=== PATIENT | female | born 1985 | race Caucasian/White ===

== ENCOUNTER → 2018-03-23 16:53 | Outpatient (CLI) | payer BC, SELFPAY ==
[2018-03-27 21:28] LABS: H. pylori Breath Test Negative (Negative)
== END ==
PROVIDERS: Visit Provider Family Medicine
DX: R10.13 Epigastric pain (principal)
CPT/HCPCS: 83013

== ENCOUNTER → 2019-01-18 11:26 | Outpatient (CLI) | payer BC, SELFPAY ==
--- NOTE | 2019-01-18 11:30 | XR_ITS ---
PROCEDURE: XR CHEST 2V CLINICAL HISTORY: PERSISTENT COUGH COMPARISON: ABDPELW/O CT ABD PELVIS W/O CONTRAST from 04/29/2016 CXR CHEST(2 VIEWS-NOT PORTABLE) from 01/15/2017 [facility] XR acute abdomen series from 03/31/2018 FINDINGS: The cardiomediastinal silhouette and pulmonary vascularity are within normal limits. Small focal area of increased density is present in the right lung base along the hemidiaphragm and may be due to an area of atelectasis or infiltrate. This may correspond to wedge-shaped area of increased density on the lateral view. No acute bony abnormalities. IMPRESSION: Focal density in the right lung base within the right lower lobe anteriorly may be due to an area of pneumonia. Suggest following till clear for confirmation. Dictated by: Juanjo Delarosa MD 01/18/2019 12:38 Electronically signed by Juanjo Delarosa MD in [place] 01/18/2019 12:38
== END ==
PROVIDERS: PCP Family Medicine; Visit Provider Family Medicine
DX: R05 Cough (principal)
CPT/HCPCS: 71046

== ENCOUNTER → 2019-06-19 18:16 | Outpatient (CLI) | payer BC, SELFPAY | PROVIDERS: Visit Provider Podiatrist | DX: B35.1 Tinea unguium (principal); L60.3 Nail dystrophy | CPT/HCPCS: 87102; 87206; 87220 ==

== ENCOUNTER 2019-11-15 18:29 | Emergency (ER) | payer BC, SELFPAY ==
[2019-11-15 18:30] VITALS: PULSE 109; RESP 19; TEMP 36.6; O2SAT 98; BMI 53.1
--- NOTE | 2019-11-15 18:46 | HMH.EDUTC ---
[facility] [place]: Strain of calf muscle Qualifiers: Encounter type: initial encounter Laterality: right Qualified Code(s): S86.811A - Strain of other muscle(s) and tendon(s) at lower leg level, right leg, initial encounter Disposition: Home, Self-Care Condition on Discharge: Good Instructions: Muscle Strain, DI for Calf Muscle Strain, How To Perform RICE (Rest, Ice, Compress, Elevate) Additional Instructions: *RICE, Rest the extremity, Ice 15-20 minutes 3-4 times daily, Compress- wear the abdifatah wrap as discussed as much as possible to help reduce swelling and pain, Elevate the extremity when at rest *Abdifatah wrap is for support and help control swelling, use it except in the shower. Be sure that is not to tight but not to loose either *Elevate when resting *Ibuprofen every 6-8 hours as needed for pain an inflammation. If your doctor has told you that you can take it If need something more can take Tylenol in between doses of Ibuprofen to help Heating pad/application of heat may help relax the muscle and help with the feeling of tightness You was given outpatient order for venous doppler to rule out DVT, they will call you with what time to be here and it was requested that the results be sent to you Family Doctor Dr Ward so make sure that you follow up Return if needed Straight to ER if any life threatening symptoms Immediately follow up with your family doctor for new or worsening of symptoms, or no noticeable improvement over the next 3-5 days Referrals: Taz Ward MD [Primary Care Provider] - As needed Time of Disposition: 19:01 Medical Decision Making - Malik Inquiry Pt receiving controlled substance: No Malik was queried for this patient: No Vital Signs: 11/15/19 18:30 Temperature 97.8 F Temperature Source Oral Pulse Rate [Right] 109 H Respiratory Rate 19 02 Sat by Pulse Oximetry 98 [facility] [place] - General Stated complaint: pain in right calf leg Time Seen by Provider: 11/15/19 18:50 Mode of Arrival: Ambulatory Limitations: No Limitations Description of Symptoms (Recalled from Triage Doc. by RN): C/O pain in her right calf since last . HEENT Symptoms (Recalled from RN notes): No Resp Symptoms (Recalled from RN notes): No Skin Symptoms (Recalled from RN notes): No MS Symptoms (Recalled from RN notes): Yes Functional Status (Recalled from RN notes): na - History of Present Illness Provider Complaint: Patient states that she was walking up stairs last and was walking like on her tip toes and she felt something pull in her right calf area and ever since it has felt tight and achy like States that she has been using ice on it and it has helped some but she was worried and wanted to have it checked for blood clot. Denies changes in color, denies warmth or redness - Related Data Home Medications Medication Instructions Recorded Confirmed cariprazine 1.5 mg capsule 1.5 mg PO cap 06/19/19 06/19/19 Previous Rx's Medication Instructions Recorded Albuterol Sulfate [Albuterol HFA 1 - 2 puffs IH Q4-6H PRN #1 inh 01/09/19 Inhaler] ciclopirox 0.77 % topical gel 1 applic TOPICAL ONCE 90 Days #30 g 06/19/19 Allergies Allergy/AdvReac Type Severity Reaction Status Date / Time No Known Allergies Allergy Verified 06/19/19 08:20 - Worker's Comp Is this a Worker's Comp case?: No [facility] History - Hepatitis A Screen Drug use history?: No High risk sexual behaviors?: No History of sexually transmitted infection?: No Currently employed?: No Childcare worker?: No Do you have indoor plumbing?: Yes Do you have electricity?: Yes Attestation statement:: This patient has been screened for Hepatitis A risk factors. I have reviewed the patient's past medical history: Yes Medical History: Reports:: Anxiety Denies:: Cancer, Diabetes Mellitus Type 1, Diabetes Mellitus Type 2, MRSA Other Medical History: Reports: Other Other Surgeries: Yes: Cholecystectomy, Dilat
[2019-11-15 19:12] VITALS: BP 148/102; PULSE 100; RESP 18; TEMP 36.8; O2SAT 99
== END 2019-11-15 19:13 | disposition home or self-care (01) ==
PROVIDERS: Emergency Provider Nurse Practitioner; PCP Family Medicine
DX: S86.811A Strain of other muscle(s) and tendon(s) at lower leg level, right leg, initial encounter (principal); X50.0XXA Overexertion from strenuous movement or load, initial encounter; Y92.019 Unspecified place in single-family (private) house as the place of occurrence of the external cause; F41.9 Anxiety disorder, unspecified; F17.210 Nicotine dependence, cigarettes, uncomplicated; R03.0 Elevated blood-pressure reading, without diagnosis of hypertension; E66.01 Morbid (severe) obesity due to excess calories; Z68.43 Body mass index [BMI] 50.0-59.9, adult
CPT/HCPCS: 99201

== ENCOUNTER → 2019-11-16 10:46 | Outpatient (CLI) | payer BC, SELFPAY ==
--- NOTE | 2019-11-16 10:49 | CA_ITS ---
APPROVED REPORT Bilateral Lower Extremity Venous Study for DVT. 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 Reported to Sylvia's office Conclusion No evidence of DVT or superficial thrombophlebitis in the veins scanned of the right lower extremity. Reported to Sylvia's office Electronically signed by : Juanjo Delarosa MD 11/16/2019 17:30:25
== END ==
PROVIDERS: PCP Family Medicine; Visit Provider Nurse Practitioner
DX: M79.661 Pain in right lower leg (principal)
CPT/HCPCS: 93971

== ENCOUNTER 2020-06-04 17:32 | Emergency (ER) | payer OTHER, SELFPAY ==
--- NOTE | 2020-06-04 17:47 | XR_ITS ---
PROCEDURE: XR KNEE RT 3V CLINICAL INDICATION: WC INJURY Pain COMPARISON: CR KNEE3L KNEE-3 VIEWS-LT from 06/27/2012 FINDINGS: No fracture or dislocation. No lytic or blastic change. There is normal mineralization. Osteoarthritic changes are present involving all 3 compartments moderate to severe. Other findings:Small suprapatellar effusion. IMPRESSION: Osteoarthritis. No acute fracture Dictated by: Juanjo Delarosa MD 06/04/2020 18:31 Juanjo Delarosa MD in [place] 06/04/2020 18:31
--- NOTE | 2020-06-04 17:47 | XR_ITS ---
PROCEDURE: XR TIBIA FIBULA RT 2V CLINICAL INDICATION: WC INJURY Pain COMPARISON: No exams were available for comparison FINDINGS: No fracture or dislocation. No lytic or blastic change. There is normal mineralization. Osteoarthritis at the knee Other findings:None. IMPRESSION: No acute findings. Dictated by: Juanjo Delarosa MD 06/04/2020 18:32 Juanjo Delarosa MD in [place] 06/04/2020 18:32
[2020-06-04 18:23] VITALS: BP 138/90; PULSE 88; RESP 21; TEMP 37; O2SAT 100; BMI 60.8
--- NOTE | 2020-06-04 18:44 | HMH.EDUTC ---
[facility] [place] Impression: Knee contusion Qualifiers: Encounter type: initial encounter Laterality: right Qualified Code(s): S80.01XA - Contusion of right knee, initial encounter Contusion, lower leg Qualifiers: Encounter type: initial encounter Laterality: right Qualified Code(s): S80.11XA - Contusion of right lower leg, initial encounter Disposition: Home, Self-Care Condition on Discharge: Good Instructions: Knee Sprain, DI for Knee Sprain, How to Use an Elastic Bandage-Knee Sprain, How To Perform RICE (Rest, Ice, Compress, Elevate) Additional Instructions: *weight bearing as tolerated *RICE, Rest the extremity, Ice 15-20 minutes 3-4 times daily, Compress- wear the abdifatah wrap as discussed as much as possible to help reduce swelling and pain, Elevate the extremity when at rest *Abdifatah wrap is for support and help control swelling, use it except in the shower. Be sure that is not to tight but not to loose either *Elevate when resting *Ibuprofen 600-800mg every 6-8 hours as needed for pain an inflammation. If need something more can take Tylenol in between doses of Ibuprofen to help Immediately follow up with your family doctor for new or worsening of symptoms, or no noticeable improvement over the next 3-5 days Follow up with Family Doctor if no improvement or any worsening of symptoms Return if needed Straight to ER if any life threatening symptoms Referrals: Taz Ward MD [Primary Care Provider] - As needed Time of Disposition: 18:54 Medical Decision Making - Malik Inquiry Pt receiving controlled substance: No Malik was queried for this patient: No Vital Signs: 06/04/20 18:23 Temperature 98.6 F Temperature Source Oral Pulse Rate [Right] 88 Respiratory Rate 21 Blood Pressure [Right Arm] 138/90 Blood Pressure Mean [Right Arm] 106 Blood Pressure Source [Right Arm] Automatic Cuff Blood Pressure Position [Right Arm] Sitting 02 Sat by Pulse Oximetry 100 - Radiology Data #1 Image(s): Knee Image Reviewed: Yes I have reviewed radiologist's interpretation IMPRESSION: Osteoarthritis. No acute fracture #2 Image(s): Tib/Fib Image Reviewed: Yes I have reviewed radiologist's interpretation IMPRESSION: No acute findings. [facility] [place] - General Stated complaint: AO 05/31/20 1144 a.m Time Seen by Provider: 06/04/20 18:44 Mode of Arrival: Ambulatory Source of Information: Patient Limitations: No Limitations Description of Symptoms (Recalled from Triage Doc. by RN): PT FELL WEDNESDAY AT WORK. SHE WAS WALKING AND ROLLED OFF OF THE SIDEWALK LANDING ON HER R KNEE AND CROUCH. HEENT Symptoms (Recalled from RN notes): No Resp Symptoms (Recalled from RN notes): No Skin Symptoms (Recalled from RN notes): No MS Symptoms (Recalled from RN notes): Yes (R KNEE AND CROUCH PAIN) Functional Status (Recalled from RN notes): NA - History of Present Illness Provider Complaint: Patient states that she was at work on Wednesday and was walking and her left ankle rolled after she stepped off the turf and she fell and landed on her right knee and schin area States that ever since she has been having swelling, bruising and pain when she walks States that she was worried that she may have broken something so she came in to get checked - Related Data Home Medications Medication Instructions Recorded Confirmed cariprazine 1.5 mg capsule 1.5 mg PO cap 06/19/19 06/19/19 Previous Rx's Medication Instructions Recorded Albuterol Sulfate [Albuterol HFA 1 - 2 puffs IH Q4-6H PRN #1 inh 01/09/19 Inhaler] ciclopirox 0.77 % topical gel 1 applic TOPICAL ONCE 90 Days #30 g 06/19/19 Allergies Allergy/AdvReac Type Severity Reaction Status Date / Time No Known Allergies Allergy Verified 06/04/20 18:33 - Worker's Comp Is this a Worker's Comp case?: Yes Is this an H Worker's Comp?: No Is this a [place] Worker's Comp?: No [facility] History - Hepatitis A Screen Drug use history?: No High risk sexual beh
[2020-06-04 18:58] VITALS: BP 132/85; PULSE 88; RESP 20; TEMP 36.6
== END 2020-06-04 19:00 | disposition home or self-care (01) ==
PROVIDERS: Emergency Provider Nurse Practitioner; PCP Family Medicine
DX: S80.01XA Contusion of right knee, initial encounter (principal); S80.11XA Contusion of right lower leg, initial encounter; W01.0XXA Fall on same level from slipping, tripping and stumbling without subsequent striking against object, initial encounter; Y92.69 Other specified industrial and construction area as the place of occurrence of the external cause; Y99.0 Civilian activity done for income or pay
CPT/HCPCS: 73562; 73590; 99202; G0463

== ENCOUNTER 2021-07-24 11:00 | Emergency (ER) | payer OTHER, SELFPAY ==
[2021-07-24 11:00] VITALS: BP 151/90; PULSE 101; RESP 18; TEMP 36.8; O2SAT 100; BMI 60.8
[2021-07-24 11:39] LABS: UTC Influenza A Antigen Negative (Negative); UTC Influenza B Antigen Negative (Negative)
[2021-07-24 11:42] LABS: Strep Scrn Group A (Rapid) Negative (Negative)
--- NOTE | 2021-07-24 11:57 | HMH.EDUTC ---
[facility] [place] Clinical Impression: Sore throat (viral) Disposition: Home, Self-Care Condition on Discharge: Good Instructions: Sore Throat, DI for Viral Syndrome, Fluticasone Nasal Cook Additional Instructions: *Monitor Temp, Over the counter Motrin or Tylenol as directed/as needed Tylenol every 4 hours and Motrin every 6 hours (as long as your family doctor has told you that you can take it) for fever or pain. and straight to ER if unable to lower temp less than 101.0 after medication given *Warm salt water gargles may help to soothe the throat *Throat Lozenges *Warm fluids like tea with honey may help to soothe the throat *Sleep elevated *Humidifier/Vaporizer *Flonase 2 sprays in each nostril daily but be aware that it may take 2-3 days before you notice improvement Your throat swab was sent for culture. Those results are typically sent to your primary care. Be sure to follow up in 2-3 days with your family doctor/primary care physician if no improvement so they can review those result and treat if necessary. If you don?t have a primary care doctor, I recommend you get one but in the mean time, you will have to return to a walk in clinic Follow up IMMEDIATELY for new or worsening symptoms or no Noticeable improvement over the next 48-72 hours. 911 for difficulty breathing or swallowing Referrals: Taz Ward MD [Primary Care Provider] - As needed Time of Disposition: 12:07 Medical Decision Making - Malik Inquiry Pt receiving controlled substance: No Malik was queried for this patient: No Vital Signs: 07/24/21 11:00 Temperature 98.2 F Temperature Source Oral Pulse Rate [Left Radial] 101 H Respiratory Rate 18 Blood Pressure [Right Arm] 151/90 H Blood Pressure Mean [Right Arm] 110 Blood Pressure Source [Right Arm] Automatic Cuff Blood Pressure Position [Right Arm] Sitting 02 Sat by Pulse Oximetry 100 Oxygen Delivery Method Room Air - Lab Data Lab results reviewed: Yes: I reviewed the patient's lab results. Lab Results 07/24/21 11:14: Group A Strep Rapid Negative 07/24/21 11:17: Influenza Type A Ag Negative, Influenza Type B Ag Negative Orders (Tests/Meds): ORDERS Category Date Time Status Strep Screen Confirmation Stat Micro 07/24/21 11:14 Received [facility] [place] HPI - General Stated complaint: sore throat, fever, body aches, congestion Time Seen by Provider: 07/24/21 11:57 Mode of Arrival: Ambulatory Source of Information: Patient Limitations: No Limitations Description of Symptoms (Recalled from Triage Doc. by RN): STREP/FLU SYMPTOMS, BODY ACHES, SORE THROAT, CHILLS HEENT Symptoms (Recalled from RN notes): Yes Resp Symptoms (Recalled from RN notes): No Skin Symptoms (Recalled from RN notes): No MS Symptoms (Recalled from RN notes): Yes Functional Status (Recalled from RN notes): N/A - History of Present Illness Provider Complaint: Patient state that she had gastric bypass about 3 weeks ago and has been doing well from that States that for the last couple of days she has been having sore scratchy throat body aches and chills and worried that she may have strep throat or flu so she came in wanting to get checked - Related Data Home Medications Medication Instructions Recorded Confirmed cariprazine 1.5 mg capsule 1.5 mg PO cap 06/19/19 06/19/19 Previous Rx's Medication Instructions Recorded Albuterol Sulfate [Albuterol HFA 1 - 2 puffs IH Q4-6H PRN #1 inh 01/09/19 Inhaler] ciclopirox 0.77 % topical gel 1 applic TOPICAL ONCE 90 Days #30 g 06/19/19 Allergies Allergy/AdvReac Type Severity Reaction Status Date / Time No Known Allergies Allergy Verified 06/04/20 18:33 - Worker's Comp Is this a Worker's Comp case?: No Is this an [facility] Worker's Comp?: No Is this a [place] Worker's Comp?: No [facility] History - Hepatitis A Screen Drug use history?: No High risk sexual behaviors?: No History of sexually transmitted infection?: No Currently employed?: No
[2021-07-24 12:12] VITALS: BP 151/90; PULSE 101; RESP 16; TEMP 36.8; O2SAT 100
== END 2021-07-24 12:12 | disposition home or self-care (01) ==
PROVIDERS: Emergency Provider Nurse Practitioner; PCP Family Medicine
DX: J02.9 Acute pharyngitis, unspecified (principal); R50.9 Fever, unspecified; M79.10 Myalgia, unspecified site; F41.9 Anxiety disorder, unspecified; F17.210 Nicotine dependence, cigarettes, uncomplicated; Z79.51 Long term (current) use of inhaled steroids; Z98.84 Bariatric surgery status
CPT/HCPCS: 87430; 87804; 99213; G0463

== ENCOUNTER 2021-11-15 01:30 | Emergency (ER) | payer OTHER, SELFPAY ==
[2021-11-15 01:31] VITALS: BP 189/94; PULSE 86; RESP 18; TEMP 36.7; O2SAT 98; BMI 59.3
--- NOTE | 2021-11-15 01:39 | ECG_ITS ---
APPROVED REPORT Exam: Resting ECG HR:79 bpm ECG Measurements Heart Rate 79 AXES MT 144 P 52 QRSd 81 QRS 56 QT 403 T 46 QTc 437 Conclusion SINUS RHYTHM LOW QRS VOLTAGE IN PRECORDIAL LEADS [QRS DEFLECTION < 1.0 mV IN CHEST LEADS] BORDERLINE ECG UNCONFIRMED REPORT Electronically signed by : Yong Thomason MD 11/15/2021 08:12:17
[2021-11-15 01:54] LABS: Influenza A, PCR Not Detected (NotDetected); Influenza B, PCR Not Detected (NotDetected)
[2021-11-15 02:09] LABS: Basophils # 0.1 K/mm3 (0-0.2); Basophils % 1.8 % (0.1-2.0); Eosinophils # 0.2 K/mm3 (0.0-0.4); Eosinophils % 3.8 % (0.1-12.0); Hematocrit 44.5 % (37.0-47.0); Hemoglobin 14.5 g/dL (12.2-16.2); Lymphocytes # 2.7 K/mm3 (0.7-4.5); Lymphocytes % 44.8 % (10-50); Mean Corpuscular HGB Conc 32.6 g/dL (31.8-35.4); Mean Corpuscular Hemoglobin 29.7 pg (27.0-31.2); Mean Corpuscular Volume 91.2 fl (81-99); Mean Platelet Volume 7.8 fl (7.4-10.4); Monocytes # 0.4 K/mm3 (0.1-1.0); Monocytes % 5.9 % (1.7-9.3); Neutrophils # 2.6 K/mm3 (1.8-7.8); Neutrophils % 43.7 % (37.0-80.0); Platelet Count 315 K/mm3 (142-424); Red Blood Count 4.87 M/mm3 (4.20-5.40); Red Cell Distribution Width 14.4 % (11.5-17.5)
--- NOTE | 2021-11-15 02:12 | HMH.EDARPALP ---
ED Disposition Clinical Impression: COVID-19 Cardiac arrhythmia Qualifiers: Arrhythmia type: unspecified cardiac arrhythmia Qualified Code(s): I49.9 - Cardiac arrhythmia, unspecified Disposition: Home, Self-Care Condition on Discharge: Good Instructions: DI for COVID-19 (Suspected or Confirmed ) Additional Instructions: see card and pcp for follow up Referrals: Taz Ward MD [Primary Care Provider] - - Critical Care Critical Care Time: No Attestation: On 11/15/21, the high probability of a clinically significant, sudden or life threatening deterioration of the following system(s) required my full and direct attention, intervention and personal management. The time I documented below is in addition to time spent performing reported procedures but includes the following listed in this critical care notation. Medical Decision Making - Medical Records Medical records reviewed: Yes: I reviewed the patient's medical records. - Malik Inquiry Pt receiving controlled substance: No Vital Signs: 11/15/21 01:31 11/15/21 02:34 Temperature 98.1 F 98.1 F Temperature Source Oral Oral Pulse Rate 81 Pulse Rate [Right] 86 Respiratory Rate 18 18 Blood Pressure 167/78 H Blood Pressure [Right Arm] 189/94 H Blood Pressure Mean [Right Arm] 125 02 Sat by Pulse Oximetry 98 - Lab Data Lab results reviewed: Yes: I reviewed the patient's lab results. Lab Results 11/15/21 01:45: SARS-CoV-2 (PCR) Detected A, Influenza A Untype (PCR) Not detected, Influenza Type B (PCR) Not detected 11/15/21 02:02: WBC 6.0, RBC 4.87, Hgb 14.5, Hct 44.5, MCV 91.2, MCH 29.7, MCHC 32.6, RDW 14.4, Plt Count 315, MPV 7.8, Neut % (Auto) 43.7, Lymph % (Auto) 44.8, [place] % (Auto) 5.9, Eos % (Auto) 3.8, Baso % (Auto) 1.8, Neut # (Auto) 2.6, Lymph # (Auto) 2.7, [place] # (Auto) 0.4, Eos # (Auto) 0.2, Baso # (Auto) 0.1 11/15/21 02:02: Sodium 139, Potassium 3.3 L, Chloride 107, Carbon Dioxide 25, Anion Gap 10.3, BUN 6 L, Creatinine 0.70, Estimated Creat Clear 110, Estimated GFR 94, Est GFR ( Amer) 113, Glucose 126 H, Calcium 9.1, Total Bilirubin < 0.1 L, AST 26, ALT 25, Alkaline Phosphatase 88, Total Protein 7.1, Albumin 3.9, Globulin 3.2, Albumin/Globulin Ratio 1.2 11/15/21 02:02: Serum HCG, Qual Negative Result diagrams: 11/15/21 02:02 11/15/21 02:02 Orders (Tests/Meds): ORDERS Category Date Time Status Chest XR 2 view (NOT portable) [XR chest 2V] Stat Exams 11/15/21 01:46 Ordered Comprehensive Metabolic Panel Stat Lab 11/15/21 02:02 Results Free T4 (Free Thyroxine) Stat Lab 11/15/21 02:02 Received Thyroid Stimulating Hormone Stat Lab 11/15/21 02:02 Results - ECG Data Tracing #1 Normal Sinus Rhythm: Yes Ischemic changes: non-specific ST-T wave changes Medical Decision Narrative: has hx od pac and slow hr and has covid-19 but stable exam and labs - will need holter and card eval Arrhythmia/Palpitations HPI - General Chief Complaint: Arrhythmia/Palpitations Stated Complaint: low heart rate,Covid + Time Seen by Provider: 11/15/21 02:12 Mode of Arrival: Ambulatory Source of Information: Patient, Medical Record Limitations: No Limitations - History of Present Illness Onset (ago): hour(s) Duration: intermittent Severity: moderate Associated symptoms: denies other symptoms - Related Data Home Medications Medication Instructions Recorded Confirmed cariprazine 1.5 mg capsule 1.5 mg PO cap 06/19/19 06/19/19 Previous Rx's Medication Instructions Recorded Albuterol Sulfate [Albuterol HFA 1 - 2 puffs IH Q4-6H PRN #1 inh 01/09/19 Inhaler] ciclopirox 0.77 % topical gel 1 applic TOPICAL ONCE 90 Days #30 g 06/19/19 Allergies Allergy/AdvReac Type Severity Reaction Status Date / Time Penicillins Allergy Verified 11/15/21 01:57 quetiapine [From Seroquel] Allergy Verified 11/15/21 01:57 [facility] History - Hepatitis A Screen Attestation statement:: This patient has been screened
[2021-11-15 02:20] LABS: HCG Qualitative, Serum Negative (Negative)
[2021-11-15 02:21] LABS: Alanine Aminotransferase 25 U/L (12-78); Albumin Level 3.9 g/dl (3.5-5.0); Albumin/Globulin Ratio 1.2 (1.1-1.8); Alkaline Phosphatase 88 U/L (38-126); Anion Gap 10.3 mEq/L (5-15); Aspartate Amino Transferase 26 U/L (14-36); Bilirubin,Total < 0.1 mg/dl (0.2-1.3); Blood Urea Nitrogen 6 mg/dl (7-17); Calcium 9.1 mg/dl (8.4-10.2); Carbon Dioxide 25 mmol/L (22.0-30.0); Chloride 107 mmol/L (98-107); Creatinine Clearance Estimated 110 mL/min (50-200); Estimated Glomerular Filt Rate 94 ml/min (>60); GFR (African American) 113 ML/MIN (>60); Globulin 3.2 g/dL (1.3-3.2); Glucose 126 mg/dl (74-100); Potassium 3.3 mmoL/L (3.5-5.1); Sodium 139 mmol/L (136-145); Total Protein,Serum 7.1 g/dl (6.3-8.2)
[2021-11-15 02:23] LABS: Coronavirus 19, PCR Detected (NotDetected)
[2021-11-15 02:34] VITALS: BP 167/78; PULSE 81; RESP 18; TEMP 36.7; O2SAT 98
[2021-11-15 02:38] LABS: Free T4 (Free Thyroxine) 1.37 ng/dl (0.78-2.19)
[2021-11-15 02:52] LABS: Thyroid Stimulating Hormone 4.36 uIU/mL (0.465-4.68)
== END 2021-11-15 02:57 | disposition home or self-care (01) ==
PROVIDERS: Emergency Provider Emergency Medicine; PCP Family Medicine
DX: U07.1 COVID-19 (principal); I49.9 Cardiac arrhythmia, unspecified
CPT/HCPCS: 80053; 84439; 84443; 84703; 85025; 93005; 99283; C9803; U0003; U0005

== ENCOUNTER → 2021-11-20 08:24 | Outpatient (CLI) | payer OTHER, SELFPAY | PROVIDERS: PCP Family Medicine; Visit Provider Internal Medicine | DX: I49.9 Cardiac arrhythmia, unspecified (principal) | CPT/HCPCS: 93225 ==

== ENCOUNTER 2021-12-15 08:05 | Emergency (ER) | payer OTHER, SELFPAY ==
[2021-12-15 08:07] VITALS: BMI 59.3
[2021-12-15 08:16] VITALS: BP 167/103; PULSE 105; RESP 20; TEMP 36.9; O2SAT 98; BMI 59.3
[2021-12-15 08:30] VITALS: BP 177/104; PULSE 83; RESP 20; O2SAT 99
[2021-12-15 08:31] LABS: Microscopic, Urine URINE MICROSCOPIC (MICROSCOPIC)
--- NOTE | 2021-12-15 08:32 | US_ITS ---
FINAL REPORT CLINICAL HISTORY: RLQ pain, nausea, acute onset. torsion v cyst; morbid obesity FINDINGS: Transvaginal sonographic images of the pelvis were obtained. The uterus measures 8.5 x 5.0 x 6.7 cm. A 3.9 cm fibroid is seen in the lower uterus. The endometrium measures 0.35, which is within normal limits. The right ovary measures 2.6 cm in length and left ovary measures 3.2 cm in length. Normal blood flow seen to the ovaries. There is a 3.2 cm left ovarian cyst. A small follicle is seen in the right ovary. There is no evidence of free fluid. IMPRESSION: 3.9 cm fibroid in the lower uterus. Reviewed, Interpreted and Dictated by Bruno Ballesteros III, MD Transcribed by Luda Zheng Authenticated and [facility]
[2021-12-15 08:33] LABS: Appearance,Urine TURBID (Clear); Bilirubin,Urine Negative (Negative); Blood, Urine 3+ (Negative); Color,Urine AMBER (Yellow); Glucose,Urine (UA) Negative (Negative); Ketones,Urine Negative (Negative); Leukocyte Esterase,Urine TRACE (Negative); Nitrate,Urine POSITIVE (Negative); PH,Urine 5.5 (5.0-8.5); Protein,Urine 2+ (Negative); Specific Gravity, Urine >= 1.030 (1.005-1.030)
[2021-12-15 08:34] LABS: Urine Pregnancy, HCG Qual. Negative (Negative)
--- NOTE | 2021-12-15 08:34 | HMH.EDGENADL ---
Discharge Plan Disposition Patient Disposition: Home, Self-Care Condition: Good Prescriptions Prescriptions: New cefadroxil 500 mg capsule 500 mg PO BID 7 Days Qty: 14 0RF ondansetron 4 mg tablet,disintegrating 4 mg PO Q6HP PRN (Reason: nausea and vomiting) 3 Days Qty: 10 0RF No Action sertraline 50 mg tablet 50 mg PO DAILY omeprazole 20 mg capsule,delayed release(DR/EC) 20 mg PO BID Label Comments: TAKE ONE CAPSULE BY MOUTH EVERY TWELVE HOURS take morning CAPSULE 30 minutes BEFORE morning meal propranolol 10 mg tablet 10 mg PO BID Qty: 60 2RF Rx Instructions: Take as directed albuterol sulfate 18 GM HFA aerosol inhaler 1 - 2 puffs inhalation Q4-6H PRN (Reason: Shortness Of Breath Or Wheezing) Qty: 1 5RF Referrals Follow up/Referrals: Taz Ward MD [Primary Care Provider] - See instructions Clinical Impressions Clinical Impression: UTI (urinary tract infection) Instructions Patient Instructions: DI for Acute Abdominal Pain Discharge ED Provider: Nick Valladares General Adult HPI General Chief complaint: Abdominal Pain Stated complaint: abdominal pain Time Seen by Provider: 12/15/21 08:20 Mode of Arrival: Ambulatory Source of Information: Patient Limitations: No Limitations Description of Symptoms (Recalled from ER Triage Doc. by RN): to ed per pvt car with c/o rlq abd pain, nausea that woke her up at 5am. pt denies any fever, chills, vomiting, diarrhea. History of Present Illness HPI narrative: This is a 36-year-old female with history of PCOS, endometriosis, cholecystectomy, gastric sleeve in June 2021 presenting with abdominal pain. Patient states that she woke up from sleep around 4 AM, approximately 4 hours prior to arrival with acute onset right lower quadrant pain. 8 out of 10, intermittently radiates to her right flank. Associated with frequency, urgency, but no dysuria and also has darkened urine. She has had associated nausea without vomiting. Denies fevers, chills, chest pain, shortness of breath, cough, trauma, overlying rash or skin changes, or any other concerning symptoms. Patient's last menstrual period was 5 days prior to arrival and ended 1 day prior to arrival. Bleeding was normal for her. Denies any other abnormal vaginal discharge or bleeding. She is also had normal bowel movements have been nonbloody, nonbilious without diarrhea or constipation. Related Data Home Medications Medication Instructions Recorded Confirmed omeprazole 20 mg capsule,delayed 20 mg PO BID 12/03/21 12/03/21 release sertraline 50 mg tablet 50 mg PO DAILY 12/03/21 12/03/21 Previous Rx's Medication Instructions Recorded albuterol sulfate 90 mcg/actuation 1 - 2 puffs inhalation Q4-6H PRN 01/09/19 aerosol inhaler Shortness Of Breath Or Wheezing #1 inh propranolol 10 mg tablet 10 mg PO BID #60 tabs 12/03/21 cefadroxil 500 mg capsule 500 mg PO BID 7 days #14 caps 12/15/21 ondansetron 4 mg disintegrating 4 mg PO Q6HP PRN nausea and 12/15/21 tablet vomiting 3 days #10 tabs Allergies Allergy/AdvReac Type Severity Reaction Status Date / Time Penicillins Allergy Verified 12/03/21 11:39 quetiapine [From Seroquel] Allergy Verified 12/03/21 11:39 PFSH PFS Medical History (Updated 12/15/21 @ 10:10 by Nick Valladares MD) Anxiety Bariatric surg stat-del HTN (hypertension) Surgical History (Updated 12/03/21 @ 11:43 by Deanna Conner) H/O bariatric surgery Family History (Updated 12/03/21 @ 11:43 by Deanna Conner) Sister Asthma Mother Heart attack Diabetes Father Diabetes Coronary artery disease Social History (Updated 12/03/21 @ 11:36 by Deanna Conner) Smoking Status: Current some day smoker tobacco type: cigarettes packs per day: 1 second hand exposure: No alcohol intake: never current occupational status: employed Travel in the last 8 weeks: Inside the [facility] housing: [facility]
[2021-12-15 08:38] LABS: Basophils # 0.1 K/mm3 (0-0.2); Eosinophils # 0.6 K/mm3 (0.0-0.4); Eosinophils % 6.5 % (0.1-12.0); Hematocrit 47.7 % (37.0-47.0); Hemoglobin 15.4 g/dL (12.2-16.2); Lymphocytes # 2.8 K/mm3 (0.7-4.5); Lymphocytes % 30.8 % (10-50); Mean Corpuscular HGB Conc 32.2 g/dL (31.8-35.4); Mean Corpuscular Hemoglobin 29.9 pg (27.0-31.2); Mean Corpuscular Volume 92.9 fl (81-99); Mean Platelet Volume 8.2 fl (7.4-10.4); Monocytes # 0.4 K/mm3 (0.1-1.0); Monocytes % 4.3 % (1.7-9.3); Neutrophils # 5.1 K/mm3 (1.8-7.8); Neutrophils % 57.3 % (37.0-80.0); Platelet Count 389 K/mm3 (142-424); Red Blood Count 5.14 M/mm3 (4.20-5.40); Red Cell Distribution Width 14.4 % (11.5-17.5); White Blood Count 8.9 K/mm3 (4.8-10.8)
--- NOTE | 2021-12-15 08:40 | ECG_ITS ---
APPROVED REPORT Exam: Resting ECG HR:84 bpm ECG Measurements Heart Rate [address] 161 P 56 QRSd 65 QRS 50 QT 352 T 32 QTc 393 Conclusion SINUS RHYTHM LOW QRS VOLTAGE IN PRECORDIAL LEADS [QRS DEFLECTION < 1.0 mV IN CHEST LEADS] SEPTAL MYOCARDIAL INFARCTION , OF INDETERMINATE AGE [40+ ms Q WAVE IN V1/V2] ABNORMAL ECG UNCONFIRMED REPORT Electronically signed by : Yong Thomason MD 12/15/2021 22:34:59
[2021-12-15 08:42] LABS: Alanine Aminotransferase 28 U/L (12-78); Albumin Level 4.2 g/dl (3.5-5.0); Albumin/Globulin Ratio 1.2 (1.1-1.8); Alkaline Phosphatase 86 U/L (38-126); Anion Gap 11.8 mEq/L (5-15); Aspartate Amino Transferase 32 U/L (14-36); Bilirubin,Total 0.3 mg/dl (0.2-1.3); Blood Urea Nitrogen 8 mg/dl (7-17); Calcium 9.2 mg/dl (8.4-10.2); Carbon Dioxide 25 mmol/L (22.0-30.0); Chloride 109 mmol/L (98-107); Creatinine Clearance Estimated 110 mL/min (50-200); Estimated Glomerular Filt Rate 94 ml/min (>60); GFR (African American) 113 ML/MIN (>60); Globulin 3.4 g/dL (1.3-3.2); Glucose 130 mg/dl (74-100); Lipase 97 U/L (23-300); Potassium 3.8 mmoL/L (3.5-5.1); Sodium 142 mmol/L (136-145); Total Protein,Serum 7.6 g/dl (6.3-8.2)
[2021-12-15 08:47] LABS: Bacteria,Urine 2+ /lpf; RBC,Urine TNTC #/hpf (0-3); Squamous Epithelial Cell,Urine Occasional #/hpf (0-5); WBC,Urine Occasional #/hpf (0-3)
--- NOTE | 2021-12-15 09:24 | PC.NURSE ---
BACK FROM US, REPORT GIVEN TO
--- NOTE | 2021-12-15 10:05 | PC.NURSE ---
MD IN WITH PT GOING OVER RESULTS
[2021-12-15 10:35] VITALS: BP 168/78; PULSE 100; RESP 16; TEMP 36.6; O2SAT 98
== END 2021-12-15 10:37 | disposition home or self-care (01) ==
PROVIDERS: Emergency Provider Emergency Medicine; PCP Family Medicine
DX: N39.0 Urinary tract infection, site not specified (principal); D25.9 Leiomyoma of uterus, unspecified
CPT/HCPCS: 76830; 80053; 81001; 81025; 83690; 85025; 87086; 93005; 96361; 96374; 96375; 99284; J2405

== ENCOUNTER 2021-12-19 17:25 | Emergency (ER) | payer OTHER, SELFPAY ==
[2021-12-19 17:27] VITALS: BP 141/79; PULSE 73; RESP 18; TEMP 36.9; O2SAT 99; BMI 59.3
[2021-12-19 18:00] VITALS: BP 137/76; PULSE 76; RESP 16; O2SAT 98
[2021-12-19 18:04] VITALS: BMI 59.3
[2021-12-19 18:30] VITALS: BP 111/78; PULSE 68; RESP 18; O2SAT 98
[2021-12-19 18:34] LABS: Basophils # 0.1 K/mm3 (0-0.2); Basophils % 1.2 % (0.1-2.0); Eosinophils # 0.6 K/mm3 (0.0-0.4); Eosinophils % 6.4 % (0.1-12.0); Hematocrit 44.5 % (37.0-47.0); Hemoglobin 14.1 g/dL (12.2-16.2); Lymphocytes # 3.2 K/mm3 (0.7-4.5); Mean Corpuscular HGB Conc 31.8 g/dL (31.8-35.4); Mean Corpuscular Hemoglobin 28.9 pg (27.0-31.2); Mean Corpuscular Volume 90.9 fl (81-99); Monocytes # 0.4 K/mm3 (0.1-1.0); Monocytes % 3.7 % (1.7-9.3); Neutrophils # 5.6 K/mm3 (1.8-7.8); Neutrophils % 56.7 % (37.0-80.0); Platelet Count 342 K/mm3 (142-424); Red Blood Count 4.89 M/mm3 (4.20-5.40); Red Cell Distribution Width 14.2 % (11.5-17.5); White Blood Count 9.9 K/mm3 (4.8-10.8)
[2021-12-19 18:36] LABS: Alanine Aminotransferase 26 U/L (12-78); Albumin Level 3.8 g/dl (3.5-5.0); Albumin/Globulin Ratio 1.2 (1.1-1.8); Alkaline Phosphatase 85 U/L (38-126); Anion Gap 14.5 mEq/L (5-15); Aspartate Amino Transferase 28 U/L (14-36); Blood Urea Nitrogen 8 mg/dl (7-17); Calcium 8.7 mg/dl (8.4-10.2); Carbon Dioxide 25 mmol/L (22.0-30.0); Chloride 103 mmol/L (98-107); Creatinine Clearance Estimated 110 mL/min (50-200); Estimated Glomerular Filt Rate 94 ml/min (>60); GFR (African American) 113 ML/MIN (>60); Globulin 3.1 g/dL (1.3-3.2); Glucose 125 mg/dl (74-100); Potassium 3.5 mmoL/L (3.5-5.1); Sodium 139 mmol/L (136-145); Total Protein,Serum 6.9 g/dl (6.3-8.2)
[2021-12-19 18:37] LABS: Bilirubin,Total 0.1 mg/dl (0.2-1.3)
--- NOTE | 2021-12-19 18:39 | CT_ITS ---
PROCEDURE INFORMATION: Exam: CT Abdomen And Pelvis Without Contrast Exam date and time: 12/19/21 07:00 PM Age: 36 years old Clinical indication: Abdominal pain; Additional info: Concern for nephrolithiasis TECHNIQUE: Imaging protocol: Computed tomography of the abdomen and pelvis without contrast. Radiation optimization: All CT scans at this facility use at least one of these dose optimization techniques: automated exposure control; mA and/or kV adjustment per patient size (includes targeted exams where dose is matched to clinical indication); or iterative reconstruction. COMPARISON: ABDPELW/O CT ABD PELVIS W/O CONTRAST 04/29/16 02:12 PM FINDINGS: Tubes, catheters and devices: None noted. Lungs: Lung bases appear clear. Heart: No significant coronary calcifications. No cardiomegaly. No significant pericardial effusion. Liver: Normal. No mass. Gallbladder and bile ducts: Cholecystectomy. No ductal dilation. Pancreas: Normal. No ductal dilation. Spleen: Normal. No splenomegaly. Adrenal glands: Normal. No mass. Kidneys and ureters: Normal. No hydronephrosis. Stomach and bowel: Gastric sleeve. No obstruction. No mucosal thickening. Appendix: No evidence of appendicitis. Intraperitoneal space: Unremarkable. No free air. No significant fluid collection. Retroperitoneal space: No significant retroperitoneal inflammatory changes are noted. Vasculature: Unremarkable. No abdominal aortic aneurysm. Lymph nodes: Unremarkable. No enlarged lymph nodes. Urinary bladder: Unremarkable as visualized. Reproductive: Unremarkable as visualized. Bones/joints: Unremarkable. No acute fracture. Soft tissues: Unremarkable. IMPRESSION: 1. No CT evidence of nephroureterolithiasis. 2. Cholecystectomy. 3. Gastric sleeve.
[2021-12-19 18:44] LABS: Lactic Acid 1.3 mmol/L (0.7-2.1)
[2021-12-19 19:00] VITALS: BP 104/74; PULSE 71; RESP 18; O2SAT 100
[2021-12-19 19:31] VITALS: BP 137/83; PULSE 68; RESP 18; O2SAT 98
--- NOTE | 2021-12-19 20:00 | PC.NURSE ---
shift change report given to kiararn
--- NOTE | 2021-12-19 20:07 | HMH.EDGENADL ---
Discharge Plan Disposition Patient Disposition: Home, Self-Care Condition: Fair Prescriptions Prescriptions: No Action sertraline 50 mg tablet 50 mg PO DAILY omeprazole 20 mg capsule,delayed release(DR/EC) 20 mg PO BID Label Comments: TAKE ONE CAPSULE BY MOUTH EVERY TWELVE HOURS take morning CAPSULE 30 minutes BEFORE morning meal propranolol 10 mg tablet 10 mg PO BID Qty: 60 2RF Rx Instructions: Take as directed albuterol sulfate 18 GM HFA aerosol inhaler 1 - 2 puffs inhalation Q4-6H PRN (Reason: Shortness Of Breath Or Wheezing) Qty: 1 5RF cefadroxil 500 mg capsule 500 mg PO BID 7 Days Qty: 14 0RF ondansetron 4 mg tablet,disintegrating 4 mg PO Q6HP PRN (Reason: nausea and vomiting) 3 Days Qty: 10 0RF Referrals Follow up/Referrals: Taz Ward MD [Primary Care Provider] - See instructions Activity Restrictions/Add. Instructions Additional Instructions/Restrictions: Please continue to take your Cipro as prescribed. Please return to the ED with any new or worsening symptoms. There is no evidence of kidney stone today on your CT. Clinical Impressions Clinical Impression: Acute cystitis Instructions Patient Instructions: DI for Acute Abdominal Pain Discharge ED Provider: Kenan Henderson General Adult HPI General Chief complaint: Abdominal Pain Stated complaint: back pain,fever,low bladder pain Time Seen by Provider: 12/19/21 18:00 Mode of Arrival: Ambulatory Source of Information: Patient Limitations: No Limitations Description of Symptoms (Recalled from ER Triage Doc. by RN): Pt reports increased lower abd pressure, fever today, feels like she has no energy. Pt reports she is only able to to dribble when urinating. Pt reports navdeep flank pain, lower back and lower abd aching. Pt was seen in ER Wednesday treated for UTI, seen by PCP on Wednesday antibiotic changed to cipro. History of Present Illness HPI narrative: Patient is a 36-year-old female with a past medical history of gastric sleeve and recent diagnosis of urinary tract infection who presents today with continued abdominal pain, malaise, right flank pain. She says that she was evaluated in the ER for pelvic pain a few days ago and was diagnosed with urinary tract infection. She continued get worse and developed flank pain so they switched her over to ciprofloxacin. She was sent back today by her PCP with concern that she may have an infected stone. She continues to complain of pain in her pelvic region in addition to right-sided flank pain. She also has subjective fevers. She says that she is not able to eat very much and feels weak as well. Denies any chest pain. She says when she goes to the bathroom she feels like she is only dribbling a little bit. Related Data Home Medications Medication Instructions Recorded Confirmed omeprazole 20 mg capsule,delayed 20 mg PO BID 12/03/21 12/03/21 release sertraline 50 mg tablet 50 mg PO DAILY 12/03/21 12/03/21 Previous Rx's Medication Instructions Recorded albuterol sulfate 90 mcg/actuation 1 - 2 puffs inhalation Q4-6H PRN 01/09/19 aerosol inhaler Shortness Of Breath Or Wheezing #1 inh propranolol 10 mg tablet 10 mg PO BID #60 tabs 12/03/21 cefadroxil 500 mg capsule 500 mg PO BID 7 days #14 caps 12/15/21 ondansetron 4 mg disintegrating 4 mg PO Q6HP PRN nausea and 12/15/21 tablet vomiting 3 days #10 tabs Allergies Allergy/AdvReac Type Severity Reaction Status Date / Time Penicillins Allergy Verified 12/03/21 11:39 quetiapine [From Seroquel] Allergy Verified 12/03/21 11:39 [facility] Medical History Anxiety Bariatric surg stat-del HTN (hypertension) Surgical History H/O bariatric surgery Family History (Updated 12/03/21 @ 11:43 by Deanna Conner) Sister Asthma Mother Heart attack Diabetes Father Adriana
[2021-12-19 20:38] VITALS: BP 137/83; PULSE 68; RESP 18; TEMP 36.9; O2SAT 98
== END 2021-12-19 20:41 | disposition home or self-care (01) ==
PROVIDERS: Emergency Provider Student in an Organized Health Care Education/Training Program; PCP Family Medicine
DX: N30.00 Acute cystitis without hematuria (principal); Z98.84 Bariatric surgery status
CPT/HCPCS: 74176; 80053; 83605; 85025; 96360; 99284

== ENCOUNTER → 2021-12-24 19:59 | Outpatient (CLI) | payer OTHER, SELFPAY | PROVIDERS: PCP Family Medicine; Visit Provider Nurse Practitioner Family | DX: R53.83 Other fatigue (principal); R40.0 Somnolence; R06.83 Snoring; G47.30 Sleep apnea, unspecified | CPT/HCPCS: G0399 ==

== ENCOUNTER 2022-01-04 13:30 | Emergency (ER) | payer OTHER, SELFPAY ==
[2022-01-04 13:55] VITALS: PULSE 85; RESP 18; TEMP 37.1; O2SAT 98; BMI 59.3
--- NOTE | 2022-01-04 14:07 | EXP.UTC ---
Discharge Plan Disposition Patient Disposition: Home, Self-Care Condition: Good Prescriptions Prescriptions: No Action sertraline 50 mg tablet 50 mg PO DAILY omeprazole 20 mg capsule,delayed release(DR/EC) 20 mg PO BID Label Comments: TAKE ONE CAPSULE BY MOUTH EVERY TWELVE HOURS take morning CAPSULE 30 minutes BEFORE morning meal propranolol 10 mg tablet 10 mg PO BID Qty: 60 2RF Rx Instructions: Take as directed albuterol sulfate 18 GM HFA aerosol inhaler 1 - 2 puffs inhalation Q4-6H PRN (Reason: Shortness Of Breath Or Wheezing) Qty: 1 5RF cefadroxil 500 mg capsule 500 mg PO BID 7 Days Qty: 14 0RF ondansetron 4 mg tablet,disintegrating 4 mg PO Q6HP PRN (Reason: nausea and vomiting) 3 Days Qty: 10 0RF Referrals Follow up/Referrals: Taz Ward MD [Primary Care Provider] - See instructions Activity Restrictions/Add. Instructions Additional Instructions/Restrictions: *Monitor Temp, Over the counter Motrin or Tylenol as directed/as needed Tylenol every 4 hours and Motrin every 6 hours (as long as your family doctor has told you that you can take it) for fever or pain. and straight to ER if unable to lower temp less than 101.0 after medication given *Warm salt water gargles may help to soothe the throat *Throat Lozenges? *Warm fluids like tea with honey may help to soothe the throat? *Sleep elevated *Humidifier/Vaporizer Follow up IMMEDIATELY for new or worsening symptoms or no Noticeable improvement over the next 48-72 hours. 911 for difficulty breathing or swallowing Clinical Impressions Clinical Impression: Bronchitis Instructions Patient Instructions: Acute Bronchitis Discharge ED Provider: Charla Richey [facility] [place] HPI General Stated complaint: cough, congestion, head congestion Time Seen by Provider: 01/04/22 14:07 History of Present Illness Provider Complaint: Patient states that she has been having sinus congestion and pressure and feels like it is trying to move into her chest and feels like it is turning into Bronchitis States that she wanted to come in and get it checked Related Data Home Medications Medication Instructions Recorded Confirmed omeprazole 20 mg capsule,delayed 20 mg PO BID 12/03/21 12/03/21 release sertraline 50 mg tablet 50 mg PO DAILY 12/03/21 12/03/21 Previous Rx's Medication Instructions Recorded albuterol sulfate 90 mcg/actuation 1 - 2 puffs inhalation Q4-6H PRN 01/09/19 aerosol inhaler Shortness Of Breath Or Wheezing #1 inh propranolol 10 mg tablet 10 mg PO BID #60 tabs 12/03/21 cefadroxil 500 mg capsule 500 mg PO BID 7 days #14 caps 12/15/21 ondansetron 4 mg disintegrating 4 mg PO Q6HP PRN nausea and 12/15/21 tablet vomiting 3 days #10 tabs Allergies Allergy/AdvReac Type Severity Reaction Status Date / Time Penicillins Allergy Verified 12/03/21 11:39 quetiapine [From Seroquel] Allergy Verified 12/03/21 11:39 PFSH PFS Medical History (Updated 01/04/22 @ 14:20 by Charla Richey APRN) Anxiety Bariatric surg stat-del History of gastroesophageal reflux (GERD) HTN (hypertension) Urinary tract infection Surgical History (Updated 01/04/22 @ 14:11 by Charleen Lockhart RN) H/O bariatric surgery History of cholecystectomy History of hernia repair Family History (Updated 12/03/21 @ 11:43 by Deanna Conner) Sister Asthma Mother Heart attack Diabetes Father Diabetes Coronary artery disease Social History (Updated 12/03/21 @ 11:36 by Deanna Conner) Smoking Status: Never smoker second hand exposure: No alcohol intake: never current occupational status: employed Travel in the last 8 weeks: Inside the [place] housing: house ROS Obtained: Yes All systems reviewed & no additional complaints except as documented and Yes Systems reviewed as appropriate & no additional complaints except as documented Constitutional Constitutional: Repo
[2022-01-04 14:17] VITALS: BP 0/0; PULSE 85; RESP 18; TEMP 37.1; O2SAT 98
== END 2022-01-04 14:25 | disposition home or self-care (01) ==
PROVIDERS: Emergency Provider Nurse Practitioner; PCP Family Medicine
DX: J40 Bronchitis, not specified as acute or chronic (principal)
CPT/HCPCS: 99212; G0463

== ENCOUNTER 2022-04-01 18:19 | Emergency (ER) | payer OTHER, SELFPAY ==
[2022-04-01 19:30] VITALS: BP 146/77; PULSE 70; RESP 20; TEMP 36.5; O2SAT 100; BMI 45.6
--- NOTE | 2022-04-01 19:45 | EXP.UTC ---
Discharge Plan Disposition Patient Disposition: Home, Self-Care Condition: Good Prescriptions Prescriptions: New mupirocin 2 % ointment 1 applic topical TID 10 Days Qty: 22 0RF Rx Instructions: apply around fingernail as directed cephalexin 500 mg capsule 500 mg PO Q8H 7 Days Qty: 21 0RF No Action omeprazole 20 mg capsule,delayed release(DR/EC) 20 mg PO BID Label Comments: TAKE ONE CAPSULE BY MOUTH EVERY TWELVE HOURS take morning CAPSULE 30 minutes BEFORE morning meal sertraline 50 mg tablet 100 mg PO DAILY propranolol 10 mg tablet 10 mg PO BID Qty: 180 3RF cyclobenzaprine 5 mg tablet 5 mg PO HS albuterol sulfate 18 GM HFA aerosol inhaler 1 - 2 puffs inhalation Q4-6H PRN (Reason: Shortness Of Breath Or Wheezing) Qty: 1 5RF ondansetron 4 mg tablet,disintegrating 4 mg PO Q6HP PRN (Reason: nausea and vomiting) 3 Days Qty: 10 0RF Referrals Follow up/Referrals: Taz Ward MD [Primary Care Provider] - See instructions Activity Restrictions/Add. Instructions Additional Instructions/Restrictions: Soak finger in warm water and epson salt and apply topical ointment as prescribed Take oral antibiotics Trim away hangnail if seen do not pull Follow up with your Family Doctor if no improvement or any worsening of symptoms Return if needed Straight to ER if any life threatening symptoms Clinical Impressions Clinical Impression: Paronychia Instructions Patient Instructions: Paronychia, DI for Paronychia Discharge ED Provider: Charla Richey [facility] [place] General Stated complaint: poss infected finger Time Seen by Provider: 04/01/22 19:45 History of Present Illness Provider Complaint: Patient states that she has been having pain and swelling around her left middle finger nail States that it was looking red and she had a little drainage around her nail earlier Related Data Home Medications Medication Instructions Recorded Confirmed omeprazole 20 mg capsule,delayed 20 mg PO BID 12/03/21 03/24/22 release sertraline 50 mg tablet 100 mg PO DAILY 03/03/22 03/24/22 cyclobenzaprine 5 mg tablet 5 mg PO HS 03/24/22 03/24/22 Previous Rx's Medication Instructions Recorded albuterol sulfate 90 mcg/actuation 1 - 2 puffs inhalation Q4-6H PRN 01/09/19 aerosol inhaler Shortness Of Breath Or Wheezing #1 inh ondansetron 4 mg disintegrating 4 mg PO Q6HP PRN nausea and 12/15/21 tablet vomiting 3 days #10 tabs propranolol 10 mg tablet 10 mg PO BID #180 tabs 03/03/22 cephalexin 500 mg capsule 500 mg PO Q8H 7 days #21 caps 04/01/22 mupirocin 2 % topical ointment 1 applic topical TID 10 days #22 04/01/22 grams Allergies Allergy/AdvReac Type Severity Reaction Status Date / Time Penicillins Allergy Verified 03/24/22 08:22 quetiapine [From Seroquel] Allergy Verified 03/24/22 08:22 PFS PFSH Disclaimer: The information contained in this section may have been updated after the patient was seen, as this information can be updated by other users. Medical History (Updated 04/01/22 @ 19:52 by Charla Richey APRN) Anxiety Bariatric surg stat-del History of endometriosis History of gastroesophageal reflux (GERD) History of PCOS HTN (hypertension) LLQ pain Morbid obesity with BMI of 50.0-59.9, adult Parasomnia Urinary tract infection Uterine fibroid Surgical History H/O bariatric surgery History of cholecystectomy History of hernia repair S/P dilation and curettage Family History Sister Asthma Mother Heart attack Diabetes Father Diabetes Coronary artery disease Social History Smoking Status: Current some day smoker tobacco type: cigarettes packs per day: 1 second hand exposure: No alcohol intake: never substance use type: denies use current occupational status: employ
[2022-04-01 19:54] VITALS: BP 146/77; PULSE 70; RESP 20; TEMP 36.5; O2SAT 100
== END 2022-04-01 20:01 | disposition home or self-care (01) ==
PROVIDERS: Emergency Provider Nurse Practitioner; PCP Family Medicine
DX: L03.012 Cellulitis of left finger (principal)
CPT/HCPCS: 99212; G0463

== ENCOUNTER → 2022-04-07 13:53 | Outpatient (CLI) | payer OTHER, SELFPAY | PROVIDERS: PCP Student in an Organized Health Care Education/Training Program; Visit Provider Student in an Organized Health Care Education/Training Program | DX: R05.9 Cough, unspecified (principal) | CPT/HCPCS: 87070; C9803; U0003; U0005 ==

== ENCOUNTER → 2022-05-05 12:00 | Outpatient (CLI) | payer OTHER, SELFPAY | PROVIDERS: PCP Student in an Organized Health Care Education/Training Program; Visit Provider Student in an Organized Health Care Education/Training Program | DX: J02.9 Acute pharyngitis, unspecified (principal) | CPT/HCPCS: 87070 ==

== ENCOUNTER 2022-06-01 17:26 | Emergency (ER) | payer OTHER, SELFPAY ==
[2022-06-01 17:40] VITALS: BP 136/83; PULSE 79; RESP 22; O2SAT 100; BMI 53.1
--- NOTE | 2022-06-01 17:45 | PC.NURSE ---
TRIAGE REPORT GIVEN TO Pavithra PHILIPPE RN
--- NOTE | 2022-06-01 18:57 | HMH.EDGENADL ---
Discharge Plan Disposition Patient Disposition: Home, Self-Care Condition: Good Prescriptions Prescriptions: New ondansetron 4 mg tablet,disintegrating 4 mg PO Q8H PRN (Reason: nausea and vomiting) 5 Days Qty: 14 0RF dicyclomine 20 mg tablet 20 mg PO TID PRN (Reason: cramps) Qty: 20 0RF No Action omeprazole 20 mg capsule,delayed release(DR/EC) 20 mg PO BID Label Comments: TAKE ONE CAPSULE BY MOUTH EVERY TWELVE HOURS take morning CAPSULE 30 minutes BEFORE morning meal sertraline 50 mg tablet 100 mg PO DAILY propranolol 10 mg tablet 10 mg PO BID Qty: 180 3RF cyclobenzaprine 5 mg tablet 5 mg PO HS sulfamethoxazole-trimethoprim 800-160 mg tablet 1 tab PO BID 7 Days Qty: 14 0RF albuterol sulfate 18 GM HFA aerosol inhaler 1 - 2 puffs inhalation Q4-6H PRN (Reason: Shortness Of Breath Or Wheezing) Qty: 1 5RF ondansetron 4 mg tablet,disintegrating 4 mg PO Q6HP PRN (Reason: nausea and vomiting) 3 Days Qty: 10 0RF mupirocin 2 % ointment 1 applic topical TID 10 Days Qty: 22 0RF Rx Instructions: apply around fingernail as directed Referrals Follow up/Referrals: Taz Ward MD [Primary Care Provider] - See instructions Activity Restrictions/Add. Instructions Additional Instructions/Restrictions: Drink plenty of fluids. Return for worsening abdominal pain or other concerns. Avoid fried greasy spicy foods, avoid dairy products, avoid caffeine Clinical Impressions Clinical Impression: Gastroenteritis Instructions Patient Instructions: DI for Acute Abdominal Pain Discharge ED Provider: Nick Ortiz General Adult HPI General Chief complaint: Abdominal Pain Stated complaint: vomiting, diarrhea, h/a Time Seen by Provider: 06/01/22 18:19 Mode of Arrival: Ambulatory Source of Information: Patient Limitations: No Limitations Description of Symptoms (Recalled from ER Triage Doc. by RN): PATIENT C/O VOMITING THAT STARTED LAST NIGHT AND DIARRHEA AND HEADACHE THAT STARTED THIS MORNING. SHE STATES SHE HAS NOT BEEN ABLE TO KEEP ANYTHING DOWN. SHE REPORTS AROUND NOON TODAY SHE HAD A FULLNESS IN HER CHEST THAT LASTED APPROX 4 HOURS AND STATES SHE FELT SEVERAL PRE-MATURE HEART BEATS DURING THAT TIME. DENIES CHEST PAIN OR SOA AT THIS TIME. History of Present Illness HPI narrative: Patient presents with vomiting that started yesterday and now has been followed with diarrhea and headache. She states he been able to tolerate liquids. She states the abdominal discomfort is in the upper abdominal area and she does have a prior history of gastric sleeve surgery last June. She denies fever. She describes symptoms as moderate and without exacerbating alleviating factors Related Data Home Medications Medication Instructions Recorded Confirmed omeprazole 20 mg capsule,delayed 20 mg PO BID 12/03/21 05/05/22 release sertraline 50 mg tablet 100 mg PO DAILY 03/03/22 05/05/22 cyclobenzaprine 5 mg tablet 5 mg PO HS 03/24/22 05/05/22 Previous Rx's Medication Instructions Recorded albuterol sulfate 90 mcg/actuation 1 - 2 puffs inhalation Q4-6H PRN 01/09/19 aerosol inhaler Shortness Of Breath Or Wheezing #1 inh ondansetron 4 mg disintegrating 4 mg PO Q6HP PRN nausea and 12/15/21 tablet vomiting 3 days #10 tabs propranolol 10 mg tablet 10 mg PO BID #180 tabs 03/03/22 mupirocin 2 % topical ointment 1 applic topical TID 10 days #22 04/01/22 grams sulfamethoxazole 800 1 tab PO BID 7 days #14 tabs 05/05/22 mg-trimethoprim 160 mg tablet dicyclomine 20 mg tablet 20 mg PO TID PRN cramps #20 tabs 06/01/22 ondansetron 4 mg disintegrating 4 mg PO Q8H PRN nausea and 06/01/22 tablet vomiting 5 days #14 tabs Allergies Allergy/AdvReac Type Severity Reaction Status Date / Time Penicillins Allergy Verified 05/05/22 10:20 quetiapine [From Seroquel] Allergy Verified 05/05/22 10:20 [facility] Disclaimer: The information contained in this section may have been u
[2022-06-01 19:00] VITALS: PULSE 79; RESP 14; O2SAT 100; BMI 51.7
[2022-06-01 19:04] LABS: Basophils # 0.1 K/mm3 (0-0.2); Basophils % 1.4 % (0.1-2.0); Eosinophils # 0.7 K/mm3 (0.0-0.4); Eosinophils % 6.9 % (0.1-12.0); Hematocrit 46.8 % (37.0-47.0); Hemoglobin 15.7 g/dL (12.2-16.2); Lymphocytes # 3.3 K/mm3 (0.7-4.5); Lymphocytes % 34.6 % (10-50); Mean Corpuscular HGB Conc 33.4 g/dL (31.8-35.4); Mean Corpuscular Hemoglobin 29.6 pg (27.0-31.2); Mean Corpuscular Volume 88.4 fl (81-99); Mean Platelet Volume 7.9 fl (7.4-10.4); Monocytes # 0.4 K/mm3 (0.1-1.0); Monocytes % 3.7 % (1.7-9.3); Neutrophils # 5.1 K/mm3 (1.8-7.8); Neutrophils % 53.4 % (37.0-80.0); Platelet Count 364 K/mm3 (142-424); White Blood Count 9.6 K/mm3 (4.8-10.8)
[2022-06-01 19:13] LABS: Alanine Aminotransferase 19 U/L (12-78); Albumin Level 4.5 g/dl (3.5-5.0); Albumin/Globulin Ratio 1.3 (1.1-1.8); Alkaline Phosphatase 89 U/L (38-126); Anion Gap 5.8 mEq/L (5-15); Aspartate Amino Transferase 23 U/L (14-36); Bilirubin,Total 0.5 mg/dl (0.2-1.3); Blood Urea Nitrogen 10 mg/dl (7-17); Calcium 9.3 mg/dl (8.4-10.2); Carbon Dioxide 27 mmol/L (22.0-30.0); Chloride 110 mmol/L (98-107); Creatinine Clearance Estimated 128 mL/min (50-200); Estimated Glomerular Filt Rate 112 ml/min (>60); GFR (African American) 135 ML/MIN (>60); Globulin 3.6 g/dL (1.3-3.2); Glucose 101 mg/dl (74-100); Lipase 85 U/L (23-300); Potassium 3.8 mmoL/L (3.5-5.1); Sodium 139 mmol/L (136-145); Total Protein,Serum 8.1 g/dl (6.3-8.2)
[2022-06-01 19:40] LABS: Microscopic, Urine URINE MICROSCOPIC (MICROSCOPIC)
[2022-06-01 19:45] LABS: Appearance,Urine CLEAR (Clear); Bilirubin,Urine Negative (Negative); Blood, Urine TRACE-I (Negative); Color,Urine YELLOW (Yellow); Glucose,Urine (UA) Negative (Negative); Ketones,Urine Negative (Negative); Leukocyte Esterase,Urine Negative (Negative); Nitrate,Urine Negative (Negative); Protein,Urine Negative (Negative); Specific Gravity, Urine >= 1.030 (1.005-1.030); Urobilinogen,Urine 0.2 EU/dl (0.2)
--- NOTE | 2022-06-01 19:58 | PC.NURSE ---
Dr. Ortiz at
--- NOTE | 2022-06-01 20:00 | PC.NURSE ---
Pt given car wilson brought back by registration
[2022-06-01 20:11] LABS: RBC,Urine Occasional #/hpf (0-3); Squamous Epithelial Cell,Urine Occasional #/hpf (0-5)
[2022-06-01 20:22] VITALS: BP 132/70; PULSE 80; RESP 16; TEMP 37; O2SAT 98
== END 2022-06-01 20:26 | disposition home or self-care (01) ==
PROVIDERS: Emergency Provider Emergency Medicine; PCP Family Medicine
DX: K52.9 Noninfective gastroenteritis and colitis, unspecified (principal); F41.9 Anxiety disorder, unspecified; K21.9 Gastro-esophageal reflux disease without esophagitis; E28.2 Polycystic ovarian syndrome; I10 Essential (primary) hypertension; Z98.84 Bariatric surgery status; Z87.440 Personal history of urinary (tract) infections; Z83.3 Family history of diabetes mellitus; Z82.49 Family history of ischemic heart disease and other diseases of the circulatory system; Z82.5 Family history of asthma and other chronic lower respiratory diseases; F17.210 Nicotine dependence, cigarettes, uncomplicated
CPT/HCPCS: 80053; 81001; 83690; 85025; 96361; 96372; 96374; 96375; 96376; 99285; J2405

== ENCOUNTER 2022-06-05 17:26 | Emergency (ER) | payer OTHER, SELFPAY ==
[2022-06-05 17:45] VITALS: BP 133/94; PULSE 80; RESP 20; TEMP 36.8; O2SAT 100; BMI 51.7
--- NOTE | 2022-06-05 18:04 | EXP.UTC ---
Discharge Plan Disposition Patient Disposition: Home, Self-Care Condition: Good Prescriptions Prescriptions: New mupirocin 2 % ointment 1 applic topical TID 7 Days Qty: 15 0RF Rx Instructions: Apply to the sore area in your left nare tid for 7 days. cefdinir 300 mg capsule 300 mg PO BID Qty: 20 0RF No Action omeprazole 20 mg capsule,delayed release(DR/EC) 20 mg PO BID Label Comments: TAKE ONE CAPSULE BY MOUTH EVERY TWELVE HOURS take morning CAPSULE 30 minutes BEFORE morning meal sertraline 50 mg tablet 100 mg PO DAILY cyclobenzaprine 5 mg tablet 5 mg PO HS albuterol sulfate 18 GM HFA aerosol inhaler 1 - 2 puffs inhalation Q4-6H PRN (Reason: Shortness Of Breath Or Wheezing) Qty: 1 5RF dicyclomine 20 mg tablet 20 mg PO TID PRN (Reason: cramps) Qty: 20 0RF propranolol 10 mg tablet 10 mg PO BID Referrals Follow up/Referrals: Taz Ward MD [Primary Care Provider] - See instructions Activity Restrictions/Add. Instructions Additional Instructions/Restrictions: Drink plenty of fluids. Take tylenol or ibuprofen for pain or fever. Take the medications as directed. Follow up with your regular doctor. GO TO THE ER FOR ANY WORSENING SYMPTOMS Apply the mupirocin (bactroban) ointment as directed to the sore area in your nose with a q-tip as directed. Clinical Impressions Clinical Impression: Otitis media, Abscess of nose Instructions Patient Instructions: Middle Ear Infection, Mupirocin Discharge ED Provider: Derek Newton [facility] General Stated complaint: nasal sores, bilateral ear pain, h/a Mode of Arrival: Ambulatory Source of Information: Patient Limitations: No Limitations Time Seen by Provider: 06/05/22 18:01 Description of Symptoms (Recalled from Triage Doc. by RN): spot in nose, ear ache, and sinus pressure HEENT Symptoms (Recalled from RN notes): Yes Resp Symptoms (Recalled from RN notes): No Skin Symptoms (Recalled from RN notes): No MS Symptoms (Recalled from RN notes): No Functional Status (Recalled from RN notes): n/a History of Present Illness Provider Complaint: she states that for the past 5 days she has had bilateral ear pain. She has had sinus congestion also. She also c/o having a sore area in her left nostril. This has been present for about 1 week and she states that it is getting worse. Related Data Home Medications Medication Instructions Recorded Confirmed omeprazole 20 mg capsule,delayed 20 mg PO BID GERD 12/03/21 06/05/22 release sertraline 50 mg tablet 100 mg PO DAILY . 03/03/22 06/05/22 cyclobenzaprine 5 mg tablet 5 mg PO HS 03/24/22 05/05/22 propranolol 10 mg tablet 10 mg PO BID . 06/05/22 06/05/22 Previous Rx's Medication Instructions Recorded albuterol sulfate 90 mcg/actuation 1 - 2 puffs inhalation Q4-6H PRN 01/09/19 aerosol inhaler Shortness Of Breath Or Wheezing #1 inh dicyclomine 20 mg tablet 20 mg PO TID PRN cramps #20 tabs 06/01/22 cefdinir 300 mg capsule 300 mg PO BID #20 caps 06/05/22 mupirocin 2 % topical ointment 1 applic topical TID 7 days #15 06/05/22 grams Allergies Allergy/AdvReac Type Severity Reaction Status Date / Time Penicillins Allergy Verified 06/05/22 17:55 quetiapine [From Seroquel] Allergy Verified 06/05/22 17:55 Worker's Comp Is this a Worker's Comp case?: No [facility] Disclaimer: The information contained in this section may have been updated after the patient was seen, as this information can be updated by other users. Medical History Anxiety Bariatric surg stat-del History of endometriosis History of gastroesophageal reflux (GERD) History of PCOS HTN (hypertension) LLQ pain Morbid obesity with BMI of 50.0-59.9, adult Parasomnia Urinary tract infection Uterine fibroid Surgical History H/O bariatric surgery History of cholecystectom
[2022-06-05 18:52] VITALS: BP 133/94; PULSE 80; RESP 20; TEMP 36.8; O2SAT 100
== END 2022-06-05 18:51 | disposition home or self-care (01) ==
PROVIDERS: Emergency Provider Nurse Practitioner Family; PCP Family Medicine
DX: H66.90 Otitis media, unspecified, unspecified ear (principal); J34.0 Abscess, furuncle and carbuncle of nose
CPT/HCPCS: 99212; 99213; G0463

== ENCOUNTER 2022-06-07 18:34 | Emergency (ER) | payer OTHER, SELFPAY ==
[2022-06-07 18:40] VITALS: BP 141/94; PULSE 81; RESP 22; TEMP 36.4; O2SAT 100; BMI 53.1
--- NOTE | 2022-06-07 18:55 | EXP.UTC ---
Discharge Plan Disposition Patient Disposition: Home, Self-Care Condition: Good Prescriptions Prescriptions: No Action omeprazole 20 mg capsule,delayed release(DR/EC) 20 mg PO BID Label Comments: TAKE ONE CAPSULE BY MOUTH EVERY TWELVE HOURS take morning CAPSULE 30 minutes BEFORE morning meal sertraline 50 mg tablet 100 mg PO DAILY cyclobenzaprine 5 mg tablet 5 mg PO HS albuterol sulfate 18 GM HFA aerosol inhaler 1 - 2 puffs inhalation Q4-6H PRN (Reason: Shortness Of Breath Or Wheezing) Qty: 1 5RF dicyclomine 20 mg tablet 20 mg PO TID PRN (Reason: cramps) Qty: 20 0RF propranolol 10 mg tablet 10 mg PO BID mupirocin 2 % ointment 1 applic topical TID 7 Days Qty: 15 0RF Rx Instructions: Apply to the sore area in your left nare tid for 7 days. cefdinir 300 mg capsule 300 mg PO BID Qty: 20 0RF Referrals Follow up/Referrals: Taz Ward MD [Primary Care Provider] - See instructions Discharge ED Provider: Marty Santiago [facility] HPI General Stated complaint: sore inside nose, facal swelling Mode of Arrival: Ambulatory Source of Information: Patient Limitations: No Limitations Time Seen by Provider: 06/07/22 18:55 Description of Symptoms (Recalled from Triage Doc. by RN): PATIENT C/O INFECTED SORE IN NOSE. SHE REPORTS SHE WAS SEEN IN [facility] WEDNESDAY EVENING AND WAS GIVEN ORAL ANTIBIOTICS FOR EAR INFECTION AND MUPIRICIN OINTMENT FOR THE SORE. SHE STATES AREA AROUND SORE HAS BECOME MORE SWOLLEN AND SHE C/O PAIN TO HEAD, GUMS, NECK AND EARS HEENT Symptoms (Recalled from RN notes): Yes Resp Symptoms (Recalled from RN notes): No Skin Symptoms (Recalled from RN notes): No MS Symptoms (Recalled from RN notes): No Functional Status (Recalled from RN notes): WNL History of Present Illness Provider Complaint: Patient states that she was seen on Wednesday in [facility] due to having pain in her ears and sore on inside of her nose that was infected States that she was started on Cefdinir and given mupirocin but the swelling in her left nostril and tip of her nose has got worse States that she feels like the infection has got worse and spread on up into her nose and into her sinuses States that it is causing pain and pressure in her head, teeth and under her eyes States that her whole face feels sore and her nose has almost doubled in size States that the tip of her nose feels tight worried she may have an abscess. States that she has hx migraines but this does not feel like the migraines she normally has and she was concerned that the infection has spread Related Data Home Medications Medication Instructions Recorded Confirmed omeprazole 20 mg capsule,delayed 20 mg PO BID GERD 12/03/21 06/05/22 release sertraline 50 mg tablet 100 mg PO DAILY . 03/03/22 06/05/22 cyclobenzaprine 5 mg tablet 5 mg PO HS 03/24/22 05/05/22 propranolol 10 mg tablet 10 mg PO BID . 06/05/22 06/05/22 Previous Rx's Medication Instructions Recorded albuterol sulfate 90 mcg/actuation 1 - 2 puffs inhalation Q4-6H PRN 01/09/19 aerosol inhaler Shortness Of Breath Or Wheezing #1 inh dicyclomine 20 mg tablet 20 mg PO TID PRN cramps #20 tabs 06/01/22 cefdinir 300 mg capsule 300 mg PO BID #20 caps 06/05/22 mupirocin 2 % topical ointment 1 applic topical TID 7 days #15 06/05/22 grams Allergies Allergy/AdvReac Type Severity Reaction Status Date / Time Penicillins Allergy Verified 06/05/22 17:55 quetiapine [From Seroquel] Allergy Verified 06/05/22 17:55 Worker's Comp Is this a Worker's Comp case?: [facility] Dis[facility]: The information contained in this section may have been updated after the patient was seen, as this information can be updated by other users. Medical History Anxiety Bariatric surg stat-del History of endometriosis History of gastroesophageal reflux (GERD) History of PCOS HTN (hypertension) LLQ pain Morbid obesity with BMI o
--- NOTE | 2022-06-07 19:00 | PC.NURSE ---
PATIENT SENT TO ER PER Dawson DIAZ APRN FOR FURTHER EVALUATION. REPORT GIVEN TO Pavithra PHILIPPE RN BY Dawson DIAZ APRN
[2022-06-07 19:08] VITALS: BP 156/81; PULSE 81; RESP 17; TEMP 36.9; O2SAT 100; BMI 53.0
--- NOTE | 2022-06-07 19:10 | PC.NURSE ---
Dr. Santiago at [facility] speaking with pt
--- NOTE | 2022-06-07 19:14 | CT_ITS ---
PROCEDURE INFORMATION: Exam: CT Maxillofacial With Contrast Exam date and time: 06/07/2022 7:38 PM Age: 36 years old Clinical indication: Nose pain; Patient HX: Pain in left side of nose patient stated. Facial abcess per er order. ; Additional info: Facial abscess TECHNIQUE: Imaging protocol: Computed tomography of the face with contrast. Radiation optimization: All CT scans at this facility use at least one of these dose optimization techniques: automated exposure control; mA and/or kV adjustment per patient size (includes targeted exams where dose is matched to clinical indication); or iterative reconstruction. Contrast material: ISOVUE; Contrast volume: 100 ml; Contrast route: IV; REPORTING DATA: Count of CT and Cardiac NM exams in prior 12 months: This patient has received [address] and 0 known cardiac nuclear medicine studies in the 12 months prior to the current study. COMPARISON: No relevant prior studies available. FINDINGS: Orbital cavities: Orbits are normal. Globes are unremarkable. Bones/joints: No acute fracture. Paranasal sinuses: Material within the right maxillary sinus. Soft tissues: Unremarkable. IMPRESSION: Paranasal sinus disease.
--- NOTE | 2022-06-07 19:26 | HMH.EDGENADL ---
Discharge Plan Disposition Patient Disposition: Home, Self-Care Condition: Good Prescriptions Prescriptions: New clindamycin HCl 300 mg capsule 300 mg PO QID Qty: 40 0RF No Action omeprazole 20 mg capsule,delayed release(DR/EC) 20 mg PO BID Label Comments: TAKE ONE CAPSULE BY MOUTH EVERY TWELVE HOURS take morning CAPSULE 30 minutes BEFORE morning meal sertraline 50 mg tablet 100 mg PO DAILY cyclobenzaprine 5 mg tablet 5 mg PO HS albuterol sulfate 18 GM HFA aerosol inhaler 1 - 2 puffs inhalation Q4-6H PRN (Reason: Shortness Of Breath Or Wheezing) Qty: 1 5RF propranolol 10 mg tablet 10 mg PO BID dicyclomine 20 mg tablet 20 mg PO TID PRN (Reason: Abdominal Cramping) mupirocin 2 % ointment 1 applic TP TID Rx Instructions: Apply to the sore area in your left nare tid for 7 days. cefdinir 300 mg capsule 300 mg PO BID Referrals Follow up/Referrals: Brian Hernandez MD [Physician] - See instructions Taz Ward MD [Primary Care Provider] - See instructions Activity Restrictions/Add. Instructions Additional Instructions/Restrictions: Discontinue cefdinir and start clindamycin. Continue using mupirocin ointment in the left nares 3 times a day. Warm compresses 20 minutes 4 times a day. Tylenol, ibuprofen, or Tylenol 3 as needed for pain. Follow-up with ENT, Dr. Hernandez, call for appointment. Return emergency department if worsening pain, swelling, or if fever develops. Additional instructions for CONTROLLED SUBSTANCES: You have been prescribed a medication that is a controlled substance. Controlled substances include pain medications known as opiates and sedative nerve medications known as benzodiazepines. Tramadol, fioricet, and gabapentin are also controlled substances. Some common opiates include: Codeine (such as Tylenol #3) Hydrocodone (Vicodin, Lortab, Lorcet, [place]) Oxycodone (Percocet, Percodan, Oxycodone, Oxy IR) Some common benzodiazepines include: Diazepam (Valium) Lorazepam (Ativan) Alprazolam (Xanax) Clonazepam (Klonopin) Oxazepam (Serax) All of these controlled substances are highly addictive and frequently abused. Misuse can and frequently does lead to addiction as well as overdose and . Medication should be stored in a locked cabinet or other secure storage unit. Do not store the medication in a motor vehicle. Short term supplies, 3 days or less, are prescribed because of the highly addictive nature of the medication. Any of the controlled substance medication NOT taken should be disposed of properly and NOT SAVED. The recommended method of disposing of unused medications is: Place the medicines in a sealable plastic bag. If the medicine is a solid, crush it or add water to dissolve it. Add something undesirable (cat litter, coffee grounds, etc.) Dispose of sealed bag in household trash Do not flush or pour unused medicines down a sink or drain. Controlled substances should not be shared, given away or sold. Because of the addictive nature and frequent abuse, these medications are sometimes stolen. These medications should be kept in a safe place where they cannot be stolen. Do not keep them in your car or purse. Lost or stolen prescriptions for controlled substances WILL NOT BE REFILLED in this emergency department, regardless of whether a police report was filed. Clinical Impressions Clinical Impression: Abscess of nasal cavity, Sinusitis Discharge ED Provider: Marty Santiago General Adult HPI General Chief complaint: Skin/Abscess/Foreign Body Stated complaint: sore inside nose, facal swelling Time Seen by Provider: 06/07/22 18:55 Mode of Arrival: Ambulatory Source of Information: Patient Limitations: No Limitations Description of Symptoms (Recalled from ER Triage Doc. by RN): 36 F presents from our [facility] for left sided facial pain/swelling. The swelling is located to her nose and left m
--- NOTE | 2022-06-07 19:32 | PC.NURSE ---
Pt gone to RAD via wheelchair
[2022-06-07 19:38] LABS: Basophils # 0.2 K/mm3 (0-0.2); Basophils % 1.9 % (0.1-2.0); Eosinophils # 0.5 K/mm3 (0.0-0.4); Hematocrit 42.2 % (37.0-47.0); Lymphocytes % 28.2 % (10-50); Mean Corpuscular HGB Conc 33.2 g/dL (31.8-35.4); Mean Corpuscular Hemoglobin 29.4 pg (27.0-31.2); Mean Corpuscular Volume 88.8 fl (81-99); Monocytes # 0.5 K/mm3 (0.1-1.0); Monocytes % 4.2 % (1.7-9.3); Neutrophils # 6.5 K/mm3 (1.8-7.8); Neutrophils % 60.7 % (37.0-80.0); Platelet Count 335 K/mm3 (142-424); Red Blood Count 4.75 M/mm3 (4.20-5.40); Red Cell Distribution Width 14.3 % (11.5-17.5); White Blood Count 10.8 K/mm3 (4.8-10.8)
[2022-06-07 19:43] LABS: Chloride 107 mmol/L (98-107); Sodium 139 mmol/L (136-145)
--- NOTE | 2022-06-07 19:43 | PC.NURSE ---
Pt back from RAD
[2022-06-07 19:44] LABS: Potassium 3.8 mmoL/L (3.5-5.1)
[2022-06-07 19:46] LABS: Blood Urea Nitrogen 8 mg/dl (7-17); Creatinine Clearance Estimated 110 mL/min (50-200); Estimated Glomerular Filt Rate 94 ml/min (>60); GFR (African American) 113 ML/MIN (>60)
[2022-06-07 19:47] LABS: Anion Gap 8.8 mEq/L (5-15); Calcium 8.5 mg/dl (8.4-10.2); Carbon Dioxide 27 mmol/L (22.0-30.0); Glucose 106 mg/dl (74-100)
--- NOTE | 2022-06-07 20:27 | PC.NURSE ---
Rounded on pt. Pt provided with ice chips. No other needs voiced at this time. Call light within reach.
[2022-06-07 20:31] VITALS: BP 117/65; PULSE 68; O2SAT 99
[2022-06-07 20:58] VITALS: BP 117/65; PULSE 72; RESP 19; TEMP 36.8; O2SAT 97
[2022-06-07 21:00] VITALS: BP 116/66; PULSE 64; O2SAT 99
--- NOTE | 2022-06-07 21:03 | PC.NURSE ---
reviewed pt's discharge information and home medications/pain management. Pt's is on his way to pick her up, should be here shortly.
== END 2022-06-07 21:08 | disposition home or self-care (01) ==
LOC: UTC 18:36 → ER 19:00
PROVIDERS: Emergency Provider Emergency Medicine; PCP Family Medicine
DX: J34.0 Abscess, furuncle and carbuncle of nose (principal); J01.90 Acute sinusitis, unspecified; F41.9 Anxiety disorder, unspecified; K21.9 Gastro-esophageal reflux disease without esophagitis; I10 Essential (primary) hypertension; E28.2 Polycystic ovarian syndrome; E66.01 Morbid (severe) obesity due to excess calories; N80.9 Endometriosis, unspecified; Z98.84 Bariatric surgery status; Z90.49 Acquired absence of other specified parts of digestive tract; F17.210 Nicotine dependence, cigarettes, uncomplicated; Z83.3 Family history of diabetes mellitus; Z82.49 Family history of ischemic heart disease and other diseases of the circulatory system; Z82.5 Family history of asthma and other chronic lower respiratory diseases
CPT/HCPCS: 70487; 80048; 85025; 96374; 96375; 99285; J2405; Q9967

== ENCOUNTER → 2022-07-10 10:51 | Outpatient (CLI) | payer OTHER, SELFPAY | LOC: LAB.DROPOF 07-13 10:52 | PROVIDERS: PCP Student in an Organized Health Care Education/Training Program; Visit Provider Student in an Organized Health Care Education/Training Program | DX: J32.9 Chronic sinusitis, unspecified (principal) | CPT/HCPCS: 87070 ==

== ENCOUNTER 2022-07-10 18:40 | Emergency (ER) | payer OTHER, SELFPAY ==
[2022-07-10] VITALS (7 sets, daily range): BP systolic 110–140; BP diastolic 51–85; PULSE 61–85; RESP 16–17; TEMP 36.8; O2SAT 98–100; BMI 51.7
--- NOTE | 2022-07-10 18:58 | HMH.EDGENADL ---
Discharge Plan Disposition Patient Disposition: Home, Self-Care Condition: Good Prescriptions Prescriptions: No Action omeprazole 20 mg capsule,delayed release(DR/EC) 20 mg PO BID Label Comments: TAKE ONE CAPSULE BY MOUTH EVERY TWELVE HOURS take morning CAPSULE 30 minutes BEFORE morning meal sertraline 50 mg tablet 100 mg PO DAILY levocetirizine 5 mg tablet 5 mg PO DAILY Qty: 30 2RF cyclobenzaprine 5 mg tablet 5 mg PO HS albuterol sulfate 18 GM HFA aerosol inhaler 1 - 2 puffs inhalation Q4-6H PRN (Reason: Shortness Of Breath Or Wheezing) Qty: 1 5RF propranolol 10 mg tablet 10 mg PO BID dicyclomine 20 mg tablet 20 mg PO TID PRN (Reason: Abdominal Cramping) mupirocin 2 % ointment 1 applic topical TID Rx Instructions: Apply to the sore area in your left nare tid for 7 days. Referrals Follow up/Referrals: Taz Ward MD [Primary Care Provider] - See instructions Clinical Impressions Clinical Impression: Acute abdominal pain in left flank Instructions Patient Instructions: DI for Low Back Pain Discharge ED Provider: Jonh (ED)Kike General Adult HPI <Maki Gannon DO - Last Filed: 07/10/22 20:20> General Chief complaint: Back Pain/Injury Stated complaint: LOWER BACK AND LEFT SIDE PAIN Time Seen by Provider: 07/10/22 18:58 Mode of Arrival: Ambulatory Source of Information: Patient Limitations: No Limitations Description of Symptoms (Recalled from ER Triage Doc. by RN): Presents via POV d/t left thoracic back pain radiating around that started around 3p today. Pt states the pain has progressed. Denies trauma. Denies urinary sx. History of Present Illness HPI narrative: This patient is a 37-year-old female with a history of morbid obesity status post gastric bypass 1 year ago, PCOS, hypertension, uterine fibroid, endometriosis, and cardiac arrhythmia presenting to the emergency department for evaluation with concern for left flank pain radiating around her left upper abdomen. She states that this started earlier today. She states that she had been fatigued and felt the congestion of an upper respiratory illness for the last several days. Her nieces who stayed with her tested positive for strep, so she went to her primary care provider today who tested her for strep, which was negative. While there, she noted that she was starting develop some left upper back pain. She thought that this could be from the chair that she was sitting in, however since going home it has progressively worsened. She has a moderate, constant ache in her left upper back that radiates around her left upper abdomen. It is constantly 6 out of 10 but escalates to as high as 8 out of 10. When it is at its highest, she experiences nausea and also feels like it takes her breath away. She denies any history of blood clots, clotting disorders, recent immobilization, swelling, hormonal medication use, or other concerns. She denies any chest pain, shortness of breath, significant cough, vomiting, changes in bowel movements, or other issues. She states that she has had issues with her appetite and maintaining adequate hydration since her surgery, but she feels like she has been eating and drinking okay. She is still having normal bowel movements. She states she has been urinating more frequently than usual, but she denies any dysuria, hematuria, or other issues. Related Data Home Medications Medication Instructions Recorded Confirmed omeprazole 20 mg capsule,delayed 20 mg PO BID GERD 12/03/21 07/10/22 release sertraline 50 mg tablet 100 mg PO DAILY Mood 03/03/22 07/10/22 cyclobenzaprine 5 mg tablet 5 mg PO HS Muscle Spasms 03/24/22 07/10/22 propranolol 10 mg tablet 10 mg PO BID Blood Pressure 06/05/22 07/10/22 dicyclomine 20 mg tablet 20 mg PO TID PRN Abdominal Cramping 06/07/22 07/10/22 mupirocin 2 % topical ointment 1 applic topical TID Infection 06/07/22 07/10/22 Previous Rx's
[2022-07-10 19:08] LABS: Microscopic, Urine URINE MICROSCOPIC (MICROSCOPIC)
--- NOTE | 2022-07-10 19:08 | XR_ITS ---
PROCEDURE INFORMATION: Exam: XR Chest Exam date and time: 07/10/2022 7:27 PM Age: 37 years old Clinical indication: Pain; Left-sided; Additional info: L sided pain, SOA TECHNIQUE: Imaging protocol: Radiologic exam of the chest. Views: 1 view. COMPARISON: CR XR CHEST 2V 18/01/2019 11:37 FINDINGS: Lungs: Unremarkable. No consolidation. Pleural spaces: Unremarkable. No pleural effusion. No pneumothorax. Heart/Mediastinum: Upper limits of normal heart size is likely projectional. Bones/joints: Unremarkable. IMPRESSION: No acute findings.
[2022-07-10 19:13] LABS: Basophils # 0.1 K/mm3 (0-0.2); Basophils % 0.9 % (0.1-2.0); Eosinophils # 0.6 K/mm3 (0.0-0.4); Eosinophils % 5.4 % (0.1-12.0); Hematocrit 48.7 % (37.0-47.0); Hemoglobin 15.3 g/dL (12.2-16.2); Lymphocytes # 3.9 K/mm3 (0.7-4.5); Lymphocytes % 34.5 % (10-50); Mean Corpuscular HGB Conc 31.5 g/dL (31.8-35.4); Mean Corpuscular Hemoglobin 29.1 pg (27.0-31.2); Mean Corpuscular Volume 92.6 fl (81-99); Mean Platelet Volume 7.9 fl (7.4-10.4); Monocytes # 0.4 K/mm3 (0.1-1.0); Monocytes % 3.8 % (1.7-9.3); Neutrophils # 6.3 K/mm3 (1.8-7.8); Neutrophils % 55.5 % (37.0-80.0); Platelet Count 310 K/mm3 (142-424); Red Blood Count 5.26 M/mm3 (4.20-5.40); White Blood Count 11.3 K/mm3 (4.8-10.8)
[2022-07-10 19:15] LABS: Appearance,Urine SL CLOUDY (Clear); Bilirubin,Urine Negative (Negative); Blood, Urine Negative (Negative); Color,Urine YELLOW (Yellow); Glucose,Urine (UA) Negative (Negative); Ketones,Urine Negative (Negative); Leukocyte Esterase,Urine TRACE (Negative); Nitrate,Urine Negative (Negative); Protein,Urine Negative (Negative); Urobilinogen,Urine 0.2 EU/dl (0.2)
[2022-07-10 19:18] LABS: Alanine Aminotransferase 16 U/L (12-78); Albumin Level 4.3 g/dl (3.5-5.0); Albumin/Globulin Ratio 1.3 (1.1-1.8); Alkaline Phosphatase 63 U/L (38-126); Anion Gap 8.2 mEq/L (5-15); Aspartate Amino Transferase 23 U/L (14-36); Bilirubin,Total 0.4 mg/dl (0.2-1.3); Blood Urea Nitrogen 12 mg/dl (7-17); Carbon Dioxide 25 mmol/L (22.0-30.0); Chloride 107 mmol/L (98-107); Creatinine Clearance Estimated 127 mL/min (50-200); Estimated Glomerular Filt Rate 111 ml/min (>60); GFR (African American) 135 ML/MIN (>60); Globulin 3.3 g/dL (1.3-3.2); Glucose 102 mg/dl (74-100); Lipase 136 U/L (23-300); Potassium 4.2 mmoL/L (3.5-5.1); Sodium 136 mmol/L (136-145); Total Protein,Serum 7.6 g/dl (6.3-8.2)
[2022-07-10 19:24] LABS: HCG Qualitative, Serum Negative (Negative)
[2022-07-10 19:35] LABS: Bacteria,Urine 1+ /lpf; WBC,Urine Occasional #/hpf (0-3)
--- NOTE | 2022-07-10 20:01 | ECG_ITS ---
APPROVED REPORT Exam: Resting ECG HR:62 bpm ECG Measurements Heart Rate 62 AXES NJ 148 P 62 QRSd 82 QRS 63 QT 394 T 54 QTc 399 Conclusion SINUS RHYTHM LOW QRS VOLTAGE IN PRECORDIAL LEADS [QRS DEFLECTION < 1.0 mV IN CHEST LEADS] BORDERLINE ECG UNCONFIRMED REPORT Electronically signed by : Yong Thomason MD 07/11/2022 20:16:24
--- NOTE | 2022-07-10 20:06 | CT_ITS ---
PROCEDURE INFORMATION: Exam: CT Abdomen And Pelvis With Contrast Exam date and time: 07/10/2022 10:28 PM Age: 37 years old Clinical indication: Abdominal pain; Additional info: Pain, luq/l flank TECHNIQUE: Imaging protocol: Computed tomography of the abdomen and pelvis with contrast. Radiation optimization: All CT scans at this facility use at least one of these dose optimization techniques: automated exposure control; mA and/or kV adjustment per patient size (includes targeted exams where dose is matched to clinical indication); or iterative reconstruction. Contrast material: ISOVUE; Contrast volume: 75 ml; Contrast route: IV; REPORTING DATA: Count of CT and Cardiac NM exams in prior 12 months: This patient has received 2 known CTs and 0 known cardiac nuclear medicine studies in the 12 months prior to the current study. COMPARISON: CT ABDOMEN PELVIS WO CON 19/12/2021 19:00 FINDINGS: Liver: Normal. No mass. Gallbladder and bile ducts: Gallbladder is absent. Pancreas: Normal. No ductal dilation. Spleen: Normal. No splenomegaly. Adrenal glands: Normal. No mass. Kidneys and ureters: Low attenuation renal lesions measuring up to 14 mm in diameter are incompletely characterized, but are likely cysts. No followup imaging is warranted. Stomach and bowel: Status post gastric sleeve. Mild nonspecific bowel wall thickening of segments of small bowel. Appendix: Unremarkable appendix. Intraperitoneal space: Unremarkable. No free air. No significant fluid collection. Vasculature: Unremarkable. No abdominal aortic aneurysm. Lymph nodes: Unremarkable. No enlarged lymph nodes. Urinary bladder: Unremarkable as visualized. Reproductive: Uterine fibroid. Bones/joints: Unremarkable. No acute fracture. Soft tissues: Tiny fat containing umbilical hernia. IMPRESSION: Mild nonspecific bowel wall thickening of segments of small bowel. Please exclude enteritis. COMMENTS: Consistent with the [employer]'s Incidental Findings Committee white paper (J Am Iker Radiol 2018): Any incidental renal lesion less than 1 cm or classified as too small to characterize, or any incidental cystic renal lesion characterized as simple-appearing, is likely benign. No follow-up imaging is recommended for these lesions per consensus recommendations based on imaging criteria.
--- NOTE | 2022-07-10 21:17 | PC.NURSE ---
Pt completed gastrografin @ 2054. field radio technician notified. ETA on ct scan is 7525. Pt aware.
[2022-07-10 23:13] LABS: C-Reactive Protein 6.6 mg/L (0-4)
[2022-07-10 23:27] LABS: Procalcitonin 0.041 ng/mL (0.0-2.0)
[2022-07-10 23:36] LABS: Erythrocyte Sedimentation Rate 13 mm/hr (0-20)
== END 2022-07-10 23:11 | disposition home or self-care (01) ==
PROVIDERS: Emergency Medicine; Emergency Provider Emergency Medicine; PCP Family Medicine
DX: R10.11 Right upper quadrant pain (principal); M54.6 Pain in thoracic spine
CPT/HCPCS: 71045; 74177; 80053; 81001; 83690; 84145; 84703; 85025; 85651; 86140; 87086; 93005; 96360; 96374; 96375; 96376; 99285; J2405; Q9967

== ENCOUNTER 2022-08-09 19:01 | Emergency (ER) | payer OTHER, SELFPAY ==
--- NOTE | 2022-08-09 | ECG_ITS ---
APPROVED REPORT Exam: Resting ECG HR:74 bpm ECG Measurements Heart Rate 74 AXES SD 137 P 61 QRSd 82 QRS 74 QT 372 T 67 QTc 399 Conclusion SINUS RHYTHM NORMAL ECG UNCONFIRMED REPORT Electronically signed by : Yong Thomason MD 08/11/2022 22:08:56
[2022-08-09 19:18] VITALS: BP 129/69; PULSE 84; RESP 16; TEMP 36.6; O2SAT 98; BMI 48.6
[2022-08-09 19:30] VITALS: BP 111/68; PULSE 75; O2SAT 99
--- NOTE | 2022-08-09 19:37 | HMH.EDGENADL ---
Discharge Plan Disposition Patient Disposition: Home, Self-Care Condition: Good Prescriptions Prescriptions: New meclizine 25 mg tablet 25 mg PO DAILY PRN (Reason: dizziness) Qty: 20 0RF No Action omeprazole 20 mg capsule,delayed release(DR/EC) 20 mg PO BID Label Comments: TAKE ONE CAPSULE BY MOUTH EVERY TWELVE HOURS take morning CAPSULE 30 minutes BEFORE morning meal sertraline 50 mg tablet 100 mg PO DAILY levocetirizine 5 mg tablet 5 mg PO DAILY Qty: 30 2RF cyclobenzaprine 5 mg tablet 5 mg PO HS albuterol sulfate 18 GM HFA aerosol inhaler 1 - 2 puffs inhalation Q4-6H PRN (Reason: Shortness Of Breath Or Wheezing) Qty: 1 5RF propranolol 10 mg tablet 10 mg PO BID dicyclomine 20 mg tablet 20 mg PO TID PRN (Reason: Abdominal Cramping) mupirocin 2 % ointment 1 applic topical TID Rx Instructions: Apply to the sore area in your left nare tid for 7 days. Referrals Follow up/Referrals: Taz Ward MD [Primary Care Provider] - See instructions Clinical Impressions Clinical Impression: Dizziness Instructions Patient Instructions: Dizziness, Nonvertigo Discharge ED Provider: Aman Escalona General Adult HPI <Aman Escalona DO - Last Filed: 08/09/22 19:42> General Chief complaint: Dizziness Stated complaint: Dizzness Time Seen by Provider: 08/09/22 19:22 Mode of Arrival: Ambulatory Source of Information: Patient Limitations: No Limitations Description of Symptoms (Recalled from ER Triage Doc. by RN): Pt arrives via private vehicle with c/o dizziness since Wednesday. Does state that she took herself off of her rx propanolol on Wednesday because she was afraid that that was the cause. Patient does report some sinus issues with recent ear pain. History of Present Illness HPI narrative: 37yo F presents to the ER POV secondary to intermittent dizziness since Wednesday. Patient took herself on propranolol. Denies any significant headache, chest pain, shortness of breath. Related Data Home Medications Medication Instructions Recorded Confirmed omeprazole 20 mg capsule,delayed 20 mg PO BID GERD 12/03/21 07/10/22 release sertraline 50 mg tablet 100 mg PO DAILY Mood 03/03/22 07/10/22 cyclobenzaprine 5 mg tablet 5 mg PO HS Muscle Spasms 03/24/22 07/10/22 propranolol 10 mg tablet 10 mg PO BID Blood Pressure 06/05/22 07/10/22 dicyclomine 20 mg tablet 20 mg PO TID PRN Abdominal Cramping 06/07/22 07/10/22 mupirocin 2 % topical ointment 1 applic topical TID Infection 06/07/22 07/10/22 Previous Rx's Medication Instructions Recorded albuterol sulfate 90 mcg/actuation 1 - 2 puffs inhalation Q4-6H PRN 01/09/19 aerosol inhaler Shortness Of Breath Or Wheezing #1 inh levocetirizine 5 mg tablet 5 mg PO DAILY #30 tabs 07/10/22 meclizine 25 mg tablet 25 mg PO DAILY PRN dizziness #20 08/09/22 tabs Allergies Allergy/AdvReac Type Severity Reaction Status Date / Time Penicillins Allergy Verified 07/10/22 15:00 quetiapine [From Seroquel] Allergy Verified 07/10/22 15:00 <Chris Gallagher MD - Last Filed: 08/09/22 20:57> History of Present Illness Location: lower extremity [facility] <Aman Escalona DO - Last Filed: 08/09/22 19:42> [facility] Disclaimer: The information contained in this section may have been updated after the patient was seen, as this information can be updated by other users. Medical History Anxiety Bariatric surg stat-del History of endometriosis History of gastroesophageal reflux (GERD) History of PCOS HTN (hypertension) LLQ pain Morbid obesity with BMI of 50.0-59.9, adult Parasomnia Urinary tract infection Uterine fibroid Surgical History H/O bariatric surgery History of cholecystectomy History of hernia repair S/P dilation and curettage Family History Sister Asthma Mother Hea
[2022-08-09 19:54] LABS: Basophils # 0.1 K/mm3 (0-0.2); Basophils % 0.6 % (0.1-2.0); Eosinophils # 0.5 K/mm3 (0.0-0.4); Eosinophils % 5.6 % (0.1-12.0); Hematocrit 43.6 % (37.0-47.0); Hemoglobin 14.3 g/dL (12.2-16.2); Lymphocytes # 3.2 K/mm3 (0.7-4.5); Lymphocytes % 35.3 % (10-50); Mean Corpuscular HGB Conc 32.8 g/dL (31.8-35.4); Mean Corpuscular Hemoglobin 29.1 pg (27.0-31.2); Mean Corpuscular Volume 88.5 fl (81-99); Mean Platelet Volume 7.9 fl (7.4-10.4); Monocytes # 0.3 K/mm3 (0.1-1.0); Monocytes % 3.6 % (1.7-9.3); Neutrophils # 4.9 K/mm3 (1.8-7.8); Neutrophils % 54.8 % (37.0-80.0); Platelet Count 306 K/mm3 (142-424); Red Blood Count 4.93 M/mm3 (4.20-5.40); Red Cell Distribution Width 13.6 % (11.5-17.5)
[2022-08-09 19:57] LABS: Chloride 103 mmol/L (98-107); Potassium 4.2 mmoL/L (3.5-5.1); Sodium 141 mmol/L (136-145)
[2022-08-09 20:00] LABS: Anion Gap 17.2 mEq/L (5-15); Blood Urea Nitrogen 12 mg/dl (7-17); Calcium 9.2 mg/dl (8.4-10.2); Carbon Dioxide 25 mmol/L (22.0-30.0); Creatinine Clearance Estimated 127 mL/min (50-200); Estimated Glomerular Filt Rate 111 ml/min (>60); GFR (African American) 135 ML/MIN (>60); Glucose 107 mg/dl (74-100)
[2022-08-09 20:01] VITALS: BP 119/66; PULSE 76; O2SAT 100
[2022-08-09 20:32] VITALS: BP 140/65; PULSE 72; O2SAT 99
[2022-08-09 21:21] VITALS: BP 140/65; PULSE 70; RESP 18; TEMP 36.6; O2SAT 99
== END 2022-08-09 21:24 | disposition home or self-care (01) ==
PROVIDERS: Emergency Provider Family Medicine; PCP Family Medicine
DX: R42 Dizziness and giddiness (principal)
CPT/HCPCS: 80048; 85025; 93005; 99284

== ENCOUNTER 2022-08-16 09:58 | Emergency (ER) | payer OTHER, SELFPAY ==
[2022-08-16 10:20] VITALS: BP 127/71; PULSE 77; RESP 18; TEMP 36.8; O2SAT 98; BMI 48.6
[2022-08-16 10:50] LABS: UTC Strep Screen (Rapid) Negative (Negative)
--- NOTE | 2022-08-16 10:50 | EXP.UTC ---
Discharge Plan Disposition Patient Disposition: Home, Self-Care Condition: Good Prescriptions Prescriptions: New fluticasone propionate [Flonase Allergy Relief] 50 mcg/actuation spray,suspension 1 - 2 spray intranasal DAILY Qty: 16 0RF Rx Instructions: administer into each nostril daily benzonatate 100 mg capsule 100 mg PO TID PRN (Reason: cough) Qty: 30 0RF No Action omeprazole 20 mg capsule,delayed release(DR/EC) 20 mg PO BID Label Comments: TAKE ONE CAPSULE BY MOUTH EVERY TWELVE HOURS take morning CAPSULE 30 minutes BEFORE morning meal sertraline 100 mg tablet 100 mg PO DAILY propranolol 10 mg tablet 10 mg PO BID Referrals Follow up/Referrals: Taz Ward MD [Primary Care Provider] - See instructions Activity Restrictions/Add. Instructions Additional Instructions/Restrictions: *Monitor Temp, Over the counter Motrin or Tylenol as directed/as needed Tylenol every 4 hours and Motrin every 6 hours (as long as your family doctor has told you that you can take it) for fever or pain. and straight to ER if unable to lower temp less than 101.0 after medication given *Warm salt water gargles may help to soothe the throat *Throat Lozenges? *Warm fluids like tea with honey may help to soothe the throat? *Sleep elevated *Humidifier/Vaporizer *Flonase 2 sprays in each nostril daily but be aware that it may take 2-3 days before you notice improvement Your throat swab was sent for culture. Those results are typically sent to your primary care. Be sure to follow up in 2-3 days with your family doctor/primary care physician if no improvement so they can review those result and treat if necessary. If you don?t have a primary care doctor, I recommend you get one but in the mean time, you will have to return to a walk in clinic Follow up IMMEDIATELY for new or worsening symptoms or no Noticeable improvement over the next 48-72 hours. 911 for difficulty breathing or swallowing Clinical Impressions Clinical Impression: Viral upper respiratory tract infection with cough Instructions Patient Instructions: Cough, Sore Throat, DI for Nasal Congestion Discharge ED Provider: Charla Richey [facility] [place] HPI General Stated complaint: Sore throat, congestion, drainage, headache Mode of Arrival: Ambulatory Source of Information: Patient Limitations: No Limitations Time Seen by Provider: 08/16/22 10:51 Description of Symptoms (Recalled from Triage Doc. by RN): PATIENT C/O SORE THROAT, CONGESTION AND HEADACHE SINCE YESTERDAY HEENT Symptoms (Recalled from RN notes): Yes Resp Symptoms (Recalled from RN notes): No Skin Symptoms (Recalled from RN notes): No MS Symptoms (Recalled from RN notes): No Functional Status (Recalled from RN notes): WNL History of Present Illness Provider Complaint: Patient states that she started feeling bad yesterday having sore throat, nasal congestion and cough with headache States that today she wasnt feeling any better so she came in to get checked worried she may have strep throat Related Data Home Medications Medication Instructions Recorded Confirmed omeprazole 20 mg capsule,delayed 20 mg PO BID GERD 12/03/21 08/16/22 release propranolol 10 mg tablet 10 mg PO BID Blood Pressure 06/05/22 08/16/22 sertraline 100 mg tablet 100 mg PO DAILY . 08/12/22 08/16/22 Previous Rx's Medication Instructions Recorded benzonatate 100 mg capsule 100 mg PO TID PRN cough #30 caps 08/16/22 fluticasone propionate 50 1 - 2 spray intranasal DAILY #16 08/16/22 mcg/actuation nasal grams spray,suspension (Flonase Allergy Relief) Allergies Allergy/AdvReac Type Severity Reaction Status Date / Time Penicillins Allergy Verified 08/12/22 16:02 quetiapine [From Seroquel] Allergy Verified 08/12/22 16:02 Worker's Comp Is this a Worker's Comp case?: No [facility] Disclaimer: The information contained in this section may have been updated afte
[2022-08-16 10:55] VITALS: BP 127/71; PULSE 77; RESP 18; TEMP 36.8; O2SAT 98
== END 2022-08-16 11:13 | disposition home or self-care (01) ==
PROVIDERS: Emergency Provider Nurse Practitioner; PCP Family Medicine
DX: J06.9 Acute upper respiratory infection, unspecified (principal); R05.9 Cough, unspecified; B34.9 Viral infection, unspecified; I10 Essential (primary) hypertension; K21.9 Gastro-esophageal reflux disease without esophagitis; E66.01 Morbid (severe) obesity due to excess calories; Z98.84 Bariatric surgery status
CPT/HCPCS: 87880; 99212; 99214; G0463

== ENCOUNTER 2022-09-08 17:38 | Emergency (ER) | payer OTHER, SELFPAY ==
[2022-09-08 17:39] VITALS: BP 174/94; PULSE 99; RESP 17; TEMP 36.8; O2SAT 98; BMI 48.6
[2022-09-08 18:00] VITALS: BP 136/79; PULSE 93; RESP 20; O2SAT 98
--- NOTE | 2022-09-08 18:16 | HMH.EDGENADL ---
Discharge Plan Disposition Patient Disposition: Home, Self-Care Prescriptions Prescriptions: No Action omeprazole 20 mg capsule,delayed release(DR/EC) 20 mg PO BID Label Comments: TAKE ONE CAPSULE BY MOUTH EVERY TWELVE HOURS take morning CAPSULE 30 minutes BEFORE morning meal sertraline 100 mg tablet 100 mg PO DAILY doxycycline hyclate 100 mg tablet 100 mg PO BID 10 Days Qty: 20 0RF propranolol 10 mg tablet 10 mg PO BID Referrals Follow up/Referrals: Taz Ward MD [Primary Care Provider] - See instructions Activity Restrictions/Add. Instructions Additional Instructions/Restrictions: Floss your vessel loop in your abscess as we discussed and you may cut the vessel loop out once there is no more drainage and your symptoms have improved. This should take 2 to 3 days. Please continue to take your antibiotics which are the appropriate antibiotic choice in this particular situation you should notice an overall significant improvement in 48 to 72 hours please return with any worsening of your symptoms or systemic signs and symptoms like high fever is not resolving with Tylenol or ibuprofen Clinical Impressions Clinical Impression: Abscess of axilla, right, Cellulitis of axilla, right Instructions Patient Instructions: DI for Laceration Repair Discharge ED Provider: Kamilla Jurado General Adult HPI General Chief complaint: Wound/Laceration Stated complaint: knot under right arm, hot to touch, fever Time Seen by Provider: 09/08/22 18:17 Mode of Arrival: Ambulatory Source of Information: Patient Limitations: No Limitations Description of Symptoms (Recalled from ER Triage Doc. by RN): pt to the ED with a raised bump under her right arm in the axillary region that is red and hot to the touch. pt reports she saw her PCP this morning and was given doxycycline for her abcess. pt stated she took a dose of her antibiotics at lunch but her abcess has continued to grow in size. History of Present Illness HPI narrative: Patient is a 37-year-old female with a history of abscesses who presents the right axillary abscess and cellulitis from a clinical history. She was started on doxycycline had her first dose this morning but the pain and redness have worsened little bit. No fevers or chills that been persistent. She feels otherwise okay at the moment. Pain is moderate Related Data Home Medications Medication Instructions Recorded Confirmed omeprazole 20 mg capsule,delayed 20 mg PO BID GERD 12/03/21 09/08/22 release propranolol 10 mg tablet 10 mg PO BID Blood Pressure 06/05/22 09/08/22 sertraline 100 mg tablet 100 mg PO DAILY . 08/12/22 09/08/22 Previous Rx's Medication Instructions Recorded doxycycline hyclate 100 mg tablet 100 mg PO BID 10 days #20 tabs 09/08/22 Allergies Allergy/AdvReac Type Severity Reaction Status Date / Time Penicillins Allergy Verified 09/08/22 10:34 quetiapine [From Seroquel] Allergy Verified 09/08/22 10:34 [facility] Disclaimer: The information contained in this section may have been updated after the patient was seen, as this information can be updated by other users. 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
--- NOTE | 2022-09-08 18:32 | PC.NURSE ---
at bedside for wound I&D
[2022-09-08 18:39] VITALS: BP 139/76; PULSE 94; RESP 20; O2SAT 100
[2022-09-08 18:40] VITALS: BP 139/76; PULSE 85; RESP 18; TEMP 36.8; O2SAT 99
== END 2022-09-08 18:43 | disposition home or self-care (01) ==
PROVIDERS: Emergency Provider Student in an Organized Health Care Education/Training Program; PCP Family Medicine
DX: L02.411 Cutaneous abscess of right axilla (principal); L03.111 Cellulitis of right axilla; I10 Essential (primary) hypertension; E66.01 Morbid (severe) obesity due to excess calories; F41.9 Anxiety disorder, unspecified
CPT/HCPCS: 10060; 99284

== ENCOUNTER 2022-09-10 14:05 | Emergency (ER) | payer OTHER, SELFPAY ==
[2022-09-10 14:06] VITALS: BP 155/93; PULSE 89; RESP 18; TEMP 36.8; O2SAT 98; BMI 48.6
--- NOTE | 2022-09-10 14:33 | HMH.EDSKAF ---
Discharge Plan Disposition Chief Complaint: Skin/Abscess/Foreign Body Prescriptions Prescriptions: New sulfamethoxazole-trimethoprim [Bactrim DS] 800-160 mg tablet 2 tab PO Q12H 10 Days Qty: 40 0RF No Action omeprazole 20 mg capsule,delayed release(DR/EC) 20 mg PO BID Label Comments: TAKE ONE CAPSULE BY MOUTH EVERY TWELVE HOURS take morning CAPSULE 30 minutes BEFORE morning meal sertraline 100 mg tablet 100 mg PO DAILY doxycycline hyclate 100 mg tablet 100 mg PO BID 10 Days Qty: 20 0RF propranolol 10 mg tablet 10 mg PO BID Referrals Follow up/Referrals: Taz Ward MD [Primary Care Provider] - See instructions Activity Restrictions/Add. Instructions Additional Instructions/Restrictions: Follow-up with your primary care doctor in about 3 to 4 days if you do not improve. Return to the emergency department immediately if you worsen in any way. Continue taking the antibiotic you have been prescribed 2 days ago. In addition to that to take the new prescription issued today. Clinical Impressions Clinical Impression: Cellulitis Instructions Patient Instructions: DI for Skin Abscess Discharge ED Provider: Tesha Salvador Skin/Abscess/FB HPI General Chief complaint: Skin/Abscess/Foreign Body Stated complaint: Abcess under RT arm Time Seen by Provider: 09/10/22 14:30 Mode of Arrival: Ambulatory Source of Information: Patient Limitations: No Limitations Description of Symptoms (Recalled from ER Triage Doc. by RN): Presents to ED with complaints of an abscess under right axilla that was drained Wednesday with a loop in place. Patient reports an increase in cellulitis surrounding the site. No fever ATTENDING PATHOLOGIST. Patient taking Doxycycline as prescribed by MD. History of Present Illness HPI narrative: Patient presents to the emergency department complaining of increasing redness in her right axilla. She had an incision and drainage done of an abscess in that region 2 days ago. She is currently on doxycycline. Related Data Home Medications Medication Instructions Recorded Confirmed omeprazole 20 mg capsule,delayed 20 mg PO BID GERD 12/03/21 09/08/22 release propranolol 10 mg tablet 10 mg PO BID Blood Pressure 06/05/22 09/08/22 sertraline 100 mg tablet 100 mg PO DAILY . 08/12/22 09/08/22 Previous Rx's Medication Instructions Recorded doxycycline hyclate 100 mg tablet 100 mg PO BID 10 days #20 tabs 09/08/22 sulfamethoxazole 800 2 tab PO Q12H 10 days #40 tabs 09/10/22 mg-trimethoprim 160 mg tablet (Bactrim DS) Allergies Allergy/AdvReac Type Severity Reaction Status Date / Time Penicillins Allergy Verified 09/08/22 10:34 quetiapine [From Seroquel] Allergy Verified 09/08/22 10:34 PFS PFS Disclaimer: The information contained in this section may have been updated after the patient was seen, as this information can be updated by other users. 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
[2022-09-10 15:49] VITALS: BP 113/72; PULSE 79; RESP 18; TEMP 36.8; O2SAT 96
== END 2022-09-10 15:30 | disposition home or self-care (01) ==
PROVIDERS: Emergency Provider Emergency Medicine; PCP Family Medicine
DX: L02.411 Cutaneous abscess of right axilla (principal); L03.111 Cellulitis of right axilla; F41.9 Anxiety disorder, unspecified; I10 Essential (primary) hypertension; E28.2 Polycystic ovarian syndrome; F17.210 Nicotine dependence, cigarettes, uncomplicated
CPT/HCPCS: 99283; 99284

== ENCOUNTER 2022-10-02 19:16 | Emergency (ER) | payer OTHER, SELFPAY ==
[2022-10-02 19:16] VITALS: BP 132/71; PULSE 81; RESP 16; TEMP 36.4; O2SAT 100; BMI 48.6
--- NOTE | 2022-10-02 19:24 | EXP.UTC ---
Discharge Plan Disposition Patient Disposition: Home, Self-Care Condition: Good Prescriptions Prescriptions: New celecoxib [Celebrex] 200 mg capsule 200 mg PO DAILY Qty: 30 0RF No Action omeprazole 20 mg capsule,delayed release(DR/EC) 20 mg PO BID Patient Comments: TAKE ONE CAPSULE BY MOUTH EVERY TWELVE HOURS take morning CAPSULE 30 minutes BEFORE morning meal sertraline 100 mg tablet 100 mg PO DAILY doxycycline hyclate 100 mg tablet 100 mg PO BID 10 Days Qty: 20 0RF propranolol 10 mg tablet 10 mg PO BID sulfamethoxazole-trimethoprim [Bactrim DS] 800-160 mg tablet 2 tab PO Q12H 10 Days Qty: 40 0RF Referrals Follow up/Referrals: Taz Ward MD [Primary Care Provider] - See instructions Clinical Impressions Clinical Impression: Neuropathy, ulnar nerve Instructions Patient Instructions: Peripheral Neuropathy Discharge ED Provider: Gwen Chavez [facility] [place] HPI General Stated complaint: left hand finger numbness/pain Time Seen by Provider: 10/02/22 19:55 History of Present Illness Provider Complaint: Patient woke up this am with numbness and electric shooting type pain in left 4th and 5th digits. Has seemed to get worse as the day has gone on. Onset (ago): day(s) (1) Location: left and upper extremity Quality: burning Relieving factors: none Exacerbating factors: none Treatments prior to arrival: none Related Data Home Medications Medication Instructions Recorded Confirmed omeprazole 20 mg capsule,delayed 20 mg PO BID GERD 12/03/21 09/08/22 release propranolol 10 mg tablet 10 mg PO BID Blood Pressure 06/05/22 09/08/22 sertraline 100 mg tablet 100 mg PO DAILY . 08/12/22 09/08/22 Previous Rx's Medication Instructions Recorded doxycycline hyclate 100 mg tablet 100 mg PO BID 10 days #20 tabs 09/08/22 sulfamethoxazole 800 2 tab PO Q12H 10 days #40 tabs 09/10/22 mg-trimethoprim 160 mg tablet (Bactrim DS) celecoxib 200 mg capsule (Celebrex) 200 mg PO DAILY #30 caps 10/02/22 Allergies Allergy/AdvReac Type Severity Reaction Status Date / Time Penicillins Allergy Verified 09/08/22 10:34 quetiapine [From Seroquel] Allergy Verified 09/08/22 10:34 [facility] Disclaimer: The information contained in this section may have been updated after the patient was seen, as this information can be updated by other users. 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, sleep paralysis Urinary tract infection Uterine fibroid Surgical History H/O bariatric surgery History of cholecystectomy History of hernia repair S/P dilation and curettage Family History Sister Asthma Mother Heart attack Diabetes Father Diabetes Coronary artery disease Social History Smoking Status: Current some day smoker tobacco type: cigarettes packs per day: 1 second hand exposure: No alcohol intake: never substance use type: denies use current occupational status: employed Travel in the last 8 weeks: None household members: spouse and children housing: house ROS Obtained: Yes All systems reviewed & no additional complaints except as documented Musculoskeletal Musculoskeletal: Reports as per HPI Neurologic Neurologic: Reports as per HPI Physical Exam General General appearance: alert and in no apparent distress Neck Neck exam: Present normal inspection, full ROM and trachea midline; Absent meningismus or lymphadenopathy Chest Chest inspection: Present normal inspection and symmetric chest wall rise; Absent tenderness Respiratory Respiratory exam: Present normal l
[2022-10-02 20:03] VITALS: BP 132/71; PULSE 81; RESP 16; TEMP 36.4; O2SAT 100
== END 2022-10-02 20:05 | disposition home or self-care (01) ==
PROVIDERS: Emergency Provider Physician Assistant; PCP Family Medicine
DX: G56.20 Lesion of ulnar nerve, unspecified upper limb (principal); F17.210 Nicotine dependence, cigarettes, uncomplicated; I10 Essential (primary) hypertension; K21.9 Gastro-esophageal reflux disease without esophagitis; E66.01 Morbid (severe) obesity due to excess calories; Z68.42 Body mass index [BMI] 45.0-49.9, adult
CPT/HCPCS: 99212; 99214; G0463

== ENCOUNTER 2022-10-07 01:35 | Emergency (ER) | payer OTHER, SELFPAY ==
[2022-10-07 01:50] VITALS: BP 148/75; PULSE 87; RESP 15; TEMP 37; O2SAT 99; BMI 47.9
--- NOTE | 2022-10-07 01:54 | CT_ITS ---
PROCEDURE INFORMATION: Exam: CT Abdomen And Pelvis With Contrast Exam date and time: 10/07/2022 2:15 AM Age: 37 years old Clinical indication: Abdominal pain; Localized; Right lower quadrant (rlq); Patient HX: PT is currently on her period; Additional info: Rlq abd pain TECHNIQUE: Imaging protocol: Computed tomography of the abdomen and pelvis with contrast. Radiation optimization: All CT scans at this facility use at least one of these dose optimization techniques: automated exposure control; mA and/or kV adjustment per patient size (includes targeted exams where dose is matched to clinical indication); or iterative reconstruction. Contrast material: ISOVUE; Contrast volume: 75 ml; Contrast route: IV; REPORTING DATA: Count of CT and Cardiac NM exams in prior 12 months: This patient has received 3 known CTs and 0 known cardiac nuclear medicine studies in the 12 months prior to the current study. COMPARISON: CT ABDOMEN PELVIS W CON 07/10/2022 10:28 PM FINDINGS: Liver: Unremarkable. Gallbladder and bile ducts: Status post cholecystectomy. Pancreas: Unremarkable. Spleen: Unremarkable. Adrenal glands: Unremarkable. Kidneys and ureters: Stable left renal 14 mm hypodensity compatible with renal cyst. No follow-up imaging is warranted. Stomach and bowel: Changes of partial sleeve gastrectomy. Small hiatal hernia. Appendix: No evidence of appendicitis. Intraperitoneal space: Unremarkable. Vasculature: Unremarkable. Lymph nodes: Unremarkable. Urinary bladder: Unremarkable as visualized. Reproductive: Tampon within the vaginal canal. Bones/joints: No acute osseous abnormality. Soft tissues: Unremarkable. Other findings: . IMPRESSION: No acute findings in the abdomen and pelvis. No evidence of acute appendicitis.
--- NOTE | 2022-10-07 02:00 | HMH.EDABDPAI ---
Discharge Plan Disposition Patient Disposition: Home, Self-Care Prescriptions Prescriptions: New metronidazole 500 mg Tablet 500 mg PO TID Qty: 30 0RF No Action omeprazole 20 mg capsule,delayed release(DR/EC) 20 mg PO BID Patient Comments: TAKE ONE CAPSULE BY MOUTH EVERY TWELVE HOURS take morning CAPSULE 30 minutes BEFORE morning meal sertraline 100 mg tablet 100 mg PO DAILY doxycycline hyclate 100 mg tablet 100 mg PO BID 10 Days Qty: 20 0RF celecoxib [Celebrex] 200 mg capsule 200 mg PO DAILY Qty: 30 0RF propranolol 10 mg tablet 10 mg PO BID sulfamethoxazole-trimethoprim [Bactrim DS] 800-160 mg tablet 2 tab PO Q12H 10 Days Qty: 40 0RF Referrals Follow up/Referrals: Taz Ward MD [Primary Care Provider] - See instructions Clinical Impressions Clinical Impression: C. difficile enteritis Stand Alone Forms Stand Alone Forms: Work/School Release Instructions Patient Instructions: DI for Clostridioides difficile Infection Discharge ED Provider: Jonh (ED)Kike Abdominal Pain HPI General Chief Complaint: Abdominal Pain Stated Complaint: Right lower pelvic pain, vomiting, diarrhea Time Seen by Provider: 10/07/22 02:00 Mode of Arrival: Family Vehicle Source of Information: Patient and Medical Record Limitations: No Limitations Description of Symptoms (Recalled from ER Triage Doc. by RN): 37 YO FEMALE PRESENTS WITH CC OF RLQ PAIN AND N/V/D. STATES SHE HAS A PMH OF A GASTRIC SLEEVE SURGERY AND ENDOMETRIOSIS. YESTERDAY EVENING THEY HAD FOOD FROM [facility]. PATIENT DENIES ANY RADIATION OF PAIN. DENIES DYSURIA. STATE BM IS LIKE WATER . 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 08/12/22 09/08/22 Previous Rx's Medication Instructions Recorded doxycycline hyclate 100 mg tablet 100 mg PO BID 10 days #20 tabs 09/08/22 sulfamethoxazole 800 2 tab PO Q12H 10 days #40 tabs 09/10/22 mg-trimethoprim 160 mg tablet (Bactrim DS) celecoxib 200 mg capsule (Celebrex) 200 mg PO DAILY #30 caps 10/02/22 metronidazole 500 mg tablet 500 mg PO TID #30 tabs 10/07/22 Allergies Allergy/AdvReac Type Severity Reaction Status Date / Time Penicillins Allergy Verified 09/08/22 10:34 quetiapine [From Seroquel] Allergy Verified 09/08/22 10:34 [facility] Disclaimer: The information contained in this section may have been updated after the patient was seen, as this information can be updated by other users. 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
[2022-10-07 02:05] LABS: Microscopic, Urine URINE MICROSCOPIC (MICROSCOPIC)
[2022-10-07 02:06] LABS: Basophils % 0.4 % (0.1-2.0); Eosinophils # 0.5 K/mm3 (0.0-0.4); Eosinophils % 4.6 % (0.1-12.0); Hematocrit 46.7 % (37.0-47.0); Hemoglobin 14.9 g/dL (12.2-16.2); Lymphocytes # 2.7 K/mm3 (0.7-4.5); Mean Corpuscular Hemoglobin 28.5 pg (27.0-31.2); Mean Platelet Volume 8.2 fl (7.4-10.4); Monocytes # 0.5 K/mm3 (0.1-1.0); Monocytes % 4.7 % (1.7-9.3); Neutrophils % 65.4 % (37.0-80.0); Platelet Count 324 K/mm3 (142-424); Red Blood Count 5.25 M/mm3 (4.20-5.40); Red Cell Distribution Width 13.8 % (11.5-17.5); White Blood Count 10.7 K/mm3 (4.8-10.8)
[2022-10-07 02:08] LABS: Appearance,Urine CLEAR (Clear); Bilirubin,Urine Negative (Negative); Blood, Urine 1+ (Negative); Color,Urine YELLOW (Yellow); Glucose,Urine (UA) Negative (Negative); Ketones,Urine Negative (Negative); Leukocyte Esterase,Urine Negative (Negative); Nitrate,Urine Negative (Negative); Protein,Urine Negative (Negative); Specific Gravity, Urine 1.025 (1.005-1.030)
[2022-10-07 02:09] LABS: Chloride 106 mmol/L (98-107); Potassium 3.8 mmoL/L (3.5-5.1); Sodium 139 mmol/L (136-145); Urine Pregnancy, HCG Qual. Negative (Negative)
--- NOTE | 2022-10-07 02:10 | PC.NURSE ---
Pt gone to RAD via wheelchair
[2022-10-07 02:11] LABS: Amylase 63 U/L (30-110)
[2022-10-07 02:12] LABS: Alanine Aminotransferase 17 U/L (12-78); Albumin Level 4.3 g/dl (3.5-5.0); Albumin/Globulin Ratio 1.3 (1.1-1.8); Alkaline Phosphatase 76 U/L (38-126); Anion Gap 10.8 mEq/L (5-15); Aspartate Amino Transferase 21 U/L (14-36); Bilirubin,Total 0.4 mg/dl (0.2-1.3); Blood Urea Nitrogen 10 mg/dl (7-17); Calcium 8.7 mg/dl (8.4-10.2); Carbon Dioxide 26 mmol/L (22.0-30.0); Creatinine Clearance Estimated 127 mL/min (50-200); Estimated Glomerular Filt Rate 111 ml/min (>60); GFR (African American) 135 ML/MIN (>60); Globulin 3.4 g/dL (1.3-3.2); Glucose 106 mg/dl (74-100); Lipase 117 U/L (23-300); Total Protein,Serum 7.7 g/dl (6.3-8.2)
--- NOTE | 2022-10-07 02:18 | PC.NURSE ---
Pt returned from RAD
[2022-10-07 02:22] LABS: Bacteria,Urine Trace /lpf
[2022-10-07 02:30] LABS: Procalcitonin 0.044 ng/mL (0.0-2.0)
[2022-10-07 02:35] LABS: Erythrocyte Sedimentation Rate 14 mm/hr (0-20)
[2022-10-07 03:19] LABS: Adenovirus F 40/41, stool Not Detected (NotDetected); Astrovirus Not Detected (NotDetected); Campylobacter Not Detected (NotDetected); Cryptosporidium Not Detected (NotDetected); Cyclospora Cayetanesis Not Detected (NotDetected); Entamoeba histolytica Not Detected (NotDetected); Enteroaggregative E coli Not Detected (NotDetected); Enteropathogenic E coli Not Detected (NotDetected); Enterotoxigenic E coli Not Detected (NotDetected); Giardia lamblia Not Detected (NotDetected); Norovirus Not Detected (NotDetected); Plesimonas Shigalloides, PCR Not Detected (NotDetected); Rotavirus A Not Detected (NotDetected); Salmonella, PCR Not Detected (NotDetected); Sapovirus Not Detected (NotDetected); Shiga-like toxin E coli Not Detected (NotDetected); Shigella Enterovasive E coli Not Detected (NotDetected); Vibrio Cholerae Not Detected (NotDetected); Vibrio, PCR Not Detected (NotDetected); Yersinia Entercolitica, PCR Not Detected (NotDetected)
[2022-10-07 03:51] VITALS: BP 112/72; PULSE 86; RESP 19; TEMP 36.8; O2SAT 98
[2022-10-07 05:20] LABS: Clostridium Difficile A/B, PCR Detected (NotDetected)
--- NOTE | 2022-10-07 05:30 | PC.NURSE ---
Dr. Borja notified of diarrhea panel- c.diff results.
--- NOTE | 2022-10-07 05:57 | PC.NURSE ---
Dr. Borja s/w Dr. Adam, on-call for Dr. Ward, and will send in Flagyl to cover pt with C-Diff.
--- NOTE | 2022-10-07 07:08 | PC.NURSE ---
left voicemail for patient to call ER for results
== END 2022-10-07 04:00 | disposition home or self-care (01) ==
PROVIDERS: Emergency Provider Emergency Medicine; PCP Family Medicine
DX: A04.72 Enterocolitis due to Clostridium difficile, not specified as recurrent (principal); R10.31 Right lower quadrant pain; I10 Essential (primary) hypertension; E66.01 Morbid (severe) obesity due to excess calories; F17.210 Nicotine dependence, cigarettes, uncomplicated
CPT/HCPCS: 74177; 80053; 81001; 81025; 82150; 83690; 84145; 85025; 85651; 86140; 87507; 96361; 96374; 96375; 96376; 99284; 99285; J2405; Q9967

== ENCOUNTER → 2022-11-24 09:41 | Outpatient (CLI) | payer OTHER, SELFPAY | PROVIDERS: PCP Family Medicine; Visit Provider Nurse Practitioner Family | DX: R00.2 Palpitations (principal); I10 Essential (primary) hypertension; E66.01 Morbid (severe) obesity due to excess calories; Z68.42 Body mass index [BMI] 45.0-49.9, adult | CPT/HCPCS: 93270 ==

== ENCOUNTER 2022-12-03 18:47 | Emergency (ER) | payer OTHER, SELFPAY ==
[2022-12-03 19:20] VITALS: BP 148/80; PULSE 82; RESP 20; TEMP 36.8; O2SAT 100; BMI 47.9
--- NOTE | 2022-12-03 19:21 | EXP.UTC ---
Discharge Plan Disposition Patient Disposition: Home, Self-Care Condition: Good Prescriptions Prescriptions: New prednisone [prednisone] 20 mg tablet 20 mg PO BID 3 Days Qty: 6 0RF cefdinir 300 mg capsule 300 mg PO BID Qty: 20 0RF No Action omeprazole 20 mg capsule,delayed release(DR/EC) 20 mg PO BID Patient Comments: TAKE ONE CAPSULE BY MOUTH EVERY TWELVE HOURS take morning CAPSULE 30 minutes BEFORE morning meal sertraline 100 mg tablet 100 mg PO DAILY azithromycin [Zithromax Z-Micha] 250 mg tablet See Rx Instructions PO .COMPLEX Qty: 6 0RF Rx Instructions: For 250 mg dose pack: take 500 mg today (day 1), then 250 mg for 4 days (days 2-5) PO famotidine 10 mg tablet 10 mg PO DAILY PRN propranolol 40 mg tablet 40 mg PO BID Qty: 60 2RF Referrals Follow up/Referrals: Taz Ward MD [Primary Care Provider] - See instructions Activity Restrictions/Add. Instructions Additional Instructions/Restrictions: Drink plenty of fluids. Stop the azithromycin Start the new antibiotic (cefdinir). Take the prednisone as directed. Take tylenol or ibuprofen for pain. Follow up with your regular doctor. GO TO THE ER FOR ANY WORSENING SYMPTOMS Clinical Impressions Clinical Impression: Parotitis Instructions Patient Instructions: Parotitis Discharge ED Provider: Derek Newton [facility] General Stated complaint: sore throat Time Seen by Provider: 12/03/22 19:21 History of Present Illness Provider Complaint: She c/o right sided throat pain for the past 4 days. She was started on azithromycin 3 days ago, but she states that it is not getting any better. Related Data Home Medications Medication Instructions Recorded Confirmed omeprazole 20 mg capsule,delayed 20 mg PO BID GERD 12/03/21 12/02/22 release sertraline 100 mg tablet 100 mg PO DAILY . 08/12/22 12/02/22 famotidine 10 mg tablet 10 mg PO DAILY PRN 11/24/22 12/02/22 Previous Rx's Medication Instructions Recorded propranolol 40 mg tablet 40 mg PO BID #60 tabs 11/24/22 azithromycin 250 mg tablet See Rx Instructions PO .COMPLEX #6 12/02/22 (Zithromax Z-Micha) tabs cefdinir 300 mg capsule 300 mg PO BID #20 caps 08/31/23 prednisone 20 mg tablet 20 mg PO BID 3 days #6 tabs 12/03/22 Allergies Allergy/AdvReac Type Severity Reaction Status Date / Time Penicillins Allergy Verified 12/02/22 14:47 quetiapine [From Seroquel] Allergy Verified 12/02/22 14:47 [facility] Disclaimer: The information contained in this section may have been updated after the patient was seen, as this information can be updated by other users. Medical History (Updated 12/03/22 @ 19:45 by Derek Newton APRN) Anxiety Bariatric surg stat-del History of endometriosis History of gastroesophageal reflux (GERD) History of PCOS HTN (hypertension) LLQ pain Morbid obesity with BMI of 50.0-59.9, adult Parasomnia Sore throat Urinary tract infection Uterine fibroid Surgical History H/O bariatric surgery History of cholecystectomy History of hernia repair S/P dilation and curettage Family History Sister Asthma Mother Heart attack Diabetes Father Diabetes Coronary artery disease Social History Smoking Status: Current every day smoker tobacco type: cigarettes packs per day: 1 second hand exposure: No alcohol intake: never substance use type: denies use current occupational status: employed Travel in the last 8 weeks: None household members: spouse and children housing: house ROS Obtained: Yes All systems reviewed & no additional complaints except as documented Constitutional Constitutional: Reports chills and Denies fever(s) Eyes Eyes: Denies eye discharge ENT Ears, Nose, Mouth, and Throat: Reports as per HPI Ca
[2022-12-03 19:52] VITALS: BP 148/80; PULSE 82; RESP 20; TEMP 36.8; O2SAT 100
== END 2022-12-03 19:56 | disposition home or self-care (01) ==
PROVIDERS: Emergency Provider Nurse Practitioner Family; PCP Family Medicine
DX: K11.20 Sialoadenitis, unspecified (principal); F17.210 Nicotine dependence, cigarettes, uncomplicated; K21.9 Gastro-esophageal reflux disease without esophagitis; I10 Essential (primary) hypertension; E66.01 Morbid (severe) obesity due to excess calories; G47.50 Parasomnia, unspecified; F41.9 Anxiety disorder, unspecified; Z68.43 Body mass index [BMI] 50.0-59.9, adult
CPT/HCPCS: 99212; 99214; G0463

== ENCOUNTER 2022-12-04 04:01 | Emergency (ER) | payer OTHER, SELFPAY ==
[2022-12-04 04:02] VITALS: BP 152/80; PULSE 71; RESP 20; TEMP 36.7; O2SAT 100; BMI 48.6
--- NOTE | 2022-12-04 04:25 | CT_ITS ---
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 Radiation optimization: All CT scans at this facility use at least one of these dose optimization techniques: automated exposure control; mA and/or kV adjustment per patient size (includes targeted exams where dose is matched to clinical indication); or iterative reconstruction. Contrast material: ISOVUE; Contrast volume: 75 ml; Contrast route: IV; REPORTING DATA: Count of CT and Cardiac NM exams in prior 12 months: This patient has received 4 known CTs and 0 known cardiac nuclear medicine studies in the 12 months prior to the current study. COMPARISON: CT FACIAL BONES W CON 06/07/2022 7:38 PM FINDINGS: Pharynx: There is asymmetric increased thickness of the right peritonsillar and retropharyngeal soft tissues. There is a 9 mm hypodensity with some rim enhancement present causing mass effect consistent with a small peritonsillar abscess. Larynx: Unremarkable. Epiglottis is normal. Prevertebral and retropharyngeal spaces: See Pharynx finding. Salivary glands: Normal. Glands are normal in size. Thyroid: Normal. No enlarged or calcified nodules. Lymph nodes: Prominent right cervical lymph nodes measuring up to 15 mm in short axis. Trachea: Visualized trachea is unremarkable. Lungs: Unremarkable as visualized. Bones/joints: Unremarkable. No acute fracture. Soft tissues: Unremarkable. No significant soft tissue swelling. IMPRESSION: Right-sided peritonsillar and retropharyngeal edema with a central area of low attenuation and peripheral enhancement consistent with developing abscess. Right-sided cervical lymphadenopathy.
--- NOTE | 2022-12-04 05:19 | HMH.EDGENADL ---
Discharge Plan Disposition Patient Disposition: Home, Self-Care Condition: Good Prescriptions Prescriptions: New clindamycin HCl 150 mg capsule 450 mg PO Q8H 7 Days Qty: 63 0RF lidocaine HCl 2 % solution 1 applic mucous membrane Q8H PRN (Reason: pain) Qty: 100 0RF No Action omeprazole 20 mg capsule,delayed release(DR/EC) 20 mg PO BID Patient Comments: TAKE ONE CAPSULE BY MOUTH EVERY TWELVE HOURS take morning CAPSULE 30 minutes BEFORE morning meal sertraline 100 mg tablet 100 mg PO DAILY azithromycin [Zithromax Z-Micha] 250 mg tablet See Rx Instructions PO .COMPLEX Qty: 6 0RF Rx Instructions: For 250 mg dose pack: take 500 mg today (day 1), then 250 mg for 4 days (days 2-5) PO famotidine 10 mg tablet 10 mg PO DAILY PRN propranolol 40 mg tablet 40 mg PO BID Qty: 60 2RF prednisone [prednisone] 20 mg tablet 20 mg PO BID 3 Days Qty: 6 0RF cefdinir 300 mg capsule 300 mg PO BID Qty: 20 0RF Referrals Follow up/Referrals: Taz Ward MD [Primary Care Provider] - See instructions Activity Restrictions/Add. Instructions Additional Instructions/Restrictions: Please follow-up with your primary care provider and your ENT doctor. Please return to the emergency department if you develop any new or worsening symptoms or become concerned for your health. Please take clindamycin as prescribed. Please discontinue any other antibiotics. You were prescribed prednisone by a previous provider. Recommend initiating this on 12/06 as the steroid you were given today last approximately 2 days. Please use lidocaine solution as needed for pain. Clinical Impressions Clinical Impression: Peritonsillar abscess Discharge ED Provider: Maximino Reese General Adult HPI General Chief complaint: PAIN Stated complaint: swollen tonsil, throat pain Time Seen by Provider: 12/04/22 04:05 Mode of Arrival: Ambulatory Source of Information: Patient Limitations: No Limitations Description of Symptoms (Recalled from ER Triage Doc. by RN): Pt c/o of right tonsil pain. Pt was seen in [facility] yesterday given steroid and abx. Pt of Dr Velázquez (ent) was dx with right sinus cavity blockage in June. Tonsil is visibily swollen and red History of Present Illness HPI narrative: 37-year-old female reported history of anxiety presents with worsening right-sided facial swelling and pain. She reports that this started a couple of days ago. She has been seen at urgent care, ENT clinic, urgent care again over the last 3 days. She reports that her throat was swabbed and it was all negative. She was told by someone at that she might have a parotid gland infection. She reports pain with opening her mouth, reports pain with swallowing though she is still able to swallow. Denies any shortness of breath. Nothing like this is happened before. Related Data Home Medications Medication Instructions Recorded Confirmed omeprazole 20 mg capsule,delayed 20 mg PO BID GERD 12/03/21 12/02/22 release sertraline 100 mg tablet 100 mg PO DAILY . 08/12/22 12/02/22 famotidine 10 mg tablet 10 mg PO DAILY PRN 11/24/22 12/02/22 Previous Rx's Medication Instructions Recorded propranolol 40 mg tablet 40 mg PO BID #60 tabs 11/24/22 azithromycin 250 mg tablet See Rx Instructions PO .COMPLEX #6 12/02/22 (Zithromax Z-Micha) tabs cefdinir 300 mg capsule 300 mg PO BID #20 caps 12/03/22 prednisone 20 mg tablet 20 mg PO BID 3 days #6 tabs 12/03/22 clindamycin HCl 150 mg capsule 450 mg PO Q8H 7 days #63 caps 12/04/22 lidocaine HCl 2 % mucosal solution 1 applic mucous membrane Q8H PRN 12/04/22 pain #100 mL Allergies Allergy/AdvReac Type Severity Reaction Status Date / Time Penicillins Allergy Verified 12/02/22 14:47 quetiapine [From Seroquel] Allergy Verified 12/02/22 14:47 [facility] Disclaimer: The information contained in this section may have been updated after the patient was seen, as this information can be u
[2022-12-04 05:24] VITALS: BP 138/76; PULSE 85; RESP 20; TEMP 36.9; O2SAT 97
== END 2022-12-04 05:26 | disposition home or self-care (01) ==
PROVIDERS: Emergency Provider Emergency Medicine; PCP Family Medicine
DX: J36 Peritonsillar abscess (principal); F41.9 Anxiety disorder, unspecified; I10 Essential (primary) hypertension; E66.01 Morbid (severe) obesity due to excess calories; E28.2 Polycystic ovarian syndrome; F17.210 Nicotine dependence, cigarettes, uncomplicated
CPT/HCPCS: 70491; 99284; Q9967

== ENCOUNTER 2022-12-06 11:09 | Emergency (ER) | payer OTHER, SELFPAY ==
[2022-12-06] VITALS (13 sets, daily range): BP systolic 100–132; BP diastolic 55–77; PULSE 48–64; RESP 16–55; TEMP 36.8–37.1; O2SAT 98–100; BMI 47.9
--- NOTE | 2022-12-06 11:30 | CT_ITS ---
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 Radiation optimization: All CT scans at this facility use at least one of these dose optimization techniques: automated exposure control; mA and/or kV adjustment per patient size (includes targeted exams where dose is matched to clinical indication); or iterative reconstruction. Contrast material: ISOVUE; Contrast volume: 75 ml; Contrast route: IV; REPORTING DATA: Count of CT and Cardiac NM exams in prior 12 months: This patient has received 5 known CTs and 0 known cardiac nuclear medicine studies in the 12 months prior to the current study. COMPARISON: CT SOFT TISSUE NECK W CON 12/04/2022 4:48 AM FINDINGS: Pharynx: There is redemonstration of right palatine tonsil abscess measuring 1.3 x 0.7 x 0.9 cm, not substantially changed in size and appearance from prior exam. Larynx: Unremarkable. Epiglottis is normal. Prevertebral and retropharyngeal spaces: Unremarkable. Salivary glands: Normal. Glands are normal in size. Thyroid: Normal. No enlarged or calcified nodules. Lymph nodes: Borderline prominent, multi station lymph nodes likely reactive. Trachea: Visualized trachea is unremarkable. Lungs: Unremarkable as visualized. Bones/joints: Unremarkable. No acute fracture. Soft tissues: Unremarkable. No significant soft tissue swelling. IMPRESSION: There is redemonstration of right palatine tonsil abscess measuring 1.3 x 0.7 x 0.9 cm, not substantially changed in size and appearance from prior exam.
--- NOTE | 2022-12-06 11:33 | HMH.EDGENADL ---
Discharge Plan Disposition Patient Disposition: Xfer Short-Term Hosp Condition: Fair Chief Complaint: Dental/Oral Prescriptions Prescriptions: No Action omeprazole 20 mg capsule,delayed release(DR/EC) 20 mg PO BID Patient Comments: TAKE ONE CAPSULE BY MOUTH EVERY TWELVE HOURS take morning CAPSULE 30 minutes BEFORE morning meal sertraline 100 mg tablet 100 mg PO DAILY azithromycin [Zithromax Z-Micha] 250 mg tablet See Rx Instructions PO .COMPLEX Qty: 6 0RF Rx Instructions: For 250 mg dose pack: take 500 mg today (day 1), then 250 mg for 4 days (days 2-5) PO famotidine 10 mg tablet 10 mg PO DAILY PRN propranolol 40 mg tablet 40 mg PO BID Qty: 60 2RF prednisone [prednisone] 20 mg tablet 20 mg PO BID 3 Days Qty: 6 0RF cefdinir 300 mg capsule 300 mg PO BID Qty: 20 0RF clindamycin HCl 150 mg capsule 450 mg PO Q8H 7 Days Qty: 63 0RF lidocaine HCl 2 % solution 1 applic mucous membrane Q8H PRN (Reason: pain) Qty: 100 0RF Referrals Follow up/Referrals: Taz Ward MD [Primary Care Provider] - See instructions Activity Restrictions/Add. Instructions Additional Instructions/Restrictions: You are being transferred to [facility] to be evaluated by ENT for peritonsillar abscess drainage. Do not eat or drink anything else prior to evaluation there. You decided to drive yourself despite the risks of airway compromise, worsening pain, extended wait times, and more. As such, please go directly to [facility] in [place]. Do not make stops along the way, go straight there. Clinical Impressions Clinical Impression: Abscess, peritonsillar Discharge ED Provider: Phil Denton General Adult HPI General Chief complaint: Dental/Oral Stated complaint: trouble swallowing and painful, swollen tonsils Time Seen by Provider: 12/06/22 11:23 Mode of Arrival: Ambulatory Source of Information: Patient Limitations: No Limitations Description of Symptoms (Recalled from ER Triage Doc. by RN): 37 yo F presents to ED with c/o pain in tonsils. pt does have known paratonsilar abcess. pt has been seen by ent. pt reports taking medications as prescribed. History of Present Illness HPI narrative: This 37-year-old female presents to the emergency department with throat pain. She has a known peritonsillar abscess that was diagnosed 2 days ago. Patient was seen by ENT 3 days ago and started on a Z-Micha for suspected strep, she presented to the emergency department the next day with worsening throat pain and swelling. She was diagnosed with peritonsillar abscess and started on clindamycin. Patient has been taking the clindamycin and has taken 5 doses of it so far. She also received steroids while in the emergency department and initially had improvement of symptoms, however they have significantly worsened again today. She states it is more difficult to swallow today than it was yesterday. She is not having any difficulty breathing. She is able to manage her secretions. Patient is not having pain with turning her head. She states that her voice has changed again today. The peritonsillar abscess was not drained when it was identified, she is concerned that it may need to be drained today. Related Data Home Medications Medication Instructions Recorded Confirmed omeprazole 20 mg capsule,delayed 20 mg PO BID GERD 12/03/21 12/02/22 release sertraline 100 mg tablet 100 mg PO DAILY . 08/12/22 12/02/22 famotidine 10 mg tablet 10 mg PO DAILY PRN 11/24/22 12/02/22 Previous Rx's Medication Instructions Recorded propranolol 40 mg tablet 40 mg PO BID #60 tabs 11/24/22 azithromycin 250 mg tablet See Rx Instructions PO .COMPLEX #6 12/02/22 (Zithromax Z-Micha) tabs cefdinir 300 mg capsule 300 mg PO BID #20 caps 12/03/22 prednisone 20 mg tablet 20 mg PO BID 3 days #6 tabs 12/03/22 clindamycin HCl 150 mg capsule 450 mg PO Q8H 7 days #63 caps 12/04/22 lidocaine HCl 2 % mucosal solut
--- NOTE | 2022-12-06 12:53 | PC.NURSE ---
Assumed care of patient
[2022-12-06 12:55] LABS: Basophils # 0.1 K/mm3 (0-0.2); Basophils % 0.3 % (0.1-2.0); Eosinophils # 0.2 K/mm3 (0.0-0.4); Eosinophils % 1.3 % (0.1-12.0); Hematocrit 42.7 % (37.0-47.0); Hemoglobin 13.4 g/dL (12.2-16.2); Lymphocytes # 3.6 K/mm3 (0.7-4.5); Lymphocytes % 22.7 % (10-50); Mean Corpuscular HGB Conc 31.3 g/dL (31.8-35.4); Mean Corpuscular Volume 89.6 fl (81-99); Monocytes # 0.7 K/mm3 (0.1-1.0); Monocytes % 4.7 % (1.7-9.3); Neutrophils # 11.1 K/mm3 (1.8-7.8); Platelet Count 371 K/mm3 (142-424); Red Blood Count 4.77 M/mm3 (4.20-5.40); Red Cell Distribution Width 13.8 % (11.5-17.5); White Blood Count 15.6 K/mm3 (4.8-10.8)
[2022-12-06 13:05] LABS: Alanine Aminotransferase 14 U/L (12-78); Albumin Level 3.5 g/dl (3.5-5.0); Alkaline Phosphatase 59 U/L (38-126); Anion Gap 9.7 mEq/L (5-15); Aspartate Amino Transferase 14 U/L (14-36); Blood Urea Nitrogen 13 mg/dl (7-17); Calcium 8.8 mg/dl (8.4-10.2); Carbon Dioxide 28 mmol/L (22.0-30.0); Chloride 109 mmol/L (98-107); Creatinine Clearance Estimated 109 mL/min (50-200); Estimated Glomerular Filt Rate 93 ml/min (>60); GFR (African American) 113 ML/MIN (>60); Globulin 3.4 g/dL (1.3-3.2); Glucose 94 mg/dl (74-100); Potassium 3.7 mmoL/L (3.5-5.1); Sodium 143 mmol/L (136-145); Total Protein,Serum 6.9 g/dl (6.3-8.2)
[2022-12-06 13:15] LABS: Bilirubin,Total < 0.1 mg/dl (0.2-1.3)
[2022-12-06 13:16] LABS: MANUAL DIFFERENTIAL MANUAL DIFFERENTIAL (MANUAL DIFF)
[2022-12-06 13:29] LABS: Erythrocyte Sedimentation Rate 53 mm/hr (0-20)
[2022-12-06 14:07] LABS: HCG Qualitative, Serum Negative (Negative)
--- NOTE | 2022-12-06 14:28 | PC.NURSE ---
rounded on pt was given just little ice chips,call light at bs
--- NOTE | 2022-12-06 14:30 | PC.NURSE ---
pt ambulated to restroom
--- NOTE | 2022-12-06 14:31 | PC.NURSE ---
Rounded on patient warm blanket and pillow provided. Updated on plan of care. Call zamudio within reach
[2022-12-06 14:49] LABS: Lymphocytes % 34 % (10-50); Monocytes % 7 % (2-9); Neutrophils % 59 % (42-76); Total Cells Counted 100
[2022-12-06 14:50] LABS: Platelet Estimate Normal; RBC Morphology Normal
--- NOTE | 2022-12-06 15:50 | PC.NURSE ---
rounded on pt no needs at this time,call light at bs
--- NOTE | 2022-12-06 16:02 | PC.NURSE ---
[facility] has been called
--- NOTE | 2022-12-06 16:30 | PC.NURSE ---
[facility] on divert will try [facility] transfer
--- NOTE | 2022-12-06 16:32 | PC.NURSE ---
Spoke with Yadira Ibarra APRN for transfer to [facility]. Instruction to call [facility]. Will call back
== END 2022-12-06 17:26 | disposition other institution (70) ==
PROVIDERS: Emergency Provider Emergency Medicine; PCP Family Medicine
DX: J36 Peritonsillar abscess (principal); F41.9 Anxiety disorder, unspecified; I10 Essential (primary) hypertension; E28.2 Polycystic ovarian syndrome; E66.01 Morbid (severe) obesity due to excess calories; F17.210 Nicotine dependence, cigarettes, uncomplicated
CPT/HCPCS: 70491; 80053; 84703; 85007; 85025; 85651; 86140; 96374; 99285; Q9967

== ENCOUNTER → 2022-12-16 21:04 | Outpatient (CLI) | payer OTHER, SELFPAY | PROVIDERS: PCP Family Medicine; Visit Provider Nurse Practitioner Family | DX: G47.33 Obstructive sleep apnea (adult) (pediatric) (principal); R06.83 Snoring; R00.2 Palpitations; I10 Essential (primary) hypertension; E66.01 Morbid (severe) obesity due to excess calories | CPT/HCPCS: G0399 ==

== ENCOUNTER → 2023-01-07 13:08 | Outpatient (CLI) | payer OTHER, SELFPAY ==
--- NOTE | 2023-01-07 13:10 | CA_ITS ---
APPROVED REPORT EXAM: Comprehensive 2D, Doppler, and color-flow Echocardiogram Acid Blower: Janeth Erazo RVT Ht: 5 ft 8 in Wt: 322lbs BSA: 2.50 BP: 143/85 mmHg Indications: PALPITATION, ,HTN,OBESITY,HX BARIATIC SURGERY 2D Dimensions LVOT 2.34 cm (M/F) 1.5-2.5 LA Volume 50.60 mL LA Volume Index 20.24 mL/m2 (M/F) 16-34 M-Mode Dimensions RVDd 3.42 cm (0.9-2.6) LA Diam 4.59 cm (1.9-4.0) LVDd 5.50 cm (3.5-5.7) Ao Diam 2.97 cm (2.0-3.7) LVDs 3.23 cm (3.5-5.7) IVSd 0.61 cm (0.6-1.1) PWd 0.57 cm (0.6-1.1) EF (Teich) 71.60% FS 41.30% EDV (Teich) 147.40 mL TAPSE 3.15 (<1.7) ESV (Teich) 41.90 mL LV Diastology E Decel Time 240.00 (160-240 msec) E/A Ratio 1.0 MED E' 10.70 (< 7 cm/sec) E'/MED E' Ratio 8.95 (>14) LAT E' 10.30 (<10 cm/sec) E/LAT E' Ratio 9.30 (>14) Aortic Valve AO Peak GR. 9.30 mmHg Mitral Valve MV E Max Kolby. 96.00 (40-130 cm/s) MV A Velocity 94.00 (40-130 cm/s) E/A Ratio 1.02 MV Decel. Time 240.00 (160-240 ms) MV PHT 70.00 ms Pulmonary Valve PV Peak Velocity 112.00 (50-150 cm/s) Tricuspid Valve TR P. Velocity 227.00 cm/s RAP Estimate 10.00 mmHg RVSP 30.70 mmHg Left Ventricle The left ventricle is normal size. The left ventricular systolic function is normal. The left ventricular ejection fraction is within the normal range. There is normal left ventricular wall thickness. There is normal LV segmental wall motion. The left ventricular diastolic function is normal. LVEF is 60%. Right Ventricle The right ventricle is difficult to visualize, but is grossly normal in size. The right ventricular systolic function is normal. Atria The left atrium size is normal. The right atrium size is normal. There is no Doppler evidence of interatrial shunt. Aortic Valve The aortic valve opens well. There is no aortic valvular stenosis. No aortic regurgitation is present. Mitral Valve The mitral valve is normal in structure. No evidence of mitral valve stenosis. There is no mitral valve regurgitation noted. Tricuspid Valve The tricuspid valve leaflets are thin and pliable. Trace tricuspid regurgitation. RVSP is normal. Pulmonic Valve The pulmonary valve is normal in structure. Trace pulmonic regurgitation. Great Vessels The aortic root is normal in size. The ascending aorta is not well visualized. IVC is normal in size and collapses >50% with inspiration. Pericardium There is no pericardial effusion. Other Information Study Quality: Adequate Conclusion Normal biventricular systolic function. No significant valvular stenosis or regurgitation. Electronically signed by : Lynette Castañeda MD 01/09/2023 23:17:21
== END ==
PROVIDERS: PCP Family Medicine; Visit Provider Nurse Practitioner Family
DX: R00.2 Palpitations (principal); I10 Essential (primary) hypertension; E66.01 Morbid (severe) obesity due to excess calories; Z68.42 Body mass index [BMI] 45.0-49.9, adult
CPT/HCPCS: 93306

== ENCOUNTER 2023-02-07 09:34 | Emergency (ER) | payer OTHER, SELFPAY ==
[2023-02-07 09:50] VITALS: BP 128/85; PULSE 65; RESP 18; TEMP 37.2; O2SAT 98; BMI 47.1
--- NOTE | 2023-02-07 09:57 | EXP.UTC ---
Discharge Plan Disposition Patient Disposition: Home, Self-Care Condition: Good Prescriptions Prescriptions: No Action omeprazole 20 mg capsule,delayed release(DR/EC) 20 mg PO BID Patient Comments: TAKE ONE CAPSULE BY MOUTH EVERY TWELVE HOURS take morning CAPSULE 30 minutes BEFORE morning meal sertraline 100 mg tablet 100 mg PO DAILY propranolol 80 mg tablet 80 mg PO BID Qty: 180 3RF lidocaine HCl 2 % solution 1 applic mucous membrane Q8H PRN (Reason: pain) Qty: 100 0RF Referrals Follow up/Referrals: Taz Ward MD [Primary Care Provider] - See instructions Activity Restrictions/Add. Instructions Additional Instructions/Restrictions: Drink plenty of fluids. Take tylenol or ibuprofen for pain or fever. Take the medications as directed. Follow up with your regular doctor. GO TO THE ER FOR ANY WORSENING SYMPTOMS Don't start the oral steroids until tomorrow, since you had the shot here today. Clinical Impressions Clinical Impression: Sinusitis, Headache Stand Alone Forms Stand Alone Forms: Work/School Release Instructions Patient Instructions: Sinusitis, DI for Sinusitis, Ketorolac Injection, Dexamethasone Injection Discharge ED Provider: Derek Newton [facility] General Stated complaint: headache on left side of head down neck Time Seen by Provider: 02/07/23 09:57 History of Present Illness Provider Complaint: She states that for the past 2 days she has had sinus congestion and headache. Related Data Home Medications Medication Instructions Recorded Confirmed omeprazole 20 mg capsule,delayed 20 mg PO BID GERD 12/03/21 02/07/23 release sertraline 100 mg tablet 100 mg PO DAILY . 08/12/22 02/07/23 Previous Rx's Medication Instructions Recorded lidocaine HCl 2 % mucosal solution 1 applic mucous membrane Q8H PRN 12/04/22 pain #100 mL propranolol 80 mg tablet 80 mg PO BID #180 tabs 01/18/23 Allergies Allergy/AdvReac Type Severity Reaction Status Date / Time Penicillins Allergy Verified 02/07/23 10:20 quetiapine [From Seroquel] Allergy Verified 02/07/23 10:20 [facility] Disclaimer: The information contained in this section may have been updated after the patient was seen, as this information can be updated by other users. 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, sleep paralysis Sore throat Urinary tract infection Uterine fibroid Surgical History H/O bariatric surgery History of cholecystectomy History of hernia repair S/P dilation and curettage Family History Sister Asthma Mother Heart attack Diabetes Father Diabetes Coronary artery disease Social History Smoking Status: Current every day smoker tobacco type: cigarettes packs per day: 1 second hand exposure: No alcohol intake: never substance use type: denies use current occupational status: employed Travel in the last 8 weeks: None household members: spouse and children housing: house ROS Obtained: Yes All systems reviewed & no additional complaints except as documented Constitutional Constitutional: Reports poor appetite Eyes Eyes: Reports system reviewed and no additional complaints, except as documented ENT Ears, Nose, Mouth, and Throat: Reports as per HPI Cardiovascular Cardiovascular: Reports system reviewed and no additional complaints, except as documented and Denies chest pain Respiratory Respiratory: Denies shortness of breath, Denies chest congestion, Reports cough, Denies stridor and Denies wheezing Gastrointestinal Gastrointes
[2023-02-07 10:13] LABS: UTC Strep Screen (Rapid) Negative (Negative)
[2023-02-07 10:49] VITALS: BP 128/85; PULSE 65; RESP 18; TEMP 37.2; O2SAT 98
== END 2023-02-07 10:49 | disposition home or self-care (01) ==
PROVIDERS: Emergency Provider Nurse Practitioner Family; PCP Family Medicine
DX: J01.90 Acute sinusitis, unspecified (principal); R51.9 Headache, unspecified; F17.210 Nicotine dependence, cigarettes, uncomplicated; I10 Essential (primary) hypertension
CPT/HCPCS: 87880; 99212; 99214; G0463

== ENCOUNTER 2023-03-03 18:08 | Emergency (ER) | payer OTHER, SELFPAY ==
[2023-03-03 19:25] VITALS: BP 141/88; PULSE 76; RESP 18; TEMP 37.1; O2SAT 100; BMI 45.6
[2023-03-03 19:47] VITALS: BP 141/88; PULSE 76; RESP 18; TEMP 37.1; O2SAT 100
--- NOTE | 2023-03-03 19:49 | EXP.UTC ---
Discharge Plan Disposition Patient Disposition: Home, Self-Care Condition: Good Prescriptions Prescriptions: New azithromycin [Zithromax Z-Micha] 250 mg tablet See Rx Instructions .ROUTE .COMPLEX 5 Days Qty: 6 0RF Rx Instructions: For 250 mg dose pack: take 500 mg today (day 1), then 250 mg for 4 days (days 2-5) benzonatate 100 mg capsule 100 mg PO TID PRN (Reason: cough) Qty: 30 0RF methylprednisolone [Medrol (Micha)] 4 mg tablets,dose pack See Rx Instructions .Route .COMPLEX 6 Days Qty: 21 0RF Rx Instructions: taper pack; No Action omeprazole 20 mg capsule,delayed release(DR/EC) 20 mg PO BID Patient Comments: TAKE ONE CAPSULE BY MOUTH EVERY TWELVE HOURS take morning CAPSULE 30 minutes BEFORE morning meal sertraline 100 mg tablet 100 mg PO DAILY propranolol 80 mg tablet 80 mg PO BID Qty: 180 3RF Referrals Follow up/Referrals: Taz Ward MD [Primary Care Provider] - See instructions Activity Restrictions/Add. Instructions Additional Instructions/Restrictions: *Monitor Temp, Over the counter Motrin or Tylenol as directed/as needed Tylenol every 4 hours and Motrin every 6 hours (as long as your family doctor has told you that you can take it) for fever or pain. and straight to ER if unable to lower temp less than 101.0 after medication given *Warm salt water gargles may help to soothe the throat *Throat Lozenges? *Warm fluids like tea with honey may help to soothe the throat? *Sleep elevated *Humidifier/Vaporizer Take medication as prescribed Follow up IMMEDIATELY for new or worsening symptoms or no Noticeable improvement over the next 48-72 hours. 911 for difficulty breathing or swallowing Clinical Impressions Clinical Impression: Otitis media Qualifiers: Otitis media type: unspecified Laterality: left Qualified Code(s): H66.92 - Otitis media, unspecified, left ear Instructions Patient Instructions: Middle Ear Infection Discharge ED Provider: Charla Richey [facility] [place] HPI General Stated complaint: left side ear pain, cough Mode of Arrival: Ambulatory Source of Information: Patient Limitations: No Limitations Time Seen by Provider: 03/03/23 19:49 Description of Symptoms (Recalled from Triage Doc. by RN): PATIENT C/O LEFT EAR PAIN AND COUGH SINCE YESTERDAY HEENT Symptoms (Recalled from RN notes): Yes Resp Symptoms (Recalled from RN notes): Yes Skin Symptoms (Recalled from RN notes): No MS Symptoms (Recalled from RN notes): No Functional Status (Recalled from RN notes): WNL History of Present Illness Provider Complaint: Patient states that she has been having cough for several days that will not go away and pain and pressure like feeling in her left ear States that today her ear was hurting worse so she came in to get checked Related Data Home Medications Medication Instructions Recorded Confirmed omeprazole 20 mg capsule,delayed 20 mg PO BID GERD 12/03/21 03/03/23 release sertraline 100 mg tablet 100 mg PO DAILY . 08/12/22 03/03/23 Previous Rx's Medication Instructions Recorded propranolol 80 mg tablet 80 mg PO BID #180 tabs 01/18/23 azithromycin 250 mg tablet See Rx Instructions PO .COMPLEX 5 03/03/23 (Zithromax Z-Micha) days #6 tabs benzonatate 100 mg capsule 100 mg PO TID PRN cough #30 caps 03/03/23 methylprednisolone 4 mg tablets in See Rx Instructions .Route 03/03/23 a dose pack (Medrol (Micha)) .COMPLEX 6 days #21 tabs Allergies Allergy/AdvReac Type Severity Reaction Status Date / Time Penicillins Allergy Verified 02/07/23 10:20 quetiapine [From Seroquel] Allergy Verified 02/07/23 10:20 Worker's Comp Is this a Worker's Comp case?: No [facility] Disclaimer: The information contained in this section may have been updated after the patient was seen, as this information can be updated by other users. Medical History Anxiety
== END 2023-03-03 20:04 | disposition home or self-care (01) ==
PROVIDERS: Emergency Provider Nurse Practitioner; PCP Family Medicine
DX: H66.92 Otitis media, unspecified, left ear (principal); R05.9 Cough, unspecified; F17.210 Nicotine dependence, cigarettes, uncomplicated; I10 Essential (primary) hypertension; E66.01 Morbid (severe) obesity due to excess calories; Z68.42 Body mass index [BMI] 45.0-49.9, adult
CPT/HCPCS: 99212; 99214; G0463

== ENCOUNTER 2023-03-29 16:23 | Emergency (ER) | payer OTHER, SELFPAY ==
--- NOTE | 2023-03-29 16:30 | PC.NURSE ---
pt hooked up to monitor, call light within reach.
[2023-03-29 16:40] VITALS: BP 128/70; PULSE 84; O2SAT 97
[2023-03-29 16:44] VITALS: BP 128/70; PULSE 83; RESP 18; TEMP 37.2; O2SAT 97; BMI 47.9
--- NOTE | 2023-03-29 16:47 | PC.NURSE ---
DR TODD AT BEDSIDE
--- NOTE | 2023-03-29 16:52 | HMH.EDGENADL ---
Discharge Plan Disposition Patient Disposition: Home, Self-Care Prescriptions Prescriptions: New vpouucggisdwakz-kquunvaky-FN [Bromfed DM] 2-30-10 mg/5 mL syrup 5 ml PO Q6H PRN (Reason: cold symptoms) Qty: 118 0RF albuterol sulfate 90 mcg/actuation HFA aerosol inhaler 3 inh inhalation Q4H PRN (Reason: wheezing) Qty: 6.7 0RF Rx Instructions: until breathing returns to target peak flow/parameters No Action omeprazole 20 mg capsule,delayed release(DR/EC) 20 mg PO BID Patient Comments: TAKE ONE CAPSULE BY MOUTH EVERY TWELVE HOURS take morning CAPSULE 30 minutes BEFORE morning meal sertraline 100 mg tablet 100 mg PO DAILY propranolol 80 mg tablet 80 mg PO BID Qty: 180 3RF azithromycin [Zithromax Z-Micha] 250 mg tablet See Rx Instructions .ROUTE .COMPLEX 5 Days Qty: 6 0RF Rx Instructions: For 250 mg dose pack: take 500 mg today (day 1), then 250 mg for 4 days (days 2-5) benzonatate 100 mg capsule 100 mg PO TID PRN (Reason: cough) Qty: 30 0RF methylprednisolone [Medrol (Micha)] 4 mg tablets,dose pack See Rx Instructions .Route .COMPLEX 6 Days Qty: 21 0RF Rx Instructions: taper pack; Referrals Follow up/Referrals: Taz Ward MD [Primary Care Provider] - See instructions Activity Restrictions/Add. Instructions Additional Instructions/Restrictions: At this time it was felt you are safe to be discharged home. If new or worsening symptoms please do not hesitate to return the emergency department. Please take your medication as prescribed. Clinical Impressions Clinical Impression: Acute viral syndrome Discharge ED Provider: Troy Stewart General Adult HPI General Chief complaint: Upper Respiratory Infection Stated complaint: cough,anju SOA Time Seen by Provider: 03/29/23 16:41 Mode of Arrival: Ambulatory Source of Information: Patient Limitations: No Limitations Description of Symptoms (Recalled from ER Triage Doc. by RN): PT REPORTS ONGOING COUGH, CONGESTION, SNEEZING, CHILLS, BODYACHES AND HEADACHE History of Present Illness HPI narrative: Patient is a 37-year-old female with no pertinent past medical history who presents emergency department for evaluation of cough, fever, body aches. Onset was acute, since Wednesday. Due to persistent symptoms and rhinorrhea she presents here for continued evaluation. Cough is intermittently productive with some posttussive emesis. No other acute complaints at this time. Related Data Home Medications Medication Instructions Recorded Confirmed omeprazole 20 mg capsule,delayed 20 mg PO BID GERD 12/03/21 03/03/23 release sertraline 100 mg tablet 100 mg PO DAILY . 08/12/22 03/03/23 Previous Rx's Medication Instructions Recorded propranolol 80 mg tablet 80 mg PO BID #180 tabs 01/18/23 azithromycin 250 mg tablet See Rx Instructions PO .COMPLEX 5 03/03/23 (Zithromax Z-Micha) days #6 tabs benzonatate 100 mg capsule 100 mg PO TID PRN cough #30 caps 03/03/23 methylprednisolone 4 mg tablets in See Rx Instructions .Route 03/03/23 a dose pack (Medrol (Micha)) .COMPLEX 6 days #21 tabs albuterol sulfate 90 mcg/actuation 3 inh inhalation Q4H PRN wheezing 03/29/23 aerosol inhaler #6.7 grams tfuemccbzkysfdz-oaoudfykyapbufr-BT 5 ml PO Q6H PRN cold symptoms #118 03/29/23 2 mg-30 mg-10 mg/5 mL oral syrup mL (Bromfed DM) Allergies Allergy/AdvReac Type Severity Reaction Status Date / Time Penicillins Allergy Verified 02/07/23 10:20 quetiapine [From Seroquel] Allergy Verified 02/07/23 10:20 [facility] Disclaimer: The information contained in this section may have been updated after the patient was seen, as this information can be updated by other users. Medical History Anxiety Bariatric surg stat-del History of endometriosis History of gastroesophageal reflux (GERD) History of PCOS HTN (hypertension) LLQ pain Morbid obesity with BMI of 50.0-59.9
[2023-03-29 16:58] LABS: Coronavirus 19, PCR Not Detected (NotDetected); Influenza A, PCR Not Detected (NotDetected); Influenza B, PCR Not Detected (NotDetected)
[2023-03-29 17:00] VITALS: PULSE 79; O2SAT 97
[2023-03-29 17:56] VITALS: BP 110/60; PULSE 82; RESP 18; TEMP 37.2; O2SAT 97
== END 2023-03-29 18:01 | disposition home or self-care (01) ==
PROVIDERS: Emergency Provider Emergency Medicine; PCP Family Medicine
DX: R51.9 Headache, unspecified (principal); R05.9 Cough, unspecified; R09.81 Nasal congestion; B34.9 Viral infection, unspecified; I10 Essential (primary) hypertension; F17.210 Nicotine dependence, cigarettes, uncomplicated
CPT/HCPCS: 87636; 99283

== ENCOUNTER 2023-04-21 14:37 | Outpatient (CLI) | payer OTHER, SELFPAY ==
[2023-04-21 14:56] LABS: Basophils # 0.1 K/mm3 (0-0.2); Basophils % 0.8 % (0.1-2.0); Eosinophils # 0.5 K/mm3 (0.0-0.4); Eosinophils % 6.3 % (0.1-12.0); Hematocrit 44.5 % (37.0-47.0); Lymphocytes # 3.1 K/mm3 (0.7-4.5); Mean Corpuscular HGB Conc 33.6 g/dL (31.8-35.4); Mean Corpuscular Volume 89.2 fl (81-99); Monocytes # 0.3 K/mm3 (0.1-1.0); Neutrophils # 4.5 K/mm3 (1.8-7.8); Neutrophils % 52.8 % (37.0-80.0); Platelet Count 352 K/mm3 (142-424); Red Blood Count 4.99 M/mm3 (4.20-5.40); Red Cell Distribution Width 13.9 % (11.5-17.5); White Blood Count 8.5 K/mm3 (4.8-10.8)
[2023-04-21 15:43] LABS: Chloride 108 mmol/L (98-107); Potassium 4.7 mmoL/L (3.5-5.1); Sodium 141 mmol/L (136-145)
[2023-04-21 15:45] LABS: Blood Urea Nitrogen 11 mg/dl (7-17); Estimated Glomerular Filt Rate 93 ml/min (>60); GFR (African American) 113 ML/MIN (>60)
[2023-04-21 15:46] LABS: Alanine Aminotransferase 13 U/L (12-78); Albumin Level 3.9 g/dl (3.5-5.0); Alkaline Phosphatase 56 U/L (38-126); Anion Gap 9.7 mEq/L (5-15); Aspartate Amino Transferase 18 U/L (14-36); Bilirubin,Direct 0.1 mg/dl (0.0-0.4); Bilirubin,Indirect 0.3 mg/dL (0.0-0.9); Bilirubin,Total 0.4 mg/dl (0.2-1.3); Bilirubin,Unconjugated 0.2 mg/dL (0.0-1.1); Carbon Dioxide 28 mmol/L (22.0-30.0); Chol/HDL Ratio 4.7 (1-3.5); Cholesterol 212 mg/dl (140-200); Glucose 103 mg/dl (74-100); HDL Cholesterol 45 mg/dl (40-60); Magnesium 2.1 mg/dl (1.6-2.3); Total Protein,Serum 6.6 g/dl (6.3-8.2); Triglycerides 185 mg/dl (30-150); VLDL Cholesterol 37 mg/dL (0-40)
[2023-04-21 15:59] LABS: Direct LDL Cholesterol 125.88 mg/dL (100-129)
[2023-04-21 16:05] LABS: 25-OH Vitamin D, Total 18.7 ng/mL (30-100); Free T4 (Free Thyroxine) 1.37 ng/dl (0.78-2.19)
[2023-04-21 16:17] LABS: Thyroid Stimulating Hormone 1.31 uIU/mL (0.465-4.68)
[2023-04-22 08:54] LABS: Estradiol 66.3 pg/mL (.); FSH 7.3 mIU/mL (.); LH 7.4 mIU/mL (.); Progesterone 0.2 ng/mL (.)
== END 2023-04-21 23:59 ==
LOC: LAB 14:38
PROVIDERS: PCP Family Medicine; Visit Provider Nurse Practitioner Family
DX: R00.2 Palpitations (principal); I10 Essential (primary) hypertension; E66.01 Morbid (severe) obesity due to excess calories; Z68.42 Body mass index [BMI] 45.0-49.9, adult; Z79.899 Other long term (current) drug therapy; E55.9 Vitamin D deficiency, unspecified
CPT/HCPCS: 36415; 80048; 80061; 80076; 82306; 82670; 83001; 83002; 83735; 84144; 84439; 84443; 85025

== ENCOUNTER 2023-05-11 16:49 | Emergency (ER) | payer OTHER, SELFPAY ==
[2023-05-11 18:30] VITALS: BP 124/60; PULSE 58; RESP 18; TEMP 36.7; O2SAT 97; BMI 48.6
--- NOTE | 2023-05-11 18:50 | ED_ITS ---
Discharge Plan Disposition Patient Disposition: Home, Self-Care Condition: Good Prescriptions Prescriptions: New azithromycin [Zithromax] 250 mg tablet 250 mg PO UD DOSE PK Qty: 6 0RF Rx Instructions: Take two (2) tablets today, then one (1) tablet days #2 thru #5 benzonatate [benzonatate] 100 mg capsule 100 mg PO TIDP PRN (Reason: Cough) Qty: 30 0RF methylprednisolone 4 mg Tablets,Dose Pack 4 mg PO DIRECTED 6 Days Qty: 21 0RF Rx Instructions: Take 1 pack as directed for 6 days No Action omeprazole 20 mg capsule,delayed release(DR/EC) 20 mg PO BID Patient Comments: TAKE ONE CAPSULE BY MOUTH EVERY TWELVE HOURS take morning CAPSULE 30 minutes BEFORE morning meal sertraline 100 mg tablet 100 mg PO DAILY propranolol [Inderal LA] 80 mg capsule,extended release 24 hr 80 mg PO BID Qty: 60 3RF benzonatate 100 mg capsule 100 mg PO TID PRN (Reason: cough) Qty: 30 0RF albuterol sulfate 90 mcg/actuation HFA aerosol inhaler 3 inh inhalation Q4H PRN (Reason: wheezing) Qty: 6.7 0RF Rx Instructions: until breathing returns to target peak flow/parameters Referrals Follow up/Referrals: Taz Ward MD [Primary Care Provider] - See instructions Activity Restrictions/Add. Instructions Additional Instructions/Restrictions: Drink plenty of fluids. Take tylenol or ibuprofen for pain or fever. Take the medications as directed. Follow up with your regular doctor. GO TO THE ER FOR ANY WORSENING SYMPTOMS Clinical Impressions Clinical Impression: Otitis media, Pharyngitis Stand Alone Forms Stand Alone Forms: Work/School Release Instructions Patient Instructions: Sore Throat, Middle Ear Infection Discharge ED Provider: Derek Newton [facility] [place] HPI General Stated complaint: ear ache , sore throat , body aches Time Seen by Provider: 05/11/23 18:40 History of Present Illness Provider Complaint: She states that for the past 3 days she has had worsening left ear pain, sore throat, cough and malaise. Related Data Home Medications Medication Instructions Recorded Confirmed omeprazole 20 mg capsule,delayed 20 mg PO BID GERD 12/03/21 04/21/23 release sertraline 100 mg tablet 100 mg PO DAILY . 08/12/22 04/21/23 Previous Rx's Medication Instructions Recorded benzonatate 100 mg capsule 100 mg PO TID PRN cough #30 caps 03/03/23 albuterol sulfate 90 mcg/actuation 3 inh inhalation Q4H PRN wheezing 03/29/23 aerosol inhaler #6.7 grams propranolol 80 mg capsule,24 80 mg PO BID #60 caps 04/21/23 hr,extended release (Inderal LA) azithromycin 250 mg tablet 250 mg PO UD DOSE PK #6 tabs 05/11/23 (Zithromax) benzonatate 100 mg capsule 100 mg PO TIDP PRN Cough #30 caps 05/11/23 methylprednisolone 4 mg tablets in 4 mg PO DIRECTED 6 days #21 tabs 05/11/23 a dose pack Allergies Allergy/AdvReac Type Severity Reaction Status Date / Time Penicillins Allergy Verified 04/21/23 13:45 quetiapine [From Seroquel] Allergy Verified 04/21/23 13:45 [facility] Disclaimer: The information contained in this section may have been updated after the patient was seen, as this information can be updated by other users. 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, sleep paralysis Sore throat Urinary tract infection Uterine fibroid Surgical History H/O bariatric surgery History of cholecystectomy History of hernia repair S/P dilation and curettage Family History Sister Asthma Mother Heart attack Diabetes Father Diabetes Coronary artery disease Social History Smoking Status: Current every day smoker tobacco type: cigarettes packs per day: 1 second hand exposure: No alcohol intake: never substance use type: denies use current occupational status: employed Travel in the last 8 weeks: None household members: spouse and children housing: house ROS Obtained: Yes All systems reviewed & no additional complaints except as documented Constitutional Constitutional: Reports chills and Reports fever(s) Eyes Eyes: Denies eye discharge ENT Ears, Nose, Mouth, and Throat: Reports as per HPI Cardiovascular Cardiovascular: Denies chest pain Respiratory Respiratory: Denies chest congestion and Reports cough Gastrointestinal Gastrointestingal: Reports nausea; Denies abdominal pain, constipation, cramping, diarrhea or vomiting Musculoskeletal Musculoskeletal: Denies arthralgias Integumentary/Breasts Skin/Breast: Denies rash Neurologic Neurologic: Denies paresthesias Physical Exam General General appearance: alert and in no apparent distress Eye Eye exam: Present normal appearance, PERRL and EOMI ENT ENT exam: Present mucous membranes moist and normal external ear exam Expanded ENT Exam External ear exam: Present normal external inspection TM/Canal exam: Bilateral TM: erythema and bulging Nose exam: Absent sinus tenderness Nasal speculum exam: Bilateral: normal Mouth exam: Present normal external inspection; Absent drooling Teeth exam: Present normal inspection Throat exam: Present tonsillar erythema and tonsillomegaly Neck Neck exam: Present normal inspection, full ROM and trachea midline; Absent tenderness, lymphadenopathy or thyromegaly Chest Chest inspection: Present normal inspection and symmetric chest wall rise; Absent tenderness or rash Respiratory Respiratory exam: Present normal lung sounds bilaterally; Absent respiratory distress, wheezes, stridor or accessory muscle use Cardiovascular Cardiovascular exam: Present regular rate, normal rhythm and normal heart sounds Abdominal Exam Abdominal exam: Present soft; Absent distention, tenderness, guarding, rebound or rigidity Extremities Exam Extremities exam: Present normal inspection, full ROM and normal capillary refill; Absent tenderness or calf tenderness Back Exam Back exam: Present normal inspection and full ROM; Absent tenderness Neurological Exam Neurological exam: Present alert and oriented X3 Psychiatric Psychiatric exam: Present normal affect and normal mood Skin Skin exam: Present warm, dry, intact and normal color Lymphatic Lymphatic Findings: no adenopathy Medical Decision Making Medical Records Medical records reviewed: No I reviewed the patient's medical records. Malik Inquiry Pt receiving controlled substance: No
[2023-05-11 19:39] LABS: UTC Strep Screen (Rapid) Negative (Negative)
[2023-05-11 19:45] VITALS: BP 124/60; PULSE 58; RESP 18; TEMP 36.7; O2SAT 97
[2023-05-11 22:39] LABS: Adenovirus,PCR Not Detected (NotDetected); Coronavirus 19, PCR Not Detected (NotDetected); Coronavirus 229E Not Detected (NotDetected); Coronavirus NL63 Not Detected (NotDetected); Coronavirus OC43 Not Detected (NotDetected); Coronovirus HKU1,PCR Not Detected (NotDetected); Human Metapneumovirus Not Detected (NotDetected); Influenza A, PCR Not Detected (NotDetected); Influenza AH1, 2009 Not Detected (NotDetected); Influenza AH1, PCR Not Detected (NotDetected); Influenza AH3,PCR Not Detected (NotDetected); Influenza B, PCR Not Detected (NotDetected); Parainfluenza 1, PCR Not Detected (NotDetected); Parainfluenza 2, PCR Not Detected (NotDetected); Parainfluenza 3, PCR Not Detected (NotDetected); Parainfluenza 4, PCR Not Detected (NotDetected); Respiratory Syncytial Virus Not Detected (NotDetected); Rhinovirus/Enterovirus Not Detected (NotDetected)
== END 2023-05-11 19:40 | disposition home or self-care (01) ==
PROVIDERS: Emergency Provider Nurse Practitioner Family; PCP Family Medicine
DX: H66.93 Otitis media, unspecified, bilateral (principal); J02.9 Acute pharyngitis, unspecified; R05.9 Cough, unspecified; R53.81 Other malaise; F17.210 Nicotine dependence, cigarettes, uncomplicated; I10 Essential (primary) hypertension; K21.9 Gastro-esophageal reflux disease without esophagitis; E66.01 Morbid (severe) obesity due to excess calories; Z68.42 Body mass index [BMI] 45.0-49.9, adult
CPT/HCPCS: 87632; 87635; 87880; 99212; 99214; G0463

== ENCOUNTER 2023-06-02 19:12 | Emergency (ER) | payer OTHER, SELFPAY ==
[2023-06-02 19:18] VITALS: BP 133/71
[2023-06-02 19:20] VITALS: BP 133/71; PULSE 76; RESP 17; TEMP 37; O2SAT 98; BMI 47.9
--- NOTE | 2023-06-02 19:33 | ECG_ITS ---
APPROVED REPORT Exam: Resting ECG HR:62 bpm ECG Measurements Heart Rate 62 AXES GA 145 P 62 QRSd 78 QRS 72 QT 391 T 67 QTc 397 Conclusion SINUS RHYTHM LOW QRS VOLTAGE IN PRECORDIAL LEADS [QRS DEFLECTION < 1.0 mV IN CHEST LEADS] BORDERLINE ECG UNCONFIRMED REPORT Electronically signed by : Yong Thomason MD 06/03/2023 20:02:16
--- NOTE | 2023-06-02 19:35 | CT_ITS ---
PROCEDURE INFORMATION: Exam: CT Abdomen And Pelvis With Contrast Exam date and time: 06/02/2023 8:44 PM Age: 37 years old Clinical indication: Abdominal pain; Additional info: L flank pain, h/o gastric sleeve surgery TECHNIQUE: Imaging protocol: Computed tomography of the abdomen and pelvis with contrast. Radiation optimization: All CT scans at this facility use at least one of these dose optimization techniques: automated exposure control; mA and/or kV adjustment per patient size (includes targeted exams where dose is matched to clinical indication); or iterative reconstruction. Contrast material: ISOVUE; Contrast volume: 75 ml; Contrast route: IV; COMPARISON: CT ABDOMEN PELVIS W CON 10/07/2022 2:15 AM FINDINGS: Liver: Normal. No mass. Gallbladder and bile ducts: Cholecystectomy Pancreas: Normal. No ductal dilation. Spleen: Normal. No splenomegaly. Adrenal glands: Normal. No mass. Kidneys and ureters: Normal. No hydronephrosis. Stomach and bowel: The postsurgical changes in the stomach. No colitis or bowel obstruction. Appendix: No evidence of appendicitis. Intraperitoneal space: Unremarkable. No free air. No significant fluid collection. Vasculature: Unremarkable. No abdominal aortic aneurysm. Lymph nodes: Unremarkable. No enlarged lymph nodes. Urinary bladder: Unremarkable as visualized. Reproductive: Uterine fibroid. Bones/joints: Unremarkable. No acute fracture. Soft tissues: Unremarkable. IMPRESSION: No acute findings.
--- NOTE | 2023-06-02 19:35 | CT_ITS ---
PROCEDURE INFORMATION: Exam: CTA Chest With Contrast Exam date and time: 06/02/2023 8:44 PM Age: 37 years old Clinical indication: Pain; Chest pressure; Additional info: L posterior rib pain, presyncope TECHNIQUE: Imaging protocol: Computed tomographic angiography of the chest with contrast. Exam focused on the arteries. 3D rendering (Not supervised by radiologist): MIP and/or 3D reconstructed images were created by the technologist. Radiation optimization: All CT scans at this facility use at least one of these dose optimization techniques: automated exposure control; mA and/or kV adjustment per patient size (includes targeted exams where dose is matched to clinical indication); or iterative reconstruction. Contrast material: ISOVUE; Contrast volume: 75 ml; Contrast route: INTRAVENOUS (IV); COMPARISON: CR XR CHEST PORTABLE 07/10/2022 7:27 PM FINDINGS: Pulmonary arteries: Normal. No pulmonary emboli. Aorta: Unremarkable. No aortic aneurysm. No aortic dissection. Lungs: Unremarkable. No consolidation. No masses. Pleural spaces: Unremarkable. No pneumothorax. No pleural effusion. Heart: Unremarkable. No cardiomegaly. No pericardial effusion. Lymph nodes: Unremarkable. No enlarged lymph nodes. Bones/joints: Unremarkable. No acute fracture. Soft tissues: Unremarkable. IMPRESSION: No acute findings.
[2023-06-02 19:38] VITALS: BP 129/61
[2023-06-02 19:47] LABS: Basophils # 0.1 K/mm3 (0-0.2); Basophils % 0.8 % (0.1-2.0); Eosinophils # 0.6 K/mm3 (0.0-0.4); Eosinophils % 6.2 % (0.1-12.0); Hematocrit 43.2 % (37.0-47.0); Hemoglobin 14.6 g/dL (12.2-16.2); Lymphocytes # 3.7 K/mm3 (0.7-4.5); Lymphocytes % 42.4 % (10-50); Mean Corpuscular HGB Conc 33.9 g/dL (31.8-35.4); Mean Corpuscular Hemoglobin 31.1 pg (27.0-31.2); Mean Corpuscular Volume 91.6 fl (81-99); Monocytes # 0.4 K/mm3 (0.1-1.0); Monocytes % 4.6 % (1.7-9.3); Neutrophils # 4.1 K/mm3 (1.8-7.8); Platelet Count 298 K/mm3 (142-424); Red Blood Count 4.71 M/mm3 (4.20-5.40); Red Cell Distribution Width 13.8 % (11.5-17.5); White Blood Count 8.8 K/mm3 (4.8-10.8)
--- NOTE | 2023-06-02 19:50 | PC.NURSE ---
urine collected and sent to lab
[2023-06-02] MEDS: LACTATED RINGERS 1000ML 1,000 ML 999 ML IV (19:52)
[2023-06-02] MEDS: ONDANSETRON 4MG/2ML VIAL 4 MG IV (19:52)
[2023-06-02 19:58] LABS: Alanine Aminotransferase 15 U/L (12-78); Albumin Level 4.2 g/dl (3.5-5.0); Albumin/Globulin Ratio 1.4 (1.1-1.8); Alkaline Phosphatase 65 U/L (38-126); Anion Gap 10.1 mEq/L (5-15); Aspartate Amino Transferase 22 U/L (14-36); Bilirubin,Total 0.4 mg/dl (0.2-1.3); Blood Urea Nitrogen 11 mg/dl (7-17); Calcium 9.4 mg/dl (8.4-10.2); Carbon Dioxide 25 mmol/L (22.0-30.0); Chloride 109 mmol/L (98-107); Creatinine Clearance Estimated 95 mL/min (50-200); Estimated Glomerular Filt Rate 80 ml/min (>60); GFR (African American) 97 ML/MIN (>60); Globulin 3.1 g/dL (1.3-3.2); Glucose 100 mg/dl (74-100); Magnesium 2.2 mg/dl (1.6-2.3); Phosphorous 4.4 mg/dl (2.5-4.5); Potassium 4.1 mmoL/L (3.5-5.1); Sodium 140 mmol/L (136-145); Total Protein,Serum 7.3 g/dl (6.3-8.2)
--- NOTE | 2023-06-02 20:04 | ED_ITS ---
Discharge Plan Disposition Patient Disposition: Home, Self-Care Condition: Good Prescriptions Prescriptions: No Action omeprazole 20 mg capsule,delayed release(DR/EC) 20 mg PO BID Patient Comments: TAKE ONE CAPSULE BY MOUTH EVERY TWELVE HOURS take morning CAPSULE 30 minutes BEFORE morning meal sertraline 100 mg tablet 100 mg PO DAILY propranolol [Inderal LA] 80 mg capsule,extended release 24 hr 80 mg PO BID Qty: 60 3RF clindamycin HCl 150 mg capsule 450 mg PO Q8H 7 Days Qty: 63 0RF albuterol sulfate 90 mcg/actuation HFA aerosol inhaler 3 inh inhalation Q4H PRN (Reason: wheezing) Qty: 6.7 0RF Rx Instructions: until breathing returns to target peak flow/parameters Referrals Follow up/Referrals: Taz Ward MD [Primary Care Provider] - See instructions Activity Restrictions/Add. Instructions Additional Instructions/Restrictions: You were evaluated in the emergency department today. At this time, there is trace blood in your urine, but there is no evidence of urinary tract infection. For this, I recommend follow-up with your primary care provider to ensure resolution of hematuria. There is no indication for antibiotics at this time. Your CT scans are reassuring. Return to the emergency department for any new or worsening symptoms. Clinical Impressions Clinical Impression: Acute left flank pain Instructions Patient Instructions: DI for Low Back Pain, DI for Flank Pain Discharge ED Provider: Maki Gannon General Adult HPI General Chief complaint: Back Pain/Injury Stated complaint: dizzy, back pain Time Seen by Provider: 06/02/23 19:17 Mode of Arrival: Family Vehicle Source of Information: Patient Limitations: No Limitations Description of Symptoms (Recalled from ER Triage Doc. by RN): dizziness and increased uop; back pain bilaterally x 2 days. afebrile History of Present Illness HPI narrative: This patient is a 37-year-old female with a history of PCOS, morbid obesity, hypertension, GERD, and prior gastric sleeve surgery presenting to the emergency department for evaluation with concern for left flank pain, urinary frequency, lightheadedness, and multiple episodes of presyncope. Patient reports that she has had the left flank pain for approximately 2 days and has been peeing more frequently than usual. She denies any significant lower pelvic pain or dysuria, which she states is typical of her prior urinary tract infections. Today, she felt she was going to pass out multiple times, which prompted her to finally come to the ED. She also complains of nausea without vomiting. No melena or hematochezia. She denies any chest pain, shortness of breath, fevers, cough, congestion, rashes, swelling, or other concerns, however she does note that the left flank pain has been persistent. No true vertigo or other neurologic symptoms. Related Data Home Medications Medication Instructions Recorded Confirmed omeprazole 20 mg capsule,delayed 20 mg PO BID GERD 12/03/21 05/19/23 release sertraline 100 mg tablet 100 mg PO DAILY . 08/12/22 05/19/23 Previous Rx's Medication Instructions Recorded albuterol sulfate 90 mcg/actuation 3 inh inhalation Q4H PRN wheezing 03/29/23 aerosol inhaler #6.7 grams propranolol 80 mg capsule,24 80 mg PO BID #60 caps 04/21/23 hr,extended release (Inderal LA) clindamycin HCl 150 mg capsule 450 mg PO Q8H 7 days #63 caps 05/19/23 Allergies Allergy/AdvReac Type Severity Reaction Status Date / Time Penicillins Allergy Verified 05/19/23 09:51 quetiapine [From Seroquel] Allergy Verified 05/19/23 09:51 [facility] Disclaimer: The information contained in this section may have been updated after the sallie arellano was seen, as this information can be updated by other users. Medical History Abdominal pain Abscess of axilla, right Abscess of nasal cavity Abscess of nose Abscess, peritonsillar Acute abdominal pain in left flank Acute viral syndrome Anxiety Bariatric surg stat-del C. difficile enteritis Cellulitis Cellulitis of axilla, right Dizziness Gastroenteritis Headache History of endometriosis History of gastroesophageal reflux (GERD) History of PCOS HTN (hypertension) LLQ pain Morbid obesity with BMI of 50.0-59.9, adult Neuropathic pain of finger Neuropathy, ulnar nerve Onychomycosis Otitis media Otitis media Palpitations Parasomnia Paronychia Parotitis Peritonsillar abscess Pharyngitis Sinusitis Sinusitis Sore throat Urinary tract infection Uterine fibroid Viral upper respiratory tract infection with cough Surgical History H/O bariatric surgery History of cholecystectomy History of hernia repair S/P dilation and curettage Family History Sister Asthma Mother Heart attack Diabetes Father Diabetes Coronary artery disease Social History Smoking Status: Unknown if ever smoked second hand exposure: No alcohol intake: never substance use type: denies use current occupational status: employed Travel in the last 8 weeks: None household members: spouse and children housing: house ROS Obtained: Yes All systems reviewed & no additional complaints except as documented Physical Exam General General appearance: alert, in no apparent distress and obese Head Head exam: atraumatic and normocephalic Eye Eye exam: Present normal appearance, PERRL and EOMI ENT ENT exam: Present normal exam, normal oropharynx, mucous membranes moist and normal external ear exam Neck Neck exam: Present normal inspection, full ROM and trachea midline; Absent tenderness Chest Chest inspection: Present normal inspection and symmetric chest wall rise; Absent tenderness Respiratory Respiratory exam: Present normal lung sounds bilaterally; Absent respiratory distress, wheezes, stridor or accessory muscle use Cardiovascular Cardiovascular exam: Present regular rate and normal rhythm Abdominal Exam Abdominal exam: Present soft; Absent distention, tenderness or guarding Extremities Exam Extremities exam: Present normal inspection, full ROM and normal capillary refill; Absent tenderness or edema Back Exam Back exam: Present full ROM and CVA tenderness (L) Neurological Exam Neurological exam: Present alert, oriented X3, CN II-XII intact and normal gait; Absent motor sensory deficit Psychiatric Psychiatric exam: Present normal affect and normal mood Skin Skin exam: Present warm and dry Medical Decision Making Medical Records Medical records reviewed: Yes I reviewed the patient's medical records. Malik Inquiry Pt receiving controlled substance: No Vital Signs: 06/02/23 19:20 06/02/23 19:18 06/02/23 19:38 Temperature 98.6 F Temperature Source Oral Pulse Rate Pulse Rate [Right Brachial] 76 Respiratory Rate 17 Blood Pressure 133/71 129/61 Blood Pressure [Right Arm] 133/71 Blood Pressure Mean 100 83 Blood Pressure Mean [Right Arm] 91 Blood Pressure Source [Right Arm] Automatic Cuff Blood Pressure Position [Right Arm] Sitting 02 Sat by Pulse Oximetry 98 Oxygen Delivery Method Room Air 06/02/23 21:57 06/02/23 21:33 Temperature 98.1 F Temperature Source Oral Pulse Rate 80 54 L Pulse Rate [Right Brachial] Respiratory Rate 18 16 Blood Pressure 136/74 136/74 Blood Pressure [Right Arm] Blood Pressure Mean Blood Pressure Mean [Right Arm] Blood Pressure Source [Right Arm] Blood Pressure Position [Right Arm] 02 Sat by Pulse Oximetry 100 Oxygen Delivery Method Lab Data Lab results reviewed: Yes I reviewed the patient's lab results. Lab Results 06/02/23 19:34: Urine Color Yellow, Urine Appearance Clear, Urine pH 6.0, Ur Specific [place] 1.025, Urine Protein Negative, Urine Glucose (UA) Negative, Urine Ketones Negative, Urine Blood Trace-i, Urine Nitrate Negative, Urine Bilirubin Negative, Urine Urobilinogen 0.2, Ur Leukocyte Esterase Negative, Urine RBC 3-5, Urine WBC None, Ur Squamous Epith Cells 3-5, Urine Bacteria Trace, Urine HCG, Qual Negative 06/02/23 19:35: WBC 8.8, RBC 4.71, Hgb 14.6, Hct 43.2, MCV 91.6, MCH 31.1, MCHC 33.9, RDW 13.8, Plt Count 298, MPV 8.0, Neut % (Auto) 46.0, Lymph % (Auto) 42.4, [place] % (Auto) 4.6, Eos % (Auto) 6.2, Baso % (Auto) 0.8, Neut # (Auto) 4.1, Lymph # (Auto) 3.7, [place] # (Auto) 0.4, Eos # (Auto) 0.6 H, Baso # (Auto) 0.1, Sodium 140, Potassium 4.1, Chloride 109 H, Carbon Dioxide 25, Anion Gap 10.1, BUN 11, Creatinine 0.80, Estimated Creat Clear 95, Estimated GFR 80, Est GFR ( Amer) 97, Glucose 100, Calcium 9.4, Phosphorus 4.4, Magnesium 2.2, Total Bilirubin 0.4, AST 22, ALT 15, Alkaline Phosphatase 65, Troponin I < 0.01, Total Protein 7.3, Albumin 4.2, Globulin 3.1, Albumin/Globulin Ratio 1.4 06/02/23 19:35 06/02/23 19:35 Orders (Tests/Meds): ED MEDICATIONS Discontinued Medications Generic Name Dose Route Start Last Admin Trade Name Freq PRN Reason Stop Dose Admin Lactated Ringer's 1,000 mls @ 999 mls/hr 06/02/23 19:34 06/02/23 19:52 Lactated Ringer's 1000 Ml Bag IV 06/02/23 20:34 999 mls/hr .Q1H1M ONE Administration Iopamidol 75 ml 06/02/23 20:48 06/02/23 20:49 Iopamidol-370 (76%);100ml Bottle IV 06/02/23 20:49 75 ml ONCE ONE Administration Ondansetron HCl 4 mg 06/02/23 19:34 06/02/23 19:52 Ondansetron 4mg/2ml Vial IV 06/02/23 19:35 4 mg ONCE ONE Administration Sodium Chloride 10 ml 06/02/23 20:48 06/02/23 20:49 Sodium Chloride 0.9% 10ml Syr (Rad Only) IV 07/02/23 20:47 10 ml NEEDED PRN Administration Maintain IV Site ORDERS Category Date Time Status CT abdomen pelvis w con Stat Cat Scan 06/02/23 19:[address] angio chest PE protocol Stat Cat Scan 06/02/23 19:35 Completed Complete Blood Count Auto Diff Stat Lab 06/02/23 19:35 Completed Comprehensive Metabolic Panel Stat Lab 06/02/23 19:35 Completed Magnesium Stat Lab 06/02/23 19:35 Completed PHOS [Phosphorous] Stat Lab 06/02/23 19:35 Completed Troponin I Stat Lab 06/02/23 19:35 Completed Urinalysis and Microscopic Stat Lab 06/02/23 19:34 Completed Urine , HCG Qual. Stat Lab 06/02/23 19:34 Completed ECG Data Tracing #1: I reviewed this ECG and interpreted as documented below: Normal sinus rhythm with a ventricular rate of [address] ribeiro ges concerning for ischemia. Normal axis and intervals. ECG initial impression date: 06/02/23 ECG initial impression time: 19:38 Medical Decision Narrative: In summary, this patient is a 37-year-old female presenting to the Emergency Department for evaluation of left flank pain, lightheadedness, and presyncope. Differential diagnoses considered include but are not limited to pyelonephritis, ureterolithiasis, cystitis, colitis, gastritis, PE. Ruling out the most morbid conditions drove assessment. On exam, the patient is nontoxic-appearing. Vitals are reassuring on cardiac telemetry. EKG is reassuring. Workup included CBC, CMP, lipase, urinalysis, troponin, CT PE protocol, and CT abdomen pelvis with IV contrast. She was given a bolus of IV fluids as well as IV Zofran for symptomatic improvement. I independently interpreted CT scans prior to the radiologist read and noted no obvious acute renal stones, bowel obstruction, colitis, PE, pneumonia, or other concerns. Please see their read for final interpretation. Labs were obtained that demonstrated no acutely concerning abnormalities with no significant leukocytosis. Patient does have very mild hematuria with trace blood in the urine, which I advised her of. She does not have concerns for infection based on urinalysis, so I do not feel that antibiotics are indicated at this time. For this, feel she should follow-up outpatient for continued monitoring of her urinalysis, as she may need further workup if she has persistent hematuria. On reassessment, patient is in no acute distress with reassuring exam. Vitals are reassuring cardiac telemetry. At this time, I am unsure what is causing her left flank pain. It could be musculoskeletal, pleuritis, or some other concern. He does seem to be worse with movement, which would support musculoskeletal. I feel that we have ruled out any acute pathology which would be helpful to the patient, as I do feel that she is appropriate for discharge with instructions for supportive management and close follow-up. She was given very strict return precautions and she was discharged after all questions were answered. Critical Care Critical Care Time Critical Care Time: No
[2023-06-02 20:11] LABS: Troponin I < 0.01 ng/ml (0.00-0.034)
[2023-06-02 20:25] LABS: Microscopic, Urine URINE MICROSCOPIC (MICROSCOPIC)
[2023-06-02 20:29] LABS: Appearance,Urine CLEAR (Clear); Bilirubin,Urine Negative (Negative); Blood, Urine TRACE-I (Negative); Color,Urine YELLOW (Yellow); Glucose,Urine (UA) Negative (Negative); Ketones,Urine Negative (Negative); Leukocyte Esterase,Urine Negative (Negative); Nitrate,Urine Negative (Negative); Protein,Urine Negative (Negative); Specific Gravity, Urine 1.025 (1.005-1.030); Urobilinogen,Urine 0.2 EU/dl (0.2)
[2023-06-02 20:34] LABS: Urine Pregnancy, HCG Qual. Negative (Negative)
--- NOTE | 2023-06-02 20:39 | PC.NURSE ---
pt to radiology
[2023-06-02 20:40] LABS: Bacteria,Urine Trace /lpf
[2023-06-02] MEDS: IOPAMIDOL-370 (76%);100ML BOTTLE 75 ML IV (20:49)
[2023-06-02] MEDS: SODIUM CHLORIDE 0.9% 10ML SYR (RAD ONLY) 10 ML IV (20:49)
--- NOTE | 2023-06-02 20:49 | PC.NURSE ---
PATIENT BACK FROM RADIOLOGY
[2023-06-02 21:33] VITALS: BP 136/74; PULSE 54; RESP 16; O2SAT 100
[2023-06-02 21:57] VITALS: BP 136/74; PULSE 80; RESP 18; TEMP 36.7
== END 2023-06-02 21:59 | disposition home or self-care (01) ==
PROVIDERS: Emergency Provider Emergency Medicine; PCP Family Medicine
DX: R10.9 Unspecified abdominal pain (principal); R42 Dizziness and giddiness; M54.9 Dorsalgia, unspecified; R35.0 Frequency of micturition; R55 Syncope and collapse; I10 Essential (primary) hypertension; E28.2 Polycystic ovarian syndrome
CPT/HCPCS: 71275; 74177; 80053; 81001; 81025; 83735; 84100; 84484; 85025; 93005; 96361; 96374; 99285; J2405; Q9967

== ENCOUNTER 2023-09-10 16:01 | Emergency (ER) | payer OTHER, SELFPAY ==
[2023-09-10 16:04] VITALS: BP 145/72; PULSE 83; RESP 18; TEMP 36.6; O2SAT 99; BMI 47.9
[2023-09-10 16:19] VITALS: BP 126/73
--- NOTE | 2023-09-10 16:52 | HMH.EDGENADL ---
Discharge Plan Disposition Patient Disposition: Home, Self-Care Condition: Good Prescriptions Prescriptions: New naproxen 500 mg tablet 500 mg PO BID Qty: 14 0RF methocarbamol 500 mg tablet 500 mg PO Q8H Qty: 20 0RF lidocaine [Lidoderm] 5 % adhesive patch,medicated 1 patch topical DAILY Qty: 15 0RF Rx Instructions: leave on most painful area for up to 12 hrs No Action omeprazole 20 mg capsule,delayed release(DR/EC) 20 mg PO BID Patient Comments: TAKE ONE CAPSULE BY MOUTH EVERY TWELVE HOURS take morning CAPSULE 30 minutes BEFORE morning meal sertraline 100 mg tablet 100 mg PO DAILY propranolol [Inderal LA] 80 mg capsule,extended release 24 hr 80 mg PO BID Qty: 60 3RF meclizine 12.5 mg tablet 12.5 mg PO TID PRN (Reason: dizziness) Qty: 14 0RF albuterol sulfate 90 mcg/actuation HFA aerosol inhaler 3 inh inhalation Q4H PRN (Reason: wheezing) Qty: 6.7 0RF Rx Instructions: until breathing returns to target peak flow/parameters Referrals Follow up/Referrals: Taz Ward MD [Primary Care Provider] - See instructions Activity Restrictions/Add. Instructions Additional Instructions/Restrictions: You were evaluated in the emergency department today. At this time, we feel that you likely musculoskeletal pain. Please package pick up your prescriptions at the pharmacy and take them as needed for pain. You may also take Tylenol every 4-6 hours as needed for pain. Follow-up closely with your primary care provider. Return to the emergency department for new or worsening symptoms, such as significant swelling of your leg, redness, skin discoloration, numbness, tingling, or other concerns. Clinical Impressions Clinical Impression: Pain of left lateral upper thigh, Iliotibial band tendonitis Instructions Patient Instructions: DI for Iliotibial Band Syndrome, DI for Hip Pain Discharge ED Provider: Maki Gannon General Adult HPI General Chief complaint: Extremity Injury, Lower Stated complaint: Left thigh Pain Time Seen by Provider: 09/10/23 16:06 Mode of Arrival: Ambulatory Source of Information: Patient Limitations: No Limitations Description of Symptoms (Recalled from ER Triage Doc. by RN): pt woke up with left thigh pain since this am, no known injury or trauma, no swelling or discoloration to the area. pt states the pain changes with sitting and standing History of Present Illness HPI narrative: This patient is a 38-year-old female with a history of obesity status post weight loss surgery, hypertension, PCOS, and restless legs presenting to the emergency department for evaluation with concern for lateral left thigh pain. She states that she noticed it when she woke up this morning. It seems to get better when she gets up and moving around, but it is very positional. She thought maybe it was sciatica, but it does not feel the same as her usual sciatica. No skin color changes, numbness, tingling, swelling, falls or traumatic injuries noted. Related Data Home Medications Medication Instructions Recorded Confirmed omeprazole 20 mg capsule,delayed 20 mg PO BID GERD 12/03/21 06/29/23 release sertraline 100 mg tablet 100 mg PO DAILY . 08/12/22 06/29/23 Previous Rx's Medication Instructions Recorded albuterol sulfate 90 mcg/actuation 3 inh inhalation Q4H PRN wheezing 03/29/23 aerosol inhaler #6.7 grams propranolol 80 mg capsule,24 80 mg PO BID #60 caps 04/21/23 hr,extended release (Inderal LA) meclizine 12.5 mg tablet 12.5 mg PO TID PRN dizziness #14 06/29/23 tabs lidocaine 5 % topical patch 1 patch topical DAILY #15 ea 09/10/23 (Lidoderm) methocarbamol 500 mg tablet 500 mg PO Q8H pain #20 tabs 09/10/23 naproxen 500 mg tablet 500 mg PO BID #14 tabs 09/10/23 Allergies Allergy/AdvReac Type Severity Reaction Status Date / Time Penicillins Allergy Verified 06/29/23 11:27 quetiapine [From Seroquel] Allergy Verified 06/29/23 11:27 [facility] Disclaimer: The information contained in this section may have been updated after the patient was seen, as this information can be updated by other users. Medical History Pharyngitis Otitis media Acute viral syndrome Headache Sinusitis Abscess, peritonsillar Peritonsillar abscess Parotitis Sore throat C. difficile enteritis Neuropathic pain of finger Neuropathy, ulnar nerve Cellulitis Cellulitis of axilla, right Abscess of axilla, right Viral upper respiratory tract infection with cough Dizziness Acute abdominal pain in left flank Sinusitis Abscess of nasal cavity Abscess of nose Otitis media Gastroenteritis Paronychia Morbid obesity with BMI of 50.0-59.9, adult Uterine fibroid History of PCOS History of endometriosis LLQ pain Parasomnia Urinary tract infection History of gastroesophageal reflux (GERD) HTN (hypertension) Palpitations Anxiety Bariatric surg stat-del Onychomycosis Abdominal pain Surgical History S/P dilation and curettage History of hernia repair History of cholecystectomy H/O bariatric surgery Family History Sister Asthma Mother Heart attack Diabetes Father Diabetes Coronary artery disease Social History Smoking Status: Current every day smoker tobacco type: cigarettes packs per day: 1 second hand exposure: No alcohol intake: never substance use type: denies use current occupational status: employed Travel in the last 8 weeks: None household members: spouse and children housing: house ROS Obtained: Yes All systems reviewed & no additional complaints except as documented Physical Exam General General appearance: alert, in no apparent distress and obese Head Head exam: atraumatic and normocephalic Eye Eye exam: Present normal appearance, PERRL and EOMI ENT ENT exam: Present normal exam, normal oropharynx, mucous membranes moist and normal external ear exam Neck Neck exam: Present normal inspection, full ROM and trachea midline; Absent tenderness Chest Chest inspection: Present normal inspection and symmetric chest wall rise; Absent tenderness Respiratory Respiratory exam: Present normal lung sounds bilaterally; Absent respiratory distress, wheezes, stridor or accessory muscle use Cardiovascular Cardiovascular exam: Present regular rate and normal rhythm Abdominal Exam Abdominal exam: Present soft; Absent distention, tenderness or guarding Extremities Exam Extremities exam: Present full ROM, tenderness (Tenderness to palpation over the left IT band. All compartments soft. Neurovascularly intact distally. No skin color changes or swelling.) and normal capillary refill; Absent edema Back Exam Back exam: Present normal inspection and full ROM; Absent tenderness Neurological Exam Neurological exam: Present alert, oriented X3, CN II-XII intact and normal gait; Absent motor sensory deficit Psychiatric Psychiatric exam: Present normal affect and normal mood Skin Skin exam: Present warm and dry Medical Decision Making Medical Records Medical records reviewed: Yes I reviewed the patient's medical records. Malik Inquiry Pt receiving controlled substance: No Vital Signs: 09/10/23 16:04 Temperature 97.9 F Temperature Source Oral Pulse Rate [Right Radial] 83 Respiratory Rate 18 Blood Pressure [Right Arm] 145/72 H Blood Pressure Mean [Right Arm] 96 02 Sat by Pulse Oximetry 99 Oxygen Delivery Method Room Air Lab Data Lab results reviewed: Yes I reviewed the patient's lab results. Orders (Tests/Meds): ED MEDICATIONS Discontinued Medications Generic Name Dose Route Start Last Admin Trade Name Allie PRN Reason Stop Dose Admin Ketorolac Tromethamine 30 mg 09/10/23 16:45 Ketorolac 30mg/Ml Vial IM 09/10/23 16:46 ONCE ONE Lidocaine 1 each 09/10/23 16:45 Lidocaine 5% Transdermal Patch TP 09/10/23 16:46 ONCE ONE Methocarbamol 500 mg 09/10/23 16:45 Methocarbamol 500mg Tablet PO 09/10/23 16:46 ONCE ONE Medical Decision Narrative: In summary, this patient is a 38-year-old female presenting to the Emergency Department for evaluation of left lateral thigh pain. Differential diagnoses considered include but are not limited to IT band syndrome, musculoskeletal strain/sprain, cellulitis, hematoma, contusion. Ruling out the most morbid conditions drove assessment. On exam, the patient is well-appearing. She has tenderness to palpation over her left IT band with some hypertonicity, but otherwise no abnormal findings on exam. No skin color changes, swelling, or discoloration concerning for DVT or other concerns. Based on reassuring exam and the lack of traumatic injury, I do not feel the labs or imaging are indicated. Patient is agreeable to symptomatic management with IM Toradol, oral Robaxin, and topical Lidoderm patch. She was given instructions for supportive management, instructions for close immediate follow-up, strict return precautions, and she was discharged after all questions were answered. Critical Care Critical Care Time Critical Care Time: No
[2023-09-10] MEDS: LIDOCAINE 5% TRANSDERMAL PATCH 1 EACH TP (16:56)
[2023-09-10] MEDS: METHOCARBAMOL 500MG TABLET 500 MG PO (16:57)
[2023-09-10] MEDS: KETOROLAC 30MG/ML VIAL 30 MG IM (16:58)
[2023-09-10 17:22] VITALS: BP 130/80; PULSE 82; RESP 16; TEMP 36.6; O2SAT 99
== END 2023-09-10 17:23 | disposition home or self-care (01) ==
PROVIDERS: Emergency Provider Emergency Medicine; PCP Family Medicine
DX: M76.32 Iliotibial band syndrome, left leg (principal); M79.652 Pain in left thigh; F17.210 Nicotine dependence, cigarettes, uncomplicated
CPT/HCPCS: 96372; 99283

== ENCOUNTER 2023-10-12 10:17 | Emergency (ER) | payer OTHER, SELFPAY ==
[2023-10-12 10:25] VITALS: BP 169/89; PULSE 65; RESP 18; O2SAT 99; BMI 47.9
--- NOTE | 2023-10-12 10:29 | ED_ITS ---
Discharge Plan Disposition Patient Disposition: Home, Self-Care Chief Complaint: Upper Respiratory Infection Prescriptions Prescriptions: No Action omeprazole 20 mg capsule,delayed release(DR/EC) 20 mg PO BID Patient Comments: TAKE ONE CAPSULE BY MOUTH EVERY TWELVE HOURS take morning CAPSULE 30 minutes BEFORE morning meal sertraline 100 mg tablet 100 mg PO DAILY ergocalciferol (vitamin D2) 1,250 mcg (50,000 unit) capsule PO WEEKLY Patient Comments: TAKE ONE CAPSULE BY MOUTH ONCE A WEEK clindamycin HCl 300 mg capsule 300 mg PO TID 10 Days Qty: 30 0RF methylprednisolone [Medrol (Micha)] 4 mg tablets,dose pack See Rx Instructions PO PER PKG DIR Qty: 21 0RF Rx Instructions: PO PER PKG DIR for 6 days propranolol [Inderal LA] 80 mg capsule,extended release 24 hr 80 mg PO BID Qty: 60 3RF naproxen 500 mg tablet 500 mg PO BID Qty: 14 0RF methocarbamol 500 mg tablet 500 mg PO Q8H Qty: 20 0RF Referrals Follow up/Referrals: Taz Ward MD [Primary Care Provider] - See instructions Activity Restrictions/Add. Instructions Additional Instructions/Restrictions: Call your family doctor to establish care for this visit to the emergency department and schedule follow-up within 48 hours to ensure improvement. If you have any worsening of your condition or any other concerning signs or symptoms, return to the emergency department or your primary care doctor for further evaluation. Nightly Zyrtec or Claritin as well as Sudafed can help with congestion symptoms. Do not take Sudafed for more than 5 days in a row as to not develop tolerance of rebound congestion. Follow-up with ENT for further definitive management. Clinical Impressions Clinical Impression: Acute rhinosinusitis Discharge ED Provider: Nick Valladares General Adult HPI General Chief complaint: Upper Respiratory Infection Stated complaint: Sinus pressure (sent by ENT) Time Seen by Provider: 10/12/23 10:27 History of Present Illness HPI narrative: Please note that above description of symptoms, in this electronic medical record under categorization of recalled from ER triage doctor by RN are reflective of an initial nursing assessment, however, is not reflective of my full history and physical exam that was personally taken and clarified. Consequentially, this preceding description of symptoms, which may include the patient's categorized chief complaint in the EMR, do not reflect my personal clinical impression, and the ultimate description of history of present illness and patient stated complaints should be deferred to this section of the note. Unless stated otherwise or congruent with this section of the note, additional signs, symptoms, or incongruence should be interpreted as inaccurate with my clinical impression. Related Data Home Medications Medication Instructions Recorded Confirmed omeprazole 20 mg capsule,delayed 20 mg PO BID GERD 12/03/21 10/12/23 release sertraline 100 mg tablet 100 mg PO DAILY . 08/12/22 10/12/23 ergocalciferol (vitamin D2) 1,250 PO WEEKLY 10/12/23 10/12/23 mcg (50,000 unit) capsule Previous Rx's Medication Instructions Recorded methocarbamol 500 mg tablet 500 mg PO Q8H pain #20 tabs 09/10/23 naproxen 500 mg tablet 500 mg PO BID #14 tabs 09/10/23 propranolol 80 mg capsule,24 80 mg PO BID #60 caps 09/27/23 hr,extended release (Inderal LA) clindamycin HCl 300 mg capsule 300 mg PO TID 10 days #30 caps 10/12/23 methylprednisolone 4 mg tablets in See Rx Instructions PO PER PKG DIR 10/12/23 a dose pack (Medrol (Micha)) #21 tabs Allergies Allergy/AdvReac Type Severity Reaction Status Date / Time Penicillins Allergy Verified 10/12/23 10:52 quetiapine [From Seroquel] Allergy Verified 10/12/23 10:52 [facility] Disclaimer: The information contained in this section may have been updated after the patient was seen, as this information can be updated by other users. Medical History (Updated 10/12/23 @ 11:29 by Nick Valladares MD) Chronic maxillary sinusitis Sinusitis Pharyngitis Otitis media Acute viral syndrome Headache Abscess, peritonsillar Peritonsillar abscess Parotitis Sore throat C. difficile enteritis Neuropathic pain of finger Neuropathy, ulnar nerve Cellulitis Cellulitis of axilla, right Abscess of axilla, right Viral upper respiratory tract infection with cough Dizziness Acute abdominal pain in left flank Sinusitis Abscess of nasal cavity Abscess of nose Otitis media Gastroenteritis Paronychia Morbid obesity with BMI of 50.0-59.9, adult Uterine fibroid History of PCOS History of endometriosis LLQ pain Parasomnia Urinary tract infection History of gastroesophageal reflux (GERD) HTN (hypertension) Palpitations Anxiety Bariatric surg stat-del Onychomycosis Abdominal pain Surgical History S/P dilation and curettage History of hernia repair History of cholecystectomy H/O bariatric surgery Family History Sister Asthma Mother Heart attack Diabetes Father Diabetes Coronary artery disease Social History Smoking Status: Current every day smoker tobacco type: cigarettes packs per day: 1 second hand exposure: No alcohol intake: never substance use type: denies use current occupational status: employed Travel in the last 8 weeks: None household members: spouse and children housing: house ROS Obtained: Yes All systems reviewed & no additional complaints except as documented Physical Exam General General appearance: alert Head Head exam: atraumatic and normocephalic Eye Eye exam: Present normal appearance, PERRL and EOMI Neck Neck exam: Present normal inspection, full ROM and trachea midline Respiratory Respiratory exam: Absent respiratory distress, wheezes, stridor, accessory muscle use or prolonged expiratory phase Cardiovascular Cardiovascular exam: Present other (Pulses equal symmetric in upper and lower extremities) Abdominal Exam Abdominal exam: Present soft; Absent distention, tenderness or pulsatile mass Extremities Exam Extremities exam: Absent edema Neurological Exam Neurological exam: Present alert, oriented X3 and CN II-XII intact; Absent motor sensory deficit Skin Skin exam: Present warm and dry; Absent diaphoresis or erythema Medical Decision Making Medical Records Medical records reviewed: Yes I reviewed the patient's medical records. Malik Inquiry Pt receiving controlled substance: No Malik was queried for this patient: No Vital Signs: 10/12/23 10:25 Pulse Rate [Right Brachial] 65 Respiratory Rate 18 Blood Pressure [Right Arm] 169/89 H Blood Pressure Mean [Right Arm] 115 Blood Pressure Source [Right Arm] Automatic Cuff Blood Pressure Position [Right Arm] Sitting 02 Sat by Pulse Oximetry 99 Oxygen Delivery Method Room Air Lab Data Lab Results 10/12/23 10:25: Urine HCG, Qual Negative 10/12/23 10:55: WBC 7.9, RBC 4.84, Hgb 14.1, Hct 42.5, MCV 87.9, MCH 29.1, MCHC 33.1, RDW 14.1, Plt Count 289, MPV 7.6, Neut % (Auto) 54.8, Lymph % (Auto) 33.1, [place] % (Auto) 4.3, Eos % (Auto) 7.0, Baso % (Auto) 0.9, Neut # (Auto) 4.3, Lymph # (Auto) 2.6, [place] # (Auto) 0.3, Eos # (Auto) 0.6 H, Baso # (Auto) 0.1, Sodium 141, Potassium 3.8, Chloride 112 H, Carbon Dioxide 25, Anion Gap 7.8, BUN 10, Creatinine 0.80, Estimated Creat Clear 94, Estimated GFR 79, Est GFR ( Amer) 96, Glucose 98, Calcium 9.1, Total Bilirubin 0.2, AST 19, ALT 14, Alkaline Phosphatase 55, Total Protein 7.1, Albumin 3.8, Globulin 3.3 H, Albumin/Globulin Ratio 1.2 10/12/23 10:55 10/12/23 10:55 Orders (Tests/Meds): ORDERS Category Date Time Status CT sinus wo con Stat Cat Scan 10/12/23 11:07 Taken CBC w/Auto Diff [Complete Blood Count Auto Diff] Stat Lab 10/12/23 10:55 Completed CMP [Comprehensive Metabolic Panel] Stat Lab 10/12/23 10:55 Completed Urine , HCG Qual. Stat Lab 10/12/23 10:25 Completed Medical Decision Narrative: 38-year-old female history of chronic rhinosinusitis not currently on maintenance therapy presenting with concern for sinus pain. Patient states that this been getting worse for the past couple of months. States that she has been following with ENT, was supposed to have surgery done last year, did not follow- up or get the appropriate imaging to have the surgery done. States that she is not currently taking antihistamine anymore, not taking nasal decongestant, but she is using saline nasal rinses daily. Saw ENT this morning, 10/11, they recommended coming to the emergency department to have preop imaging done for operative planning. Patient states that the pain is mild in intensity when she is sitting up, worse when she is lying down at night and associated with postnasal drip and cough. States her nose always feels like it running and is uncomfortable. Sinus rinses do not seem to help. She takes Excedrin Migraine which seems to help a little bit and ease the pain, but not significantly so. History was obtained via conversation with patient. On arrival, patient hemodynamically stable, alert, oriented x4, appropriate, GCS 15, moving all extremities spontaneously, pupils equal and reactive to light. Full physical exam performed and significant for well-appearing woman who is in no acute distress. Mildly hypertensive, but saturating appropriately on room air. EOMs intact and full, not currently having any complaints other than pressure in her right maxillary sinus. No evidence of facial swelling, redness, neurologic deficits, nasal drainage, or any other abnormal findings. Differential includes chronic rhinosinusitis, turbinate abnormality, deviated septum, nasal polyposis, malignancy, allergic rhinosinusitis, among others. Independent interpretation of workup demonstrates nonactionable CBC or chemistry. Negative . CT head independently interpreted and with right maxillary sinusitis as compared to the left, but no other acute abnormality. Because patient at baseline without signs or symptoms of clinical decompensation, deemed appropriate for discharge. Results were relayed to patient who voiced understanding and were agreeable to outpatient management and follow up. I discussed my clinical impression with patient and answered all questions. At this time, the evidence for any other entities in the differential is insufficient to warrant any further testing or ED observation. This was explained as well. Advisory was given that persistent or worsening symptoms require further evaluation. I confirmed the understanding of this discussion. Care Team Assistant disclaimer Much of this encounter note is an electronic manufacturing development engineer spoken language to printed text. Electronic manufacturing development engineer of the spoken language may permit errors. Although I have reviewed the note, some errors may still exist. Critical Care Critical Care Time Critical Care Time: No
--- NOTE | 2023-10-12 10:42 | PC.NURSE ---
Dr. Valladares at bedside
[2023-10-12 10:55] LABS: Urine Pregnancy, HCG Qual. Negative (Negative)
--- NOTE | 2023-10-12 11:07 | CT_ITS ---
FINAL REPORT TECHNIQUE: Thin section axial CT images of the facial bones and sinuses were obtained without contrast. Coronal reformatted images were also obtained.This study was performed with techniques to keep radiation doses as low as reasonably achievable, (ALARA). Individualized dose reduction techniques using automated exposure control or adjustment of mA and/or kV according to the patient''''s size were employed. CLINICAL HISTORY: R maxillary sinus pain FINDINGS: There is mild mucosal thickening in the maxillary sinuses, right greater than left. No fluid levels are identified. The ostiomeatal units have an unremarkable appearance. The nasal septum is in the midline. No fracture or acute bony abnormality is identified. IMPRESSION: Maxillary sinusitis, right greater than left. Reviewed, Interpreted and Dictated by Bruno Ballesteros III, MD Transcribed by Elicia Sinha Authenticated and [facility]
[2023-10-12 11:10] LABS: Chloride 112 mmol/L (98-107); Potassium 3.8 mmoL/L (3.5-5.1); Sodium 141 mmol/L (136-145)
[2023-10-12 11:13] LABS: Alanine Aminotransferase 14 U/L (12-78); Albumin Level 3.8 g/dl (3.5-5.0); Albumin/Globulin Ratio 1.2 (1.1-1.8); Alkaline Phosphatase 55 U/L (38-126); Anion Gap 7.8 mEq/L (5-15); Aspartate Amino Transferase 19 U/L (14-36); Bilirubin,Total 0.2 mg/dl (0.2-1.3); Blood Urea Nitrogen 10 mg/dl (7-17); Calcium 9.1 mg/dl (8.4-10.2); Carbon Dioxide 25 mmol/L (22.0-30.0); Creatinine Clearance Estimated 94 mL/min (50-200); Estimated Glomerular Filt Rate 79 ml/min (>60); GFR (African American) 96 ML/MIN (>60); Globulin 3.3 g/dL (1.3-3.2); Glucose 98 mg/dl (74-100); Total Protein,Serum 7.1 g/dl (6.3-8.2)
[2023-10-12 11:21] LABS: Basophils # 0.1 K/mm3 (0-0.2); Basophils % 0.9 % (0.1-2.0); Eosinophils # 0.6 K/mm3 (0.0-0.4); Hematocrit 42.5 % (37.0-47.0); Hemoglobin 14.1 g/dL (12.2-16.2); Lymphocytes # 2.6 K/mm3 (0.7-4.5); Lymphocytes % 33.1 % (10-50); Mean Corpuscular HGB Conc 33.1 g/dL (31.8-35.4); Mean Corpuscular Hemoglobin 29.1 pg (27.0-31.2); Mean Corpuscular Volume 87.9 fl (81-99); Mean Platelet Volume 7.6 fl (7.4-10.4); Monocytes # 0.3 K/mm3 (0.1-1.0); Monocytes % 4.3 % (1.7-9.3); Neutrophils # 4.3 K/mm3 (1.8-7.8); Neutrophils % 54.8 % (37.0-80.0); Platelet Count 289 K/mm3 (142-424); Red Blood Count 4.84 M/mm3 (4.20-5.40); Red Cell Distribution Width 14.1 % (11.5-17.5); White Blood Count 7.9 K/mm3 (4.8-10.8)
[2023-10-12 11:36] VITALS: BP 182/97; PULSE 66; RESP 15; TEMP 36.7; O2SAT 100
== END 2023-10-12 11:36 | disposition home or self-care (01) ==
PROVIDERS: Emergency Provider Emergency Medicine; PCP Family Medicine
DX: J01.00 Acute maxillary sinusitis, unspecified (principal); R09.81 Nasal congestion; F17.210 Nicotine dependence, cigarettes, uncomplicated; I10 Essential (primary) hypertension; K21.9 Gastro-esophageal reflux disease without esophagitis
CPT/HCPCS: 70486; 80053; 81025; 85025; 99284

== ENCOUNTER 2023-11-22 20:02 | Emergency (ER) | payer BC, SELFPAY ==
[2023-11-22 20:03] VITALS: BP 121/65; PULSE 74; RESP 16; TEMP 36.8; O2SAT 97; BMI 44.1
--- NOTE | 2023-11-22 20:04 | ED_ITS ---
<Statement entered by Maki Gannon DO - 11/22/23 23:02> I was consulted by the BRISSA, and we discussed the complexity of the problems being addressed. I approved the treatment and management plan for this patient's care in the emergency department, thus performing a substantive portion of the medical decision making. Maki Gannon DO Discharge Plan Disposition Patient Disposition: Home, Self-Care Condition: Good Chief Complaint: Vaginal Bleeding Prescriptions Prescriptions: No Action omeprazole 20 mg capsule,delayed release(DR/EC) 20 mg PO BID Patient Comments: TAKE ONE CAPSULE BY MOUTH EVERY TWELVE HOURS take morning CAPSULE 30 minutes BEFORE morning meal sertraline 100 mg tablet 100 mg PO DAILY ergocalciferol (vitamin D2) 1,250 mcg (50,000 unit) capsule PO WEEKLY Patient Comments: TAKE ONE CAPSULE BY MOUTH ONCE A WEEK propranolol [Inderal LA] 80 mg capsule,extended release 24 hr 80 mg PO BID Qty: 60 3RF naproxen 500 mg tablet 500 mg PO BID Qty: 14 0RF methocarbamol 500 mg tablet 500 mg PO Q8H Qty: 20 0RF Referrals Follow up/Referrals: Taz Ward MD [Primary Care Provider] - See instructions Activity Restrictions/Add. Instructions Additional Instructions/Restrictions: Please call and schedule follow-up with Dr. Lora of [employer] [facility] for discussions about neck steps about your uterine fibroids. You have a incidental lung nodule found on your CAT scan that may need further workup. Please follow-up with your PCP for further evaluation. Return to ER for any worsening signs or symptoms as needed. Clinical Impressions Clinical Impression: Incidental lung nodule, Abdominal pain, right lower quadrant Fibroid, uterine Qualifiers: Uterine leiomyoma location: unspecified location Qualified Code(s): D25.9 - Leiomyoma of uterus, unspecified Instructions Patient Instructions: DI for Uterine Fibroids Print Language Print Language: Tamazight Discharge ED Provider: Maki Gannon General Adult HPI General Chief complaint: Vaginal Bleeding Stated complaint: abd pain, heavy menses poss ovarian cyst Time Seen by Provider: 11/22/23 20:04 History of Present Illness HPI narrative: Patient presents for evaluation of right lower quadrant abdominal pain. Patient has had 3 days of right lower quadrant abdominal pain. It has been pretty consistent and with no radiation. Patient also reports that she had a pretty uncomfortable onset of her period although the timing is correct she has had very heavy flow for the 3 days as well. Patient has a past medical history of previous ovarian cysts but never have her discomfort lasted this long. She denies any fever chills hemoptysis hematochezia melena hematemesis she reports some nausea but no vomiting or diarrhea. Related Data Home Medications ?Medication ?Instructions ?Recorded ?Confirmed omeprazole 20 mg capsule,delayed 20 mg PO BID GERD 12/03/21 11/02/23 release sertraline 100 mg tablet 100 mg PO DAILY . 08/12/22 11/02/23 ergocalciferol (vitamin D2) 1,250 PO WEEKLY 10/12/23 11/02/23 mcg (50,000 unit) capsule Previous Rx's ?Medication ?Instructions ?Recorded methocarbamol 500 mg tablet 500 mg PO Q8H pain #20 tabs 09/10/23 naproxen 500 mg tablet 500 mg PO BID #14 tabs 09/10/23 propranolol 80 mg capsule,24 80 mg PO BID #60 caps 09/27/23 hr,extended release (Inderal LA) Allergies Allergy/AdvReac Type Severity Reaction Status Date / Time Penicillins Allergy Verified 11/02/23 09:04 quetiapine [From Seroquel] Allergy Verified 11/02/23 09:04 [facility] Disclaimer: The information contained in this section may have been updated after the patient was seen, as this information can be updated by other users. Medical History Chronic maxillary sinusitis Sinusitis Pharyngitis Otitis media Acute viral syndrome Headache Abscess, peritonsillar Peritonsillar abscess Parotitis Sore throat C. 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 dreams, sleep paralysis Urinary tract infection History of gastroesophageal reflux (GERD) HTN (hypertension) Palpitations Anxiety Bariatric surg stat-del Onychomycosis Abdominal pain Surgical History S/P dilation and curettage History of hernia repair History of cholecystectomy H/O bariatric surgery Family History Sister Asthma Mother Heart attack Diabetes Father Diabetes Coronary artery disease Social History Smoking Status: Current every day smoker tobacco type: cigarettes packs per day: 1 second hand exposure: No alcohol intake: never substance use type: denies use current occupational status: employed Travel in the last 8 weeks: None household members: spouse and children housing: house ROS Obtained: Yes Systems reviewed as appropriate & no additional complaints except as documented Physical Exam General General appearance: alert and in no apparent distress Respiratory Respiratory exam: Present normal lung sounds bilaterally Cardiovascular Cardiovascular exam: Present regular rate and normal rhythm Abdominal Exam Abdominal exam: Present soft, tenderness (Patient has mild tenderness to palpation in the right lower quadrant without rebound or guarding or rigidity. She does have slightly more tenderness towards the midline in the suprapubic area on palpation but again no rebound or guarding or rigidity.) and normal bowel sounds; Absent guarding, rebound or rigidity Neurological Exam Neurological exam: Present alert and oriented X3 Medical Decision Making Medical Records Medical records reviewed: Yes I reviewed the patient's medical records. Malik Inquiry Pt receiving controlled substance: No Vital Signs: 11/22/23 20:03 Temperature 98.3 F Temperature Source Oral Pulse Rate [Left] 74 Respiratory Rate 16 Blood Pressure [Right Arm] 121/65 Blood Pressure Mean [Right Arm] 83 Blood Pressure Source [Right Arm] Automatic Cuff Blood Pressure Position [Right Arm] Sitting 02 Sat by Pulse Oximetry 97 Oxygen Delivery Method Room Air Lab Data Lab results reviewed: Yes I reviewed the patient's lab results. Lab Results 11/22/23 20:22: WBC 7.0, RBC 4.89, Hgb 13.9, Hct 44.6, MCV 91.1, MCH 28.5, MCHC 31.2 L, RDW 14.2, Plt Count 330, MPV 8.1, Neut % (Auto) 51.3, Lymph % (Auto) 36.5, [place] % (Auto) 4.8, Eos % (Auto) 6.5, Baso % (Auto) 0.9, Neut # (Auto) 3.6, Lymph # (Auto) 2.6, [place] # (Auto) 0.3, Eos # (Auto) 0.5 H, Baso # (Auto) 0.1, Sodium 139, Potassium 3.9, Chloride 111 H, Carbon Dioxide 25, Anion Gap 6.9, BUN 10, Creatinine 0.70, Estimated Creat Clear 108, Estimated GFR 93, Est GFR ( Amer) 112, Glucose 111 H, Calcium 8.6, Total Bilirubin 0.4, AST 21, ALT 16, Alkaline Phosphatase 58, Total Protein 7.0, Albumin 3.9, Globulin 3.1, Albumin/Globulin Ratio 1.3, Serum HCG, Qual Negative 11/22/23 20:22 11/22/23 20:22 Orders (Tests/Meds): ED MEDICATIONS Discontinued Medications Generic Name Dose Route Start Last Admin Trade Name Freq PRN Reason Stop Dose Admin Acetaminophen 1,000 mg 11/22/23 20:28 11/22/23 20:42 Acetaminophen 1,000mg/100ml Vial IV 11/22/23 20:29 1,000 mg ONCE ONE Administration Sodium Chloride 1,000 mls @ 999 mls/hr 11/22/23 20:28 11/22/23 20:43 Sod Chlor 0.9% 1000ml Bag IV 11/22/23 21:28 999 mls/hr .Q1H1M ONE Administration Iopamidol 75 ml 11/22/23 21:22 11/22/23 21:23 Iopamidol-370 (76%);100ml Bottle IV 11/22/23 21:23 75 ml ONCE ONE Administration Ketorolac Tromethamine 15 mg 11/22/23 20:28 11/22/23 20:42 Ketorolac 30mg/Ml Vial IV 11/22/23 20:29 15 mg ONCE ONE Administration Ondansetron HCl 4 mg 11/22/23 20:28 11/22/23 20:43 Ondansetron 4mg/2ml Vial IV 11/22/23 20:29 4 mg ONCE ONE Administration Sodium Chloride 10 ml 11/22/23 21:22 11/22/23 21:23 Sodium Chloride 0.9% 10ml Syr (Rad Only) IV 11/22/23 21:23 10 ml ONCE ONE Administration ORDERS Category Date Time Status CT abdomen pelvis w con Stat Cat Scan 11/22/23 20:28 Completed US transvaginal Stat Exams 11/22/23 20:28 Completed CBC w/Auto Diff [Complete Blood Count Auto Diff] Stat Lab 11/22/23 20:22 Completed CMP [Comprehensive Metabolic Panel] Stat Lab 11/22/23 20:22 Completed HCG Qualitative, Serum Stat Lab 11/22/23 20:22 Completed UA [Urinalysis and Microscopic] Stat Lab 11/22/23 20:29 Ordered Medical Decision Narrative: In summary patient is a 38-year-old female who presents to the emergency department for evaluation of right lower quadrant abdominal pain. Patient is hemodynamically stable upon arrival, afebrile. Physical exam he is a reassuring abdominal exam with no exquisite tenderness on palpation no rebound no guarding no rigidity with normal bowel sounds. She is tender primarily in the right lower quadrant. Differential diagnosis includes ovarian cyst versus uterine fibroid versus appendicitis versus kidney stone versus UTI etc. Initial workup will be conducted with hematologic labs CT scan abdomen pelvis urinalysis transvaginal ultrasound. Initial interventions include crystalloid bolus Toradol Tylenol. Initial workup reviewed by me shows that her hematologic labs are nonactionable and my informal interpretation of her CT scan abdomen pelvis shows fibroid uterus but no other acute intra-abdominal processes prior to radiology read. Transvaginal ultrasound did not show any cystic structures but again redemonstrated the uterine fibroids. She did not have ovarian torsion. Upon repeat evaluation patient reported significant improvement after initial intervention. Given this patient is appropriate for discharge with referral back to Dr. Lora of [employer] [facility] for discussions about next steps. Critical Care Critical Care Time Critical Care Time: No
--- NOTE | 2023-11-22 20:28 | US_ITS ---
PROCEDURE INFORMATION: Exam: US Pelvis, Transvaginal, Non-Obstetric Exam date and time: 11/22/2023 9:14 PM Age: 38 years old Clinical indication: Pelvic pain; Additional info: Rlq abd pain, rule out torsion, HX of ovarian cyst TECHNIQUE: Imaging protocol: Real-time transvaginal pelvic (non-obstetric) ultrasound with image documentation. Transvaginal imaging was used for better evaluation of the endometrium, adnexa, and/or cervix. COMPARISON: US TRANSVAGINAL 12/15/2021 9:02 AM FINDINGS: Uterus: The uterus measures 5.6 x 6.5 x 10.4 cm. There is a subserosal left uterine body fibroid measuring 4.5 x 4.4 x 4.3 cm and an anterior subserosal upper uterine body fibroid measuring 2.6 x 2.1 x 1.9 cm. Endometrial stripe is normal measuring 7 mm. Right ovary/adnexa: Normal measuring 4.1 x 1.7 x 2.9 cm. No mass. Normal ovarian blood flow on color Doppler. Left ovary/adnexa: Normal measuring 2.1 x 1.5 x 1.2 cm. No mass. Normal ovarian blood flow on color Doppler. Urinary bladder: Not imaged. Intraperitoneal space: No free fluid. IMPRESSION: 1. No acute findings. 2. Two subserosal uterine fibroids as detailed.
--- NOTE | 2023-11-22 20:28 | CT_ITS ---
PROCEDURE INFORMATION: Exam: CT Abdomen And Pelvis With Contrast Exam date and time: 11/22/2023 9:13 PM Age: 38 years old Clinical indication: Pain; Other: Rlq; Additional info: Right lower quadrant abdominal pain TECHNIQUE: Imaging protocol: Computed tomography of the abdomen and pelvis with contrast. Radiation optimization: All CT scans at this facility use at least one of these dose optimization techniques: automated exposure control; mA and/or kV adjustment per patient size (includes targeted exams where dose is matched to clinical indication); or iterative reconstruction. Contrast material: ISOVUE; Contrast volume: 75 ml; Contrast route: IV; COMPARISON: CT ABDOMEN PELVIS W CON 06/02/2023 8:44 PM FINDINGS: Lungs: 3 mm pleural-based right middle lobe nodule axial image 2. Small focus of subsegmental atelectasis versus scarring. Lingula. Diaphragm: A small hiatal hernia is present. Liver: Normal. No mass. Gallbladder and biliary ducts: The gallbladder is absent. There is no biliary ductal dilation. Pancreas: Normal. No ductal dilation. Spleen: Normal. No splenomegaly. Adrenal glands: Normal. No mass. Kidneys and ureters: Normal. No hydronephrosis. Stomach and bowel: There is evidence for gastric sleeve procedure. No bowel obstruction. No mucosal thickening. Appendix: No evidence of appendicitis. Intraperitoneal space: Unremarkable. No free air. No significant fluid collection. Vasculature: Unremarkable. No abdominal aortic aneurysm. Lymph nodes: Unremarkable. No enlarged lymph nodes. Urinary bladder: Unremarkable as visualized. Reproductive: Multilobulated appearance of the uterus consistent with fibroid disease. Bones/joints: Unremarkable. No acute fracture. Soft tissues: Unremarkable. IMPRESSION: 1. No acute findings. Normal appendix. 2. 3 mm right middle lobe nodule. For patients at low risk (minimal or absent history of smoking and of other known risk factors), no routine follow-up is indicated. For patients at high risk (history of smoking or of other known risk factors), consider optional CT Chest at 12 months. (Reference: Brian) 3. Fibroid uterus. REFERENCES: Brian Morales et al. Guidelines for Management of Incidental Pulmonary Nodules Detected on CT Images: From the Fleischner Society 2017. Radiology. 2017;284(1):228-243.
[2023-11-22 20:31] VITALS: BP 103/55; PULSE 66; O2SAT 97
[2023-11-22 20:37] LABS: Basophils # 0.1 K/mm3 (0-0.2); Basophils % 0.9 % (0.1-2.0); Eosinophils # 0.5 K/mm3 (0.0-0.4); Eosinophils % 6.5 % (0.1-12.0); Hematocrit 44.6 % (37.0-47.0); Hemoglobin 13.9 g/dL (12.2-16.2); Lymphocytes # 2.6 K/mm3 (0.7-4.5); Lymphocytes % 36.5 % (10-50); Mean Corpuscular HGB Conc 31.2 g/dL (31.8-35.4); Mean Corpuscular Hemoglobin 28.5 pg (27.0-31.2); Mean Corpuscular Volume 91.1 fl (81-99); Mean Platelet Volume 8.1 fl (7.4-10.4); Monocytes # 0.3 K/mm3 (0.1-1.0); Monocytes % 4.8 % (1.7-9.3); Neutrophils # 3.6 K/mm3 (1.8-7.8); Neutrophils % 51.3 % (37.0-80.0); Platelet Count 330 K/mm3 (142-424); Red Blood Count 4.89 M/mm3 (4.20-5.40); Red Cell Distribution Width 14.2 % (11.5-17.5)
[2023-11-22] MEDS: ACETAMINOPHEN 1,000MG/100ML VIAL 1000 MG IV (20:42)
[2023-11-22] MEDS: KETOROLAC 30MG/ML VIAL 15 MG IV (20:42)
[2023-11-22 20:43] LABS: HCG Qualitative, Serum Negative (Negative)
[2023-11-22] MEDS: 0.9 % SODIUM CHLORIDE 1000ML 1,000 ML 999 ML IV (20:43)
[2023-11-22] MEDS: ONDANSETRON 4MG/2ML VIAL 4 MG IV (20:43)
[2023-11-22 21:01] LABS: Chloride 111 mmol/L (98-107)
[2023-11-22 21:02] LABS: Albumin Level 3.9 g/dl (3.5-5.0); Potassium 3.9 mmoL/L (3.5-5.1); Sodium 139 mmol/L (136-145)
[2023-11-22 21:04] LABS: Blood Urea Nitrogen 10 mg/dl (7-17); Creatinine Clearance Estimated 108 mL/min (50-200); Estimated Glomerular Filt Rate 93 ml/min (>60); GFR (African American) 112 ML/MIN (>60)
[2023-11-22 21:05] LABS: Alanine Aminotransferase 16 U/L (12-78); Albumin/Globulin Ratio 1.3 (1.1-1.8); Alkaline Phosphatase 58 U/L (38-126); Anion Gap 6.9 mEq/L (5-15); Aspartate Amino Transferase 21 U/L (14-36); Bilirubin,Total 0.4 mg/dl (0.2-1.3); Calcium 8.6 mg/dl (8.4-10.2); Carbon Dioxide 25 mmol/L (22.0-30.0); Globulin 3.1 g/dL (1.3-3.2); Glucose 111 mg/dl (74-100)
[2023-11-22 21:09] VITALS: BP 106/60; PULSE 57; O2SAT 99
--- NOTE | 2023-11-22 21:10 | PC.NURSE ---
pt to US
--- NOTE | 2023-11-22 21:17 | PC.NURSE ---
pt to US at this time
[2023-11-22] MEDS: SODIUM CHLORIDE 0.9% 10ML SYR (RAD ONLY) 10 ML IV (21:23)
[2023-11-22] MEDS: IOPAMIDOL-370 (76%);100ML BOTTLE 75 ML IV (21:23)
--- NOTE | 2023-11-22 21:48 | PC.NURSE ---
patient back from
[2023-11-22 22:01] VITALS: BP 111/59; PULSE 50; O2SAT 97
[2023-11-22 22:21] VITALS: BP 111/59; PULSE 50; RESP 16; TEMP 36.5; O2SAT 99
== END 2023-11-22 22:22 | disposition home or self-care (01) ==
PROVIDERS: Physician Assistant; Emergency Provider Emergency Medicine; PCP Family Medicine
DX: R10.31 Right lower quadrant pain (principal); D25.9 Leiomyoma of uterus, unspecified; R91.1 Solitary pulmonary nodule
CPT/HCPCS: 74177; 76830; 80053; 84703; 85025; 96361; 96374; 96375; 99284; J0131; J1885; J2405; J7030; Q9967

== ENCOUNTER 2023-11-30 08:31 | Emergency (ER) | payer BC, SELFPAY ==
[2023-11-30] VITALS (9 sets, daily range): BP systolic 92–146; BP diastolic 48–84; PULSE 46–58; RESP 18–20; TEMP 36.9–37.2; O2SAT 97–100; BMI 47.5; BMI 47.1
--- NOTE | 2023-11-30 09:13 | EXP.UTC ---
Discharge Plan Disposition Patient Disposition: Still a Patient Prescriptions Prescriptions: No Action omeprazole 20 mg capsule,delayed release(DR/EC) 20 mg PO BID Patient Comments: TAKE ONE CAPSULE BY MOUTH EVERY TWELVE HOURS take morning CAPSULE 30 minutes BEFORE morning meal sertraline 100 mg tablet 100 mg PO DAILY ergocalciferol (vitamin D2) 1,250 mcg (50,000 unit) capsule PO WEEKLY Patient Comments: TAKE ONE CAPSULE BY MOUTH ONCE A WEEK propranolol [Inderal LA] 80 mg capsule,extended release 24 hr 80 mg PO BID Qty: 60 3RF naproxen 500 mg tablet 500 mg PO BID Qty: 14 0RF methocarbamol 500 mg tablet 500 mg PO Q8H Qty: 20 0RF Referrals Follow up/Referrals: Taz Ward MD [Primary Care Provider] - See instructions Print Language Print Language: Malay Discharge ED Provider: Charla Richey [facility] [place] HPI General Stated complaint: severe stomach pain Mode of Arrival: Ambulatory Source of Information: Patient Limitations: No Limitations Time Seen by Provider: 11/30/23 09:14 Description of Symptoms (Recalled from Triage Doc. by RN): PATIENT C/O ABDOMINAL PAIN ABOVE NAVAL AREA AND RIGHT SIDE UNDER RIBS THAT STARTED 2 DAYS AGO. PATIENT ALSO C/O NAUSEA AND NO APPETITE HEENT Symptoms (Recalled from RN notes): No Resp Symptoms (Recalled from RN notes): No Skin Symptoms (Recalled from RN notes): No MS Symptoms (Recalled from RN notes): No Functional Status (Recalled from RN notes): WNL History of Present Illness Provider Complaint: Patient states that she started on Wednesday with pain in the right side of her abdomen, states now she is having pain around her naval area that has progressively got worse States it makes her feel nauseous at times States she did have gastric sleeve about [address] Perea in [facility] States last BM was yesterday and it was normal Related Data Home Medications ?Medication ?Instructions ?Recorded ?Confirmed omeprazole 20 mg capsule,delayed 20 mg PO BID GERD 12/03/21 11/02/23 release sertraline 100 mg tablet 100 mg PO DAILY . 08/12/22 11/02/23 ergocalciferol (vitamin D2) 1,250 PO WEEKLY 10/12/23 11/02/23 mcg (50,000 unit) capsule Previous Rx's ?Medication ?Instructions ?Recorded methocarbamol 500 mg tablet 500 mg PO Q8H pain #20 tabs 09/10/23 naproxen 500 mg tablet 500 mg PO BID #14 tabs 09/10/23 propranolol 80 mg capsule,24 80 mg PO BID #60 caps 09/27/23 hr,extended release (Inderal LA) Allergies Allergy/AdvReac Type Severity Reaction Status Date / Time Penicillins Allergy Verified 11/02/23 09:04 quetiapine [From Seroquel] Allergy Verified 11/02/23 09:04 Worker's Comp Is this a Worker's Comp case?: No [facility] Disclaimer: The information contained in this section may have been updated after the patient was seen, as this information can be updated by other users. Medical History Chronic maxillary sinusitis Sinusitis Pharyngitis Otitis media Acute viral syndrome Headache Abscess, peritonsillar Peritonsillar abscess Parotitis Sore throat C. 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 dreams, sleep paralysis Urinary tract infection History of gastroesophageal reflux (GERD) HTN (hypertension) Palpitations Anxiety Bariatric surg stat-del Onychomycosis Abdominal pain Surgical History S/P dilation and curettage History of hernia repair History of cholecystectomy H/O bariatric surger
--- NOTE | 2023-11-30 09:23 | PC.NURSE ---
PATIENT SENT TO ER PER Dawson DIAZ APRN FOR FURTHER EVALUATION. REPORT GIVEN TO Reza FARLEY RN BY Dawson DIAZ APRN. PATIENT AMBULATED TO ER WITH [facility] STAFF ASSIST
--- NOTE | 2023-11-30 09:23 | PC.NURSE ---
DR JHA AT BEDSIDE
--- NOTE | 2023-11-30 09:42 | US_ITS ---
PROCEDURE: US TRANSVAGINAL CLINICAL INDICATION: LLQ pain, known fibroids COMPARISON: US US TRANSVAGINAL from 11/22/2023 FINDINGS: Transvaginal sonographic images of the pelvis were obtained. UTERUS: 11.3cm x 7.6 cmx 5.7 cm anteverted with a combined endometrial thickness of 14.5mm and appears trilaminar. There is a small nabothian cyst in the cervix. Fibroid 1. Anterior measuring 2.4 cm x 2.3 cm x 2.5 cm. Fibroid 2. Left side measuring 4.7 cm x 4.9 cm x 4.8 cm. LEFT OVARY: 2.2cmx3.5cmx3.6cm with a volume of 14ml. There is a follicle measuring 2.1 cm x 1.7 cm x 2.2 cm. RIGHT OVARY: 3.0cmx 2.2cmx1.9 cm with a volume of 6.5ml. There is a small follicle measuring 0.9 cm. Both ovaries are seen and appear normal. Doppler flow to both ovaries are seen. There is no fluid in the cul-de-sac. IMPRESSION: 1. Anteverted uterus enlarged by 2 fibroids. The endometrium is thickened and trilaminar, likely premenstrual. 2. There is an anterior fibroid measuring 2.5 cm. There is a 2nd left-sided fibroid measuring 4.9 cm. 3. Both ovaries are seen and appear normal. They both have small follicles. The left ovary is more difficult to see and is behind the left-sided uterine fibroid. 4. There is good blood flow to both ovaries. 5. No fluid in the cul-de-sac. 6. Discussed findings with Dr. Vasques. Dictated by: Isai Mercado MD 11/30/2023 11:00 Isai Mercado MD in OV 11/30/2023 11:00
[2023-11-30 09:59] LABS: Albumin Level 3.9 g/dl (3.5-5.0); Chloride 111 mmol/L (98-107)
[2023-11-30 10:00] LABS: Basophils # 0.1 K/mm3 (0-0.2); Basophils % 1.5 % (0.1-2.0); Eosinophils # 0.5 K/mm3 (0.0-0.4); Eosinophils % 7.4 % (0.1-12.0); Hemoglobin 13.8 g/dL (12.2-16.2); Lymphocytes # 2.9 K/mm3 (0.7-4.5); Lymphocytes % 40.7 % (10-50); Mean Corpuscular HGB Conc 32.2 g/dL (31.8-35.4); Mean Corpuscular Hemoglobin 28.8 pg (27.0-31.2); Mean Corpuscular Volume 89.5 fl (81-99); Mean Platelet Volume 7.9 fl (7.4-10.4); Monocytes # 0.3 K/mm3 (0.1-1.0); Monocytes % 4.8 % (1.7-9.3); Neutrophils # 3.3 K/mm3 (1.8-7.8); Neutrophils % 45.5 % (37.0-80.0); Platelet Count 330 K/mm3 (142-424); Potassium 4.2 mmoL/L (3.5-5.1); Red Blood Count 4.81 M/mm3 (4.20-5.40); Red Cell Distribution Width 14.1 % (11.5-17.5); Sodium 138 mmol/L (136-145); White Blood Count 7.2 K/mm3 (4.8-10.8)
[2023-11-30 10:02] LABS: Alanine Aminotransferase 15 U/L (12-78); Anion Gap 4.2 mEq/L (5-15); Aspartate Amino Transferase 23 U/L (14-36); Blood Urea Nitrogen 10 mg/dl (7-17); Carbon Dioxide 27 mmol/L (22.0-30.0); Creatinine Clearance Estimated 94 mL/min (50-200); Estimated Glomerular Filt Rate 79 ml/min (>60); GFR (African American) 96 ML/MIN (>60); HCG Qualitative, Serum Negative (Negative)
[2023-11-30 10:03] LABS: Albumin/Globulin Ratio 1.3 (1.1-1.8); Alkaline Phosphatase 53 U/L (38-126); Bilirubin,Total 0.5 mg/dl (0.2-1.3); Calcium 8.5 mg/dl (8.4-10.2); Globulin 2.9 g/dL (1.3-3.2); Glucose 81 mg/dl (74-100); Lipase 74 U/L (23-300); Magnesium 2.1 mg/dl (1.6-2.3); Total Protein,Serum 6.8 g/dl (6.3-8.2)
--- NOTE | 2023-11-30 10:06 | PC.NURSE ---
PT TO US
--- NOTE | 2023-11-30 10:12 | HMH.EDGENADL ---
Discharge Plan Disposition Patient Disposition: Home, Self-Care Condition: Good Prescriptions Prescriptions: No Action omeprazole 20 mg capsule,delayed release(DR/EC) 20 mg PO BID Patient Comments: TAKE ONE CAPSULE BY MOUTH EVERY TWELVE HOURS take morning CAPSULE 30 minutes BEFORE morning meal sertraline 100 mg tablet 100 mg PO DAILY ergocalciferol (vitamin D2) 1,250 mcg (50,000 unit) capsule PO WEEKLY Patient Comments: TAKE ONE CAPSULE BY MOUTH ONCE A WEEK propranolol [Inderal LA] 80 mg capsule,extended release 24 hr 80 mg PO BID Qty: 60 3RF naproxen 500 mg tablet 500 mg PO BID Qty: 14 0RF methocarbamol 500 mg tablet 500 mg PO Q8H Qty: 20 0RF Referrals Follow up/Referrals: Taz Ward MD [Primary Care Provider] - See instructions Activity Restrictions/Add. Instructions Additional Instructions/Restrictions: Follow-up with your installer helper as previously scheduled. You may take 1000 mg of Tylenol, alternating with 600 mg of ibuprofen, every 3 hours as needed for pain. Return to the emergency department should you develop worsening pain despite medications, vaginal bleeding, fevers, difficulties having bowel movement, blood in the stool. Please follow up with your primary care provider in 2-3 days. Please return to ED if your symptoms worsen, change in location, change in severity, new symptoms develop or if you become concerned for your health. Clinical Impressions Clinical Impression: Abdominal pain, Fibroid, uterine Instructions Patient Instructions: DI for Acute Abdominal Pain Print Language Print Language: Indonesian Discharge ED Provider: Gary Vasques Adult [facility] General Chief complaint: Abdominal Pain Stated complaint: severe stomach pain Time Seen by Provider: 11/30/23 09:14 Mode of Arrival: Ambulatory Source of Information: Patient Limitations: No Limitations Description of Symptoms (Recalled from ER Triage Doc. by RN): pt c/o R flank, RLQ and umbilical pain. pt states the pain is squeezing/sharp in nature, 7/10, and intermittant qfew minutes. However, when palpating pt is tender in her suprapubic region and LLQ. pt was seen here on 11/21 and dx with fibroids. pt reports this is different pain. pt has a hx of gasteric sleeve, heron, endometriosis, and PCOS. last normal BM was 11/28 AM and LMP 11/17 History of Present Illness HPI narrative: Patient is a 38-year-old female with history of PCOS, endometriosis, obesity s/p gastric sleeve in 2021, hypertension, GERD, anxiety PVCs. Patient presents today for abdominal pain. It is primarily suprapubic in nature radiating to the left lower quadrant. This pain feels like a squeezing sensation and is intermittent in nature. She also has some burning sensations in the right lower quadrant again intermittent. At its worst is 6 out of 10, but on my evaluation of patient she is not having any pain. She has denied any pain medicines at home for the relief. She denies any fevers, vomiting, diarrhea, dysuria, hematuria, blood in stool. Her last bowel movement was yesterday. She does have bowel movements about once every 48 hours. She is still passing gas. She denies any trauma to the area. Endorses some nausea with decreased oral intake, but still tolerating good fluids. Related Data Home Medications ?Medication ?Instructions ?Recorded ?Confirmed omeprazole 20 mg capsule,delayed 20 mg PO BID GERD 12/03/21 11/02/23 release sertraline 100 mg tablet 100 mg PO DAILY . 08/12/22 11/02/23 ergocalciferol (vitamin D2) 1,250 PO WEEKLY 10/12/23 11/02/23 mcg (50,000 unit) capsule Previous Rx's ?Medication ?Instructions ?Recorded methocarbamol 500 mg tablet 500 mg PO Q8H pain #20 tabs 09/10/23 naproxen 500 mg tablet 500 mg PO BID #14 tabs 09/10/23 propranolol 80 mg capsule,24 80 mg PO BID #60 caps 09/27/23 hr,extended release (Inderal LA) Allergies Allergy/AdvReac Type Severity Reaction Status D
[2023-11-30 10:14] LABS: Microscopic, Urine URINE MICROSCOPIC (MICROSCOPIC)
[2023-11-30 10:21] LABS: Appearance,Urine CLEAR (Clear); Bilirubin,Urine Negative (Negative); Blood, Urine Negative (Negative); Color,Urine YELLOW (Yellow); Glucose,Urine (UA) Negative (Negative); Ketones,Urine Negative (Negative); Leukocyte Esterase,Urine Negative (Negative); Nitrate,Urine Negative (Negative); Protein,Urine Negative (Negative); Urobilinogen,Urine 0.2 EU/dl (0.2)
--- NOTE | 2023-11-30 10:24 | CT_ITS ---
FINAL REPORT TECHNIQUE: After the administration of intravenous contrast, axial images were obtained through the abdomen and pelvis by computed tomography. The study was performed with techniques to keep radiation dose as low as reasonably achievable, (ALARA). Individual dose reduction techniques using automated exposure control or adjustment of mA and/or kV according to the patient's size were employed. CLINICAL HISTORY: hx gastric sleeve, llq abd ttp radiating to luq COMPARISON: 11/22/2023 FINDINGS: Abdomen: There is scarring in the lingula. The liver parenchyma is homogeneous. The gallbladder is absent. There are postoperative changes from gastric sleeve.. The spleen, pancreas, adrenals and kidneys appear unremarkable. The aorta is normal in caliber. There is no free fluid or adenopathy. Pelvis: The appendix is not identified. The urinary bladder is incompletely distended. There is a 4.5 cm fibroid arising from the left lower uterine segment.. There is no free fluid or adenopathy. IMPRESSION: 4.5 cm uterine fibroid. Postoperative changes from gastric sleeve. Reviewed, Interpreted and Dictated by Amilcar De La Rosa MD Transcribed by Terrie Rao Authenticated and [facility][1]
[2023-11-30 10:41] LABS: Bacteria,Urine Trace /lpf; RBC,Urine Occasional #/hpf (0-3)
--- NOTE | 2023-11-30 10:48 | PC.NURSE ---
speaking with er about ultrasound report
--- NOTE | 2023-11-30 10:49 | PC.NURSE ---
nathan brown rounding on pt
== END 2023-11-30 12:32 | disposition home or self-care (01) ==
LOC: UTC 08:37 → ER 09:22
PROVIDERS: Emergency Provider Emergency Medicine; PCP Family Medicine
DX: R10.30 Lower abdominal pain, unspecified (principal); D25.9 Leiomyoma of uterus, unspecified; F17.210 Nicotine dependence, cigarettes, uncomplicated; I10 Essential (primary) hypertension; K21.9 Gastro-esophageal reflux disease without esophagitis; Z98.84 Bariatric surgery status; N80.9 Endometriosis, unspecified
CPT/HCPCS: 74177; 76830; 80053; 81001; 83605; 83690; 83735; 84703; 85025; 96361; 96374; 96375; 99285; J1885; J2405; J7120; Q9967

== ENCOUNTER 2023-12-25 09:49 | Emergency (ER) | payer BC, SELFPAY ==
--- NOTE | 2023-12-25 10:15 | ED_ITS ---
Discharge Plan Disposition Patient Disposition: Home, Self-Care Condition: Good Prescriptions Prescriptions: New azithromycin [Zithromax] 250 mg tablet 250 mg PO UD DOSE PK Qty: 6 0RF Rx Instructions: Take two (2) tablets today, then one (1) tablet days #2 thru #5 benzonatate 100 mg capsule 100 mg PO TIDP PRN (Reason: Cough) Qty: 30 0RF methylprednisolone 4 mg Tablets,Dose Pack 4 mg PO DIRECTED 6 Days Qty: 21 0RF Rx Instructions: Take 1 pack as directed for 6 days guaifenesin [Mucinex] 600 mg tablet extended release 12hr 600 - 1,200 mg PO BIDP PRN (Reason: Congestion) Qty: 30 0RF No Action omeprazole 20 mg capsule,delayed release(DR/EC) 20 mg PO BID Patient Comments: TAKE ONE CAPSULE BY MOUTH EVERY TWELVE HOURS take morning CAPSULE 30 minutes BEFORE morning meal sertraline 100 mg tablet 100 mg PO DAILY propranolol [Inderal LA] 80 mg capsule,extended release 24 hr 80 mg PO BID Qty: 60 3RF naproxen 500 mg tablet 500 mg PO BID Qty: 14 0RF Referrals Follow up/Referrals: Taz Ward MD [Primary Care Provider] - See instructions Activity Restrictions/Add. Instructions Additional Instructions/Restrictions: Drink plenty of fluids. Take tylenol or ibuprofen for pain or fever. Take the medications as directed. Follow up with your regular doctor. GO TO THE ER FOR ANY WORSENING SYMPTOMS Don't start the oral steroids (medrol dose pack) until tomorrow since you had the shot here Clinical Impressions Clinical Impression: Bronchitis Sinusitis Qualifiers: Sinusitis location: pansinusitis Chronicity: acute Recurrence: recurrent Qualified Code(s): J01.41 - Acute recurrent pansinusitis Instructions Patient Instructions: Sinusitis, DI for Sinusitis, Dexamethasone Injection Print Language Print Language: Setswana Discharge ED Provider: Derek Newton [facility] [place] General Stated complaint: chest and head congestion, body aches, headache Time Seen by Provider: 12/25/23 10:15 Related Data Home Medications ?Medication ?Instructions ?Recorded ?Confirmed omeprazole 20 mg capsule,delayed 20 mg PO BID GERD 12/03/21 12/03/23 release sertraline 100 mg tablet 100 mg PO DAILY . 08/12/22 12/03/23 Previous Rx's ?Medication ?Instructions ?Recorded naproxen 500 mg tablet 500 mg PO BID #14 tabs 09/10/23 propranolol 80 mg capsule,24 80 mg PO BID #60 caps 09/27/23 hr,extended release (Inderal LA) azithromycin 250 mg tablet 250 mg PO UD DOSE PK #6 tabs 12/25/23 (Zithromax) benzonatate 100 mg capsule 100 mg PO TIDP PRN Cough #30 caps 12/25/23 guaifenesin 600 mg tablet, 600 - 1,200 mg (1 - 2 x 600 mg) PO 12/25/23 extended release 12 hr (Mucinex) BIDP PRN Congestion #30 tabs methylprednisolone 4 mg tablets in 4 mg PO DIRECTED 6 days #21 tabs 12/25/23 a dose pack Allergies Allergy/AdvReac Type Severity Reaction Status Date / Time Penicillins Allergy Unknown Verified 12/03/23 14:06 allergy reaction quetiapine [From Seroquel] Allergy Hives Verified 12/03/23 14:06 [facility] Disclaimer: The information contained in this section may have been updated after the patient was seen, as this information can be updated by other users. Medical History (Updated 12/25/23 @ 11:00 by Derek Newton APRN) Dysmenorrhea Menorrhagia Chronic maxillary sinusitis Sinusitis Pharyngitis Otitis media Acute viral syndrome Headache Abscess, peritonsillar Peritonsillar abscess Parotitis Sore throat C. difficile enteritis Neuropathic pain of finger Neuropathy, ulnar nerve Cellulitis Cellulitis of axilla, right Abscess of axilla, right Viral upper respiratory tract infection with cough Dizziness Acute abdominal pain in left flank Sinusitis Abscess of nasal cavity Abscess of nose Otitis media Gastroenteritis Paronychia Morbid obesity with BMI of 50.0-59.9, adult Uterine fibroid History of PCOS History of endometriosis LLQ pain Parasomnia Urinary tract infection History of gastroesophageal reflux (GERD) HTN (hypertension) Palpitations Anxiety Bariatric surg stat-del Onychomycosis Abdominal pain Surgical History S/P dilation and curettage History of hernia repair History of cholecystectomy H/O bariatric surgery Family History Sister Asthma Mother Heart attack Diabetes Father Diabetes Coronary artery disease Social History Smoking Status: Current every day smoker tobacco type: cigarettes packs per day: 1 second hand exposure: No alcohol intake: never substance use type: denies use current occupational status: employed Travel in the last 8 weeks: None household members: spouse and children housing: house ROS Obtained: Yes All systems reviewed & no additional complaints except as docu mented Constitutional Constitutional: Reports poor appetite Eyes Eyes: Reports system reviewed and no additional complaints, except as documented ENT Ears, Nose, Mouth, and Throat: Reports as per HPI Cardiovascular Cardiovascular: Reports system reviewed and no additional complaints, except as documented and Denies chest pain Respiratory Respiratory: Denies shortness of breath, Denies chest congestion, Reports cough, Denies stridor and Denies wheezing Gastrointestinal Gastrointestingal: Reports system reviewed and no additional complaints, except as documented; Denies abdominal pain, diarrhea or vomiting Musculoskeletal Musculoskeletal: Reports system reviewed and no additional complaints, except as documented and Denies arthralgias Integumentary/Breasts Skin/Breast: Reports system reviewed and no additional complaints, except as documented and Denies rash Neurologic Neurologic: Denies paresthesias Allergic/Immunologic Allergic/Immunologic: Denies wheezing Physical Exam General General appearance: alert and in no apparent distress Head Head exam: atraumatic, normocephalic and normal inspection Eye Eye exam: Present normal appearance; Absent PERRL or EOMI ENT ENT exam: Present mucous membranes moist and normal external ear exam Expanded ENT Exam TM/Canal exam: Bilateral TM: erythema, bulging and effusion Nose exam: Absent sinus tenderness Nasal speculum exam: Bilateral: normal Mouth exam: Present normal external inspection and other; Absent drooling Teeth exam: Present normal inspection Throat exam: Present tonsillar erythema and tonsillomegaly Neck Neck exam: Present normal inspection, full ROM and trachea midline; Absent tenderness, meningismus or lymphadenopathy Chest Chest inspection: Present normal inspection and symmetric chest wall rise; Absent tenderness Respiratory Respiratory exam: Present normal lung sounds bilaterally; Absent respiratory distress, wheezes or stridor Cardiovascular Cardiovascular exam: Present regular rate, normal rhythm and normal heart sounds; Absent tachycardia or irregular rhythm Abdominal Exam Abdominal exam: Present soft and normal bowel sounds; Absent distention, tenderness, guarding, rebound or rigidity Extremities Exam Extremities exam: Present normal inspection and normal capillary refill; Absent tenderness, joint swelling or calf tenderness Back Exam Back exam: Present normal inspection and full ROM; Absent tenderness, CVA tenderness (R) or CVA tenderness (L) Neurological Exam Neurological exam: Present alert, oriented X3, CN II-XII intact, normal gait and reflexes normal; Absent motor sensory deficit Psychiatric Psychiatric exam: Present normal affect and normal mood Skin Skin exam: Present warm, dry, intact and normal color Lymphatic Lymphatic Findings: no adenopathy Medical Decision Making Medical Records Medical records reviewed: No I reviewed the patient's medical records. Screening: Per USPSTF and CDC recommendations, given the prevalence of disease in our region, it is our hospital?s policy to screen for HIV and viral Hepatitis for all patients aged 18 and over and those with ongoing risk factors. Malik Inquiry Pt receiving controlled substance: No
[2023-12-25 10:17] VITALS: BP 133/78; PULSE 84; RESP 16; TEMP 36.7; O2SAT 100; BMI 47.4
[2023-12-25] MEDS: DEXAMETHASONE 4MG/ML 1ML VIAL 8 MG IM (10:47)
[2023-12-25 11:08] VITALS: BP 133/78; PULSE 84; RESP 16; TEMP 36.7; O2SAT 100
== END 2023-12-25 11:09 | disposition home or self-care (01) ==
PROVIDERS: Emergency Provider Nurse Practitioner Family; PCP Family Medicine
DX: J40 Bronchitis, not specified as acute or chronic (principal); J01.41 Acute recurrent pansinusitis; R51.9 Headache, unspecified; I10 Essential (primary) hypertension; G62.9 Polyneuropathy, unspecified; E28.2 Polycystic ovarian syndrome; E66.01 Morbid (severe) obesity due to excess calories; F17.210 Nicotine dependence, cigarettes, uncomplicated
CPT/HCPCS: 87635; 96372; 99212; 99214; G0463; J1100

== ENCOUNTER 2024-01-24 10:19 | Outpatient (CLI) | payer BC, SELFPAY ==
[2024-01-24 10:41] LABS: Basophils # 0.1 K/mm3 (0-0.2); Basophils % 1.6 % (0.1-2.0); Eosinophils # 0.4 K/mm3 (0.0-0.4); Eosinophils % 6.2 % (0.1-12.0); Hematocrit 41.3 % (37.0-47.0); Hemoglobin 13.7 g/dL (12.2-16.2); Lymphocytes % 41.8 % (10-50); Mean Corpuscular Volume 84.8 fl (81-99); Mean Platelet Volume 7.6 fl (7.4-10.4); Monocytes # 0.4 K/mm3 (0.1-1.0); Neutrophils # 3.2 K/mm3 (1.8-7.8); Neutrophils % 45.3 % (37.0-80.0); Platelet Count 309 K/mm3 (142-424); Red Blood Count 4.88 M/mm3 (4.20-5.40); Red Cell Distribution Width 13.9 % (11.5-17.5); White Blood Count 7.1 K/mm3 (4.8-10.8)
[2024-01-24 11:06] LABS: Alanine Aminotransferase 13 U/L (12-78); Albumin Level 3.8 g/dl (3.5-5.0); Albumin/Globulin Ratio 1.4 (1.1-1.8); Alkaline Phosphatase 54 U/L (38-126); Anion Gap 7.5 mEq/L (5-15); Aspartate Amino Transferase 21 U/L (14-36); Bilirubin,Total 0.5 mg/dl (0.2-1.3); Blood Urea Nitrogen 10 mg/dl (7-17); Calcium 9.2 mg/dl (8.4-10.2); Carbon Dioxide 28 mmol/L (22.0-30.0); Chloride 109 mmol/L (98-107); Estimated Glomerular Filt Rate 93 ml/min (>60); GFR (African American) 112 ML/MIN (>60); Globulin 2.8 g/dL (1.3-3.2); Glucose 96 mg/dl (74-100); Potassium 4.5 mmoL/L (3.5-5.1); Sodium 140 mmol/L (136-145); Total Protein,Serum 6.6 g/dl (6.3-8.2)
[2024-01-24 11:39] LABS: HCG,Quantitative < 2 mIU/ml (0-5.42)
== END 2024-01-24 23:59 | disposition home or self-care (01) ==
LOC: LAB 10:20
PROVIDERS: PCP Family Medicine; Visit Provider Obstetrics & Gynecology
DX: N92.0 Excessive and frequent menstruation with regular cycle (principal)
CPT/HCPCS: 36415; 80053; 84702; 85025; 86850

== ENCOUNTER 2024-01-26 06:33 | Inpatient (IN) | payer BC, SELFPAY ==
[2024-01-25 12:14] VITALS: BMI 48.6
[2024-01-26] VITALS (22 sets, daily range): BP systolic 96–144; BP diastolic 48–87; PULSE 59–75; RESP 15–20; TEMP 36.1–37.1; O2SAT 93–98
[2024-01-26] MEDS: LACTATED RINGERS 1000ML 1,000 ML 25 ML IV (06:46)
[2024-01-26] MEDS: GABAPENTIN 300MG CAPSULE 600 MG (06:46)
[2024-01-26] MEDS: ACETAMINOPHEN 500MG TAB 1000 MG PO ×3 (06:47→21:21)
[2024-01-26] MEDS: CELECOXIB 100MG CAPSULE 400 MG PO (06:53)
--- NOTE | 2024-01-26 07:11 | P.PNANES_ITS ---
[facility] Disclaimer: The information contained in this section may have been updated after the patient was seen, as this information can be updated by other users. Medical History Pre-operative cardiovascular examination Dysmenorrhea Menorrhagia Chronic maxillary sinusitis Sinusitis Pharyngitis Otitis media Acute viral syndrome Headache Abscess, peritonsillar Peritonsillar abscess Parotitis Sore throat C. 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 dreams, sleep paralysis Urinary tract infection History of gastroesophageal reflux (GERD) HTN (hypertension) Palpitations Anxiety Bariatric surg stat-del Onychomycosis Abdominal pain Surgical History S/P dilation and curettage History of hernia repair History of cholecystectomy H/O bariatric surgery Family History Sister Asthma Mother Heart attack Diabetes Father Diabetes Coronary artery disease Social History (Updated 01/26/24 @ 06:40 by Ninoska Monterroso RN) Smoking Status: Current every day smoker tobacco type: cigarettes packs per day: 1 second hand exposure: No alcohol intake: never substance use type: denies use current occupational status: employed Travel in the last 8 weeks: None household members: spouse and children housing: house [facility] Anesthesia Checklist Patient Identification Patient Identification: Arm Band, Family and Verbal (Name & ) Structural Data Admitted From: Home Planned Operative Procedure/s: Lap. Total Hyst w/BSO Consent for Planned Operative Procedure(s) Verified: Yes Verified Documents: Surgical Consent and History and Physical NPO Status Verified Time NPO: 23:15 Chart Verification Results Verified: CBC, BMP, ECG and HCG Additional verifications Patient : No Anesthesia Reactions: No Hx Blood Transfusions: No Blood Transfusion Reaction: No Cardiovascular Assessment Heart Sounds: S1 & S2 Pulse Rhythm: Irregular Peripheral Edema: No Airway Assessment Mallampati Score:: Class II C-Spine Mobility Assessed: Yes (FROM demonstrated) TMJ Mobility Assessed: Yes Dentition: Good Dentition (Nothing loose per pt.) Neurological Assessment Level of Consciousness: Awake, Alert, Appropriate and Follows Commands Hx Seizures: No Numbness or tingling in extremities: No Anesthesia Plan Anesthesia Risk discussed: Yes Anesthesia Plan: Verified ASA Class: III Anesthesia Type: General
--- NOTE | 2024-01-26 07:19 | EXP.HP ---
History of Present Illness *Admission Date: 01/26/24 *Reason for visit:: scheduled surgery *History of present illness: Mrs Pedro Marie is a 38 yo P000 who presents to [facility] for scheduled surgery. She complains of heavy, painful periods. Periods are regular, monthly, every 25-26 days. Flow lasts a total of 5-6 days and is heavy and painful for about 4 days. She reports she soaks through an ultra tampon every hour the first few days of her period. This is not new. She admits periods have always been this way but this last period was worse. On 11/29 she went to the ED for severe abdominal pain. Pelvic ultrasound demonstrated UTERUS: 11.3cm x 7.6 cmx 5.7 cm anteverted with a combined endometrial thickness of 14.5mm and appears trilaminar. There is a small nabothian cyst in the cervix. Fibroid 1. Anterior measuring 2.4 cm x 2.3 cm x 2.5 cm. Fibroid 2. Left side measuring 4.7 cm x 4.9 cm x 4.8 cm. She is requesting definitive surgical intervention with hysterectomy. She has history of endometriosis, PCOS and obesity s/p gastric sleeve in 2021. She admits to hot flashes and night sweats. [facility] Disclaimer: The information contained in this section may have been updated after the patient was seen, as this information can be updated by other users. Medical History Pre-operative cardiovascular examination Dysmenorrhea Menorrhagia Chronic maxillary sinusitis Sinusitis Pharyngitis Otitis media Acute viral syndrome Headache Abscess, peritonsillar Peritonsillar abscess Parotitis Sore throat C. 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 dreams, sleep paralysis Urinary tract infection History of gastroesophageal reflux (GERD) HTN (hypertension) Palpitations Anxiety Bariatric surg stat-del Onychomycosis Abdominal pain Surgical History S/P dilation and curettage History of hernia repair History of cholecystectomy H/O bariatric surgery Family History Sister Asthma Mother Heart attack Diabetes Father Diabetes Coronary artery disease Social History (Updated 01/26/24 @ 06:40 by Ninoska Monterroso RN) Smoking Status: Current every day smoker tobacco type: cigarettes packs per day: 1 second hand exposure: No alcohol intake: never substance use type: denies use current occupational status: employed Travel in the last 8 weeks: None household members: spouse and children housing: house Other Medical History Have you received the Flu Vaccine for this season: Yes Have you received the Pneumonia Vaccine: Yes Review of Systems Review of Systems Review of systems:: pertinent systems reviewed and negative unless documented below *Genitourinary Genitourinary: Reports abnormal menses, Reports dysmenorrhea and Reports menorrhagia Meds Home Medications and Allergies Home Medications ?Medication ?Instructions ?Recorded ?Confirmed ?Type omeprazole 20 mg capsule,delayed 20 mg PO BID GERD 12/03/21 01/26/24 History release sertraline 100 mg tablet 100 mg PO DAILY . 08/12/22 01/26/24 History clobetasol 0.05 % topical ointment 1 applic topical DAILYP PRN 01/04/24 01/26/24 History IRRIATION propranolol 80 mg capsule,24 80 mg PO DAILY 01/26/24 01/26/24 History hr,extended release (Inderal [place]) New Prescriptions to Start Prescriptions: Allergies Allergy/AdvReac Type Severity Reaction Status Date / Time Penicillins Allergy Unknown Verified 01/26/24 06:29 allergy reaction quetiapine [From Seroquel] Allergy Hives Verified 01/26/24 06:29 Exam Data for Last 24 hours Vital signs and Labs for Last 24 Hours: Temp Pulse Resp BP Pulse Ox O2 Del Method 97.5 F L 71 18 122/71 98 Room Air 01/26/24 06:31 01/26/24 06:31 01/26/24 06:31 01/26/24 06:31 01/26/24 06:31 01/26/24 06:31 I & O for Last 24 hours: Intake & Output 01/23/24 01/24/24 01/25/2423/24 23:59 23:59 23:59 23:59 Weight 320 lb Constitutional Constitutional: no acute distress and cooperative *Routine HEENT Exam Head: Present normocephalic and atraumatic Eye: Absent conjunctivae pink ENT: Present mucous membranes moist *Routine Neck Exam Neck: Present full ROM *Routine Respiratory Exam Respiratory: Present CTA bilaterally and normal respiratory effort *Routine Cardiovascular Exam Cardiovascular: Present RRR *Routine Abdominal Exam Abdominal: Present soft and obese; Absent tenderness or distended *Routine Rectal Exam Rectal:: deferred *Routine Genitalia Exam Genitalia:: normal female *Routine Extremities Exam Extremities: Present full ROM; Absent edema or calf tenderness *Routine Neurological Exam Neurological: Present alert, moving all extremities and normal speech Routine Psychiatric Exam Psychiatric: Present normal affect and cooperative Assessment and Plan *Assessment and plan (1) Dysmenorrhea: Status: Acute Category: Medical Code(s): N94.6 - Dysmenorrhea, unspecified (2) Menorrhagia: Status: Acute Qualifiers: Menorrhagia type: with regular cycle Qualified Code(s): N92.0 - Excessive and frequent menstruation with regular cycle Category: Medical Code(s): N92.0 - Excessive and frequent menstruation with regular cycle (3) Fibroid, uterine: Status: Acute Qualifiers: Uterine leiomyoma location: unspecified location Qualified Code(s): D25.9 - Leiomyoma of uterus, unspecified Category: Medical Code(s): D25.9 - Leiomyoma of uterus, unspecified (4) Abdominal pain: Status: Acute Qualifiers: Abdominal location: lower abdomen, unspecified Qualified Code(s): R10.30 - Lower abdominal pain, unspecified Category: Medical Code(s): R10.9 - Unspecified abdominal pain (5) Morbid obesity with BMI of 50.0-59.9, adult: Status: Chronic Category: Medical Code(s): E66.01 - Morbid (severe) obesity due to excess calories; Z68.43 - Body mass index [BMI] 50.0-59.9, adult (6) History of PCOS: Status: Acute Category: Medical Code(s): Z87.42 - Personal history of other diseases of the female genital tract (7) History of endometriosis: Status: Acute Category: Medical Code(s): Z87.42 - Personal history of other diseases of the female genital tract Plan Admit to [facility] for scheduled surgery Reviewed risks, benefits, alternatives, expectations and possible complications of surgery. All questions addressed and answered. She voiced understanding of risks and possible complications Consent form signed Proceed with TLH, BSO, possible ISA, BSO, possible cystoscopy Plan for estradiol transdermal patch for HRT postoperatively
[2024-01-26] MEDS: METRONIDAZ/SOD CHL 500 MG/100 ML PIGGYBACK 100 MG IV (07:30)
[2024-01-26] MEDS: CLINDAMYCIN PHOSPHATE/D5W 900 MG/50 ML PIGGYBACK 100 MG IV ×3 (07:50→23:15)
[2024-01-26] MEDS: GENTAMICIN SULFATE 320 MG in 0.9 % SODIUM CHLORIDE 100 ML 108 MG IV (08:00)
[2024-01-26] MEDS: BUPIVACAINE 0.5% W/EPI 1:200,000 30ML VIAL 30 ML IJ (08:20)
--- NOTE | 2024-01-26 08:21 | HMH.PHAINT1 ---
Pharmacy Intervention Comments: Home medications verified using list from pharmacy.
--- NOTE | 2024-01-26 08:56 | SUR.OPER ---
Dr Ernandez decided to go open instead of lap at 0831. Blades, rays and hypo was counted and correct and taken out of the room. The open instruments hyst set and main set were then counted and on the new table of drapes and instruments. Pt is doing well with no issues. The family was then updated at 0945. This RN talked to her and he was good with the plan and what Dr Ernandez thought was best.
--- NOTE | 2024-01-26 10:54 | SUR.OPER ---
Updated family at 1045. Also did count of instruments. hyst set -23 plus 4 with ila burgess. main set- 99 with 3 suction. lap and suture count also correct. notified
--- NOTE | 2024-01-26 11:58 | P.PNANES_ITS ---
[facility] Anesthesia Record Part I Anesthesia Record I Intake, IV Amount: 1,700 Hydration: Adequate Estimated blood loss (mL): 150 Urine output (mL): 0 Blood Pressure: 123/70 SaO2: 93 Pulse Rate: 69 Airway Patency: Patent Respiratory Rate: 18 Temperature: 98.8 F Patient is:: Awake Stable to PACU at:: 11:35
--- NOTE | 2024-01-26 12:10 | P.OP_ITS ---
Date of procedure: 01/26/24 Pre-op Diagnosis:: 1. Menorrhagia 2. Dysmenorrhea 3. Uterine fibroids 4. Morbid obesity, BMI 50 5. Hx of endometriosis 6. Hx of PCOS Post-op Diagnosis:: 1. Menorrhagia 2. Dysmenorrhea 3. Uterine fibroids 4. Morbid obesity, BMI 50 5. Hx of endometriosis 6. Hx of PCOS Procedure performed:: 1. Laparoscopy converted to total abdominal hysterectomy, bilateral salpingo- oophorectomy, intraoperative myomectomy Surgeon:: Makayla Ernandez DO Keno Manager(s):: Katiana Davis DO IT APPLICATION DEVELOPMENT MANAGER:: Angela Adams Anesthesia: GETA Estimated blood loss (mL): 150 Clinical Note:: Mrs Pedro Marie is a 38 yo P000 who presents to [facility] for scheduled surgery. She complains of heavy, painful periods. Periods are regular, monthly, every 25-26 days. Flow lasts a total of 5-6 days and is heavy and painful for about 4 days. She reports she soaks through an ultra tampon every hour the first few days of her period. This is not new. She admits periods have always been this way but this last period was worse. On 11/29 she went to the ED for severe abdominal pain. Pelvic ultrasound demonstrated UTERUS: 11.3cm x 7.6 cmx 5.7 cm anteverted with a combined endometrial thickness of 14.5mm and appears trilaminar. There is a small nabothian cyst in the cervix. Fibroid 1. Anterior measuring 2.4 cm x 2.3 cm x 2.5 cm. Fibroid 2. Left side measuring 4.7 cm x 4.9 cm x 4.8 cm. She is requesting definitive surgical intervention with hysterectomy. She has history of endometriosis, PCOS and obesity s/p gastric sleeve in 2021. She admits to hot flashes and night sweats. Operative findings:: 1. On bimanual exam, cervix appeared grossly normal. Difficult to fully exam uterus and adenxa secondary to patient's body habitus 2. On laparoscopic exam, enlarged fibroid uterus, grossly normal appearing bilateral fallopian tubes and ovaries. Normal appearing liver, bowel and bladder 3. On laparotomy, appendix was visualized and appeared grossly normal Operative note:: Discussed risks, benefits, alternatives, expectations and possible complications of surgery. All questions addressed and answered. Patient wished to proceed with surgery. Patient was wheeled back to the operating room and placed under general anesthesia without difficulty. She was receiving Clindamycin, Gentamicin and Metronidazole IV for antibiotic prophylaxis. She was placed in the dorsal lithotomy position. She was prepped and draped in normal sterile fashion. Beginning at the vagina, a lemon catheter was inserted into the bladder and draining clear urine prior to the start of the procedure. Weighted Auvuard was placed in the vaginal vault. Anterior lip of the cervix was grasped with single tooth tenaculum. Uterus sounded to 8. Arnie dilators were used to dilate the cervix. Advincula uterine manipulator was inserted into the cervix with the colpotomy cup covering the cervix. Single tooth tenaculum was removed prior to complete placement of colpotomy cup over cervix. Uterine balloon was filled with 10cc of air. Vaginal balloon was filled with 60 cc of air. Weighted Auvard was removed. Attention was then turned to the abdomen. Skin just below the umbilicus was injected with 0.5% marcaine. A 1.5 cm infraumbilical incision was made. Veress needle was tested and inserted intrabdominally. Opening pressure was > 15 mm Hg. Veress was removed and second insertion was attempted with same opening pressure. Decision was made to insert laparoscope within 11 mm blunt trocar was intrabdominally under direct visualization. Standard trocar was not long enough to enter into peritoneal cavity. Skin at Stone's point was injected with 0.5% marcaine. A 5 mm incision as made. Direct laparoscopic trocar insertion was attempted with 5 mm scope. Again, standard trocar was not long enough to enter into peritoneal cavity. Long trocar was obtained for infraumbilical incision. Laparoscopic direct trocar insertion was successful with long trocar. Opening pressure was 5 mm Hg. Obturator and scope were removed. Laparoscope was inserted into the trocar sleeve. The peritoneal cavity was insulflated to 15 mm Hg. Abdomen and pelvis was viewed in its entirety. She was placed in Trendelenburg position. Examination of the peritoneal cavity revealed no signs of injury from entry and attempt at entry at Stone's point and normal anatomic structures. See findings above. Pictures were taken. Bowel was swept cephalad with blunt probe. LLQ port site was transilluminated and injected with 0.5% marcaine. A 1.5 cm incision was made and 11 mm trocar was inserted intraabdominally under direct laparoscopic visualization. Obturator was removed and sleeve was left in place. Same procedure was performed in RLQ. Left round ligament was clamped, cauterized and transected with Ligasure Hook device. Transection was carried through the fallopian tube, mesosalpinx and ovarian ligament. The anterior leaf of the broad ligament was opened down to the vesicouterine fold. At this time it was observed that the patient had slid down the bed and her legs were straight. Her head was at the end of the bed with anesthesia. Decision was made to convert to total abdominal hysterectomy. Patient was taken out of Trendelenburg position. Laparoscopic trocars were removed. Uterine manipulator was removed from the uterus and vagina. She was placed in the supine position. She was prepped and draped in normal sterile fashion. Attention was then turned to the abdomen. A Pfannenstiel skin incision was made 2 cm above pubic symphysis. This was carried through to underlying layer of fascia. Fascia was incised in midline, extended laterally with Johnston scissors. Superior aspect of fascial incision was grasped with two Abril clamps, elevated up, and rectus muscle dissected off bluntly and sharply with Johnston scissors. The rectus muscle was then in the midline and the peritoneum was entered bluntly with a digit. Peritoneal incision was then extended superiorly and inferiorly with good visualization of the bladder. O'Jose Martin O'burgess retractor was placed in the abdominal incision. Bowel was packed cephalad with warm moist laparotomy sponges. Bilateral uterine cornua grasped with Reina clamps. Uterus was deviated to the right, right round ligament was placed on stretch and incised between two clamps. The distal stump of the round ligament was suture ligated with 0 Vicryl suture. The proximal stump was held with a Abril clamp. The leaves of the broad ligament were opened both anteriorly and posteriorly. The uterus was retracted cephalad. The anterior leaf of the broad ligament was opened down to the vesicouterine fold. The left side had already been performed laparoscopically. The vesicouterine peritoneal fold was elevated, and the bladder was dissected off of the lower uterine segment with sharp and blunt dissection. The uterus was retracted toward the pubic symphysis and deviated to right side. Ligasure was used to clamp, cauterize and transect left fallopian tube at cornua, left mesosalpinx and left uterine ovarian ligament. The uterus was retracted cephalad and deviated to the right side. Myomectomy of left lower mid-posterior fibroid was performed to achieve visualization of uterine arteries and uterosacral ligament. Uterine arteries were skeletonized. Two curved Abril clamps were placed at the junction of the lower uterine segment on the uterine vessels. An incision was made between the upper clamp and lower clamps. The stump was doubly suture ligated with 0 Vicryl. The same procedure was carried out on the contralateral side. The uterus was held in traction in the cephalad position and pubovescial cervical fascia was dissected inferiorly. Two straight Abril clamps were applied to the cardinal ligament. Cardinal ligament was incised between the two clamps and the distal stump was ligated with 0 Vicryl suture. The same procedure was carried out on the contralateral side. Bilateral uterosacral ligaments were clamped between straight Abril clamps, incised, and suture ligated with 0 Vicryl suture. The lower uterine segment and upper vagina were palpated between the thumb and first finger of the surgeon's hand to ensure that the ligaments have been completely incised. The vagina was entered by a stab wound with a scalpel and cut circumferentially with scalpel and Joregenson scissors. The uterus and cervix was removed. The edges of the vagina were grasped with straight Abril clamps. Vaginal cuff was cleansed with Betadine. Vaginal cuff was closed in a running locking manner with 1 Vicryl suture. Pelvis was irrigated. Small amount of oozing along vaginal cuff noted. Single interrupted stitch of 0-Vicryl was used to ligate oozing. Hemostasis was noted. Pelvic was irrigated with clear return of fluids. At this time, right fallopian tube and ovary were grasped with a Berino clamp. Ligasure was used to clamp, cauterize and transect right IP ligament removing right fallopian tube and ovary from the body. Same procedure was carried out on the contralateral side. Specimens will be sent to pathology for review with uterus and cervix. Small amount of oozing noted at vaginal cuff. Surgicel powder applied over vaginal cuff and bilateral pedicles. Hemostasis noted. A piece of gel foam was also placed over vaginal cuff. At this point all instruments and sponges were removed from the pelvis.? The peritoneum was grasped with Reina clamps x 3. The peritoneum was reapproximated with 0 Vicryl suture in a running stitch. The corners of the fascia were grasped with Abril clamps, and the fascia was reapproximated with two # 1 Vicryl suture overlapped to the right of midline. The subcutaneous tissue was reapproximated in two layer closure with 2-0 Vicryl and then 3-0 Vicryl. The skin was reapproximated with metal hugo. Telfa was placed over closed Pfannenstiel skin incision. 3-0 Vicryl was used to reapproximate laparoscopic incision. Dermabond was applied over close laparoscopic skin incisions. Patient awoke from anesthesia without difficulty and was transferred to the recovery room in stable condition. Condition: stable Disposition: floor Specimens:: 1. Uterus, cervix, bilateral fallopian tubes and ovaries Complications:: None
[2024-01-26] MEDS: LACTATED RINGERS 1000ML 1,000 ML 125 ML IV ×2 (12:32→21:21)
[2024-01-26] MEDS: KETOROLAC 30MG/ML VIAL 30 MG IV ×2 (12:32→20:05)
[2024-01-26] MEDS: ONDANSETRON 4MG/2ML VIAL 4 MG IV (13:20)
[2024-01-26] MEDS: HYDROMORPHONE 2MG/ML SYRINGE 1 MG IV ×2 (13:20→17:21)
[2024-01-26] MEDS: POLYETHYLENE GLYCOL 3350 17 GM PACKET PO (21:21)
[2024-01-26] MEDS: OXYCODONE 5MG IMMEDIATE RELEASE TABLET 5 MG PO (21:21)
--- NOTE | 2024-01-26 21:28 | PC.NURSE ---
Spoke with Dr. Mercado via telephone to reorder pt home meds and for these to start at 2300. New orders received, read back and verified. Propanolol 80 mg PO BID Omeprazole 20 mg delayed release PO BID Sertraline 100 mg tab po once daily
[2024-01-26] MEDS: ENOXAPARIN 40MG/0.4ML SYRINGE 40 MG SUBCUT (23:14)
[2024-01-26] MEDS: PANTOPRAZOLE 40MG TABLET 40 MG PO (23:14)
[2024-01-26] MEDS: SERTRALINE 100MG TABLET 100 MG PO (23:15)
[2024-01-27] VITALS (9 sets, daily range): BP systolic 97–142; BP diastolic 44–80; PULSE 63–75; RESP 15–18; TEMP 36.4–37.3; O2SAT 94–98
[2024-01-27] MEDS: KETOROLAC 30MG/ML VIAL 30 MG IV ×2 (02:12→08:26)
[2024-01-27] MEDS: ACETAMINOPHEN 500MG TAB 1000 MG PO ×3 (03:22→19:50)
[2024-01-27] MEDS: OXYCODONE 5MG IMMEDIATE RELEASE TABLET 5 MG PO ×4 (03:22→21:21)
[2024-01-27] MEDS: LACTATED RINGERS 1000ML 1,000 ML 125 ML IV (06:04)
[2024-01-27 07:07] LABS: Albumin Level 3.2 g/dl (3.5-5.0); Chloride 106 mmol/L (98-107)
[2024-01-27 07:08] LABS: Basophils % 0.4 % (0.1-2.0); Eosinophils # 0.1 K/mm3 (0.0-0.4); Eosinophils % 0.9 % (0.1-12.0); Hemoglobin 11.7 g/dL (12.2-16.2); Lymphocytes # 2.3 K/mm3 (0.7-4.5); Lymphocytes % 29.6 % (10-50); Mean Corpuscular HGB Conc 32.6 g/dL (31.8-35.4); Mean Corpuscular Hemoglobin 27.8 pg (27.0-31.2); Mean Corpuscular Volume 85.1 fl (81-99); Mean Platelet Volume 7.7 fl (7.4-10.4); Monocytes # 0.6 K/mm3 (0.1-1.0); Monocytes % 7.3 % (1.7-9.3); Neutrophils # 4.9 K/mm3 (1.8-7.8); Neutrophils % 61.7 % (37.0-80.0); Platelet Count 259 K/mm3 (142-424); Potassium 3.6 mmoL/L (3.5-5.1); Red Blood Count 4.23 M/mm3 (4.20-5.40); Red Cell Distribution Width 13.8 % (11.5-17.5); Sodium 132 mmol/L (136-145); White Blood Count 7.9 K/mm3 (4.8-10.8)
[2024-01-27 07:10] LABS: Alanine Aminotransferase 15 U/L (12-78); Anion Gap 6.6 mEq/L (5-15); Aspartate Amino Transferase 21 U/L (14-36); Blood Urea Nitrogen 11 mg/dl (7-17); Carbon Dioxide 23 mmol/L (22.0-30.0); Creatinine Clearance Estimated 94 mL/min (50-200); Estimated Glomerular Filt Rate 79 ml/min (>60); GFR (African American) 96 ML/MIN (>60)
[2024-01-27 07:11] LABS: Albumin/Globulin Ratio 1.2 (1.1-1.8); Alkaline Phosphatase 51 U/L (38-126); Bilirubin,Total 0.6 mg/dl (0.2-1.3); Calcium 7.7 mg/dl (8.4-10.2); Globulin 2.7 g/dL (1.3-3.2); Glucose 119 mg/dl (74-100); Total Protein,Serum 5.9 g/dl (6.3-8.2)
--- NOTE | 2024-01-27 07:27 | EXP.ANES.II ---
[facility] Anesthesia Record Part II Anesthesia Record Part II Discharge Time: 12:15 Destination: Obstetric PACU nurse assessment reviewed?: Yes Patient Condition:: Good Anesthesia Complications:: None Swallowing reflex intact?: Yes Airway Patency: Patent Cyanosis?: No Blood Pressure: 142/80 SaO2: 95 Respiratory Rate: 18 Pulse Rate: 70 Temperature: 98.8 F Mental Status: Alert & Oriented Pain level:: 0 Nausea and/or vomitting:: None Intake, IV Amount: 0 Hydration: Adequate
--- OUTSIDE RECORDS SUMMARY | 2024-01-27 07:39 | XMS_ITS | Patient Health Record ---
Author Organization [facility]Charles Wheat MD Address [address] [facility] [address] [facility] [address] [place] [address] Care Team Providers Care Wood Patternmaker Name Role Phone Charles Wheat Unavailable [phone] REASON FOR REFERRAL No Information PLAN OF TREATMENT No Information Insurance Providers Payer Name Payer Address Payer Phone Subscriber Number Group Number Insured Name Patient Relationship to Insured Coverage Start Date Coverage End Date [facility] [address] [place] [address] [id number] Pedro Marie Self - patient is the insured
--- OUTSIDE RECORDS SUMMARY | 2024-01-27 07:39 | XMS_ITS ---
Author Organization [facility]Charles Wheat MD Address [address] [facility] [address] [facility] [address] [place] [address] Care Team Providers Care Cryptographic Technician Name Role Phone Charles Wheat Unavailable [phone] Encounters Encounter Location Date Provider Diagnosis [address] [place] [address] 12/06/2022 Charles Wheat PLAN OF TREATMENT No Information Progress Notes * Pedro MARIEDOB:1985 (38 yo F)Acc No.[id number]:12/06/2022 Progress Notes Patient:??Pedro MARIE Provider:??Charles Wheat MD :1985?Age:37 Y?Sex:Fe male Date:12/06/2022 Address:[address] [id number] Subjective: * Chief Complaints: * ? * Active Problem List ?Problem List has not been verified* Medical History:?? Objective: Assessment: Plan: * Treatment: * * Sign off status: Pending * Provider:??Charles Wheat MD Date:? ?12/06/2022
[2024-01-27] MEDS: POLYETHYLENE GLYCOL 3350 17 GM PACKET PO ×2 (09:42→21:21)
[2024-01-27] MEDS: PANTOPRAZOLE 40MG TABLET 40 MG PO ×2 (09:43→23:24)
--- NOTE | 2024-01-27 09:55 | PC.NURSE ---
Pt has rested well throughout the night. A.M dose of Propranolol held d/t low bp's. Original incision to LTV incision intact with small amt of shadowing on center of it. Hypo / sluggish bs in both upper quads, absent bs in both lower quads of abdomen. Afebrile. VS stable / wnl. LR 125/hr continues infusing in RT/AC. FC in place and patent to bsd, yellow urine noted in drainage bag. Has not ambulated since surgery. Plans are to start ambulating today. Lungs clear bilat and throughout. Scant amt of old blood (vaginal). Pt given chewing gum to help with bs.
--- NOTE | 2024-01-27 11:22 | P.PN_ITS ---
Subjective *Date: 01/27/24 *Time: 11:22 Interval history: She is 1 day postoperative from a total abdominal hysterectomy through a Pfannenstiel incision. She is doing very well. She is eating and drinking and ambulating. She will start a full diet this morning. Her pain is well-control led. Medical Exam Vital signs and Labs for Last 24 Hours: Vital Signs Temp Pulse Pulse Resp BP BP Pulse Ox 01/27/24 11:12 98.5 F 75 18 103/58 L 01/27/24 11:10 98.5 F 75 17 103/58 L 98 01/27/24 10:06 01/27/24 08:35 01/27/24 08:16 97.6 F 63 17 98/56 L 96 01/27/24 07:27 18 01/27/24 06:10 01/27/24 05:29 98.6 F 70 15 101/56 L 97 01/27/24 05:29 97 01/27/24 05:29 01/27/24 03:15 01/27/24 02:10 01/27/24 01:15 01/27/24 00:10 01/26/24 23:20 01/26/24 22:19 01/26/24 20:45 95 01/26/24 20:45 01/26/24 19:50 01/26/24 19:30 98.2 F 59 L 16 108/55 L 94 L 01/26/24 18:52 01/26/24 18:30 67 16 103/56 L 95 01/26/24 18:00 01/26/24 17:30 70 16 107/58 L 95 01/26/24 17:00 01/26/24 16:30 98.5 F 65 16 114/62 94 L 01/26/24 16:00 01/26/24 15:30 72 17 113/67 97 01/26/24 15:00 98.4 F 63 16 104/65 L 97 01/26/24 15:00 01/26/24 14:30 97.1 F L 60 16 108/61 L 95 01/26/24 14:28 01/26/24 14:00 72 15 100/56 L 94 L 01/26/24 13:37 97 01/26/24 13:34 01/26/24 13:30 97.0 F L 65 15 96/48 L 94 L 01/26/24 13:15 73 16 121/82 98 01/26/24 13:00 75 17 130/87 97 01/26/24 12:45 96.9 F L 61 16 128/80 97 01/26/24 12:40 01/26/24 12:25 98.4 F 65 16 130/72 93 L 01/26/24 12:15 98.8 F 70 18 142/80 H 95 01/26/24 12:05 98.8 F 73 18 144/82 H 95 01/26/24 11:59 98.8 F 69 18 123/70 01/26/24 11:55 98.8 F 68 18 140/79 94 L 01/26/24 11:45 98.8 F 69 18 123/70 93 L 01/26/24 11:35 98.8 F 73 20 126/75 95 O2 Del Method 01/27/24 11:12 01/27/24 11:10 Room Air 01/27/24 10:06 Room Air 01/27/24 08:35 Room Air 01/27/24 08:16 Room Air 01/27/24 07:27 01/27/24 06:10 Room Air 01/27/24 05:29 Room Air 01/27/24 05:29 Room Air 01/27/24 05:29 Room Air 01/27/24 03:15 Room Air 01/27/24 02:10 Room Air 01/27/24 01:15 Room Air 01/27/24 00:10 Room Air 01/26/24 23:20 Room Air 01/26/24 22:19 Room Air 01/26/24 20:45 Room Air 01/26/24 20:45 Room Air 01/26/24 19:50 Room Air 01/26/24 19:30 Room Air 01/26/24 18:52 Room Air 01/26/24 18:30 Room Air 01/26/24 18:00 Room Air 01/26/24 17:30 Room Air 01/26/24 17:00 Room Air 01/26/24 16:30 Room Air 01/26/24 16:00 Room Air 01/26/24 15:30 Room Air 01/26/24 15:00 Room Air 01/26/24 15:00 Room Air 01/26/24 14:30 Room Air 01/26/24 14:28 Room Air 01/26/24 14:00 Room Air 01/26/24 13:37 Room Air 01/26/24 13:34 Room Air 01/26/24 13:30 Room Air 01/26/24 13:15 Room Air 01/26/24 13:00 Room Air 01/26/24 12:45 Room Air 01/26/24 12:40 Room Air 01/26/24 12:25 Room Air 01/26/24 12:15 Room Air 01/26/24 12:05 Room Air 01/26/24 11:59 01/26/24 11:55 Room Air 01/26/24 11:45 Room Air 01/26/24 11:35 Room Air Intake and Output 01/26/24 01/27/24 01/27/24 19:59 03:59 11:59 Intake Total 0 / 0 Output Total 200 / 1550 250 / 1550 1100 / 1550 Balance -200 / -1550 -250 / -1550 -1100 / -1550 Intake: Intake, Total IV Amount 0 / 0 Output: Output, Urine Amount 1100 / 1100 Output, Urine Amount (Catheter) 200 / 450 250 / 450 Bose 200 / 450 250 / 450 Other: Number of Unmeasured Voids 0 Laboratory Results - last 24 hr 01/27/24 06:30: WBC 7.9, RBC 4.23, Hgb 11.7 L, Hct 36.0 L, MCV 85.1, MCH 27.8, MCHC 32.6, RDW 13.8, Plt Count 259, MPV 7.7, Neut % (Auto) 61.7, Lymph % (Auto) 29.6, [place] % (Auto) 7.3, Eos % (Auto) 0.9, Baso % (Auto) 0.4, Neut # (Auto) 4.9, Lymph # (Auto) 2.3, [place] # (Auto) 0.6, Eos # (Auto) 0.1, Baso # (Auto) 0.0, Sodium 132 L, Potassium 3.6, Chloride 106, Carbon Dioxide 23, Anion Gap 6.6, BUN 11, Creatinine 0.80, Estimated Creat Clear 94, Estimated GFR 79, Est GFR ( Amer) 96, Glucose 119 H, Calcium 7.7 L, Total Bilirubin 0.6, AST 21, ALT 15, Alkaline Phosphatase 51, Total Protein 5.9 L, Albumin 3.2 L, Globulin 2.7, Albumin/Globulin Ratio 1.2 I & O for Labs for Last 24 Hours: Intake & Output 01/24/24 01/25/24 01/26/24 01/27/24 11:59 11:59 11:59 11:59 Intake Total 1700 / 1700 0 / 0 Output Total 1550 / 1550 Balance 1700 / 1700 -1550 / -1550 Weight 320 lb Head: Present atraumatic ENT: Present normal exam Neck: Present full ROM Respiratory: Present normal respiratory effort; Absent accessory muscle use Cardiac: Present Reg Rate and Rhythm and Regular Rhythm GI: Present soft, normal bowel sounds and incision; Absent distention, guarding, rebound or rigidity Comments:: Her incision is clean and dry. Her laparoscopic incisions are doing well. Rectal (female): Present deferred (female): Present deferred Extremities: Present normal inspection and full ROM Assessment and Plan *Assessment and plan (1) Dysmenorrhea: Status: Acute Category: Medical Code(s): N94.6 - Dysmenorrhea, unspecified (2) Menorrhagia: Status: Acute Qualifiers: Menorrhagia type: with regular cycle Qualified Code(s): N92.0 - Excessive and frequent menstruation with regular cycle Category: Medical Code(s): N92.0 - Excessive and frequent menstruation with regular cycle (3) Fibroid, uterine: Status: Acute Qualifiers: Uterine leiomyoma location: unspecified location Qualified Code(s): D25.9 - Leiomyoma of uterus, unspecified Category: Medical Code(s): D25.9 - Leiomyoma of uterus, unspecified (4) Morbid obesity: Status: Acute Category: Medical Code(s): E66.01 - Morbid (severe) obesity due to excess calories Plan She she underwent a total abdominal hysterectomy yesterday through a Pfannenstiel incision. Initially a laparoscopic approach was attempted but they were unable to proceed by this route. She is doing well postoperatively and is remaining afebrile. Her blood counts are normal. Her pain is reasonably well- controlled. We will start her on a full diet today. She is hungry she says. If she does well today she can probably go home tomorrow.
--- NOTE | 2024-01-27 11:42 | PC.NURSE ---
11:07- her to see pt. Pt up ambulating in room. F/C has been discontinued. Urine specimen hat placed in toilet to measure first few voids. Ambulated without difficulty. IV saline locked at this time. After his assessment of pt, V/O received from to advance diet to regular diet. SCDS off while pt ambulating. 11:18 Pt up sitting in chair. Bedside table and call zamudio within reach. Pt medicated with Oxycodone 5mg PO per request for pain 7/10 on pain scale after ambulating in room.
--- NOTE | 2024-01-27 12:30 | PC.NURSE ---
Pt is asleep at this time.
--- NOTE | 2024-01-27 13:00 | PC.NURSE ---
Pt sleeping soundly. No distress noted.
--- NOTE | 2024-01-27 13:35 | PC.NURSE ---
Pt is asleep at this time. Resp even and unlabored.
[2024-01-27] MEDS: IBUPROFEN 400 MG TABLET 800 MG PO ×2 (15:16→23:24)
--- NOTE | 2024-01-27 15:20 | PC.NURSE ---
Pt now awake and up to bathroom to void. Ambulated alone to bathroom with difficulty. Pt medicated with Oxycodone 5mg PO and Ibuprofen 800mg PO for pain of 7-8/10.
--- NOTE | 2024-01-27 15:25 | PC.NURSE ---
Surgical dressing removed. 70% of dressing covered with light amount of old sero-sang dressing. Incision is well approximated, no bruising, no bleeding or active drainage noted. Incision cleansed with 1/2 strength peroxide. All hugo straight and intact. Incision care after discharge discussed. Pt verbalized understanding. Tolerated procedure well. Incision left COOKING CHEF at this time.
--- NOTE | 2024-01-27 15:38 | PC.NURSE ---
Family x4 at bs visiting.
[2024-01-27] MEDS: SERTRALINE 100MG TABLET 100 MG PO (23:24)
[2024-01-27] MEDS: SIMETHICONE 80MG CHEWABLE TABLET 160 MG PO (23:40)
[2024-01-28] VITALS: TEMP 37
--- NOTE | 2024-01-28 01:09 | PC.NURSE ---
Extra pillows provided per pt request for comfort measures.
[2024-01-28 04:00] VITALS: BP 92/43; PULSE 75; RESP 17; TEMP 36.8; O2SAT 97
[2024-01-28] MEDS: ACETAMINOPHEN 500MG TAB 1000 MG PO ×2 (04:41→08:49)
[2024-01-28 04:45] VITALS: O2SAT 97
[2024-01-28 05:30] VITALS: BP 106/52
[2024-01-28 08:28] VITALS: O2SAT 97
[2024-01-28 08:33] VITALS: BP 91/35; PULSE 75; RESP 17; TEMP 36.9; O2SAT 97
[2024-01-28] MEDS: POLYETHYLENE GLYCOL 3350 17 GM PACKET PO (08:49)
--- NOTE | 2024-01-28 09:39 | P.DS_ITS ---
General Admission date:: 01/26/24 Discharge date: 01/28/24 HPI HPI HPI: POD # 2 s/p laparoscopy converted to total abdominal hysterectomy, BSO Feeling well postoperatively. Pain controlled. Tolerating regular diet. No nausea or vomiting. Voiding without difficulty and passing flatus. Denies fever/chills, chest pain and shortness of breath. No lightheadedness or dizziness. Ambulating well ad martha. Hospital Course Hospital Course Hospital Course: Mrs Pedro Marie is a 38 yo P000 who presents to [facility] for scheduled surgery. She complains of heavy, painful periods. Periods are regular, monthly, every 25-26 days. Flow lasts a total of 5-6 days and is heavy and painful for about 4 days. She reports she soaks through an ultra tampon every hour the first few days of her period. This is not new. She admits periods have always been this way but this last period was worse. On 11/29 she went to the ED for severe abdominal pain. Pelvic ultrasound demonstrated UTERUS: 11.3cm x 7.6 cmx 5.7 cm anteverted with a combined endometrial thickness of 14.5mm and appears trilaminar. There is a small nabothian cyst in the cervix. Fibroid 1. Anterior measuring 2.4 cm x 2.3 cm x 2.5 cm. Fibroid 2. Left side measuring 4.7 cm x 4.9 cm x 4.8 cm. She is requesting definitive surgical intervention with hysterectomy. She has history of endometriosis, PCOS and obesity s/p gastric sleeve in 2021. She admits to hot flashes and night sweats. She underwent laparoscopy converted to total abdominal hysterectomy with bila teral salpingo oophorectomy. She did well postoperatively. Pain controlled. Tolerating regular diet. Voiding without difficulty and passing flatus. Vital signs stable, afebrile. Heart regular rate and rhythm. Lungs clear to auscultation. Abdomen soft and appropriate mild tenderness to palpation postoperatively. Good bowel sounds. She was ambulating well ad martha. No lower extremity edema or calf tenderness. She was doing well with estradiol transdermal patch for HRT. She was discharged home on POD # 2 with instructions to follow-up in the office in 7 days for staple removal and incision check. Exam Data for Last 24 hours Vital signs and Labs for Last 24 Hours: Temp Pulse Resp BP Pulse Ox O2 Del Method 98.5 F 75 17 91/35 L 97 Room Air 01/28/24 08:33 01/28/24 08:33 01/28/24 08:33 01/28/24 08:33 01/28/24 08:33 01/28/24 08:33 I & O for Last 24 hours: Intake & Output 01/25/24 01/26/24 01/27/24 01/28/24 23:59 23:59 23:59 23:59 Intake Total 1700 / 1700 0 / 0 Output Total 200 / 200 2250 / 2250 0 / 0 Balance 1500 / 1500 -2250 / -2250 0 / 0 Weight 320 lb Constitutional Constitutional: no acute distress, morbidly obese and cooperative *Routine HEENT Exam Head: Present normocephalic and atraumatic Eye: Absent conjunctivae pink ENT: Present mucous membranes moist *Routine Neck Exam Neck: Present full ROM *Routine Respiratory Exam Respiratory: Present CTA bilaterally and normal respiratory effort *Routine Cardiovascular Exam Cardiovascular: Present RRR *Routine Abdominal Exam Abdominal: Present soft and normoactive bowel sounds; Absent tenderness or distended Comments: Laparoscopic incisions and pfannenstiel incision clean/dry/intact, metal hugo in place along pfannenstiel incision *Routine Rectal Exam Patient deferred: visual exam *Routine Exam Patient deferred: external exam *Routine Extremities Exam Extremities: Present full ROM; Absent edema or calf tenderness *Routine Neurological Exam Neurological: Present alert, moving all extremities and normal speech Routine Psychiatric Exam Psychiatric: Present normal affect and cooperative DS: Diagnosis Discharge Diagnosis (1) Dysmenorrhea: Status: Acute Code(s): N94.6 - Dysmenorrhea, unspecified (2) Menorrhagia: Status: Acute Code(s): N92.0 - Excessive and frequent menstruation with regular cycle Qualifiers: Menorrhagia type: with regular cycle Qualified Code(s): N92.0 - Excessive and frequent menstruation with regular cycle (3) Fibroid, uterine: Status: Acute Code(s): D25.9 - Leiomyoma of uterus, unspecified Qualifiers: Uterine leiomyoma location: unspecified location Qualified Code(s): D25.9 - Leiomyoma of uterus, unspecified (4) Morbid obesity: Status: Acute Code(s): E66.01 - Morbid (severe) obesity due to excess calories Meds Home Medications and Allergies Home Medications ?Medication ?Instructions ?Recorded ?Confirmed ?Type omeprazole 20 mg capsule,delayed 20 mg PO BID GERD 12/03/21 01/26/24 History release sertraline 100 mg tablet 100 mg PO DAILY 08/12/22 01/26/24 History clobetasol 0.05 % topical ointment 1 applic topical DAILYP PRN 01/04/24 01/26/24 History IRRIATION estradiol 0.1 mg/24 hr weekly 1 patch transdermal WEEKLY #4 ea 01/26/24 Rx transdermal patch propranolol 80 mg capsule,24 80 mg PO BID 01/26/24 01/26/24 History hr,extended release (Inderal LA) ibuprofen 800 mg tablet 800 mg PO Q8H PRN pain #20 tabs 01/28/24 Rx oxycodone 5 mg tablet 5 mg PO Q6H PRN pain #20 tabs 01/28/24 Rx oxycodone 5 mg tablet 5 mg PO Q6H PRN pain #20 tabs 01/28/24 Rx New Prescriptions to Start Prescriptions: Makayla Heard oxycodone Makayla Ernandez oxycodone Makayla Ernandez Allergies Allergy/AdvReac Type Severity Reaction Status Date / Time Penicillins Allergy Unknown Verified 01/26/24 06:29 allergy reaction quetiapine [From Seroquel] Allergy Hives Verified 01/26/24 06:29 Discharge Plan Disposition Patient Disposition: Home, Self-Care Condition: Good Discharge Order Discharge Orders: Discharge Order (Routine); Ordered 01/28/24 Ordered By: Makayla Ernandez Follow up Plan Follow up with: Makayla Ernandez DO [Staff Physician] - 02/04/24 1:15 pm Prescriptions/Medication Reconciliation: New ibuprofen 800 mg tablet 800 mg PO Q8H PRN (Reason: pain) Qty: 20 0RF oxycodone 5 mg tablet 5 mg PO Q6H PRN (Reason: pain) Qty: 20 0RF oxycodone 5 mg tablet 5 mg PO Q6H PRN (Reason: pain) Qty: 20 0RF Continued omeprazole 20 mg capsule,delayed release(DR/EC) 20 mg PO BID Patient Comments: TAKE ONE CAPSULE BY MOUTH EVERY TWELVE HOURS take morning CAPSULE 30 minutes BEFORE morning meal sertraline 100 mg tablet 100 mg PO DAILY clobetasol 0.05 % ointment 1 applic topical DAILYP PRN (Reason: IRRIATION) Patient Comments: apply TO LESIONS ON HANDS TWICE DAILY UP TO 2 WEEKS AT a time DIRECTED. DO not USE ON face, groin, OR axilla estradiol 0.1 mg/24 hr patch weekly 1 patch transdermal WEEKLY Qty: 4 11RF propranolol [Inderal LA] 80 mg capsule,extended release 24 hr 80 mg PO BID Problem Reconciliation Problems Reviewed?: Yes Patient Discharge Instructions ACTIVITY: Limited activity DIET: continue same diet and regular diet Additional Instructions: Additional Instructions: You had a total abdominal hysterectomy and bilateral saplingo oophorectomy. This means that your uterus, cervix and fallopian tubes and ovaries were removed. The top of your vagina is closed with dissolvable sutures. You will follow-up in office for a postop visit at 10 days and at 6 weeks. At your 6- week postop appointment you will have a pelvic exam to ensure your cuff is healing well. Discharge: 1. Take 800 mg Ibuprofen every 8 hours as needed for pain. You can also take 1000 mg of Tylenol in between doses, every 6-8 hours and Oxycodone 5 mg, 1 tablet every 4-6 hours or more as needed. 2. Take Miralax twice daily as needed Activity: - No lifting more than 10 lbs for 6 weeks. - No driving for 7 days and/or while you are taking narcotic pain medication. - You have three incisions on your abdomen that are closed with stitches and surgical glue. Wound care - You have surgical glue covering your incision. This can come off in 7-10 days. Vaseline will break down the compound and remove the glue - You have stitches under your skin which will dissolve over the next 6 weeks as your body heals - Keep your wound clean and dry, ok to wash with soap and water but pat thoroughly dry Please call the office or return to the ER if you have any of the followin. heavy vaginal bleeding 2. pain that does not respond to your narcotic pain medication 3. dizziness or lightheadedness such that you lose consciousness 4. abnormal discharge from your incisions Questions or concerns: It is my privilege to be your doctor. Please let me know if you have other questions or concerns. Makayla Ernandez DO [facility] [place], [place] [address] Patient Instructions: DI for Hysterectomy, Surgical Site Infection, DI for Postoperative Pain Print Language: Macanese Providers Primary Care Provider: Taz Ward Admdonavan Provider: Makayla Ernandez Attending Provider: Makayla Ernandez
--- NOTE | 2024-01-28 09:39 | PC.NURSE ---
Waiting for [facility] to received oxycodone medication prescription.
== END 2024-01-28 10:27 | disposition home or self-care (01) | DRG 742 ==
LOC: OB 12:58
PROVIDERS: Admitting Provider Obstetrics & Gynecology; PCP Family Medicine; Visit Provider Obstetrics & Gynecology
PROC: 0UT90ZZ Resection of Uterus, Open Approach (ICD-10-PCS; principal; 2024-01-26 07:30)
DX: N94.6 Dysmenorrhea, unspecified (principal); Z68.42 Body mass index [BMI] 45.0-49.9, adult; E66.01 Morbid (severe) obesity due to excess calories; N92.0 Excessive and frequent menstruation with regular cycle; Z53.31 Laparoscopic surgical procedure converted to open procedure; D25.9 Leiomyoma of uterus, unspecified; E28.2 Polycystic ovarian syndrome; N80.9 Endometriosis, unspecified
CPT/HCPCS: 36415; 59025; 80053; 85025; 96374; J3490; C9290; J0131; J1100; J1171; J1580; J1650; J1885; J2250; J2405; J3010; J7120

== ENCOUNTER 2024-02-02 20:54 | Emergency (ER) | payer BC, SELFPAY ==
[2024-02-02 20:56] VITALS: BP 125/76; PULSE 79; RESP 14; TEMP 36.8; O2SAT 99; BMI 48.6
--- NOTE | 2024-02-02 21:24 | HMH.EDGENADL ---
Discharge Plan Disposition Patient Disposition: Home, Self-Care Condition: Good Prescriptions Prescriptions: No Action omeprazole 20 mg capsule,delayed release(DR/EC) 20 mg PO BID Patient Comments: TAKE ONE CAPSULE BY MOUTH EVERY TWELVE HOURS take morning CAPSULE 30 minutes BEFORE morning meal sertraline 100 mg tablet 100 mg PO DAILY clobetasol 0.05 % ointment 1 applic topical DAILYP PRN (Reason: IRRIATION) Patient Comments: apply TO LESIONS ON HANDS TWICE DAILY UP TO 2 WEEKS AT a time DIRECTED. DO not USE ON face, groin, OR axilla estradiol 0.1 mg/24 hr patch weekly 1 patch transdermal WEEKLY Qty: 4 11RF propranolol [Inderal LA] 80 mg capsule,extended release 24 hr 80 mg PO BID ibuprofen 800 mg tablet 800 mg PO Q8H PRN (Reason: pain) Qty: 20 0RF oxycodone 5 mg tablet 5 mg PO Q6H PRN (Reason: pain) Qty: 20 0RF oxycodone 5 mg tablet 5 mg PO Q6H PRN (Reason: pain) Qty: 20 0RF Referrals Follow up/Referrals: Taz Ward MD [Primary Care Provider] - See instructions Activity Restrictions/Add. Instructions Additional Instructions/Restrictions: You were evaluated in the emergency department today. Please keep close gynecology follow-up. Also follow-up with your primary care provider. Return to the emergency department for new or worsening symptoms. Clinical Impressions Clinical Impression: Encounter for postoperative wound check, Urinary frequency Stand Alone Forms Stand Alone Forms: Work/School Release Print Language Print Language: Northern Irish Discharge ED Provider: Maki Gannon General Adult HPI General Chief complaint: Recheck/Abnormal Lab/Rx Stated complaint: post op ,wound area pain Time Seen by Provider: 02/02/24 21:24 History of Present Illness HPI narrative: This patient is a 38-year-old female status post hysterectomy 01/26/2024 for abdominal pain with Dr. Ernandez presenting to the emergency department for evaluation with concern for itching at her incision site. She states that the hugo are very irritating to her. No fevers, chills, significant abdominal pain, abnormal vaginal discharge, nausea, vomiting, or other concerns. She actually states that her postoperative course has been great and uncomplicated. She notes she has had some occasional frequent PVCs, but this is not outside the norm for her. Is just a little bit more frequent than usual. She also notes urinary frequency on review of systems, but she stated she thought maybe that was just from pelvic irritation. No significant dysuria. She denies other significant concern Patient has that she was told by Dr. Ernandez's office that she could come to the ED for staple removal if the incision looks good. Related Data Home Medications ?Medication ?Instructions ?Recorded ?Confirmed omeprazole 20 mg capsule,delayed 20 mg PO BID GERD 12/03/21 01/26/24 release sertraline 100 mg tablet 100 mg PO DAILY 08/12/22 01/26/24 clobetasol 0.05 % topical ointment 1 applic topical DAILYP PRN 01/04/24 01/26/24 IRRIATION propranolol 80 mg capsule,24 80 mg PO BID 01/26/24 01/26/24 hr,extended release (Inderal LA) Previous Rx's ?Medication ?Instructions ?Recorded estradiol 0.1 mg/24 hr weekly 1 patch transdermal WEEKLY #4 ea 01/26/24 transdermal patch ibuprofen 800 mg tablet 800 mg PO Q8H PRN pain #20 tabs 01/28/24 oxycodone 5 mg tablet 5 mg PO Q6H PRN pain #20 tabs 01/28/24 oxycodone 5 mg tablet 5 mg PO Q6H PRN pain #20 tabs 01/28/24 Allergies Allergy/AdvReac Type Severity Reaction Status Date / Time Penicillins Allergy Unknown Verified 01/26/24 06:29 allergy reaction quetiapine [From Seroquel] Allergy Hives Verified 01/26/24 06:29 [facility] Disclaimer: The information contained in this section may have been updated after the patient was seen, as this information can be updated by other users. Medical History Incidental lung nodule Polycystic ovary Pre-operative cardiovascular examination Dysmenorrhea Menorrhagia Chronic maxillary sinusitis Sinusitis Pharyngitis Otitis media Acute viral syndrome Headache Abscess, peritonsillar Peritonsillar abscess Parotitis Sore throat C. difficile enteritis Neuropathic pain of finger Neuropathy, ulnar nerve Cellulitis Cellulitis of axilla, right Abscess of axilla, right Viral upper respiratory tract infection with cough Dizziness Acute abdominal pain in left flank Sinusitis Abscess of nasal cavity Abscess of nose Otitis media Gastroenteritis Paronychia Morbid obesity with BMI of 50.0-59.9, adult Uterine fibroid History of PCOS History of endometriosis LLQ pain Parasomnia Urinary tract infection History of gastroesophageal reflux (GERD) HTN (hypertension) Palpitations Anxiety Bariatric surg stat-del Onychomycosis Abdominal pain Surgical History S/P dilation and curettage History of hernia repair History of cholecystectomy H/O bariatric surgery Family History Sister Asthma Mother Heart attack Diabetes Father Diabetes Coronary artery disease Social History Smoking Status: Current every day smoker tobacco type: cigarettes packs per day: 1 second hand exposure: No alcohol intake: never substance use type: denies use current occupational status: employed Travel in the last 8 weeks: None household members: spouse and children housing: house Other Medical History Have you received the Flu Vaccine for this season: No Have you received the Pneumonia Vaccine: No ROS Obtained: Yes All systems reviewed & no additional complaints except as documented Physical Exam General General appearance: alert, in no apparent distress and obese Head Head exam: atraumatic and normocephalic Eye Eye exam: Present normal appearance, PERRL and EOMI ENT ENT exam: Present normal exam, normal oropharynx, mucous membranes moist and normal external ear exam Neck Neck exam: Present normal inspection, full ROM and trachea midline; Absent tenderness Chest Chest inspection: Present normal inspection and symmetric chest wall rise; Absent tenderness Respiratory Respiratory exam: Present normal lung sounds bilaterally; Absent respiratory distress, wheezes, stridor or accessory muscle use Cardiovascular Cardiovascular exam: Present regular rate and normal rhythm Abdominal Exam Abdominal exam: Present soft; Absent distention, tenderness or guarding Comment: Incision C/D/I with hugo in place, no significant induration, erythema, purulence. Appropriately tender. Extremities Exam Extremities exam: Present normal inspection, full ROM and normal capillary refill; Absent tenderness or edema Back Exam Back exam: Present normal inspection and full ROM; Absent tenderness Neurological Exam Neurological exam: Present alert, oriented X3, CN II-XII intact and normal gait; Absent motor sensory deficit Psychiatric Psychiatric exam: Present normal affect and normal mood Skin Skin exam: Present warm and dry Medical Decision Making Medical Records Medical records reviewed: Yes I reviewed the patient's medical records. Screening: Per USPSTF and CDC recommendations, given the prevalence of disease in our region, it is our hospital?s policy to screen for HIV and viral Hepatitis for all patients aged 18 and over and those with ongoing risk factors. Malik Inquiry Pt receiving controlled substance: No Vital Signs: 02/02/24 20:56 02/02/24 23:08 Temperature 98.2 F 98.2 F Temperature Source Oral Pulse Rate 80 Pulse Rate [Right Radial] 79 Respiratory Rate 14 18 Blood Pressure 122/78 Blood Pressure [Right Arm] 125/76 Blood Pressure Mean [Right Arm] 92 02 Sat by Pulse Oximetry 99 Oxygen Delivery Method Room Air Room Air Lab Data Lab results reviewed: Yes I reviewed the patient's lab results. Lab Results 02/02/24 22:03: Urine Color Yellow, Urine Appearance Clear, Urine pH 6.5, Ur Specific [place] 1.020, Urine Protein Negative, Urine Glucose (UA) Negative, Urine Ketones Negative, Urine Blood 1+ A, Urine Nitrate Negative, Urine Bilirubin Negative, Urine Urobilinogen 0.2, Ur Leukocyte Esterase Negative, Urine WBC 3-5, Ur Squamous Epith Cells 3-5, Urine Bacteria 1+ 02/02/24 22:22: WBC 8.7, RBC 4.16 L, Hgb 11.6 L, Hct 35.4 L, MCV 85.0, MCH 28.0, MCHC 32.9, RDW 13.6, Plt Count 356, MPV 7.0 L, Neut % (Auto) 52.8, Lymph % (Auto) 36.2, [place] % (Auto) 4.8, Eos % (Auto) 5.3, Baso % (Auto) 1.0, Neut # (Auto) 4.6, Lymph # (Auto) 3.2, [place] # (Auto) 0.4, Eos # (Auto) 0.5 H, Baso # (Auto) 0.1, Sodium 139, Potassium 4.1, Chloride 108 H, Carbon Dioxide 28, Anion Gap 7.1, BUN 10, Creatinine 0.70, Estimated Creat Clear 108, Estimated GFR 93, Est GFR ( Amer) 112, Glucose 113 H, Calcium 8.8, Magnesium 2.1, Total Bilirubin 0.4, AST 17, ALT 14, Alkaline Phosphatase 50, Total Protein 6.8, Albumin 3.7, Globulin 3.1, Albumin/Globulin Ratio 1.2, TSH 3.11 02/02/24 22:22 02/02/24 22:22 Orders (Tests/Meds): ORDERS Category Date Time Status Complete Blood Count Auto Diff Stat Lab 02/02/24 22:22 Completed Comprehensive Metabolic Panel Stat Lab 02/02/24 22:22 Completed MAG [Magnesium] Stat Lab 02/02/24 22:22 Completed TSH [Thyroid Stimulating Hormone] Stat Lab 02/02/24 22:22 Completed UA [Urinalysis and Microscopic] Stat Lab 02/02/24 22:03 Completed Medical Decision Narrative: In summary, this patient is a 38-year-old female presenting to the Emergency Department for evaluation of itching and irritation at her prior surgical incision requesting staple removal, frequent PVCs, urinary frequency. Differential diagnoses considered include but are not limited to UTI, dehydration, electrolyte derangements, KAE, postop wound infection, normal postoperative healing. Ruling out the most morbid conditions drove assessment. It should be noted patient's history includes obesity which is not at goal therapy. This complicates all aspects of care by increasing patient's risk for morbidity. I reviewed patient's past medical records and noted previous uncomplicated hysterectomy. On exam, the patient is lying in bed in no acute distress. Incision is clean, dry, intact with no purulence, tenderness, drainage. I had an interactive discussion with Dr. Ernandez who advised it was okay to remove the hugo, so these were removed and dressing was applied. Workup included CBC, CMP, magnesium, urinalysis, TSH. Labs obtained are reassuring without significantly concerning abnormalities. She does have some mild hematuria, which I do not expect is outside the norm for recent hysterectomy. No obvious concerns for infection. Ultimately, given reassuring workup and exam, I feel the patient is appropriate for discharge home with continued plan for follow-up outpatient. Strict return precautions were given as well as instructions for wound care. She was discharged after all questions were answered Critical Care Critical Care Time Critical Care Time: No
[2024-02-02 22:16] LABS: Microscopic, Urine URINE MICROSCOPIC (MICROSCOPIC)
[2024-02-02 22:31] LABS: Basophils # 0.1 K/mm3 (0-0.2); Eosinophils # 0.5 K/mm3 (0.0-0.4); Eosinophils % 5.3 % (0.1-12.0); Hematocrit 35.4 % (37.0-47.0); Hemoglobin 11.6 g/dL (12.2-16.2); Lymphocytes # 3.2 K/mm3 (0.7-4.5); Lymphocytes % 36.2 % (10-50); Mean Corpuscular HGB Conc 32.9 g/dL (31.8-35.4); Monocytes # 0.4 K/mm3 (0.1-1.0); Monocytes % 4.8 % (1.7-9.3); Neutrophils # 4.6 K/mm3 (1.8-7.8); Neutrophils % 52.8 % (37.0-80.0); Platelet Count 356 K/mm3 (142-424); Red Blood Count 4.16 M/mm3 (4.20-5.40); Red Cell Distribution Width 13.6 % (11.5-17.5); White Blood Count 8.7 K/mm3 (4.8-10.8)
[2024-02-02 22:32] LABS: Albumin Level 3.7 g/dl (3.5-5.0); Chloride 108 mmol/L (98-107); Potassium 4.1 mmoL/L (3.5-5.1); Sodium 139 mmol/L (136-145)
[2024-02-02 22:34] LABS: Anion Gap 7.1 mEq/L (5-15); Blood Urea Nitrogen 10 mg/dl (7-17); Carbon Dioxide 28 mmol/L (22.0-30.0); Creatinine Clearance Estimated 108 mL/min (50-200); Estimated Glomerular Filt Rate 93 ml/min (>60); GFR (African American) 112 ML/MIN (>60)
[2024-02-02 22:35] LABS: Alanine Aminotransferase 14 U/L (12-78); Albumin/Globulin Ratio 1.2 (1.1-1.8); Alkaline Phosphatase 50 U/L (38-126); Aspartate Amino Transferase 17 U/L (14-36); Bilirubin,Total 0.4 mg/dl (0.2-1.3); Calcium 8.8 mg/dl (8.4-10.2); Globulin 3.1 g/dL (1.3-3.2); Glucose 113 mg/dl (74-100); Magnesium 2.1 mg/dl (1.6-2.3); Total Protein,Serum 6.8 g/dl (6.3-8.2)
[2024-02-02 22:44] LABS: Appearance,Urine CLEAR (Clear); Bilirubin,Urine Negative (Negative); Blood, Urine 1+ (Negative); Color,Urine YELLOW (Yellow); Glucose,Urine (UA) Negative (Negative); Ketones,Urine Negative (Negative); Leukocyte Esterase,Urine Negative (Negative); Nitrate,Urine Negative (Negative); PH,Urine 6.5 (5.0-8.5); Protein,Urine Negative (Negative); Urobilinogen,Urine 0.2 EU/dl (0.2)
[2024-02-02 22:48] LABS: Bacteria,Urine 1+ /lpf
--- NOTE | 2024-02-02 23:04 | ECG_ITS ---
APPROVED REPORT Exam: Resting ECG HR:60 bpm ECG Measurements Heart Rate 60 AXES ID 142 P 61 QRSd 80 QRS 81 QT 383 T 57 QTc 383 Conclusion SINUS RHYTHM LOW QRS VOLTAGE IN PRECORDIAL LEADS [QRS DEFLECTION < 1.0 mV IN CHEST LEADS] BORDERLINE ECG UNCONFIRMED REPORT Electronically signed by : AMY HANSEN, 02/03/2024 06:52:15
[2024-02-02 23:06] LABS: Thyroid Stimulating Hormone 3.11 uIU/mL (0.465-4.68)
[2024-02-02 23:08] VITALS: BP 122/78; PULSE 80; RESP 18; TEMP 36.8; O2SAT 98
== END 2024-02-02 23:09 | disposition home or self-care (01) ==
PROVIDERS: Emergency Provider Emergency Medicine; PCP Family Medicine
DX: Z48.89 Encounter for other specified surgical aftercare (principal); R35.0 Frequency of micturition
CPT/HCPCS: 80050; 80053; 81001; 83735; 84443; 85025; 93005; 99283

== ENCOUNTER 2024-02-09 14:23 | Observation (INO) | payer BC, SELFPAY ==
--- NOTE | 2024-02-09 14:29 | ED_ITS ---
<Statement entered by Gary Vasques MD - 02/09/24 23:52> Patient afebrile hemodynamically stable here. Labs are overall reassuring with normal lactate and no leukocytosis. However, given call on CT of abscess, blood cultures obtained and empiric antibiotics begun in short order including Vanco cefepime and Flagyl. Patient is remained hemodynamically stable in the emergency department. COMPUTING CONSULTANT consulted. Interactive discussion with provider on-call agrees to admit the patient to service for further workup and further management. I was consulted by the BRISSA, and we discussed the complexity of problems being addressed. I approved the treatment and management plan for this patient's care in the emergency department, thus performing a substantial portion of the medical decision making. Gary Vasques MD Discharge Plan Disposition Patient Disposition: Admitted Condition: Good Chief Complaint: PAIN Clinical Impressions Clinical Impression: Abscess, intra-abdominal, postoperative, Urinary tract infectious disease Discharge ED Provider: Gary Vasques General Adult HPI General Chief complaint: PAIN Stated complaint: weakness due to surgery 2 weeks ago UTI Time Seen by Provider: 02/09/24 14:28 History of Present Illness HPI narrative: Patient presents for evaluation of ongoing urinary tract infection. Patient had a total abdominal hysterectomy approximately 2 weeks ago. She has done well from a surgical standpoint however she developed a postoperative urinary tract infection that was initially managed with Cipro. They got the by Bk back on Wednesday and she was switched to Macrobid on Wednesday. Patient still however has shown no improvement with lower abdominal discomfort nausea feeling weak but has no chest pain shortness of breath fevers chills hemoptysis hematochezia melena vomiting or diarrhea. Her COMPUTING CONSULTANT sent her to the ER for evaluation. Related Data Home Medications ?Medication ?Instructions ?Recorded ?Confirmed omeprazole 20 mg capsule,delayed 20 mg PO BID GERD 12/03/21 02/09/24 release sertraline 100 mg tablet 100 mg PO DAILY 08/12/22 02/09/24 clobetasol 0.05 % topical ointment 1 applic topical DAILYP PRN 01/04/24 02/09/24 IRRIATION propranolol 80 mg capsule,24 80 mg PO BID 01/26/24 02/09/24 hr,extended release (Inderal LA) Previous Rx's ?Medication ?Instructions ?Recorded estradiol 0.1 mg/24 hr weekly 1 patch transdermal WEEKLY #4 ea 01/26/24 transdermal patch ibuprofen 800 mg tablet 800 mg PO Q8H PRN pain #20 tabs 01/28/24 oxycodone 5 mg tablet 5 mg PO Q6H PRN pain #20 tabs 01/28/24 nitrofurantoin 100 mg PO BID 7 days #14 caps 02/07/24 monohydrate/macrocrystals 100 mg capsule (Macrobid) lactobacillus combination no.4 3 3,000 mmu cells PO DAILY #30 caps 02/08/24 billion cell capsule (Probiotic) metronidazole 500 mg tablet 500 mg PO BID 7 days #14 tabs 02/08/24 phenazopyridine 200 mg tablet 200 mg PO TID PRN pain 6 doses #6 02/08/24 (Pyridium) tabs Allergies Allergy/AdvReac Type Severity Reaction Status Date / Time Penicillins Allergy Unknown Verified 02/08/24 14:49 allergy reaction quetiapine [From Seroquel] Allergy Hives Verified 02/08/24 14:49 [facility] Disclaimer: The information contained in this section may have been updated after the patient was seen, as this information can be updated by other users. Medical History Incidental lung nodule Polycystic ovary Pre-operative cardiovascular examination Dysmenorrhea Menorrhagia Chronic maxillary sinusitis Sinusitis Pharyngitis Otitis media Acute viral syndrome Headache Abscess, peritonsillar Peritonsillar abscess Parotitis Sore throat C. 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 dreams, sleep paralysis Urinary tract infection History of gastroesophageal reflux (GERD) HTN (hypertension) Palpitations Anxiety Bariatric surg stat-del Onychomycosis Abdominal pain Surgical History History of total abdominal hysterectomy and bilateral salpingo-oophorectomy S/P dilation and curettage History of hernia repair History of cholecystectomy H/O bariatric surgery Family History Sister Asthma Mother Heart attack Diabetes Father Diabetes Coronary artery disease Social History Smoking Status: Current every day smoker tobacco type: cigarettes packs per day: 1 second hand exposure: No alcohol intake: never substance use type: denies use current occupational status: employed Travel in the last 8 weeks: None household members: spouse and children housing: house Other Medical History Have you received the Flu Vaccine for this season: No Have you received the Pneumonia Vaccine: No ROS Obtained: Yes Systems reviewed as appropriate & no additional complaints except as documented Physical Exam General General appearance: alert and in no apparent distress Respiratory Respiratory exam: Present normal lung sounds bilaterally Cardiovascular Cardiovascular exam: Present regular rate Neurological Exam Neurological exam: Present alert and oriented X3 Medical Decision Making Medical Records Medical records reviewed: Yes I reviewed the patient's medical records. Screening: Per USPSTF and CDC recommendations, given the prevalence of disease in our region, it is our hospital?s policy to screen for HIV and viral Hepatitis for all patients aged 18 and over and those with ongoing risk factors. Malik Inquiry Pt receiving controlled substance: No Vital Signs: 02/09/24 14:32 02/09/24 15:01 Temperature 98.7 F Temperature Source Oral Pulse Rate 70 Pulse Rate [Left Radial] 76 Respiratory Rate 16 Blood Pressure 107/66 L Blood Pressure [Right Arm] 145/84 H Blood Pressure Mean 79 Blood Pressure Mean [Right Arm] 104 02 Sat by Pulse Oximetry 97 96 Oxygen Delivery Method Room Air Room Air Lab Data Lab results reviewed: Yes I reviewed the patient's lab results. Lab Results 02/09/24 14:35: WBC 9.0, RBC 4.72, Hgb 13.3, Hct 39.2, MCV 83.1, MCH 28.2, MCHC 34.0, RDW 13.5, Plt Count 443 H, MPV 7.3 L, Neut % (Auto) 60.1, Lymph % (Auto) 29.3, [place] % (Auto) 4.5, Eos % (Auto) 4.8, Baso % (Auto) 1.3, Neut # (Auto) 5.4, Lymph # (Auto) 2.6, [place] # (Auto) 0.4, Eos # (Auto) 0.4, Baso # (Auto) 0.1, Sodium 140, Potassium 4.2, Chloride 108 H, Carbon Dioxide 25, Anion Gap 11.2, BUN 12, Creatinine 0.80, Estimated Creat Clear 94, Estimated GFR 79, Est GFR ( Amer) 96, Glucose 97, Calcium 9.1, Total Bilirubin 0.5, AST 23, ALT 15, Alkaline Phosphatase 56, Total Protein 7.2, Albumin 4.1, Globulin 3.1, Albumin/Globulin Ratio 1.3, Procalcitonin 0.036 02/09/24 15:20: Lactate 0.6 L 02/09/24 14:35 02/09/24 14:35 Orders (Tests/Meds): ED MEDICATIONS Generic Name Dose Route Start Last Admin Trade Name Freq PRN Reason Stop Dose Admin Cefepime HCl 2 gm/ Sodium 100 mls @ 200 mls/hr 02/09/24 16:30 02/09/24 16:34 Chloride IV 02/19/24 16:29 200 mls/hr Q8H FANTASMA Administration Metronidazole 500 mg in 100 mls @ 100 mls/hr 02/09/24 16:30 Flagyl 500mg/100ml Ivpb IV 02/19/24 16:29 Q8H FANTASMA Vancomycin HCl 2,500 mg/ 250 mls @ 125 mls/hr 02/09/24 16:30 Sodium Chloride IV 02/09/24 18:29 ONCE ONE Lactated Ringer's 1,000 mls @ 50 mls/hr 02/09/24 17:00 Lactated Ringer's 1000 Ml Bag IV 03/10/24 16:59 .Q20H FANTASMA Miscellaneous 1 each 02/09/24 16:30 02/09/24 16:30 Vancomycin Consult Request NOTAPPLIC 03/10/24 16:29 1 each CONSULT PHARMACY FANTASMA Administration Discontinued Medications Generic Name Dose Route Start Last Admin Trade Name Freq PRN Reason Stop Dose Admin Acetaminophen 1,000 mg 02/09/24 14:39 02/09/24 14:57 Acetaminophen 1,000mg/100ml Vial IV 02/09/24 14:40 1,000 mg ONCE ONE Administration Iopamidol 75 ml 02/09/24 15:33 02/09/24 15:36 Iopamidol-370 (76%);100ml Bottle IV 02/09/24 15:34 75 ml ONCE ONE Administration Ketorolac Tromethamine 15 mg 02/09/24 14:39 02/09/24 14:57 Ketorolac 30mg/Ml Vial IV 02/09/24 14:40 15 mg ONCE ONE Administration Ondansetron HCl 4 mg 02/09/24 14:39 02/09/24 14:57 Ondansetron 4mg/2ml Vial IV 02/09/24 14:40 4 mg ONCE ONE Administration Sodium Chloride 10 ml 02/09/24 15:33 02/09/24 15:36 Sodium Chloride 0.9% 10ml Syr (Rad Only) IV 02/09/24 15:34 10 ml ONCE ONE Administration ORDERS Category Date Time Status CT abdomen pelvis w con Stat Cat Scan 02/09/24 15:15 Completed CBC w/Auto Diff [Complete Blood Count Auto Diff] Stat Lab 02/09/24 14:35 Completed CMP [Comprehensive Metabolic Panel] Stat Lab 02/09/24 14:35 Completed Lactic Acid Stat Lab 02/09/24 15:20 Completed Procalcitonin Stat Lab 02/09/24 14:35 Completed Blood Culture Stat Micro 02/09/24 16:37 Received Medical Decision Narrative: In summary patient is a 38-year-old female who presents to the emergency department for evaluation of urinary tract infection. Patient is hemodynamically stable with a blood pressure of 145/84 heart rate 76 respiratory rate 16 satting at 97% on room air upon arrival, with a temperature 98.7. Physical exam is remarkable for central suprapubic mild tenderness to palpation without rebound or guarding or rigidity. Surgical site is healing well with no evidence of infection drainage induration cellulitis.. Differential diagnosis includes simple urinary tract infection versus cystitis versus pyelonephritis etc. Initial workup will be conducted with hematologic labs CT scan abdomen pelvis. Initial interventions include Tylenol Toradol Zofran. Initial workup reviewed by me shows her hematologic labs are nonactionable. Review of her bio gram from the urine collected Wednesday shows pansensitive dysuria coli, Klebsiella pneumonia, and Enterococcus faecalis with no resistance genes identified. Patient was initially started on Cipro and switched to Macrobid due to the recommendation on the path report. Upon repeat evaluation patient remains hemodynamically stable however my informal interpretation of her CT read shows some haziness in the pelvis but the radiologist personally notified me that there is a apparent abscess in the pelvis that has gas and debris. Given this I had interactive discussion with Dr. Rogers of COMPUTING [employer]SULT[employer] and about patient management and she will be admitted to the OB floor for further evaluation and care. Critical Care Critical Care Time Critical Care Time: No
[2024-02-09 14:32] VITALS: BP 145/84; PULSE 76; RESP 16; TEMP 37.1; O2SAT 97; BMI 48.6
[2024-02-09 14:53] LABS: Basophils # 0.1 K/mm3 (0-0.2); Basophils % 1.3 % (0.1-2.0); Eosinophils # 0.4 K/mm3 (0.0-0.4); Eosinophils % 4.8 % (0.1-12.0); Hematocrit 39.2 % (37.0-47.0); Hemoglobin 13.3 g/dL (12.2-16.2); Lymphocytes # 2.6 K/mm3 (0.7-4.5); Lymphocytes % 29.3 % (10-50); Mean Corpuscular Hemoglobin 28.2 pg (27.0-31.2); Mean Corpuscular Volume 83.1 fl (81-99); Mean Platelet Volume 7.3 fl (7.4-10.4); Monocytes # 0.4 K/mm3 (0.1-1.0); Monocytes % 4.5 % (1.7-9.3); Neutrophils # 5.4 K/mm3 (1.8-7.8); Neutrophils % 60.1 % (37.0-80.0); Platelet Count 443 K/mm3 (142-424); Red Blood Count 4.72 M/mm3 (4.20-5.40); Red Cell Distribution Width 13.5 % (11.5-17.5)
[2024-02-09] MEDS: ACETAMINOPHEN 1,000MG/100ML VIAL 1000 MG IV (14:57)
[2024-02-09] MEDS: ONDANSETRON 4MG/2ML VIAL 4 MG IV ×2 (14:57→21:04)
[2024-02-09] MEDS: KETOROLAC 30MG/ML VIAL 15 MG IV (14:57)
[2024-02-09 14:59] LABS: Alanine Aminotransferase 15 U/L (12-78); Albumin Level 4.1 g/dl (3.5-5.0); Albumin/Globulin Ratio 1.3 (1.1-1.8); Alkaline Phosphatase 56 U/L (38-126); Anion Gap 11.2 mEq/L (5-15); Aspartate Amino Transferase 23 U/L (14-36); Bilirubin,Total 0.5 mg/dl (0.2-1.3); Blood Urea Nitrogen 12 mg/dl (7-17); Calcium 9.1 mg/dl (8.4-10.2); Carbon Dioxide 25 mmol/L (22.0-30.0); Chloride 108 mmol/L (98-107); Creatinine Clearance Estimated 94 mL/min (50-200); Estimated Glomerular Filt Rate 79 ml/min (>60); GFR (African American) 96 ML/MIN (>60); Globulin 3.1 g/dL (1.3-3.2); Glucose 97 mg/dl (74-100); Potassium 4.2 mmoL/L (3.5-5.1); Sodium 140 mmol/L (136-145); Total Protein,Serum 7.2 g/dl (6.3-8.2)
[2024-02-09 15:01] VITALS: BP 107/66; PULSE 70; O2SAT 96
--- NOTE | 2024-02-09 15:15 | CT_ITS ---
PROCEDURE INFORMATION: Exam: CT Abdomen And Pelvis With Contrast Exam date and time: 02/09/2024 3:31 PM Age: 38 years old Clinical indication: Abdominal pain; Other: Lower abdominal; Prior surgery; Surgery date: <1 month; Surgery type: Total hysterectomy 2 weeks ago; Additional info: Lower abdominal pain, S/P priti TECHNIQUE: Imaging protocol: Computed tomography of the abdomen and pelvis with contrast. Radiation optimization: All CT scans at this facility use at least one of these dose optimization techniques: automated exposure control; mA and/or kV adjustment per patient size (includes targeted exams where dose is matched to clinical indication); or iterative reconstruction. Contrast material: ISOVUE; Contrast volume: 75 ml; Contrast route: IV; COMPARISON: CT ABDOMEN PELVIS W CON 11/30/2023 10:37 AM FINDINGS: Liver: Normal. No mass. Gallbladder and biliary ducts: Cholecystectomy. Pancreas: Normal. No ductal dilation. Spleen: Normal. No splenomegaly. Adrenal glands: Normal. No mass. Kidneys and ureters: Normal. No hydronephrosis. Stomach and bowel: Gastric reduction surgery. Appendix: Normal appendix. Intraperitoneal space: Unremarkable. No free air. No significant fluid collection. Vasculature: Unremarkable. No abdominal aortic aneurysm. Lymph nodes: Unremarkable. No enlarged lymph nodes. Urinary bladder: Unremarkable as visualized. Reproductive: Recent hysterectomy. Bones/joints: Unremarkable. No acute fracture. Soft tissues: Unremarkable. Other findings: 6.5 x 5 x 5.2 cm mass centrally in the pelvis with mottled appearing gas and debris centrally and eccentric thick-walled rind or wall , probably an unusual appearance for an abscess rather than a necrotic solid mass. IMPRESSION: 6.5 x 5 x 5.2 cm mass centrally in the pelvis with mottled appearing gas and debris centrally and eccentric thick-walled rind or wall , probably an unusual appearance for an abscess rather than a necrotic solid mass.
[2024-02-09 15:16] LABS: Procalcitonin 0.036 ng/mL (0.0-2.0)
[2024-02-09] MEDS: IOPAMIDOL-370 (76%);100ML BOTTLE 75 ML IV (15:36)
[2024-02-09] MEDS: SODIUM CHLORIDE 0.9% 10ML SYR (RAD ONLY) 10 ML IV (15:36)
[2024-02-09 16:06] LABS: Lactic Acid 0.6 mmol/L (0.7-2.1)
--- NOTE | 2024-02-09 16:23 | PC.NURSE ---
placed order for bed request and spoke with house wirer helper regarding and admission
[2024-02-09] MEDS: VANCOMYCIN CONSULT REQUEST 1 EACH NOTAPPLIC ×2 (16:30→18:12)
[2024-02-09] MEDS: CEFEPIME HCL 2 GM in 0.9 % SODIUM CHLORIDE 100 ML IV (16:34)
--- NOTE | 2024-02-09 16:41 | PC.NURSE ---
report called to shirley velasquez on ob floor
--- NOTE | 2024-02-09 16:45 | PC.NURSE ---
Report received from Donald Penaloza RN.
[2024-02-09 17:07] VITALS: BP 107/66; PULSE 70; RESP 14; TEMP 36.7
[2024-02-09 17:10] VITALS: BP 103/52; PULSE 66; RESP 18; TEMP 36.5
--- NOTE | 2024-02-09 17:12 | P.HP_ITS ---
History of Present Illness *Admission Date: 02/09/24 *Reason for visit:: Urinary tract infection, pelvic pain, possible pelvic absces *History of present illness: She is [id number] lady who underwent a total abdominal hysterectomy, bilateral salpingo-oophorectomy on January 26, 2024. She has had a chronic urinary tract infection over the last few days and has been treated with a couple of different antibiotics. She was not get any better and as a result of that she came into the ER. Blood work was normal electrolytes were normal. She does not look septic. She had a CT scan that showed a possible pelvic abscess. On discussion with Dr. Ernandez the patient did have powdered Surgicel as well as a piece of Gelfoam placed in the pelvis after surgery. [facility] Disclaimer: The information contained in this section may have been updated after the patient was seen, as this information can be updated by other users. Medical History Incidental lung nodule Polycystic ovary Pre-operative cardiovascular examination Dysmenorrhea Menorrhagia Chronic maxillary sinusitis Sinusitis Pharyngitis Otitis media Acute viral syndrome Headache Abscess, peritonsillar Peritonsillar abscess Parotitis Sore throat C. difficile enteritis Neuropathic pain of finger Neuropathy, ulnar nerve Cellulitis Cellulitis of axilla, right Abscess of axilla, right Viral upper respiratory tract infection with cough Dizziness Acute abdominal pain in left flank Sinusitis Abscess of nasal cavity Abscess of nose Otitis media Gastroenteritis Paronychia Morbid obesity with BMI of 50.0-59.9, adult Uterine fibroid History of PCOS History of endometriosis LLQ pain Parasomnia Urinary tract infection History of gastroesophageal reflux (GERD) HTN (hypertension) Palpitations Anxiety Bariatric surg stat-del Onychomycosis Abdominal pain Surgical History History of total abdominal hysterectomy and bilateral salpingo-oophorectomy S/P dilation and curettage History of hernia repair History of cholecystectomy H/O bariatric surgery Family History Diabetes Mother Father Coronary artery disease Father Heart attack Mother Asthma Sister Social History Smoking Status: Current every day smoker tobacco type: cigarettes packs per day: 1 second hand exposure: No alcohol intake: never substance use type: denies use current occupational status: employed Travel in the last 8 weeks: None household members: spouse and children housing: house Other Medical History Have you received the Flu Vaccine for this season: No Have you received the Pneumonia Vaccine: No Review of Systems Review of Systems Review of systems:: pertinent systems reviewed and negative unless documented below Meds Home Medications and Allergies Home Medications ?Medication ?Instructions ?Recorded ?Confirmed ?Type omeprazole 20 mg capsule,delayed 20 mg PO BID GERD 12/03/21 02/09/24 History release sertraline 100 mg tablet 100 mg PO DAILY 08/12/22 02/09/24 History clobetasol 0.05 % topical ointment 1 applic topical DAILYP PRN 01/04/24 02/09/24 History IRRIATION estradiol 0.1 mg/24 hr weekly 1 patch transdermal WEEKLY #4 ea 01/26/24 02/09/24 Rx transdermal patch propranolol 80 mg capsule,24 80 mg PO BID 01/26/24 02/09/24 History hr,extended release (Inderal LA) ibuprofen 800 mg tablet 800 mg PO Q8H PRN pain #20 tabs 01/28/24 02/09/24 Rx oxycodone 5 mg tablet 5 mg PO Q6H PRN pain #20 tabs 01/28/24 02/09/24 Rx nitrofurantoin 100 mg PO BID 7 days #14 caps 02/07/24 02/09/24 Rx monohydrate/macrocrystals 100 mg capsule (Macrobid) lactobacillus combination no.4 3 3,000 mmu cells PO DAILY #30 caps 02/08/24 02/09/24 Rx billion cell capsule (Probiotic) metronidazole 500 mg tablet 500 mg PO BID 7 days #14 tabs 02/08/24 02/09/24 Rx phenazopyridine 200 mg tablet 200 mg PO TID PRN pain 6 doses #6 02/08/2409/26 Rx (Pyridium) tabs New Prescriptions to Start Prescriptions: Allergies Allergy/AdvReac Type Severity Reaction Status Date / Time Penicillins Allergy Unknown Verified 02/08/24 14:49 allergy reaction quetiapine [From Seroquel] Allergy Hives Verified 02/08/24 14:49 Exam Data for Last 24 hours Vital signs and Labs for Last 24 Hours: Temp Pulse Resp BP Pulse Ox O2 Del Method 98.0 F 70 14 107/66 L 96 Room Air 02/09/24 17:07 02/09/24 17:07 02/09/24 17:07 02/09/24 17:07 02/09/24 15:01 02/09/24 15:01 Laboratory Results - last 24 hr 02/09/24 14:35: WBC 9.0, RBC 4.72, Hgb 13.3, Hct 39.2, MCV 83.1, MCH 28.2, MCHC 34.0, RDW 13.5, Plt Count 443 H, MPV 7.3 L, Neut % (Auto) 60.1, Lymph % (Auto) 29.3, [place] % (Auto) 4.5, Eos % (Auto) 4.8, Baso % (Auto) 1.3, Neut # (Auto) 5.4, Lymph # (Auto) 2.6, [place] # (Auto) 0.4, Eos # (Auto) 0.4, Baso # (Auto) 0.1, Sodium 140, Potassium 4.2, Chloride 108 H, Carbon Dioxide 25, Anion Gap 11.2, BUN 12, Creatinine 0.80, Estimated Creat Clear 94, Estimated GFR 79, Est GFR ( Amer) 96, Glucose 97, Calcium 9.1, Total Bilirubin 0.5, AST 23, ALT 15, Alkaline Phosphatase 56, Total Protein 7.2, Albumin 4.1, Globulin 3.1, Albumin/Globulin Ratio 1.3, Procalcitonin 0.036 02/09/24 15:20: Lactate 0.6 L I & O for Last 24 hours: Intake & Output 02/07/24 02/08/24 02/09/24 02/10/24 11:59 11:59 11:59 11:59 Weight 320 lb Constitutional Constitutional: no acute distress *Routine HEENT Exam Head: Present normocephalic Eye: Present EOMI and PERRL ENT: Present mucous membranes moist *Routine Neck Exam Neck: Present supple; Absent lymphadenopathy *Routine Respiratory Exam Respiratory: Present CTA bilaterally *Routine Cardiovascular Exam Cardiovascular: Present RRR *Routine Abdominal Exam Abdominal: Present soft and normoactive bowel sounds; Absent tenderness *Routine Rectal Exam Rectal:: deferred *Routine Genitalia Exam Genitalia:: deferred *Routine Extremities Exam Extremities: Absent cyanosis, clubbing or edema *Routine Skin Exam Skin: Present warm; Absent rash *Routine Neurological Exam Neurological: Present alert and oriented X3 Assessment and Plan *Assessment and plan (1) Abscess, intra-abdominal, postoperative: Status: Acute Category: Medical Code(s): T81.43XA - Infection following a procedure, organ and space surgical site, initial encounter; K65.1 - Peritoneal abscess (2) History of total abdominal hysterectomy and bilateral salpingo-oophorectomy: Status: Acute Category: Surgical Code(s): Z90.710 - Acquired absence of both cervix and uterus; Z90.722 - Acquired absence of ovaries, bilateral; Z90.79 - Acquired absence of other genital organ(s) (3) Urinary tract infection: Status: Acute Qualifiers: Urinary tract infection type: acute cystitis Hematuria presence: with hematuria Qualified Code(s): N30.01 - Acute cystitis with hematuria Category: Medical Code(s): N39.0 - Urinary tract infection, site not specified (4) Morbid obesity with BMI of 50.0-59.9, adult: Status: Chronic Category: Medical Code(s): E66.01 - Morbid (severe) obesity due to excess calories; Z68.43 - Body mass index [BMI] 50.0-59.9, adult Plan She is admitted for IV antibiotics. Her white count is normal. Her electrolytes are normal. She does not appear to be septic. She is afebrile. It is not clear whether she has an abscess or she just has this Gelfoam in her pelvis. We will consider a general surgery consult in the morning.
--- NOTE | 2024-02-09 17:57 | PC.NURSE ---
[facility] contacted and notified of Vanc consult. Verbalized understanding.
[2024-02-09] MEDS: VANCOMYCIN HCL 2,500 MG in 0.9 % SODIUM CHLORIDE 250 ML 125 MG IV (18:03)
--- NOTE | 2024-02-09 19:01 | PC.NURSE ---
Report given to MUNIR Dale.
--- NOTE | 2024-02-09 20:05 | PC.NURSE ---
Phoned Dr. Mercado to update on patient reports of bladder spasm pain beginning to return and pain meds from the ED are beginning to wear off. New orders received for 10 mg PO Toradol Q 6 hours as needed for pain and 1000 mg PO Tylenol Q 6 hours as needed for pain. Orders readback and verified
[2024-02-09 21:02] VITALS: BP 112/45; PULSE 66; RESP 18; TEMP 36.7; O2SAT 97
[2024-02-09] MEDS: LACTATED RINGERS 1000ML 1,000 ML 50 ML IV (21:03)
[2024-02-09] MEDS: KETOROLAC 10MG TABLET 10 MG PO (21:04)
[2024-02-09] MEDS: ACETAMINOPHEN 500MG TAB 1000 MG PO (22:32)
[2024-02-09] MEDS: PANTOPRAZOLE 40MG TABLET 40 MG PO (22:54)
[2024-02-10] MEDS: CEFEPIME HCL 2 GM in 0.9 % SODIUM CHLORIDE 100 ML IV ×2 (00:17→08:10)
[2024-02-10 00:20] VITALS: BP 104/49; PULSE 58; RESP 16; TEMP 36.7; O2SAT 96
[2024-02-10] MEDS: METRONIDAZ/SOD CHL 500 MG/100 ML PIGGYBACK 100 MG IV ×2 (01:00→08:10)
[2024-02-10] MEDS: VANCOMYCIN/WATER FOR INJ (PEG) 1.25 GM/250 ML PIGGYBACK IV (02:26)
[2024-02-10 04:45] VITALS: BP 97/45; PULSE 57; RESP 19; TEMP 36.5; O2SAT 98
--- NOTE | 2024-02-10 04:45 | PC.NURSE ---
Reassessment completed at this time. Patient asleep upon entry into room, but awoke to verbal stimuli. Patient is alert and oriented x4. Heart sounds auscultated in the 50s and at a regular rhythm. Lung sounds are clear bilaterally and throughout. Skin remains warm, pink, dry, and intact. Patient has not voided since going to bed but plans to after assessment. Patient reports last BM on 02/08 but is passing gas normal for her. Bowel sounds normoactive in all quadrants. Patient denies pain at this time and declines scheduled pain meds. Patient states she will call RN if she needs something for pain.
--- NOTE | 2024-02-10 08:15 | PC.NURSE ---
Pt resting, watching tv, sig other at bs. A.M. assessment complete. Pt rating current pain at 5-6 on pain scale. She refused previous scheduled Toradol and Tylenol bc of them being po and her not having anything on her stomach . Informed pt that I would inquire with MD about changing Toradol to IV.
[2024-02-10 08:16] VITALS: BP 115/53; PULSE 57; RESP 17; TEMP 36.6; O2SAT 100
--- NOTE | 2024-02-10 08:37 | PC.NURSE ---
Spoke with via phone about pain medication route. V/U. States to let pt eat for now, that she will not be taking her to the O.R. R/V. Regular diet tray ordered. Pt informed of what said. Pt was pleased. Will wait until pt has eaten to give her medication.
--- NOTE | 2024-02-10 08:37 | HMH.PHAINT1 ---
Pharmacy Intervention Comments: MEDICATION RECONCILIATION COMPLETED ON PATIENT USING EXTERNAL FILL HISTORY FROM PHARMACY. -JOCE CROOK, PREMD
[2024-02-10] MEDS: KETOROLAC 10MG TABLET 10 MG PO (10:01)
[2024-02-10] MEDS: ACETAMINOPHEN 500MG TAB 1000 MG PO (10:01)
--- NOTE | 2024-02-10 10:12 | P.DS_ITS ---
General Admission date:: 02/09/24 Discharge date: 02/10/24 HPI HPI HPI: She is feeling well this morning. She admits she is hungry this morning. Pain is controlled with medication. No fever/chills, chest pain or shortness of breath. She admits she got minimal rest last night because it was hard to get comfortable in the bed. Voiding without difficulty and passing flatus. Hospital Course Hospital Course Hospital Course: Pedro is a 38 yo P0000 who underwent a total abdominal hysterectomy, bilateral salpingo-oophorectomy on January 26, 2024. She has had a urinary tract infection over the past week. Last week she was started on Cipro and urine was sent out for PCR testing. Urine ID demonstrated E Coli. Klebsiella and enterococcus. Her antibiotics were switched to Macrobid for better coverage. She picked up the antibiotics on Wednesday, 02/06. Yesterday, 02/08, she stated she did not feel any better. She reports fatigue, weakness, lower abdominal discomfort and nausea. She presented to the ED 02/09/24. Bloodwork all within normal limits. WBC 9.0. She clinically looked well. Vital signs stable and appropriate postop mild tenderness to palpation. She had a CT scan that showed a possible pelvic abscess. On discussion with Dr. Ernandez the patient did have Surgicel powder as well as a piece of Gelfoam placed in the pelvis during surgery. She was admitted for IV fluids and antibiotics. Vitals remained stable, afebrile. Appropriate postop pain controlled with oral medication. She was tolerating regular. Voiding without difficulty and passing flatus. She admits she feels better. After discussion, it seems she has been doing too much/too active, following ISA. Her agreed that she hasn't been resting. She feels well to go home and rest. Continue PO antibiotics for UTI. She was given instructions to follow-up in the office in 1 week or sooner if needed. Exam Data for Last 24 hours Vital signs and Labs for Last 24 Hours: Temp Pulse Resp BP Pulse Ox O2 Del Method 97.9 F 57 L 17 115/53 L 100 Room Air 02/10/24 08:16 02/10/24 08:16 02/10/24 08:16 02/10/24 08:16 02/10/24 08:16 02/10/24 09:00 Laboratory Results - last 24 hr 02/09/24 14:35: WBC 9.0, RBC 4.72, Hgb 13.3, Hct 39.2, MCV 83.1, MCH 28.2, MCHC 34.0, RDW 13.5, Plt Count 443 H, MPV 7.3 L, Neut % (Auto) 60.1, Lymph % (Auto) 29.3, [place] % (Auto) 4.5, Eos % (Auto) 4.8, Baso % (Auto) 1.3, Neut # (Auto) 5.4, Lymph # (Auto) 2.6, [place] # (Auto) 0.4, Eos # (Auto) 0.4, Baso # (Auto) 0.1, Sodium 140, Potassium 4.2, Chloride 108 H, Carbon Dioxide 25, Anion Gap 11.2, BUN 12, Creatinine 0.80, Estimated Creat Clear 94, Estimated GFR 79, Est GFR ( Amer) 96, Glucose 97, Calcium 9.1, Total Bilirubin 0.5, AST 23, ALT 15, Alkaline Phosphatase 56, Total Protein 7.2, Albumin 4.1, Globulin 3.1, Albumin/Globulin Ratio 1.3, Procalcitonin 0.036 02/09/24 15:20: Lactate 0.6 L I & O for Last 24 hours: Intake & Output 02/07/24 02/08/24 02/09/24 02/10/24 23:59 23:59 23:59 23:59 Intake Total 752 / 752 Output Total 0 / 0 Balance 0 / 0 752 / 752 Weight 320 lb Constitutional Constitutional: no acute distress and morbidly obese *Routine HEENT Exam Head: Present normocephalic and atraumatic Eye: Absent conjunctivae pink ENT: Present mucous membranes moist *Routine Neck Exam Neck: Present full ROM *Routine Respiratory Exam Respiratory: Present CTA bilaterally and normal respiratory effort *Routine Cardiovascular Exam Cardiovascular: Present RRR *Routine Abdominal Exam Abdominal: Present soft, normoactive bowel sounds and obese; Absent tenderness or distended Comments: Pfannenstiel incision healing well; no drainage, dehiscence or erythema *Routine Rectal Exam Patient deferred: visual exam *Routine Exam Patient deferred: external exam *Routine Extremities Exam Extremities: Present full ROM; Absent edema or calf tenderness *Routine Neurological Exam Neurological: Present alert, moving all extremities and normal speech Routine Psychiatric Exam Psychiatric: Present normal affect and cooperative Results Data Completed and Pending Labs on day of discharge: Labs from last 24 hours 02/09/24 02/09/24 15:20 14:35 WBC 9.0 RBC 4.72 Hgb 13.3 Hct 39.2 MCV 83.1 MCH 28.2 MCHC 34.0 RDW 13.5 Plt Count 443 H MPV 7.3 L Neut % (Auto) 60.1 Lymph % (Auto) 29.3 [place] % (Auto) 4.5 Eos % (Auto) 4.8 Baso % (Auto) 1.3 Neut # (Auto) 5.4 Lymph # (Auto) 2.6 [place] # (Auto) 0.4 Eos # (Auto) 0.4 Baso # (Auto) 0.1 Sodium 140 Potassium 4.2 Chloride 108 H Carbon Dioxide 25 Anion Gap 11.2 BUN 12 Creatinine 0.80 Estimated Creat Clear 94 Estimated GFR 79 Est GFR ( Amer) 96 Glucose 97 Lactate 0.6 L Calcium 9.1 Total Bilirubin 0.5 AST 23 ALT 15 Alkaline Phosphatase 56 Total Protein 7.2 Albumin 4.1 Globulin 3.1 Albumin/Globulin Ratio 1.3 Procalcitonin 0.036 DS: Diagnosis Discharge Diagnosis (1) History of total abdominal hysterectomy and bilateral salpingo-oophorectomy: Status: Acute Code(s): Z90.710 - Acquired absence of both cervix and uterus; Z90.722 - Acquired absence of ovaries, bilateral; Z90.79 - Acquired absence of other genital organ(s) (2) Urinary tract infection: Status: Acute Code(s): N39.0 - Urinary tract infection, site not specified Qualifiers: Hematuria presence: with hematuria Urinary tract infection type: acute cystitis Qualified Code(s): N30.01 - Acute cystitis with hematuria (3) Morbid obesity with BMI of 50.0-59.9, adult: Status: Chronic Code(s): E66.01 - Morbid (severe) obesity due to excess calories; Z68.43 - Body mass index [BMI] 50.0-59.9, adult Meds Home Medications and Allergies Home Medications ?Medication ?Instructions ?Recorded ?Confirmed ?Type omeprazole 20 mg capsule,delayed 20 mg PO BID 12/03/21 02/09/24 History release sertraline 100 mg tablet 100 mg PO DAILY 08/12/22 02/09/24 History clobetasol 0.05 % topical ointment 1 applic topical DAILYP PRN Skin 01/04/24 02/09/24 History Irritation estradiol 0.1 mg/24 hr weekly 1 patch transdermal WEEKLY #4 ea 01/26/24 02/09/24 Rx transdermal patch propranolol 80 mg capsule,24 80 mg PO BID 01/26/24 02/09/24 History hr,extended release (Inderal LA) nitrofurantoin 100 mg PO BID 7 days #14 caps 02/07/24 02/09/24 Rx monohydrate/macrocrystals 100 mg capsule (Macrobid) lactobacillus combination no.4 3 3,000 mmu cells PO DAILY #30 caps 02/08/24 02/09/24 Rx billion cell capsule (Probiotic) metronidazole 500 mg tablet 500 mg PO BID 7 days #14 tabs 02/08/24 02/09/24 Rx phenazopyridine 200 mg tablet 200 mg PO TID PRN pain 6 doses #6 02/08/24 02/09/24 Rx (Pyridium) tabs New Prescriptions to Start Prescriptions: Allergies Allergy/AdvReac Type Severity Reaction Status Date / Time Penicillins Allergy Unknown Verified 02/08/24 14:49 allergy reaction quetiapine [From Seroquel] Allergy Hives Verified 02/08/24 14:49 Discharge Plan Disposition Patient Disposition: Home, Self-Care Condition: Good Follow up Plan Follow up with: Makayla Ernandez DO [Staff Physician] - 02/18/24 11:00 am Prescriptions/Medication Reconciliation: Continued omeprazole 20 mg capsule,delayed release(DR/EC) 20 mg PO BID Patient Comments: TAKE ONE CAPSULE BY MOUTH EVERY TWELVE HOURS take morning CAPSULE 30 minutes BEFORE morning meal sertraline 100 mg tablet 100 mg PO DAILY clobetasol 0.05 % ointment 1 applic topical DAILYP PRN (Reason: Skin Irritation) Patient Comments: apply TO LESIONS ON HANDS TWICE DAILY UP TO 2 WEEKS AT a time DIRECTED. DO not USE ON face, groin, OR axilla metronidazole 500 mg tablet 500 mg PO BID 7 Days Qty: 14 0RF phenazopyridine [Pyridium] 200 mg tablet 200 mg PO TID PRN (Reason: pain) Qty: 6 0RF Probiotic 3 billion cell capsule 3,000 mmu cells PO DAILY Qty: 30 0RF Rx Instructions: administer with a meal estradiol 0.1 mg/24 hr patch weekly 1 patch transdermal WEEKLY Qty: 4 11RF nitrofurantoin monohyd/m-cryst [Macrobid] 100 mg capsule 100 mg PO BID 7 Days Qty: 14 0RF Rx Instructions: must administer with a meal/food propranolol [Inderal LA] 80 mg capsule,extended release 24 hr 80 mg PO BID Problem Reconciliation Problems Reviewed?: Yes Patient Discharge Instructions ACTIVITY: Limited activity DIET: continue same diet Patient Instructions: Urinary Tract Infection, DI for Urinary Tract Infection (UTI), UTI and Pelvic Pain (Female) Print Language: Irish Providers Primary Care Provider: Taz Ward Admit Provider: Isai Mercado Attending Provider: Isai Mercado
== END 2024-02-10 10:45 | disposition home or self-care (01) ==
LOC: ER 15:39 → OB 17:03
PROVIDERS: Physician Assistant; Admitting Provider Nurse Practitioner Obstetrics & Gynecology; Emergency Provider Emergency Medicine; PCP Family Medicine; Visit Provider Nurse Practitioner Obstetrics & Gynecology
DX: Z90.710 Acquired absence of both cervix and uterus; Z90.722 Acquired absence of ovaries, bilateral; N30.01 Acute cystitis with hematuria; E66.01 Morbid (severe) obesity due to excess calories; Z68.43 Body mass index [BMI] 50.0-59.9, adult; F17.210 Nicotine dependence, cigarettes, uncomplicated
CPT/HCPCS: 74177; 80053; 83605; 84145; 85025; 87040; 99285; G0378; J0131; J1885; J2405; J3370; J7120; Q9967

== ENCOUNTER 2024-02-22 12:56 | Emergency (ER) | payer BC, SELFPAY ==
[2024-02-22 13:40] VITALS: BP 151/90; PULSE 83; RESP 19; TEMP 36.9; O2SAT 98; BMI 50.1
--- NOTE | 2024-02-22 13:52 | EXP.UTC ---
Discharge Plan Disposition Patient Disposition: Home, Self-Care Condition: Good Prescriptions Prescriptions: No Action omeprazole 20 mg capsule,delayed release(DR/EC) 20 mg PO BID Patient Comments: TAKE ONE CAPSULE BY MOUTH EVERY TWELVE HOURS take morning CAPSULE 30 minutes BEFORE morning meal sertraline 100 mg tablet 100 mg PO DAILY estradiol 0.1 mg/24 hr patch weekly 1 patch transdermal WEEKLY Qty: 4 11RF propranolol [Inderal LA] 80 mg capsule,extended release 24 hr 80 mg PO BID Referrals Follow up/Referrals: Taz Ward MD [Primary Care Provider] - See instructions Activity Restrictions/Add. Instructions Additional Instructions/Restrictions: *Monitor Temp, Over the counter Motrin or Tylenol as directed/as needed Tylenol every 4 hours and Motrin every 6 hours (as long as your family doctor has told you that you can take it) for fever or pain. and straight to ER if unable to lower temp less than 101.0 after medication given *Warm salt water gargles may help to soothe the throat *Throat Lozenges? *Warm fluids like tea with honey may help to soothe the throat? *Sleep elevated *Humidifier/Vaporizer *Be SURE to follow up anytime for new or worsening symptoms with your family doctor. AND in 48 hours for urine culture results with your family doctor or OBGYN, if you do not have a doctor then you may call back to the [facility] for urine culture results and further treatment. We do recommend that you choose and establish care with a Primary Care Physician. ?AND follow up with them ?in 10-14 days to repeat UA to ensure infection is resolved and blood no longer present *Be sure to let your PCP know that we sent urine cultures from the [facility] so they can follow up to ensure that you area the on the correct antibiotic * Your throat swab was sent for culture. Those results are typically sent to your primary care. Be sure to follow up in 2-3 days with your family doctor/primary care physician if no improvement so they can review those result and treat if necessary. If you don?t have a primary care doctor, I recommend you get one but in the mean time, you will have to return to a walk in clinic Follow up IMMEDIATELY for new or worsening symptoms or no Noticeable improvement over the next 48-72 hours. 911 for difficulty breathing or swallowing Clinical Impressions Clinical Impression: Sore throat (viral) Instructions Patient Instructions: Sore Throat Print Language Print Language: Maori Discharge ED Provider: Charla Richey [facility] [place] General Stated complaint: cough congestion possible UTI Mode of Arrival: Ambulatory Source of Information: Patient Limitations: No Limitations Time Seen by Provider: 02/22/24 13:53 Description of Symptoms (Recalled from Triage Doc. by RN): PATIENT C/O SORE THROAT AND HEADACHE SINCE WEDNESDAY. PATIENT ALSO THINKS SHE MAY HAVE A UTI HEENT Symptoms (Recalled from RN notes): Yes Resp Symptoms (Recalled from RN notes): No Skin Symptoms (Recalled from RN notes): No MS Symptoms (Recalled from RN notes): No Functional Status (Recalled from RN notes): WNL History of Present Illness Provider Complaint: Patient states that she has been having sore throat and headache since yesterday States that she also wants to get her urine checked States that she had a UTI a couple weeks ago and finished all her antibiotics but had small specks of blood on the tissue and wanted to get it checked again to see if she may have a UTI again Denies any UTI symptoms at this time Related Data Home Medications ?Medication ?Instructions ?Recorded ?Confirmed omeprazole 20 mg capsule,delayed 20 mg PO BID 12/03/21 02/22/24 release sertraline 100 mg tablet 100 mg PO DAILY 08/12/22 02/22/24 propranolol 80 mg capsule,24 80 mg PO BID 01/26/24 02/22/24 hr,extended release (Inderal LA) Previous Rx's ?Medication ?Instructions ?Recorded estradiol 0.1 mg/24 hr weekly 1 patch transdermal WEEKLY #4 ea 01/26/24 transdermal patch Allergies Allergy/AdvReac Type Severity Reaction Status Date / Time Penicillins Allergy Unknown Verified 02/08/24 14:49 allergy reaction quetiapine (From Seroquel) Allergy Hives Verified 02/08/24 14:49 Worker's Comp Is this a Worker's Comp case?: No [facility] Disclaimer: The information contained in this section may have been updated after the patient was seen, as this information can be updated by other users. Medical History Incidental lung nodule Polycystic ovary Pre-operative cardiovascular examination Dysmenorrhea Menorrhagia Chronic maxillary sinusitis Sinusitis Pharyngitis Otitis media Acute viral syndrome Headache Abscess, peritonsillar Peritonsillar abscess Parotitis Sore throat C. difficile enteritis Neuropathic pain of finger Neuropathy, ulnar nerve Cellulitis Cellulitis of axilla, right Abscess of axilla, right Viral upper respiratory tract infection with cough Dizziness Acute abdominal pain in left flank Sinusitis Abscess of nasal cavity Abscess of nose Otitis media Gastroenteritis Paronychia Morbid obesity with BMI of 50.0-59.9, adult Uterine fibroid History of PCOS History of endometriosis LLQ pain Parasomnia Urinary tract infection History of gastroesophageal reflux (GERD) HTN (hypertension) Palpitations Anxiety Bariatric surg stat-del Onychomycosis Abdominal pain Surgical History History of total abdominal hysterectomy and bilateral salpingo-oophorectomy S/P dilation and curettage History of hernia repair History of cholecystectomy H/O bariatric surgery Family History Diabetes Mother Father Coronary artery disease Father Heart attack Mother Asthma Sister Social History (Updated 02/09/24 @ 17:32 by Karol Ortiz RN) Smoking Status: Current every day smoker tobacco type: cigarettes packs per day: 1 second hand exposure: No alcohol intake: never substance use type: denies use current occupational status: employed Travel in the last 8 weeks: None household members: spouse and children housing: house ROS Obtained: Yes All systems reviewed & no additional complaints except as documented and Yes Systems reviewed as appropriate & no additional complaints except as documented Constitutional Constitutional: Reports system reviewed and no additional complaints, except as documented, Reports as per HPI, Denies body ache, Denies chills and Denies fever(s) ENT Ears, Nose, Mouth, and Throat: Reports system reviewed and no additional complaints, except as documented, Reports as per HPI and Reports sore throat Cardiovascular Cardiovascular: Reports system reviewed and no additional complaints, except as documented and Reports as per HPI Respiratory Respiratory: Reports system reviewed and no additional complaints, except as documented and Reports as per HPI Gastrointestinal Gastrointestingal: Reports system reviewed and no additional complaints, except as documented and as per HPI; Denies abdominal pain, cramping, diarrhea, nausea or vomiting Genitourinary Female Genitourinary: Reports system reviewed and no additional complaints, except as documented, Reports as per HPI, Denies dysuria, Denies urinary frequency, Denies urinary urgency and Reports other (small specs of blood on tissue x 1 none now) Physical Exam General General appearance: alert and in no apparent distress ENT ENT exam: Present mucous membranes moist and TM's normal bilaterally Expanded ENT Exam Nose exam: Absent sinus tenderness Throat exam: Present tonsillar erythema; Absent tonsillomegaly or tonsillar exudate Respiratory Respiratory exam: Present normal lung sounds bilaterally; Absent respiratory distress or wheezes Cardiovascular Cardiovascular exam: Present regular rate, normal rhythm and normal heart sounds Neurological Exam Neurological exam: Present alert, oriented X3 and normal gait Medical Decision Making Medical Records Screening: Per USPSTF and CDC recommendations, given the prevalence of disease in our region, it is our hospital?s policy to screen for HIV and viral Hepatitis for all patients aged 18 and over and those with ongoing risk factors. Malik Inquiry Pt receiving controlled substance: No Malik was queried for this patient: No Vital Signs: 02/22/24 13:40 Temperature 98.4 F Temperature Source Oral Pulse Rate [Left Brachial] 83 Respiratory Rate 19 Blood Pressure [Left Arm] 151/90 H Blood Pressure Mean [Left Arm] 110 Blood Pressure Source [Left Arm] Automatic Cuff Blood Pressure Position [Left Arm] Sitting 02 Sat by Pulse Oximetry 98 Oxygen Delivery Method Room Air Lab Data Lab results reviewed: Yes I reviewed the patient's lab results. Orders (Tests/Meds): ORDERS Category Date Time Status Urine Culture Stat Micro 02/22/24 13:51 Ordered Medical Decision Narrative: Urine was sent for Culture Patient states that she had hysterectomy 4 weeks ago and has appointment this week with OBGYN will send urine for culture and patient advised to inform OBGYN so they can look at the Culture and see if she may need more antibiotics if the culture is positive
[2024-02-22 14:03] LABS: Apearance,Urine Cloudy (Clear); Bilirubin,Urine Negative (Negative); Blood, Urine Negative (Negative); Color,Urine Dark Yellow (Yellow); Glucose,Urine (UA) Negative (Negative); Ketones,Urine Negative (Negative); PH,Urine 6.5 (5.0-8.5); Protein,Urine Negative (Negative); Specific Gravity, Urine 1.015 (1.005-1.030); Urobilinogen,Urine 0.2 EU/dl (0.2)
[2024-02-22 14:04] LABS: UTC Leukocyte Esterase,Urine Trace (Negative); UTC Nitrate,Urine Negative (Negative)
[2024-02-22 14:05] LABS: UTC Strep Screen (Rapid) Negative (Negative)
[2024-02-22 14:09] VITALS: BP 151/90; PULSE 83; RESP 19; TEMP 36.9; O2SAT 98
== END 2024-02-22 14:17 | disposition home or self-care (01) ==
PROVIDERS: Emergency Provider Nurse Practitioner; PCP Family Medicine
DX: J02.9 Acute pharyngitis, unspecified (principal); R05.9 Cough, unspecified; R09.81 Nasal congestion; R51.9 Headache, unspecified
CPT/HCPCS: 81003; 87086; 87880; 99212; G0381

== ENCOUNTER 2024-03-20 11:29 | Emergency (ER) | payer BC, SELFPAY ==
[2024-03-20] VITALS (9 sets, daily range): BP systolic 93–135; BP diastolic 54–72; PULSE 46–64; RESP 16–20; TEMP 36.6; O2SAT 92–100; BMI 48.6
--- NOTE | 2024-03-20 11:47 | XR_ITS ---
FINAL REPORT CLINICAL HISTORY: Twisted right knee. Acute pain and pop medially. FINDINGS: RIGHT KNEE 3 views of the right knee were obtained. There is no acute fracture or dislocation. There are moderate to severe changes of osteoarthritis. A small joint effusion is present. Soft tissues are unremarkable. IMPRESSION: Moderate to severe changes of osteoarthritis with small joint effusion. No acute bony abnormality. Reviewed, Interpreted and Dictated by Reza Garza MD Transcribed by Luda Zheng Authenticated and [facility]
--- NOTE | 2024-03-20 12:05 | ED_ITS ---
Discharge Plan Disposition Patient Disposition: Home, Self-Care Chief Complaint: PAIN Prescriptions Prescriptions: No Action omeprazole 20 mg capsule,delayed release(DR/EC) 20 mg PO BID Patient Comments: TAKE ONE CAPSULE BY MOUTH EVERY TWELVE HOURS take morning CAPSULE 30 minutes BEFORE morning meal sertraline 100 mg tablet 100 mg PO DAILY clindamycin phosphate 1 % lotion topical Patient Comments: apply a thin layer topically TO THE affected area(s) EVERY DAY estradiol 0.1 mg/24 hr patch weekly 1 patch transdermal WEEKLY Qty: 4 11RF propranolol [Inderal LA] 80 mg capsule,extended release 24 hr 80 mg PO BID Referrals Follow up/Referrals: Taz Ward MD [Primary Care Provider] - See instructions Jeffrey Watkins DO [Staff Physician] - See instructions Activity Restrictions/Add. Instructions Additional Instructions/Restrictions: Call your family doctor to establish care for this visit to the emergency department and schedule follow-up within 48 hours to ensure improvement. If you have any worsening of your condition or any other concerning signs or symptoms, return to the emergency department or your primary care doctor for further evaluation. Follow-up with Dr. Watkins for further evaluation. Full dose aspirin (324 mg) while wearing the immobilizer. Clinical Impressions Clinical Impression: Acute pain of right knee Print Language Print Language: French Discharge ED Provider: Nick Valladares General Adult HPI General Chief complaint: PAIN Stated complaint: R knee pain Time Seen by Provider: 03/20/24 11:33 Mode of Arrival: Wheelchair Source of Information: Patient Limitations: No Limitations Description of Symptoms (Recalled from ER Triage Doc. by RN): pt presents to ED with c/o right knee pain. pt reports that yesterday she was attempting to put panty hose on. and felt a pop on that right knee History of Present Illness HPI narrative: Please note that above description of symptoms, in this electronic medical record under categorization of recalled from ER triage doctor by RN are reflective of an initial nursing assessment, however, is not reflective of my full history and physical exam that was personally taken and clarified. Consequentially, this preceding description of symptoms, which may include the patient's categorized chief complaint in the EMR, do not reflect my personal clinical impression, and the ultimate description of history of present illness and patient stated complaints should be deferred to this section of the note. Unless stated otherwise or congruent with this section of the note, additional signs, symptoms, or incongruence should be interpreted as inaccurate with my clinical impression. Related Data Home Medications ?Medication ?Instructions ?Recorded ?Confirmed omeprazole 20 mg capsule,delayed 20 mg PO BID 12/03/21 03/15/24 release sertraline 100 mg tablet 100 mg PO DAILY 08/12/22 03/15/24 propranolol 80 mg capsule,24 80 mg PO BID 01/26/24 03/15/24 hr,extended release (Inderal LA) clindamycin phosphate 1 % lotion topical 03/15/24 03/15/24 Previous Rx's ?Medication ?Instructions ?Recorded estradiol 0.1 mg/24 hr weekly 1 patch transdermal WEEKLY #4 ea 01/26/24 transdermal patch Allergies Allergy/AdvReac Type Severity Reaction Status Date / Time Penicillins Allergy Unknown Verified 03/15/24 08:42 allergy reaction quetiapine (From Seroquel) Allergy Hives Verified 03/15/24 08:42 [facility] Disclaimer: The information contained in this section may have been updated after the patient was seen, as this information can be updated by other users. Medical History Incidental lung nodule Polycystic ovary Pre-operative cardiovascular examination Dysmenorrhea Menorrhagia Chronic maxillary sinusitis Sinusitis Pharyngitis Otitis media Acute viral syndrome Headache Abscess, peritonsillar Peritonsillar abscess Parotitis Sore throat C. 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 dreams, sleep paralysis Urinary tract infection History of gastroesophageal reflux (GERD) HTN (hypertension) Palpitations Anxiety Bariatric surg stat-del Onychomycosis Abdominal pain Surgical History History of total abdominal hysterectomy and bilateral salpingo-oophorectomy S/P dilation and curettage History of hernia repair History of cholecystectomy H/O bariatric surgery Family History Sister Asthma Mother Heart attack Diabetes Father Diabetes Coronary artery disease Social History Smoking Status: Current every day smoker tobacco type: cigarettes packs per day: 1 second hand exposure: No alcohol intake: never substance use type: denies use current occupational status: employed Travel in the last 8 weeks: None household members: spouse and children housing: house Have you lived/traveled outside [place] in past 30 days?: No Contact w/someone who lives/traveled outside [place] past 30 days?: No Exposure to someone with infectious disease in past 14 days?: No Do you have a fever (greater than 100.4 F or 38 C)?: No Have you tested positive for COVID-19: No Exposed to someone with COVID-19 in past 14 days?: No Do you have a sore throat?: No Do you have a cough?: No Do you have any weakness?: No Do you have any diarrhea?: No Are you experiencing any unusual bleeding?: No Do you have any muscle aches/pain?: No Do you have any abdominal pain?: No Are you experiencing loss of taste or smell?: No Other Medical History Have you received the Flu Vaccine for this season: No Have you received the Pneumonia Vaccine: No ROS Obtained: Yes All systems reviewed & no additional complaints except as documented Physical Exam General General appearance: alert and obese Head Head exam: atraumatic and normocephalic Eye Eye exam: Present normal appearance, PERRL and EOMI Neck Neck exam: Present normal inspection, full ROM and trachea midline Respiratory Respiratory exam: Absent respiratory distress, wheezes, stridor, accessory muscle use or prolonged expiratory phase Cardiovascular Cardiovascular exam: Present other (Pulses equal symmetric in upper and lower extremities) Abdominal Exam Abdominal exam: Present soft; Absent distention, tenderness or pulsatile mass Extremities Exam Extremities exam: Present other (Tenderness about right knee range intact, but painful. No obvious effusion. Structurally intact, neurovascularly intact. Meniscus provocative testing positive.); Absent edema Neurological Exam Neurological exam: Present alert, oriented X3 and CN II-XII intact; Absent motor sensory deficit Skin Skin exam: Present warm and dry; Absent diaphoresis or erythema Medical Decision Making Medical Records Medical records reviewed: Yes I reviewed the patient's medical records. Screening: Per USPSTF and CDC recommendations, given the prevalence of disease in our region, it is our hospital?s policy to screen for HIV and viral Hepatitis for all patients aged 18 and over and those with ongoing risk factors. Malik Inquiry Pt receiving controlled substance: No Malik was queried for this patient: No Vital Signs: 03/20/24 11:30 03/20/24 12:01 03/20/24 12:31 Temperature 97.8 F Temperature Source Oral Pulse Rate 57 L 48 L Pulse Rate [Left Radial] 64 Respiratory Rate 16 Blood Pressure 135/63 103/61 L Blood Pressure [Right Arm] 133/72 Blood Pressure Mean Blood Pressure Mean [Right Arm] 92 02 Sat by Pulse Oximetry 98 99 100 Oxygen Delivery Method Room Air Room Air Room Air 03/20/24 12:45 03/20/24 13:01 03/20/24 13:31 Temperature Temperature Source Pulse Rate 50 L 46 L 55 L Pulse Rate [Left Radial] Respiratory Rate Blood Pressure 103/56 L 112/58 L 108/54 L Blood Pressure [Right Arm] Blood Pressure Mean 77 77 Blood Pressure Mean [Right Arm] 02 Sat by Pulse Oximetry 97 92 L 99 Oxygen Delivery Method 03/20/24 14:01 03/20/24 14:31 Temperature Temperature Source Pulse Rate 55 L 55 L Pulse Rate [Left Radial] Respiratory Rate Blood Pressure 93/72 L 108/60 L Blood Pressure [Right Arm] Blood Pressure Mean 76 75 Blood Pressure Mean [Right Arm] 02 Sat by Pulse Oximetry 100 100 Oxygen Delivery Method Room Air Orders (Tests/Meds): ED MEDICATIONS Discontinued Medications Generic Name Dose Route Start Last Admin Trade Name Freq PRN Reason Stop Dose Admin Ketorolac Tromethamine 15 mg 03/20/24 12:06 03/20/24 12:08 Ketorolac 30mg/Ml Vial IM 03/20/24 12:07 15 mg ONCE ONE Administration ORDERS Category Date Time Status CT knee RT wo con Stat Cat Scan 03/20/24 13:00 Completed Knee XR right 3 views [XR knee RT 3V] Stat Exams 03/20/24 11:47 Completed POCUS Point of Care (ER Only) Stat Exams 03/20/24 11:47 Taken HIV (1&2) Antibody Rapid Stat Lab 03/20/24 11:41 Ordered Hep C Ab with Reflex to RNA Stat Lab 03/20/24 11:41 Ordered Medical Decision Narrative: 38-year-old female with chronic right knee pain presenting with acute on chronic right knee pain. Patient states that she has osteoarthritis in her right knee. States that she was putting on her pantyhose when she twisted her leg, extended, felt a pop in her right knee that was bad enough that caused her become clammy and feeling nauseated. Has not taken anything for the pain since that time. Came in for further evaluation. Patient states that she is unable to straighten her leg fully without significant pain. Primarily anterior/medial aspect of her knee. No trauma sustained. History obtained with patient. On arrival, range of motion is intact, but painful, especially in extreme of extension. No obvious joint effusion, limited secondary to habitus. Patient states that she has always had looser skin on this knee secondary to massive weight loss, losing over 200 pounds. Neurovascular intact lower extremity. Differential includes sprain, strain, neurovascular injury, fracture, meniscus injury, among others. Patient was given 15 IM Toradol. Independent interpretation of x-rays with concern for potential tibial plateau fracture. CT of the knee was ordered. On independent rotation, no acute fracture, but she does have severe osteoarthritis. No obvious large joint effusion. Conversation with patient regarding need for outpatient follow-up, she voiced her understanding for need for MRI and orthopedic follow-up. Patient requires orthopedic bracing due to weakness or deformity requiring stabilization. The use of this brace will benefit the patient's functionality and prevent further injury. Patient starting to have back pain and neighboring joint pain secondary to knee pain, so knee immobilizer placed. Recommended she take full dose aspirin until following up. Because patient at baseline without signs or symptoms of clinical decompensation, deemed appropriate for discharge. Results were relayed to patient who voiced understanding and were agreeable to outpatient management and follow up. I discussed my clinical impression with patient and answered all questions. At this time, the evidence for any other entities in the differential is insufficient to warrant any further testing or ED observation. This was explained as well. Advisory was given that persistent or worsening symptoms require further evaluation. I confirmed the understanding of this discussion. Client Services Specialist disclaimer Much of this encounter note is an electronic legal billing specialist spoken language to printed text. Electronic legal billing specialist of the spoken language may permit errors. Although I have reviewed the note, some errors may still exist. Critical Care Critical Care Time Critical Care Time: No
[2024-03-20] MEDS: KETOROLAC 30MG/ML VIAL 15 MG IM (12:08)
--- NOTE | 2024-03-20 13:00 | CT_ITS ---
FINAL REPORT TECHNIQUE: Thin section axial CT images of the right knee with coronal and sagittal reformats were performed. This study was performed with techniques to keep radiation doses as low as reasonably achievable (ALARA). Individualized dose reduction techniques using automated exposure control or adjustment of mA and/or kV according to the patient''s size were employed. CLINICAL HISTORY: concern for tib plat fracture FINDINGS: There are no fractures. There are moderate to severe tricompartmental degenerative changes. Small calcified joint body is seen along the anterior tibial spine. There is also a small joint body in the lateral suprapatellar bursa. A moderate-sized joint effusion is present. There are no masses or fluid collections. There are no soft tissue abnormalities. IMPRESSION: No acute bony abnormality. Small calcified joint body along the anterior tibial spine and at the lateral suprapatellar bursa. Moderate to severe tricompartmental degenerative changes. Reviewed, Interpreted and Dictated by Reza Garza MD Transcribed by Luda Zheng Authenticated and [facility]
== END 2024-03-20 15:58 | disposition home or self-care (01) ==
PROVIDERS: Emergency Provider Emergency Medicine; PCP Family Medicine
DX: M25.561 Pain in right knee (principal)
CPT/HCPCS: 73562; 73700; 96372; 99284; J1885

== ENCOUNTER 2024-05-19 16:58 | Emergency (ER) | payer BC, SELFPAY ==
[2024-05-19 17:06] VITALS: BP 162/77; PULSE 70; RESP 18; TEMP 36; O2SAT 100; BMI 49.4
[2024-05-19 18:14] VITALS: BP 132/79; PULSE 89; RESP 18; O2SAT 99
--- NOTE | 2024-05-19 18:28 | ED_ITS ---
Discharge Plan Disposition Patient Disposition: Home, Self-Care Condition: Good Prescriptions Prescriptions: New cephalexin 500 mg capsule 500 mg PO BID 7 Days Qty: 14 0RF No Action omeprazole 20 mg capsule,delayed release(DR/EC) 20 mg PO BID Patient Comments: TAKE ONE CAPSULE BY MOUTH EVERY TWELVE HOURS take morning CAPSULE 30 minutes BEFORE morning meal sertraline 100 mg tablet 100 mg PO DAILY estradiol 0.1 mg/24 hr patch weekly 1 patch transdermal WEEKLY Qty: 4 11RF propranolol [Inderal LA] 80 mg capsule,extended release 24 hr 80 mg PO BID Referrals Follow up/Referrals: Taz Ward MD [Primary Care Provider] - See instructions Activity Restrictions/Add. Instructions Additional Instructions/Restrictions: Please keep area clean and dry. Try to let the area be exposed to air is much as possible. Take the oral antibiotic as directed. Follow-up with dermatology. Clinical Impressions Clinical Impression: Open wound Stand Alone Forms Stand Alone Forms: Work/School Release Instructions Patient Instructions: DI for Wound Infection Print Language Print Language: Turkish Discharge ED Provider: Sunshine Lamb General Adult HPI <Afshan Marsh APRN - Last Filed: 05/19/24 18:33> General Chief complaint: Wound/Laceration Stated complaint: ? infected area on left side of face Time Seen by Provider: 05/19/24 18:15 Mode of Arrival: Ambulatory Source of Information: Patient Limitations: No Limitations Description of Symptoms (Recalled from ER Triage Doc. by RN): Patient presents with a wound to the left side of her face. States it has been present since January. States she was seen at [facility] and was given a steroid injection for it in January. Denies seeking treatment since. States, I came in today because I'm just over it. States it is no longer draining purulent drainage. Patient also endorses picking at it. History of Present Illness HPI narrative: Patient is a 38-year-old female who presents to the ED with complaints of a pimple on her left cheek has been present since January. Related Data Home Medications ?Medication ?Instructions ?Recorded ?Confirmed omeprazole 20 mg capsule,delayed 20 mg PO BID 12/03/21 05/19/24 release sertraline 100 mg tablet 100 mg PO DAILY 08/12/22 05/19/24 propranolol 80 mg capsule,24 80 mg PO BID 01/26/24 05/19/24 hr,extended release (Inderal LA) Previous Rx's ?Medication ?Instructions ?Recorded estradiol 0.1 mg/24 hr weekly 1 patch transdermal WEEKLY #4 ea 01/26/24 transdermal patch cephalexin 500 mg capsule 500 mg PO BID 7 days #14 caps 05/19/24 Allergies Allergy/AdvReac Type Severity Reaction Status Date / Time Penicillins Allergy Unknown Verified 05/19/24 18:20 allergy reaction quetiapine (From Seroquel) Allergy Hives Verified 05/19/24 18:20 PFS <Afshan Marsh, PHYTOCHEMISTRY PROFESSOR - Last Filed: 05/19/24 18:33> PFS Disclaimer: The information contained in this section may have been updated after the jostin ent was seen, as this information can be updated by other users. Medical History Incidental lung nodule Polycystic ovary Pre-operative cardiovascular examination Dysmenorrhea Menorrhagia Chronic maxillary sinusitis Sinusitis Pharyngitis Otitis media Acute viral syndrome Headache Abscess, peritonsillar Peritonsillar abscess Parotitis Sore throat C. 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 dreams, sleep paralysis Urinary tract infection History of gastroesophageal reflux (GERD) HTN (hypertension) Palpitations Anxiety Bariatric surg stat-del Onychomycosis Abdominal pain Surgical History History of total abdominal hysterectomy and bilateral salpingo-oophorectomy S/P dilation and curettage History of hernia repair History of cholecystectomy H/O bariatric surgery Family History Sister Asthma Mother Heart attack Diabetes Father Diabetes Coronary artery disease Social History Smoking Status: Current every day smoker tobacco type: cigarettes packs per day: 1 second hand exposure: No alcohol intake: never substance use type: denies use current occupational status: employed Travel in the last 8 weeks: None household members: spouse and children housing: house Have you lived/traveled outside [place] in past 30 days?: No Contact w/someone who lives/traveled outside US past 30 days?: No Exposure to someone with infectious disease in past 14 days?: No Do you have a fever (greater than 100.4 F or 38 C)?: No Have you tested positive for COVID-19: No Exposed to someone with COVID-19 in past 14 days?: No Do you have a sore throat?: No Do you have a cough?: No Do you have any weakness?: No Do you have any diarrhea?: No Are you experiencing any unusual bleeding?: No Do you have any muscle aches/pain?: No Do you have any abdominal pain?: No Are you experiencing loss of taste or smell?: No Other Medical History Have you received the Flu Vaccine for this season: No Have you received the Pneumonia Vaccine: No <Afshan Marsh APRN - Last Filed: 05/19/24 18:33> ROS Obtained: Yes Systems reviewed as appropriate & no additional complaints except as documented Physical Exam <Afshan Marsh APRN - Last Filed: 05/19/24 18:33> General General appearance: alert and in no apparent distress Head Head exam: atraumatic, normocephalic and other (Small, pea-sized circular open wound on the left cheek, minimal amount of purulent drainage noted, no fluctuance, no surrounding erythema) Eye Eye exam: Present normal appearance and PERRL ENT ENT exam: Present normal exam Neck Neck exam: Present normal inspection Chest Chest inspection: Present normal inspection and symmetric chest wall rise; Absent tenderness Respiratory Respiratory exam: Present normal lung sounds bilaterally Cardiovascular Cardiovascular exam: Present regular rate Abdominal Exam Abdominal exam: Present soft and normal bowel sounds; Absent tenderness Extremities Exam Extremities exam: Present normal inspection and full ROM Back Exam Back exam: Present normal inspection and full ROM Neurological Exam Neurological exam: Present alert and oriented X3 Psychiatric Psychiatric exam: Present normal affect and normal mood Skin Skin exam: Present warm and dry Medical Decision Making <Afshan Marsh APRN - Last Filed: 05/19/24 18:33> Medical Records Screening: Per USPSTF and CDC recommendations, given the prevalence of disease in our region, it is our hospital?s policy to screen for HIV and viral Hepatitis for all patients aged 18 and over and those with ongoing risk factors. Malik Inquiry Pt receiving controlled substance: No Malik was queried for this patient: No Vital Signs: 05/19/24 17:06 05/19/24 18:14 05/19/24 18:37 Temperature 96.8 F L 98.0 F Temperature Source Temporal Artery Scan Temporal Artery Scan Pulse Rate 89 80 Pulse Rate [Radial] 70 Respiratory Rate 18 18 18 Blood Pressure 132/79 132/79 Blood Pressure [R Arm] 162/77 H Blood Pressure Mean [R Arm] 105 Blood Pressure Source Automatic Cuff Blood Pressure Source [R Arm] Automatic Cuff Blood Pressure Position [R Arm] Supine 02 Sat by Pulse Oximetry 100 99 Oxygen Delivery Method Room Air Room Air Room Air Medical Decision Narrative: In summary, patient is a 38-year-old female PMHx sinusitis, headache, obesity, hypertension, history of palpitations who presents to the ED for open area on left cheek since January 2024. Upon initial exam, patient is alert, oriented and cooperative. Patient is hemodynamically stable. Physical exam remarkable for pea-sized open circular wound on left cheek, area has very minimal amount of purulent fluid in it. Area is not fluctuant. No abscess noted. No surrounding erythema. Patient states she has been diagnosed with acne, states she followed with dermatology for this pimple in January and was told it was fungal related. Patient has been putting clindamycin lotion over the pimple without any relief. Patient has been keeping the area covered with a Band-Aid. Patient has not followed back up with dermatology. Differential diagnosis includes pimple, acne, open wound, abscess I considered additional testing but deferred due to patient can be easily treated with oral antibiotic without need of further testing. I had an interactive discussion with the patient, she is agreeable to take a course of oral Keflex. I advised her she will need to follow back up with dermatology for further evaluation. We discussed return precautions to the ED. Patient states she has taken Keflex in the past without any adverse reactions. She remained hemodynamically stable and ambulatory from the ED. <Sunshine Lamb MD - Last Filed: 05/19/24 20:05> Vital Signs: 05/19/24 17:06 05/19/24 18:14 05/19/24 18:37 Temperature 96.8 F L 98.0 F Temperature Source Temporal Artery Scan Temporal Artery Scan Pulse Rate 89 80 Pulse Rate [Radial] 70 Respiratory Rate 18 18 18 Blood Pressure 132/79 132/79 Blood Pressure [R Arm] 162/77 H Blood Pressure Mean [R Arm] 105 Blood Pressure Source Automatic Cuff Blood Pressure Source [R Arm] Automatic Cuff Blood Pressure Position [R Arm] Supine 02 Sat by Pulse Oximetry 100 99 Oxygen Delivery Method Room Air Room Air Room Air Medical Decision Narrative: In summary, patient is a 38-year-old female PMHx sinusitis, headache, obesity, hypertension, history of palpitations who presents to the ED for open area on left cheek since January 2024. Upon initial exam, patient is alert, oriented and cooperative. Patient is hemodynamically stable. Physical exam remarkable for pea-sized open circular wound on left cheek, area has very minimal amount of purulent fluid in it. Area is not fluctuant. No abscess noted. No surrounding erythema. Patient states she has been diagnosed with acne, states she followed with dermatology for this pimple in January and was told it was fungal related. Patient has been putting clindamycin lotion over the pimple without any relief. Patient has been keeping the area covered with a Band-Aid. Patient has not followed back up with dermatology. Differential diagnosis includes pimple, acne, open wound, abscess I considered additional testing but deferred due to patient can be easily treated with oral antibiotic without need of further testing. I had an interactive discussion with the patient, she is agreeable to take a course of oral Keflex. I advised her she will need to follow back up with dermatology for further evaluation. We discussed return precautions to the ED. Patient states she has taken Keflex in the past without any adverse reactions. She remained hemodynamically stable and ambulatory from the ED. I was consulted by the BRISSA, and we discussed the complexity of problems being addressed. I approved the treatment and management plan for this patient's care in the emergency department, thus performing a substantial portion of the medical decision making. Sunshine Lamb MD Critical Care <Afshan Marsh, PHYTOCHEMISTRY PROFESSOR - Last Filed: 05/19/24 18:33> Critical Care Time Critical Care Time: No
[2024-05-19 18:37] VITALS: BP 132/79; PULSE 80; RESP 18; TEMP 36.7; O2SAT 97
== END 2024-05-19 18:38 | disposition home or self-care (01) ==
PROVIDERS: Emergency Provider Student in an Organized Health Care Education/Training Program; PCP Family Medicine
DX: T14.8XXA Other injury of unspecified body region, initial encounter (principal); F17.210 Nicotine dependence, cigarettes, uncomplicated
CPT/HCPCS: 99283

== ENCOUNTER 2024-07-11 22:53 | Emergency (ER) | payer BC, SELFPAY ==
[2024-07-11 23:01] VITALS: BP 150/83; PULSE 63; RESP 15; TEMP 36.6; O2SAT 100; BMI 49.4
[2024-07-11 23:21] VITALS: BP 129/73; PULSE 59; O2SAT 100
[2024-07-11 23:31] LABS: Basophils % 0.5 % (0.1-2.0); Eosinophils # 0.3 K/mm3 (0.0-0.4); Hematocrit 40.4 % (37.0-47.0); Hemoglobin 12.6 g/dL (12.2-16.2); Lymphocytes # 2.8 K/mm3 (0.7-4.5); Lymphocytes % 32.4 % (10-50); Mean Corpuscular HGB Conc 31.2 g/dL (31.8-35.4); Mean Corpuscular Hemoglobin 25.8 pg (27.0-31.2); Mean Corpuscular Volume 82.8 fl (81-99); Mean Platelet Volume 9.8 fl (7.4-10.4); Monocytes # 0.5 K/mm3 (0.1-1.0); Monocytes % 6.2 % (1.7-9.3); Neutrophils % 57.8 % (37.0-80.0); Platelet Count 357 K/mm3 (142-424); Red Blood Count 4.88 M/mm3 (4.20-5.40); Red Cell Distribution Width 15.2 % (11.5-17.5); White Blood Count 8.7 K/mm3 (4.8-10.8)
[2024-07-11 23:37] LABS: Alanine Aminotransferase 13 U/L (12-78); Albumin Level 3.8 g/dl (3.5-5.0); Albumin/Globulin Ratio 1.2 (1.1-1.8); Alkaline Phosphatase 68 U/L (38-126); Anion Gap 13.1 mEq/L (5-15); Aspartate Amino Transferase 18 U/L (14-36); Bilirubin,Total 0.4 mg/dl (0.2-1.3); Blood Urea Nitrogen 11 mg/dl (7-17); Calcium 8.6 mg/dl (8.4-10.2); Carbon Dioxide 25 mmol/L (22.0-30.0); Chloride 108 mmol/L (98-107); Creatinine Clearance Estimated 107 mL/min (50-200); Estimated Glomerular Filt Rate 92 ml/min (>60); GFR (African American) 112 ML/MIN (>60); Globulin 3.2 g/dL (1.3-3.2); Glucose 118 mg/dl (74-100); Potassium 4.1 mmoL/L (3.5-5.1); Sodium 142 mmol/L (136-145)
[2024-07-11] MEDS: ACETAMINOPHEN 500MG TAB 1000 MG PO (23:37)
[2024-07-11] MEDS: LACTATED RINGERS 1000ML 1,000 ML 999 ML IV (23:37)
[2024-07-11] MEDS: METOCLOPRAMIDE 10MG TABLET 5 MG PO (23:37)
[2024-07-11] MEDS: KETOROLAC 30MG/ML VIAL 30 MG IV (23:39)
[2024-07-11] MEDS: DEXAMETHASONE 4MG/ML 1ML VIAL 6 MG IV (23:39)
[2024-07-11 23:41] LABS: HCG Qualitative, Serum Negative (Negative)
[2024-07-11] MEDS: diphenhydrAMINE 50MG/ML VIAL 50 MG IV (23:41)
--- NOTE | 2024-07-11 23:50 | HMH.EDGENADL ---
Discharge Plan Disposition Patient Disposition: Home, Self-Care Condition: Good Prescriptions Prescriptions: New lidocaine 5 % adhesive patch,medicated See Rx Instructions .ROUTE .COMPLEX Qty: 15 0RF Rx Instructions: Apply to most painful area and leave on for 12 hours. Remove and leave off for 12 hours before using a new patch. No Action omeprazole 20 mg capsule,delayed release(DR/EC) 20 mg PO BID Patient Comments: TAKE ONE CAPSULE BY MOUTH EVERY TWELVE HOURS take morning CAPSULE 30 minutes BEFORE morning meal sertraline 100 mg tablet 100 mg PO DAILY estradiol 0.1 mg/24 hr patch weekly 1 patch transdermal WEEKLY Qty: 4 11RF propranolol [Inderal LA] 80 mg capsule,extended release 24 hr 80 mg PO BID Referrals Follow up/Referrals: Taz Ward MD [Primary Care Provider] - See instructions Activity Restrictions/Add. Instructions Additional Instructions/Restrictions: You were evaluated in the ER and are believed to be appropriate for discharge at this time. Continue home medications as previously prescribed. Use the prescribed lidocaine patches on the sore area of your shoulders if needed. Please call your primary care doctor and make an appointment for close follow-up and reevaluation in the next few days. Return to the ER with any new, worsening, or otherwise concerning symptoms. Clinical Impressions Clinical Impression: Headache, Muscle ache Print Language Print Language: Uzbek Discharge ED Provider: Phil Denton Adult HPI General Chief complaint: Headache Stated complaint: Migraine,neck and shoulder pain Time Seen by Provider: 07/11/24 23:12 Mode of Arrival: Ambulatory Source of Information: Patient Description of Symptoms (Recalled from ER Triage Doc. by RN): Patient states that she started to have a migraine x4days ago without relief and now she started having neck and shoulder pain this evening. pain 7/10, denies blurry vision/double vision/N/V/D. Complains of intermittent dizziness. History of Present Illness HPI narrative: 39-year-old female with a history of anxiety, PVCs on propranolol and sertraline as well as a history of gastric sleeve on omeprazole presents to the ER with 4 days of headache. She reports the pain is all over in the head and she also has sinus pressure. She states her shoulders feel tight as well. She states she has tried Tylenol, Advil, Excedrin. Today she took Excedrin approximately 5 hours prior to arrival. She has not had significant relief of symptoms with any of these interventions. She reports no fevers, chills, dizziness, numbness, tingling, weakness, vision changes, nausea, vomiting, or diarrhea. She states she is somewhat sensitive to light. She had reported to nursing staff during triage that she was dizzy but she states she does not have actual dizziness but that it is a sensation of floating when she feels pressure in her sinuses. She denies any chest pain, cough, congestion, or sore throat. She has no other complaints or concerns at this time. Related Data Home Medications ?Medication ?Instructions ?Recorded ?Confirmed omeprazole 20 mg capsule,delayed 20 mg PO BID 12/03/21 06/11/24 release sertraline 100 mg tablet 100 mg PO DAILY 08/12/22 06/11/24 propranolol 80 mg capsule,24 80 mg PO BID 01/26/24 06/11/24 hr,extended release (Inderal LA) Previous Rx's ?Medication ?Instructions ?Recorded estradiol 0.1 mg/24 hr weekly 1 patch transdermal WEEKLY #4 ea 01/26/24 transdermal patch lidocaine 5 % topical patch See Rx Instructions topical 07/12/24 .COMPLEX #15 ea Allergies Allergy/AdvReac Type Severity Reaction Status Date / Time Penicillins Allergy Unknown Verified 06/11/24 17:38 allergy reaction quetiapine (From Seroquel) Allergy Hives Verified 06/11/24 17:38 [facility] Disclaimer: The information contained in this section may have been updated after the patient was seen, as this information can be updated by other users. Medical History Incidental lung nodule Polycystic ovary Pre-operative cardiovascular examination Dysmenorrhea Menorrhagia Chronic maxillary sinusitis Sinusitis Pharyngitis Otitis media Acute viral syndrome Headache Abscess, peritonsillar Peritonsillar abscess Parotitis Sore throat C. 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 dreams, sleep paralysis Urinary tract infection History of gastroesophageal reflux (GERD) HTN (hypertension) Palpitations Anxiety Bariatric surg stat-del Onychomycosis Abdominal pain Surgical History History of total abdominal hysterectomy and bilateral salpingo-oophorectomy S/P dilation and curettage History of hernia repair History of cholecystectomy H/O bariatric surgery Family History Sister Asthma Mother Heart attack Diabetes Father Diabetes Coronary artery disease Social History Smoking Status: Never smoker second hand exposure: No alcohol intake: never substance use type: denies use current occupational status: employed Travel in the last 8 weeks: None household members: spouse and children housing: house Other Medical History Have you received the Flu Vaccine for this season: No Have you received the Pneumonia Vaccine: No ROS Obtained: Yes Systems reviewed as appropriate & no additional complaints except as documented Per HPI Physical Exam General General appearance: alert and in no apparent distress Head Head exam: atraumatic and normocephalic Eye Eye exam: Present PERRL and EOMI ENT ENT exam: Present mucous membranes moist Neck Neck exam: Present normal inspection and full ROM Chest Chest inspection: Present symmetric chest wall rise Respiratory Respiratory exam: Present normal lung sounds bilaterally; Absent respiratory distress, wheezes or stridor Cardiovascular Cardiovascular exam: Present regular rate and normal rhythm Abdominal Exam Abdominal exam: Present soft; Absent distention or tenderness Extremities Exam Extremities exam: Present full ROM; Absent edema Neurological Exam Neurological exam: Present alert, oriented X3, CN II-XII intact and normal gait; Absent motor sensory deficit Psychiatric Psychiatric exam: Present normal affect and normal mood Skin Skin exam: Present warm and dry Medical Decision Making Medical Records Screening: Per USPSTF and CDC recommendations, given the prevalence of disease in our region, it is our hospital?s policy to screen for HIV and viral Hepatitis for all patients aged 18 and over and those with ongoing risk factors. Malik Inquiry Pt receiving controlled substance: No Vital Signs: 07/11/24 23:01 07/11/24 23:21 07/12/24 00:00 Temperature 97.9 F Temperature Source Oral Pulse Rate 59 L 61 Pulse Rate [Right] 63 Respiratory Rate 15 Blood Pressure 129/73 Blood Pressure [Right Arm] 150/83 H Blood Pressure Mean Blood Pressure Mean [Right Arm] 105 Blood Pressure Source [Right Arm] Automatic Cuff Blood Pressure Position [Right Arm] Sitting 02 Sat by Pulse Oximetry 100 100 98 Oxygen Delivery Method Room Air Room Air 07/12/24 00:00 Temperature Temperature Source Pulse Rate Pulse Rate [Right] Respiratory Rate Blood Pressure 122/70 Blood Pressure [Right Arm] Blood Pressure Mean 78 Blood Pressure Mean [Right Arm] Blood Pressure Source [Right Arm] Blood Pressure Position [Right Arm] 02 Sat by Pulse Oximetry Oxygen Delivery Method Lab Data Lab Results 07/11/24 23:20: WBC 8.7, RBC 4.88, Hgb 12.6, Hct 40.4, MCV 82.8, MCH 25.8 L, MCHC 31.2 L, RDW 15.2, Plt Count 357, MPV 9.8, Neut % (Auto) 57.8, Lymph % (Auto) 32.4, [place] % (Auto) 6.2, Eos % (Auto) 3.0, Baso % (Auto) 0.5, Neut # (Auto) 5.0, Lymph # (Auto) 2.8, [place] # (Auto) 0.5, Eos # (Auto) 0.3, Baso # (Auto) 0.0, Sodium 142, Potassium 4.1, Chloride 108 H, Carbon Dioxide 25, Anion Gap 13.1, BUN 11, Creatinine 0.70, Estimated Creat Clear 107, Estimated GFR 92, Est GFR ( Amer) 112, Glucose 118 H, Calcium 8.6, Magnesium 2.2, Total Bilirubin 0.4, AST 18, ALT 13, Alkaline Phosphatase 68, Total Protein 7.0, Albumin 3.8, Globulin 3.2, Albumin/Globulin Ratio 1.2, Serum HCG, Qual Negative 07/11/24 23:20 07/11/24 23:20 Orders (Tests/Meds): ED MEDICATIONS Generic Name Dose Route Start Last Admin Trade Name Freq PRN Reason Stop Dose Admin Magnesium Sulfate 2 gm in 50 mls @ 50 mls/hr 07/12/24 00:35 07/12/24 00:41 Magnesium Sulfate 2gm/50ml Premix IV 07/12/24 01:34 50 mls/hr ONCE ONE Administration Discontinued Medications Generic Name Dose Route Start Last Admin Trade Name Freq PRN Reason Stop Dose Admin Acetaminophen 1,000 mg 07/11/24 23:24 07/11/24 23:37 Acetaminophen 500mg Tab PO 07/11/24 23:25 1,000 mg ONCE ONE Administration Dexamethasone Sodium Phosphate 6 mg 07/11/24 23:25 07/11/24 23:39 Dexamethasone 4mg/Ml 1ml Vial IV 07/11/24 23:26 6 mg ONCE ONE Administration Diphenhydramine HCl 50 mg 07/11/24 23:19 07/11/24 23:41 Diphenhydramine 50mg/Ml Vial IV 07/11/24 23:20 50 mg ONCE ONE Administration Lactated Ringer's 1,000 mls @ 999 mls/hr 07/11/24 23:24 07/11/24 23:37 Lactated Ringer's 1000 Ml Bag IV 07/12/24 00:24 999 mls/hr .Q1H1M ONE Administration Ketorolac Tromethamine 30 mg 07/11/24 23:19 07/11/24 23:39 Ketorolac 30mg/Ml Vial IV 07/11/24 23:20 30 mg ONCE ONE Administration Lidocaine 1 each 07/12/24 00:22 07/12/24 00:27 Lidocaine 5% Transdermal Patch TD 07/12/24 00:23 1 each ONCE ONE Administration Methocarbamol 500 mg 07/12/24 00:22 07/12/24 00:28 Methocarbamol 500mg Tablet PO 07/12/24 00:23 500 mg ONCE ONE Administration Metoclopramide HCl 5 mg 07/11/24 23:19 07/11/24 23:37 Metoclopramide 10mg Tablet PO 07/11/24 23:20 5 mg ONCE ONE Administration ORDERS Category Date Time Status CBC w/Auto Diff [Complete Blood Count Auto Diff] Stat Lab 07/11/24 23:20 Completed CMP [Comprehensive Metabolic Panel] Stat Lab 07/11/24 23:20 Completed HCG Qualitative, Serum Stat Lab 07/11/24 23:20 Completed Magnesium Stat Lab 07/12/24 00:00 Completed Medical Decision Narrative: In summary, this 39-year-old female with comorbidities described in the HPI which may not be at goal therapy presents to the emergency department today with headache, tension and discomfort through the shoulders. On initial evaluation patient is hemodynamically stable, afebrile, GCS 15, no neurologic deficits, overall well-appearing, she does have tenderness of the bilateral trapezius muscles but no other focal abnormalities on exam. Differential diagnosis includes but is not limited to migraine, tension headache, electrolyte abnormality, muscle spasm. No red flag symptoms of headache, no thunderclap onset or associated neurodeficits. I do not believe imaging is indicated at this time. Basic labs were ordered. Patient initially received Toradol, Tylenol, Benadryl, Reglan, dexamethasone, IV fluids. Labs reviewed by me demonstrate no actionable abnormalities. No leukocytosis or anemia, normal platelets, no evidence of kidney dysfunction or actionable electrolyte abnormality. On reassessment patient has had improvement of her headache but still reports tension and discomfort through the posterior shoulders. Lidocaine patch was applied, methocarbamol administered, IV magnesium administered. On further reassessment, patient's symptoms have dramatically improved. She states she feels significantly better. The IV magnesium has not yet finished but she would like to be discharged which I believe is reasonable. I am reassured by her significant improvement of symptoms. She is appropriate for discharge. Lidocaine patches prescribed. Patient was given instructions on symptomatic management, follow up instructions, and return precautions for the emergency department. Patient indicated understanding and was discharged in stable condition. Critical Care Critical Care Time Critical Care Time: No
[2024-07-12] VITALS: BP 122/70; PULSE 61; O2SAT 98
[2024-07-12] MEDS: LIDOCAINE 5% TRANSDERMAL PATCH 1 EACH TD (00:27)
[2024-07-12] MEDS: METHOCARBAMOL 500MG TABLET 500 MG PO (00:28)
[2024-07-12 00:33] LABS: Magnesium 2.2 mg/dl (1.6-2.3)
[2024-07-12] MEDS: MAGNESIUM SULFATE IN WATER 2 GM/50 ML PIGGYBACK IV (00:41)
[2024-07-12 01:28] VITALS: BP 109/67; PULSE 54; RESP 15; TEMP 36.8; O2SAT 97
--- OUTSIDE RECORDS SUMMARY | 2024-07-13 21:40 | XMS_ITS | Continuity of Care Document ---
Author Organization [facility] Address [address] [place] [address] Assessment No assessment recorded. Plan of Treatment Reminders Order Date Submit Date Provider Last Modified By Organization Details Last Modified Time Details Appointments EMG 2024 09:15A M Neuro_Tec h_2 Not available Not available Not available RECHECK 2024 01:00P M ALAN BRITO MD Not available Not available Not available Lab None recorded . Referral None recorded . Procedures None recorded . Surgeries None recorded . Imaging None recorded . Medication Orders None recorded . Patient TargetsNo targets recorded. Patient Instructions Encounter Date Encounter Id Patient Instructions Last Modified By Organization Details Last Modified Time 06/29/2024 [id number] The right knee was injected without difficulty and patient tolerated the procedure well. [email or web address] Not available 06/29/2024 15:03:21 Reason for Referral None Reported. Results Created Date Observation Date Name Description Value Unit Range Abnormal Flag Note LastModifiedBy Organization Detail LastModifiedTime 06/30/1906/29/2024 XR, hand, 3 or more view [place] [facility] [address] [place] [address] Patikevin t Name: PEDRO arellano : 984 Faby arellano 78 Orderi ng Provid er: TATE ARGUELLES EXAM DATE: 2024 EXAM: XR MELISSA HANDS 3VWS HISTOR Y: Chroni c bilate ral hand pain COMPAR ARASH: None. FINDIN GS: The bones of the left and right hand are normal in alignm ent. There is no eviden ce of fractu re. There are minima l to mild degene rative change s. There is minima l to mild margin al spurri ng. IMPRES RIGO: 1. There are minima l to mild degene rative change s in the left and right hand. Interp reted By: Kori moore MD Electr onical ly Signed By: Kori moore MD on 025 3:36 PM [email or web address] [facility] [place] [address], [place], [address], 06/30/2024 08:25:50 Result Notes None recorded. Problems Name Problem SNOMED Code Status Onset Date Resolution Date Notes Provider Name and Address Organization Details Recorded Time Intertrigo 88376304 Active 2023 Erica Meza [facility] 4 15:45:07 Acne vulgaris 93779887 Active 2023 Erica Meza [facility] 4 15:46:51 Hidradenitis suppurativa 48175449 Active 2023 Erica Meza [facility] 4 15:47:50 Granuloma annulare 31657120 Active 2023 Erica Meza [facility] 4 16:01:47 Multiple benign melanocytic nevi 366088468 Active 2023 Erica Meza [facility] 4 16:24:10 Seborrheic keratosis 961517516 Active 2023 [facility] 4 16:24:10 Solar lentigo 64327137 Active 2023 Erica Meza [facility] 4 16:24:10 Senile angioma 7418500 Active 2023 Erica Meza [facility] 4 16:24:10 Problem Notes None recorded. Procedures Surgical History Date Name Laterality Status Provider Name and Address Organization Details Recorded Time 06/30/19 25 Injection Joint/Bursa, Major completed MARIYA MCKEON [address] [place], [address], [facility] 06/29/2024 15:02:44 06/09/19 25 Biopsy Skin Lesion; Punch completed Theodore Johnson [facility] 06/08/2024 13:07:34 06/09/19 25 DAK - Intralesional Injection completed Theodore Johnson [facility] 06/08/2024 13:10:03 03/24/20 24 Injection Joint/Bursa, Major completed MARIYA MCKEON [address] [place], [address], [facility] 03/24/2024 15:45:45 12/28/19 24 DAK - Intralesional Injection completed Erica Meza [facility] 12/28/2023 11:49:44 Imaging Results None recorded. Procedure Notes None recorded. Medical Equipment None Reported. Allergies Allergen ID Allergen Name Allergen Category Reaction Reaction Severity Criticality Documentation Date Start Date Code Code System Note Provider Name and Address Organization Details Recorded Time 782568 Product containin g penicilli n (product) medicatio n Not available Not available Not available 11/01/2023 14189 8001 SNOMED [facility] 15:14:00 739279 Seroquel medicatio n Not available Not available Not available 11/01/2023 01352 RxNorm [facility] 15:14:12 Medications Name Sig Start Date Stop Date Status Note LastModified by Organization Details LastModified Time clobetasol 0.05 % topical ointment apply to lesions on hands BID up to two weeks at a time. Do not use on face, groin, axilla. 2023 active Not Available Not Available Not Avai lable ketoconazol e 2 % topical cream apply thin layer to folds of skin BID 06/29 completed Not Available Not Available Not Available estradiol 0.025 mg/24 hr semiweekly transdermal patch Apply 1 patch twice a week by transderm al route. active Not Available Not Available No t Available clindamycin 1 % lotion apply thin layer to AA QD 2023 active Not Available Not Available Not Avai lable sertraline active Not Available Not Av ailable Not Available omeprazole active Not Available Not Av ailable Not Available propranolol active Not Available Not A vailable Not Available cannabidiol (CBD) oral edible Take by oral route. active Not Available Not Available No t Available Vitals Date Recorded Body height Provider Name an d Address Organization Details Last Updated DateTime 06/29/2024 172.72 cm Al Childress [facility] 06/29/2024 13:58:58 Date Recorded Body height Pain severity - 0-10 verbal numeric rating [Score] - Reported Body mass index (BMI) Body weight Provider Name and Address Organization Details Last Updated DateTime 06/29/2024 172.72 cm 4 49.4 kg/m2 279177.52 g Asif Tito [facility] 06/29/2024 14:51:53 Social History Question Answer Notes LastModified by Organizat ion Details LastModified Time Tobacco Smoking Status Current [facility] 11/01/2023 15:15:37 What Is Your Level Of Alcohol Consumption? Occasional [email or web address] Information not available 11/01/2023 Sunscreen Use? Yes [email or web address] Informatio n not available 11/01/2023 Tanning Bed Use No Information not available 11/01/2023 Are You Or Trying To Become ? No [email or web address] Information not available 11/01/2023 Are You On Control? No [email or web address] Information not available 11/01/2023 Are You ? No [email or web address] Information not available 11/01/2023 What Was The Date Of Your Most Recent Tobacco Screening? 06/08/2024 [email or web address] Information not available 06/08/2024 How Much Tobacco Do You Smoke? 0.25 PPD Information not available 11/01/2023 Sex: Unknown Functional Status None recorded. Mental Status None recorded. Family History Relationship Description Onset Age of this Age Resolved Age Notes LastModified by Organization Details LastModified Time Father No current problems or disability [email or web address] Not available 06/08 12:42:00 Mother No current problems or disability [email or web address] Not available 06/08 12:42:00 Medical History No medical history recorded. Gynecological HistoryNo gynecological history recorded. Obstetrics History GPAL:G 0 P 0 0 0 0 Immunizations Vaccine Type Date Status Note Provider Nam e and Address Organization Details Recorded Time Influenza, MDCK, quadrivalent, PF 01/21/2023 completed Asif Francis [facility] 06/29/2024 14:46:32 COVID-19 vaccine, vector-nr, rS-Ad26, PF, 0.5 mL 06/12/2020 completed Asif Francis [facility] 06/29/2024 14:46:32 COVID-19 vaccine, vector-nr, rS-Ad26, PF, 0.5 mL 02/08/2021 completed Asif Francis [facility] 06/29/2024 14:46:32 Tdap 01/21/2023 [facility] Asif Francis [facility] 06/29/2024 14:46:32 Hep B, adolescent/hig h risk infant 09/30/1998 completed Asif Francis [facility] 06/29/2024 14:46:32 Hep B, adolescent/hig h risk infant 02/19/1998 completed Asif Francis [facility] 06/29/2024 14:46:32 Hep B, adolescent/hig h risk 03/26/1998 completed Asif Francis [facility] 06/29/2024 14:46:32 Past Encounters Encounter ID Performer Location Encounter Start Date Encounter Closed Date Diagnosis/Indication Diagnosis SNOMED-CT Code Diagnosis ICD10 Code Diagnosis Note [id number] ADI RIOS PA-C [address] [address] 06/08/2024 12:22:22 06/08/2024 13:09:10 Neoplasm of uncertain behavior of skin 50247488 D48.5 Will bx today Hidradenit is suppurativa 36611135 L73.2 This a chronic condition that can wax and wane. Smoking and being over your ideal body weight may worsen the condition. Pt is using hibiclens and rx clindamyci n- rec continue Granuloma annulare 73250 009 L92.0 Discussed nature of diagnoses. Will inject lesion with ILK [id number] MARIYA MCKEON [facility] [address] [place] [address] 06/29/2024 13:49:07 07/03/2024 10:40:34 Osteoarthritis of right knee joint 5220755667 97852 M17.11 [id number] MARIYA STEARNS-Ghazal [facility] [address] [place] [address] 06/29/2024 13:50:37 06/29/2024 16:20:22 Pain of bilateral hands 8012854577 7276538 M79.641 M79.642 Health Concerns Section Related Observation LastModified by Organization Detai ls LastModified Time None Recorded Concern Status LastModified by Organization Details LastModified Time None Recorded Payers Encounter Date Sequence Insurance Name Policy Number Policy Mohan Covered Member ID Mohan Member ID Guarantor Name 06/29/2024 1 [place] VAUGHN [place]UNOZ OF [place] [employer] ([place]O) [id number] Derek Marie [id number] Pedro Marie Notes Date Note Type Note Provider Name and Address Organization Details Recorded Time 06/29/2024 text/html Patient comes in today for FU {{Right* Left Bila teral}} {{Knee* Ankle Hip Thigh Lower Leg Shoulder Elbow Wrist/Hand}}. Patient states they are {{better worse howard e}} than last visit. CSI injection MARIYA MCKEON [address] [place], [address], [facility] 06/29/2024 15:03:36 06/29/2024 text/html Pedro is a 39 yo RHD F who presents today for evaluation of bilateral hand pain. She denies injury. She reports intermittent flares of pain in bilateral hands over the past couple of years. She uses OTC topicals, which does help some. Primary Care Physician: Dr. Taz Wharton Hand dominance: {{Right* Left ambide xtrous}}Location: {{Right Left Bilater al*}} {{Hand* Wrist Elbow Other}} Pain level: {{0 1 2 3 4* 5 6 7 8 9 10}} /10 Duration: ~2 years intermittently Recent Surgery: {{Yes No*}} In office procedure? {{Yes No*}} Previous upper extremity surgery? {{Yes No*}}Have you or any of your immediate family members been seen by our hand surgeons before? 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 {{Yes No*}} JESSIKA ARGUELLES PA-C [address] [place], [address], [facility] 06/30/2024 11:32:29 OBGyn Episode No OBEpisode recorded.
--- OUTSIDE RECORDS SUMMARY | 2024-07-13 21:40 | XMS_ITS | Continuity of Care Document ---
Author Organization [facility], [facility] Address [address] [place] [address] Assessment Encounter Date Assessment Date Assessment LastModified by Organization Details LastModified Time 06/29/2024 06/29/2024 X-rays of bilateral hands were independently assessed and discussed with patient in clinic today. There is no evidence of acute fracture and the bones are in normal alignment. Mild diffuse degenerative changes. In regards to her bilateral hand pain, the intermittent nature and diffuseness of symptoms is suggestive of possible inflammatory pathology versus underlying neuropathy. Will obtain an inflammatory lab panel as well as EMG/NCV and follow up with Dr. Brito to discuss results and treatment plan. She will continue safe use of OTC meds/topicals and activity modification and was instructed on initiation of nighttime splinting in the interim. Patient expressed understanding in this regard and was in agreement with this plan. RTO as scheduled or sooner if needed, advised to call office with any questions/concer ns. [email or web address] Not available 06/30/2024 11:31:15 Plan of Treatment Reminders Order Date Submit Date Provider Last Modified By Organization Details Last Modified Time Details Appointments DR PEREA EMG 2024 09:15A M Neuro_Tec h_2 Not available Not available Not available RECHECK 2024 01:00P Danilo BRITO MD Not available Not available Not available Lab CHIQUITA (antinucl ear antibodie s) panel, serum 2024 025 [facility], [address] [place] [address], [id number], 07/01/2024 18:59:47 rf (rheumato id factor), serum 2024 025 [facility], [address] [place] [address], [id number], 06/29/2024 16:55:15 uric acid, serum or plasma 2024 025 [facility], [address] [place] [address], [id number], 06/29/2024 16:55:14 ESR (erythroc yte sedimenta tion rate), blood 2024 025 [facility], [address] [place] [address], [id number], 06/29/2024 17:34:20 Referral None recorded. Procedures nerve conductio n study/EMG , upper extremity (PROC) - bilat UE - eval for possible neuropath y causing bilateral hand pain 2024 025 [email or web address] Petra Perea , [address] [place] [address], [id number], 07/03/2024 08:31:39 Surgeries None recorded. Imaging None recorded. Medication Orders None recorded. Patient TargetsNo targets recorded. Patient InstructionsNo instructions recorded. Reason for Referral None Reported. Results Created Date Observation Date Name Description Value Unit Range Abnormal Flag Note LastModifiedBy Organization Detail LastModifiedTime 06/30/1906/29/2024 XR, hand, 3 or more view Nitin antoine [facility] [address] [place] [phone] Faby arellano Name: PEDRO arellano : 984 Faby arlelano 80 Orderi ng Provid er: TATE ARGUELLES [...] moore MD on 025 3:36 PM [email or web address] [facility] [place] [address] , [place], [address], 06/30/2024 08:25:50 Result Notes None recorded. Problems Name Problem SNOMED Code Status Onset Date Resolution Date Notes Provider Name and Address Organization Details Recorded Time Intertrigo 56657087 Active 2023 Erica Meza [facility] 4 15:45:07 Acne vulgaris 02214086 Active 2023 Erica Meza [facility] 4 15:46:51 Hidradenitis suppurativa 26805241 Active 2023 Erica Meza [facility] 4 15:47:50 Granuloma annulare 83388683 Active 2023 Erica Meza [facility] 4 16:01:47 Multiple benign melanocytic nevi 981038190 Active 2023 Erica Meza [facility] 4 16:24:10 Seborrheic keratosis 966726451 Active 2023 Erica Meza [facility] 4 16:24:10 Solar lentigo 79943344 Active 2023 [facility] 4 16:24:10 Senile angioma 3641388 Active 2023 Erica Meza [facility] 4 16:24:10 Problem Notes None recorded. Procedures Surgical History Date Name Laterality Status Provider Name and Address Organization Details Recorded Time 06/30/19 25 Injection Joint/Bursa, Major completed MARIYA MCKEON [address] [place], [address], [facility] 06/29/2024 15:02:44 06/09/19 25 Biopsy Skin Lesion; Punch completed Theodore [facility] 06/08/2024 13:07:34 06/09/19 25 DAK - Intralesional Injection completed Theodore Alex [facility] 06/08/2024 13:10:03 03/24/20 24 Injection Joint/Bursa, Major completed MARIYA MCKEON [address] [place], [address], [facility] 03/24/2024 15:45:45 12/28/19 24 DAK - Intralesional Injection completed Erica Meza [facility] 12/28/2023 11:49:44 Imaging Results None recorded. Procedure Notes None recorded. Medical Equipment None Reported. Allergies Allergen ID Allergen Name Allergen Category Reaction Reaction Severity Criticality Documentation Date Start Date Code Code System Note Provider Name and Address Organization Details Recorded Time 913186 Product containin g penicilli n (product) medicatio n Not available Not available Not available 11/01/2023 34008 8001 SNOMED [facility] 15:14:00 416789 Seroquel medicatio n Not available Not available Not available 11/01/2023 04250 RxNorm [facility] 15:14:12 Medications Name Sig Start Date [...] Updated DateTime 06/29/2024 172.72 cm Al Childress [facility] 06/29/2024 13:58:58 Date Recorded Body height Pain severity - 0-10 verbal numeric rating [Score] - Reported Body mass index (BMI) Body weight Provider Name and Address Organization Details Last Updated DateTime 06/29/2024 172.72 cm 4 49.4 kg/m2 454432.52 g Asif Tito [facility] 06/29/2024 14:51:53 Social History Question Answer Notes LastModified by Organizat ion Details LastModified Time Tobacco Smoking Status Current Every Day Smoker Damaris Chavez [facility] 11/01/2023 15:15:37 What Is Your Level Of Alcohol Consumption? Occasional [email or web address] Information not available 11/01/2023 Sunscreen Use? Yes [email or web address] Informatio n not available 11/01/2023 Tanning Bed Use No [email or web address] Information not available 11/01/2023 Are You Or Trying To Become ? No [email or web address] Information not available 11/01/2023 Are You On Control? No Information not available 11/01/2023 Are You ? No Information not available 11/01/2023 What Was The Date Of Your Most Recent Tobacco Screening? 06/08/2024 [email or web address] Information not available 06/08/2024 How Much Tobacco Do You Smoke? 0.25 PPD [email or web address] Information not available 11/01/2023 Sex: Unknown Functional [...] MDCK, quadrivalent, PF 01/21/2023 completed Asif Francis [facility] 06/29/2024 14:46:32 COVID-19 vaccine, vector-nr, rS-Ad26, PF, 0.5 mL 06/12/2020 completed Asif Francis [facility] 06/29/2024 14:46:32 COVID-19 vaccine, vector-nr, rS-Ad26, PF, 0.5 mL 02/08/2021 completed Asif Francis [facility] 06/29/2024 14:46:32 Tdap 01/21/2023 completed Asif Francis [facility] 06/29/2024 14:46:32 Hep B, adolescent/hig h risk 09/30/1998 completed Asif Francis [facility] 06/29/2024 14:46:32 Hep B, adolescent/hig h risk infant 02/19/1998 completed Asif Francis [facility] 06/29/2024 14:46:32 Hep B, adolescent/hig h risk infant 03/26/1998 completed Asif Francis [facility] 06/29/2024 14:46:32 Past Encounters Encounter ID Performer Location Encounter Start Date Encounter Closed Date Diagnosis/Indication Diagnosis SNOMED-CT Code Diagnosis ICD10 Code Diagnosis Note [id number] DAI RIOS PA-C [address] [address] 06/08/2024 12:22:22 06/08/2024 13:09:10 Neoplasm of uncertain behavior of skin 08713187 D48.5 Will bx today Hidradenit is suppurativa 27097935 L73.2 This a chronic condition that can wax and wane. Smoking and being over your ideal body weight may worsen the condition. Pt is using hibiclens and rx clindamyci n- rec continue Granuloma annulare 97888 009 L92.0 Discussed nature of diagnoses. Will inject lesion with ILK [id number] MARIYA MCKEON [facility] [address] [place] [address] 06/29/2024 13:49:07 07/03/2024 10:40:34 Osteoarthritis of right knee joint 0158112400 46728 M17.11 [id number] JESSIKA ARGUELLES PA-C [facility] [address] [place] [address] 06/29/2024 13:50:37 06/29/2024 16:20:22 Pain of bilateral hands 6531468451 0339071 M79.641 M79.642 Health Concerns Section Related Observation LastModified by Organization Detai ls LastModified Time None Recorded Concern Status LastModified by Organization Details LastModified Time None Recorded Payers Encounter Date Sequence Insurance Name Policy Number Policy Mohan Covered Member ID Mohan Member ID Guarantor Name 06/29/2024 1 [place]) [id number] Derek Marie [id number] Pedro Marie Notes Date Note Type Note Provider Name and Address Organization Details Recorded Time 06/29/2024 text/html Patient comes in today for FU {{Right* Left Bila teral}} {{Knee* Ankle Hip Thigh Lower Leg Shoulder Elbow Wrist/Hand}}. Patient states they are {{better worse howard e}} than last visit. CSI injection MARIYA MCKEON [address] [place], [address], [facility] 06/29/2024 15:03:36 06/29/2024 text/html Pedro [...] claim? {{Yes No*}} JESSIKA ARGUELLES PA-C [address] [place], [address], [facility] 06/30/2024 11:32:29 OBGyn Episode No OBEpisode recorded.
--- OUTSIDE RECORDS SUMMARY | 2024-07-13 21:41 | XMS_ITS | Data Portability ---
Author Organization [place] - [facility] [place] [facility] ADMIN Address [address] [place] [id number] Care Team Providers Care System Software Programmer Name Role Phone MICAH ARAIZA Primary Care Provider Assessment No assessment recorded. Plan of Treatment Reminders Order Date Submit Date Provider Last Modified By Organization Details Last Modified Time Details Appointments None recorded. Lab CBC w/ auto diff 2023 024 [facility], [address], [address], [place], [address], 4 08:57:23 CMP, serum or plasma 2023 024 [email or web address] [facility], [address], [address], [place], [address], 4 08:57:23 HbA1c (hemoglobin A1c), blood 2023 024 [email or web address] [facility], [address], [address], [place], [address], 4 08:57:23 iron + TIBC + ferritin, serum 2023 024 [email or web address] [facility], [address], [address], [place], [address], 4 08:57:23 folate, serum 2023 024 [email or web address] [facility], [address], [address], [place], [address], 4 08:57:24 vitamin D, 25-hydroxy, total, serum 2023 024 [email or web address] [facility], [address], [address], [place], [address], 4 08:57:24 vitamin E, serum 2023 024 [email or web address] [facility], [address], [address], [place], [address], 4 08:57:24 vitamin A (retinol), serum 2023 024 [email or web address] [facility], [address], [address], [place], [address], 4 08:57:24 TSH + free T4, serum 2023 024 [email or web address] [facility], [address], [address], [place], [address], 4 08:57:24 prealbumin, serum 2023 024 [email or web address] [facility], [address], [address], [place], [address], 4 08:57:24 thiamine, QN, blood 2023 024 [email or web address] [facility], [address], [address], [place], [address], 4 08:57:25 methylmalon ate, QN, serum or plasma 2023 024 [facility], [address], [address], [place], [address], 4 08:57:25 lipid panel, serum 2023 024 [email or web address] [facility], [address], [address], [place], [address], 4 08:57:25 Referral None recorded. Procedures None recorded. Surgeries esophagogas troduodenos copy (SURG) 2023 024 [email or web address] Diogo Dye MD, [address], [address], [place], [address], 4 17:24:33 Imaging XR, abdomen + RF, upper gastrointes tinal tract, w/ contrast PO 2023 024 [email or web address] [facility] (Centralized Scheduling), [address], [place], [address], 4 17:19:34 Medication Orders ondansetron 8 mg disintegrat ing tablet 2023 024 [facility], [address] [place] [address] [address] [facility] [address], [id number], 4 14:10:36 famotidine 20 mg tablet 2023 024 [facility], [address] [place] [address] [address] [facility], [place], [id number], 4 14:10:36 Patient TargetsNo targets recorded. Patient InstructionsNo instructions recorded. Reason for Referral None Reported. Results Created Date Observation Date Name Description Value Unit Range Abnormal Flag Note LastModifiedBy Organization Detail LastModifiedTime 07/07/19 24 07/08/2023 FE+TI BC+FE R iron bind.cap.(TI BC) 328 ug/dL 250-45 0 Not Available [facility] ([facility]) [address], [place], [address], 07/14/2023 18:35:50 07/07/19 24 07/08/2023 FE+TI BC+FE R UIBC 264 ug/dL 131-42 5 Not Available [facility] ([facility]) [address] [place], [address], 07/14/2023 18:35:50 07/07/19 24 07/08/2023 FE+TI BC+FE R iron 64 ug/dL 27-159 Not Available [facility] ([facility]) [address] [facility], [place], [address], 07/14/2023 18:35:50 07/07/19 24 07/08/2023 FE+TI BC+FE R iron saturation 20 % 15-55 Not Available [facility] ([facility]) [address] [facility], [place], [address], 07/14/2023 18:35:50 07/07/19 24 07/08/2023 FE+TI BC+FE R ferritin 18 NG/mL 15-150 Not Available [facility] ([facility]) [address] [place], [address], 07/14/2023 18:35:50 07/07/19 24 07/08/2023 TSH+F REE T4 TSH 1.480 uIU/m L 0.450- 4.500 Not Available [facility] ([facility]) [address] [place], [address], 07/14/2023 18:35:51 07/07/19 24 07/08/2023 TSH+F REE T4 T4,free(dire ct) 1.46 NG/dL 0.82-1 .77 Not Available [facility] ([facility]) [address] [place], [address], 07/14/2023 18:35:51 07/07/19 24 07/08/2023 CBC WITH DIFFE RENTI AL/PL ATELE T WBC 6.8 x10e3 /uL 3.4-10 .8 Not Available [facility] ([facility]) [address] [facility], [place], [address], 07/14/2023 18:35:52 07/07/19 24 07/08/2023 CBC WITH DIFFE RENTI AL/PL ATELE T RBC 4.93 x10e6 /uL 3.77-5 .28 Not Available [facility] ([facility]) [address] [facility], [place], [address], 07/14/2023 18:35:52 07/07/19 24 07/08/2023 CBC WITH DIFFE RENTI AL/PL ATELE T hemoglobin 14.1 g/dL 11.1-1 5.9 Not Available [facility] ([facility]) [address] [facility], [place], [address], 07/14/2023 18:35:52 07/07/19 24 07/08/2023 CBC WITH DIFFE RENTI AL/PL ATELE T hematocrit 43.7 % 34.0-4 6.6 Not Available [facility] ([facility]) [address] [facility], [place], [address], 07/14/2023 18:35:52 07/07/19 24 07/08/2023 CBC WITH DIFFE RENTI AL/PL ATELE T MCV 89 fL 79-97 Not Available [facility] ([facility]) [address] [place], [address], 07/14/2023 18:35:52 07/07/19 24 07/08/2023 CBC WITH DIFFE RENTI AL/PL ATELE T MCH 28.6 pg 26.6-3 3.0 Not Available [facility] ([facility]) [address] [place], [address], 07/14/2023 18:35:52 07/07/19 24 07/08/2023 CBC WITH DIFFE RENTI AL/PL ATELE T MCHC 32.3 g/dL 31.5-3 5.7 Not Available [facility] ([facility]) [address], [place], [address], 07/14/2023 18:35:52 07/07/19 24 07/08/2023 CBC WITH DIFFE RENTI AL/PL ATELE T RDW 13.3 % 11.7-1 5.4 Not Available [facility] ([facility]) [address] [facility], [place], [address], 07/14/2023 18:35:52 07/07/19 24 07/08/2023 CBC WITH DIFFE RENTI AL/PL ATELE T platelets 296 x10e3 /uL 150-45 0 Not Available [facility] ([facility]) [address] [facility], [place], [address], 07/14/2023 18:35:52 07/07/19 24 07/08/2023 CBC WITH DIFFE RENTI AL/PL ATELE T neutrophils 49 % not estab. Not Available [facility] ([facility]) [address] [facility], [place], [address], 07/14/2023 18:35:52 07/07/19 24 07/08/2023 CBC WITH DIFFE RENTI AL/PL ATELE T lymphs 39 % not estab. Not Available [facility] ([facility]) [address] [facility], [place], [address], 07/14/2023 18:35:52 07/07/19 24 07/08/2023 CBC WITH DIFFE RENTI AL/PL ATELE T monocytes 4 % not estab. Not Available [facility] ([facility]) [address] [facility], [place], [address], 07/14/2023 18:35:52 07/07/19 24 07/08/2023 CBC WITH DIFFE RENTI AL/PL ATELE T eos 7 % not estab. Not Available [facility] ([facility]) [address] [facility], [place], [address], 07/14/2023 18:35:52 07/07/19 24 07/08/2023 CBC WITH DIFFE RENTI AL/PL ATELE T basos 1 % not estab. Not Available [facility] ([facility]) [address] [place], [address], 07/14/2023 18:35:52 07/07/19 24 07/08/2023 CBC WITH DIFFE RENTI AL/PL ATELE T immature cells PAPER FINISHER Not Available [facility] ([facility]) [address] [place], [address], 07/14/2023 18:35:52 07/07/19 24 07/08/2023 CBC WITH DIFFE RENTI AL/PL ATELE T neutrophils (absolute) 3.3 x10e3 /uL 1.4-7. 0 Not Available [facility] ([facility]) [address] [place], [address], 07/14/2023 18:35:52 07/07/19 24 07/08/2023 CBC WITH DIFFE RENTI AL/PL ATELE T lymphs (absolute) 2.7 x10e3 /uL 0.7-3. 1 Not Available [facility] ([facility]) [address] [place], [address], 07/14/2023 18:35:52 07/07/19 24 07/08/2023 CBC WITH DIFFE RENTI AL/PL ATELE T monocytes(ab solute) 0.3 x10e3 /uL 0.1-0. 9 Not Available [facility] ([facility]) [address] [place], [address], 07/14/2023 18:35:52 07/07/19 24 07/08/2023 CBC WITH DIFFE RENTI AL/PL ATELE T eos (absolute) 0.5 x10e3 /uL 0.0-0. 4 above high normal Not Available [facility] ([facility]) [address] [place], [address], 07/14/2023 18:35:52 07/07/19 24 07/08/2023 CBC WITH DIFFE RENTI AL/PL ATELE T baso (absolute) 0.1 x10e3 /uL 0.0-0. 2 Not Available [facility] ([facility]) [address] [facility], [place], [address], 07/14/2023 18:35:52 07/07/19 24 07/08/2023 CBC WITH DIFFE RENTI AL/PL ATELE T immature granulocytes 0 % not estab. Not Available [facility] ([facility]) [address] [facility], [place], [address], 07/14/2023 18:35:52 07/07/19 24 07/08/2023 CBC WITH DIFFE RENTI AL/PL ATELE T immature grans (abs) 0.0 x10e3 /uL 0.0-0. 1 Not Available [facility] ([facility]) [address] [facility], [place], [address], 07/14/2023 18:35:52 07/07/19 24 07/08/2023 CBC WITH DIFFE RENTI AL/PL ATELE T NRBC PAPER FINISHER Not Available [facility] ([facility]) [address] [facility], [place], [address], 07/14/2023 18:35:52 07/07/19 24 07/08/2023 CBC WITH DIFFE RENTI AL/PL ATELE T hematology comments: PAPER FINISHER Not Available [facility] ([facility]) [address] [facility], [place], [address], 07/14/2023 18:35:52 07/07/19 24 07/08/2023 COMP. METAB OLIC PANEL (14) glucose 96 mg/dL 70-99 Not Available [facility] ([facility]) [address] [facility], [place], [address], 07/14/2023 18:35:53 04/03/20 24 07/08/2023 COMP. METAB OLIC PANEL (14) BUN 9 mg/dL 6-24 Not Available [facility] ([facility]) [address] [facility], [place], [address], 07/14/2023 18:35:53 07/07/19 24 07/08/2023 COMP. METAB OLIC PANEL (14) creatinine 0.76 mg/dL 0.57-1 .00 Not Available [facility] ([facility]) [address] [facility], [place], [address], 07/14/2023 18:35:53 07/07/19 24 07/08/2023 COMP. METAB OLIC PANEL (14) eGFR 102 mL/mi n/1.7 3 >59 Not Available [facility] ([facility]) [address] [facility], [place], [address], 07/14/2023 18:35:53 07/07/19 24 07/08/2023 COMP. METAB OLIC PANEL (14) BUN/creatini ne ratio 12 9-23 Not Available [facility] ([facility]) [address] [facility], [place], [address], 07/14/2023 18:35:53 07/07/19 24 07/08/2023 COMP. METAB OLIC PANEL (14) sodium 138 mmol/ L 134-14 4 Not Available [facility] ([facility]) [address] [facility], [place], [address], 07/14/2023 18:35:53 07/07/19 24 07/08/2023 COMP. METAB OLIC PANEL (14) potassium 4.4 mmol/ L 3.5-5. 2 Not Available [facility] ([facility]) [address] [facility], [place], [address], 07/14/2023 18:35:53 07/07/19 24 07/08/2023 COMP. METAB OLIC PANEL (14) chloride 105 mmol/ L 96-106 Not Available [facility] ([facility]) [address] [facility] [place], [address], 07/14/2023 18:35:53 07/07/19 24 07/08/2023 COMP. METAB OLIC PANEL (14) carbon dioxide, total 21 mmol/ L 20-29 Not Available [facility] ([facility]) [address] [facility] [place], [address], 07/14/2023 18:35:53 07/07/19 24 07/08/2023 COMP. METAB OLIC PANEL (14) calcium 9.4 mg/dL 8.7-10 .2 Not Available [facility] ([facility]) [address], [place], [address], 07/14/2023 18:35:53 07/07/19 24 07/08/2023 COMP. METAB OLIC PANEL (14) protein, total 6.6 g/dL 6.0-8. 5 Not Available [facility] ([facility]) [address] [facility] [place], [address], 07/14/2023 18:35:53 07/07/19 24 07/08/2023 COMP. METAB OLIC PANEL (14) albumin 3.9 g/dL 3.9-4. 9 Not Available [facility] ([facility]) [address] [facility] [place], [address], 07/14/2023 18:35:53 07/07/19 24 07/08/2023 COMP. METAB OLIC PANEL (14) globulin, total 2.7 g/dL 1.5-4. 5 Not Available [facility] ([facility]) [address] [facility] [place], [address], 07/14/2023 18:35:53 07/07/19 24 07/08/2023 COMP. METAB OLIC PANEL (14) A/G ratio 1.4 1.2-2. 2 Not Available [facility] ([facility]) [address] [facility], [place], [address], 07/14/2023 18:35:53 07/07/19 24 07/08/2023 COMP. METAB OLIC PANEL (14) bilirubin, total 0.2 mg/dL 0.0-1. 2 Not Available [facility] ([facility]) [address] [facility], [place], [address], 07/14/2023 18:35:53 07/07/19 24 07/08/2023 COMP. METAB OLIC PANEL (14) alkaline phosphatase 65 IU/L 44-121 Not Available [facility] ([facility]) [address] [facility], [place], [address], 07/14/2023 18:35:53 07/07/19 24 07/08/2023 COMP. METAB OLIC PANEL (14) AST (SGOT) 11 IU/L 0-40 Not Available [facility] ([facility]) [address] [facility], [place], [address], 07/14/2023 18:35:53 07/07/19 24 07/08/2023 COMP. METAB OLIC PANEL (14) ALT (SGPT) 8 IU/L 0-32 Not Available [facility] ([facility]) [address] [facility], [place], [address], 07/14/2023 18:35:53 07/07/19 24 07/08/2023 LIPID PANEL cholesterol, total 188 mg/dL 100-19 9 Not Available [facility] ([facility]) [address] [facility], [place], [address], 07/14/2023 18:35:54 07/07/19 24 07/08/2023 LIPID PANEL triglyceride s 142 mg/dL 0-149 Not Available [facility] ([facility]) [address] [facility], [place], [address], 07/14/2023 18:35:54 07/07/19 24 07/08/2023 LIPID PANEL HDL cholesterol 43 mg/dL >39 Not Available [facility] ([facility]) [address] [place], [address], 07/14/2023 18:35:54 07/07/19 24 07/08/2023 LIPID PANEL VLDL cholesterol beni 25 mg/dL 5-40 Not Available [facility] ([facility]) [address] [place], [address], 07/14/2023 18:35:54 07/07/19 24 07/08/2023 LIPID PANEL LDL chol calc ([facility]) 120 mg/dL 0-99 above high normal Not Available [facility] ([facility]) [address] [facility], [place], [address], 07/14/2023 18:35:54 07/07/19 24 07/08/2023 LIPID PANEL comment: PAPER FINISHER Not Available [facility] ([facility]) [address] [place], [address], 07/14/2023 18:35:54 07/07/19 24 07/11/2023 VITAM IN E vitamin E(alpha tocopherol) 10.1 mg/L 7.0-25 .1 Not Available [facility] ([facility]) [address] [place], [address], 07/14/2023 18:35:55 07/07/19 24 07/11/2023 VITAM IN E vitamin E(gamma tocopherol) 1.4 mg/L 0.5-5. 5 Refer ence inter vals for alpha and gamma -toco phero l deter mined from [facility]ion Exami natio n Surve y, 2004- 2005. Indiv idual s with alpha -toco phero l level s less than 5.0 mg/L are consi dered vitam in E defic ient. Not Available [facility] ([facility]) [address] [place], [address], 07/14/2023 18:35:55 07/07/19 24 07/08/2023 HEMOG LOBIN A1C hemoglobin A1C 5.8 % 4.8-5. 6 above high normal Predi abete s: 5.7 - 6.4 Diabe mckenna: >6.4 Glyce diana contr ol for adult s with diabe mckenna: <7.0 Not Available [facility] ([facility]) [address] [facility], [place], [address], 07/14/2023 18:35:56 07/07/19 24 07/08/2023 FOLAT E (FOLI C ACID) , SERUM folate (folic acid), serum 4.5 NG/mL >3.0 A serum folat e eleni ntrat ion of less than 3.1 ng/mL is consi dered to repre sent clini beni defic iency . Not Available [facility] ([facility]) [address] [facility], [place], [address], 07/14/2023 18:35:57 07/07/19 24 07/11/2023 VITAM IN A, SERUM vitamin A 36.9 ug/dL 20.1-6 2.0 Refer ence inter vals for vitam in A deter mined from [facility] inter nal studi es. Indiv idual s with vitam in A less than 20 ug/dL are consi dered vitam in A defic ient and those with serum eleni ntrat ions less than 10 ug/dL are consi dered sever janes defic ient. This test was devel oped and its perfo rmanc e rylan cteri stics deter mined by [facility]. It has not been clear ed or appro christophe by the Food and Drug Admin istra tion. Not Available [facility] ([facility]) [address] [facility], [place], [address], 07/14/2023 18:35:58 07/07/19 24 07/08/2023 VITAM IN D, 25-HY DROXY vitamin D, 25-hydroxy 19.3 NG/mL 30.0-1 00.0 below low normal Vitam in D defic iency has been defin ed by the Insti tute of Medic ine and an Endoc rine Socie ty pract ice guide line as a level of serum 25-OH vitam in D less than 20 ng/mL (1,2) . The Endoc rine Socie ty went on to furth er defin e vitam in D insuf ficie ncy as a level betwe en 21 and 29 ng/mL (2). 1. IOM (Inst itute of Medic ine). 2010. Dieta ry refer ence intak es for calci um and D. Paxton triplett [place]: [facility] . 2. Ana Maria zamorano MF, Nilson gordillo [place], Divya off-F heatherar i CAMPBELL, et al. Evalu ation , treat ment, and preve ntion of vitam in D defic iency : an Endoc rine Socie ty clini beni pract ice guide line. JCEM. 2010; 96(7) :1911 -30. Not Available [facility] ([facility]) [address] [place], [address], 07/14/2023 18:35:59 07/07/19 24 07/11/2023 VITAM IN B1 (THIA MINE) , BLOOD vit. B1, whole blood 127.8 nmol/ L 66.5-2 00.0 Not Available [facility] ([facility]) [address] [place], [address], 07/14/2023 18:36:00 07/07/19 24 07/14/2023 METHY LMALO LILLIAM ACID, SERUM methylmaloni c acid, serum 322 nmol/ L 0-378 Not Available [facility] ([facility]) [address] [place], [address], 07/14/2023 18:36:01 07/07/19 24 07/08/2023 PREAL BUMIN prealbumin 19 mg/dL 14-35 Not Available [facility] ([facility]) [address] [place], [address], 07/14/2023 18:36:02 Result Notes None recorded. Problems Name Problem SNOMED Code Status Onset Date Resolution Date Notes Provider Name and Address Organization Details Recorded Time Vitamin D deficiency 61288216 Active 2023 Kavin Heard DNP, LABEL STITCHER, PAPER FINISHER-C [address], [place], [address] , [facility] - [facility] [place] 4 13:41:47 Morbid obesity [id number] Active 2023 Kavin Heard DNP, LABEL STITCHER, PAPER FINISHER-C [address], [place], [place], [address] [place] [address] , [facility] - [facility] [place] 4 13:42:23 Intentional weight loss [id number] Active 2023 Kavin Heard DNP, LABEL STITCHER, PAPER FINISHER-C [address], [place], [place], [address] [place] [address] , [facility] - [facility] [place] 4 13:42:32 Heartburn [id number] Active 2023 Kavin Heard DNP, LABEL STITCHER, PAPER FINISHER-C [address], [place], [address] [place] [address] , [facility] - [facility] [place] 4 13:44:20 Nausea [id number] Active 2023 Kavin Heard DNP, LABEL STITCHER, PAPER FINISHER-C [address], [place], [place], [address] [place] [address] , [place] - [facility] [place] 4 13:45:53 Problem Notes None recorded. Procedures Surgical History Date Name Laterality Status Provider Name and Address Organization Details Recorded Time 07/02/19 22 laparoscopic sleeve gastrectomy completed [facility] [place] 07/07/2023 13:26:07 Imaging Results None recorded. Procedure Notes None recorded. Medical Equipment None Reported. Allergies Allergen ID Allergen Name Allergen Category Reaction Reaction Severity Criticality Documentation Date Start Date Code Code System Note Provider Name and Address Organization Details Recorded Time 25521 Product containin g penicilli n (product) medicatio n Not available Not available Not available 04/02/2022 43781 8001 SNOMED Alessandro Sharp-Bec jose angel null, [place] - [facility] [place] [facility] [place] 2 12:28:04 [address]58[address] Medicinal product containin g cephalosp elidia and acting as antibacte rial agent (product) medicatio n Not available Not available Not available 04/02/2022 72476 9009 SNOMED Alessandro Sharp-Bec jose angel null, [place] - [facility] [place] [facility] [place] 2 12:28:12 21302 Seroquel medicatio n Not available Not available Not available 04/02/2022 55707 RxNorm Alessandro Sharp-Bec jose angel null, [place] - [facility] [place] [facility] [place] 2 12:28:18 Medications Name Sig Start Date Stop Date Status Note LastModified by Organization Details LastModified Time celecoxib 200 mg capsule TAKE ONE CAPSULE BY MOUTH EVERY DAY 07/06 completed Not Available Not Available Not Available methocarbam ol 500 mg tablet TAKE ONE TABLET BY MOUTH EVERY 8 HOURS FOR PAIN active Not Available Not Available No t Available propranolol 80 mg tablet TAKE ONE TABLET BY MOUTH TWICE DAILY 07/06 completed Not Available Not Available Not Available clindamycin HCl 300 mg capsule active Not Available Not Available Not Available azithromyci n 250 mg tablet TAKE 2 TABLETS BY MOUTH ON DAY 1, THEN TAKE 1 TABLET DAILY ON DAYS 2-5 07/06 completed Not Available Not Available Not Available sucralfate 100 mg/mL oral suspension TAKE 10 ML BY MOUTH FOUR TIMES DAILY ON AN EMPTY STOMACH DIRECTED --SHAKE WELL BEFORE USE-- 07/06 completed Not Available Not Available Not Available prednisone 20 mg tablet TAKE ONE TABLET BY MOUTH TWICE DAILY FOR 3 DAYS -- FINISH ALL MEDICINE -- --TAKE WITH FOOD-- 07/06 completed Not Available Not Available Not Available metoprolol succinate ER 100 mg tablet,exte nded release 24 hr TAKE TWO TABLETS BY MOUTH EVERY DAY 07/06 completed Not Available Not Available Not Available sertraline 100 mg tablet TAKE ONE TABLET BY MOUTH EVERY DAY active Not Available Not Available No t Available clindamycin HCl 150 mg capsule TAKE THREE CAPSULES BY MOUTH EVERY 8 HOURS FOR 7 DAYS -- FINISH ALL MEDICINE -- 07/06 completed Not Available Not Available Not Available meclizine 12.5 mg tablet TAKE ONE TABLET BY MOUTH THREE TIMES DAILY NEEDED FOR dizziness active Not Available Not Available No t Available metronidazo le 500 mg tablet TAKE ONE TABLET BY MOUTH THREE TIMES DAILY FOR 10 DAYS -- FINISH ALL MEDICINE -- --AVOID ANY PRODUCT(S ) CONTAININ G ALCOHOL WHILE TAKING THIS MEDICATIO N-- 07/06 completed Not Available Not Available Not Available ciprofloxac in 500 mg tablet TAKE ONE TABLET BY MOUTH EVERY TWELVE HOURS FOR 7 DAYS -- FINISH ALL MEDICINE -- 07/06 completed Not Available Not Available Not Available sulfamethox azole 800 mg-trimetho prim 160 mg tablet TAKE TWO TABLETS BY MOUTH EVERY TWELVE HOURS FOR 10 DAYS 07/06 completed Not Available Not Available Not Available spironolact one 25 mg tablet TAKE ONE TABLET BY MOUTH TWICE DAILY 07/06 completed Not Available Not Available Not Available vancomycin 125 mg capsule TAKE ONE CAPSULE BY MOUTH FOUR TIMES DAILY FOR 10 DAYS -- FINISH ALL MEDICINE -- 07/06 completed Not Available Not Available Not Available ondansetron 8 mg disintegrat ing tablet DISSOLVE ONE TABLET in MOUTH TWICE DAILY NEEDED FOR NAUSEA active Not Available Not Available No t Available bisoprolol fumarate 10 mg tablet TAKE ONE TABLET BY MOUTH EVERY DAY 07/06 completed Not Available Not Available Not Available cefadroxil 500 mg capsule TAKE ONE CAPSULE BY MOUTH TWICE DAILY FOR 7 DAYS -- FINISH ALL MEDICINE -- 07/06 completed Not Available Not Available Not Available propranolol 10 mg tablet TAKE ONE TABLET BY MOUTH TWICE DAILY 07/06 completed Not Available Not Available Not Available propranolol 40 mg tablet TAKE ONE TABLET BY MOUTH TWICE DAILY 07/06 completed Not Available Not Available Not Available famotidine 20 mg tablet TAKE ONE TABLET BY MOUTH AT BEDTIME active Not Available Not Available No t Available ciprofloxac in 0.3 % eye drops INSTILL 1 DROP IN AFFECTED EYE(S) EVERY 2 HOURS DIRECTED 07/06 completed Not Available Not Available Not Available benzonatate 100 mg capsule TAKE ONE CAPSULE BY MOUTH THREE TIMES DAILY NEEDED FOR cough -SWALLOW WHOLE. DO NOT CRUSH OR CHEW- 07/06 completed Not Available Not Available Not Available cephalexin 500 mg capsule TAKE ONE CAPSULE BY MOUTH EVERY 8 HOURS FOR 7 DAYS -- FINISH ALL MEDICINE -- 07/06 completed Not Available Not Available Not Available neomycin-po lymyxin-dex ameth 3.5 mg/mL-10,00 0 unit/mL-0.1 % eye drops instill 1 TO 2 drops in affected eye(s) FOUR TIMES DAILY 07/06 completed Not Available Not Available Not Available propranolol ER 80 mg capsule,24 hr,extended release TAKE ONE CAPSULE BY MOUTH TWICE DAILY active Not Available Not Available No t Available promethazin e 25 mg tablet TAKE ONE TABLET BY MOUTH EVERY TWELVE HOURS NEEDED MAY CAUSE DROWSINES S 07/06 completed Not Available Not Available Not Available gabapentin 300 mg capsule TAKE ONE CAPSULE BY MOUTH EVERY 8 HOURS NEEDED MAY CAUSE DROWSINES S 07/06 completed Not Available Not Available Not Available omeprazole 20 mg capsule,del ayed release TAKE ONE CAPSULE BY MOUTH TWICE DAILY active Not Available Not Available No t Available mupirocin 2 % topical ointment APPLY TOPICALLY TO THE AFFECTED AREA(S) around fingernai l THREE TIMES DAILY DIRECTED FOR 10 DAYS -- FOR EXTERNAL USE ONLY-- 07/06 completed Not Available Not Available Not Available metoprolol succinate ER 25 mg tablet,exte nded release 24 hr TAKE ONE TABLET BY MOUTH EVERY DAY 07/06 completed Not Available Not Available Not Available ergocalcife rol (vitamin D2) 1,250 mcg (50,000 unit) capsule TAKE ONE CAPSULE BY MOUTH ONCE A WEEK active Not Available Not Available No t Available methylpredn isolone 4 mg tablets in a dose pack TAKE ACCORDING TO PACKAGE INSTRUCTI ONS --TAKE WITH FOOD-- -- FINISH ALL MEDICINE -- active Not Available Not Available No t Available albuterol sulfate HFA 90 mcg/actuati on aerosol inhaler inhale 3 puffs BY MOUTH EVERY 4 HOURS NEEDED FOR wheezing UNTIL breathing retunrs TO target peak flow/para meters 07/06 completed Not Available Not Available Not Available propranolol 20 mg tablet TAKE ONE TABLET BY MOUTH TWICE DAILY 07/06 completed Not Available Not Available Not Available celecoxib 100 mg capsule TAKE ONE CAPSULE BY MOUTH EVERY DAY 07/06 completed Not Available Not Available Not Available bromphenira mine-pseudo ephedrine-D M 2 mg-30 mg-10 mg/5 mL oral syrup take 5 ML BY MOUTH EVERY 6 HOURS NEEDED FOR COLD symptoms 07/06 completed Not Available Not Available Not Available ondansetron 4 mg disintegrat ing tablet DISSOLVE ONE TABLET in MOUTH EVERY 6 HOURS NEEDED FOR NAUSEA AND VOMITING active Not Available Not Available No t Available cefdinir 300 mg capsule TAKE ONE CAPSULE BY MOUTH TWICE DAILY FOR 7 DAYS -- FINISH ALL MEDICINE -- 07/06 completed Not Available Not Available Not Available fluticasone propionate 50 mcg/actuati on nasal spray,suspe nsion instill 1-2 spray(s) IN EACH NOSTRIL EVERY DAY 07/06 completed Not Available Not Available Not Available sertraline 50 mg tablet TAKE ONE TABLET BY MOUTH EVERY DAY 07/06 completed Not Available Not Available Not Available doxycycline hyclate 100 mg tablet TAKE ONE TABLET BY MOUTH TWICE DAILY FOR 10 DAYS -- FINISH ALL MEDICINE -- 07/06 completed Not Available Not Available Not Available loratadine 10 mg tablet TAKE ONE TABLET BY MOUTH EVERY DAY 07/06 completed Not Available Not Available Not Available naproxen 500 mg tablet TAKE ONE TABLET BY MOUTH TWICE DAILY --TAKE WITH FOOD-- active Not Available Not Available No t Available hydroxyzine pamoate 25 mg capsule TAKE ONE CAPSULE BY MOUTH TWICE DAILY NEEDED MAY CAUSE DROWSINES S 07/06 completed Not Available Not Available Not Available clindamycin 1 % lotion APPLY a thin layer TOPICALLY TO THE AFFECTED AREA(S) ON face EVERY MORNING -- FOR EXTERNAL USE ONLY-- 07/06 completed Not Available Not Available Not Available enoxaparin 60 mg/0.6 mL subcutaneou s syringe INJECT 60mg (0.6ml) SUBCUTANE OUSLY TWICE DAILY DIRECTED FOR FOURTEEN DAYS 07/06 completed Not Available Not Available Not Available cyclobenzap rine 5 mg tablet TAKE ONE TABLET BY MOUTH THREE TIMES DAILY NEEDED MAY CAUSE DROWSINES S 07/06 completed Not Available Not Available Not Available levocetiriz ine 5 mg tablet TAKE ONE TABLET BY MOUTH DAILY 07/06 completed Not Available Not Available Not Available diclofenac 1 % topical gel APPLY TOPICALLY TO THE AFFECTED AREA(S) FOUR TIMES DAILY 07/06 completed Not Available Not Available Not Available Vitals Date Recorded Body height Body temperature Heart rate Body mass index (BMI) Body weight Systolic blood pressure Diastolic blood pressure Provider Name and Address Organization Details Last Updated DateTime 4 172.72 cm 98.7 [degF] 74 /min 48.8 kg/m2 209102. 51 g 122 mm[Hg] 86 mm[Hg] Agata Perez [facility] & [place] 13:28:01 Social History Question Answer Notes LastModified by Organizat ion Details LastModified Time Tobacco Smoking Status Former Smoker Alessandro [place] cardona [facility] & [place] 04/02/2022 12:27:00 What Is Your Level Of Alcohol Consumption? Occasional [email or web address] Information not available 07/07/2023 Sex: Female Functional Status None recorded. Mental Status None recorded. Family History Nothing Reported Notes:Mother: gallstones, di agnosed with Diabetes Father: sleep apnea, diagnosed with Diabetes, CAD Maternal Grandmother: diagnosed with Cancer Maternal Grandfather: diagnosed with Diabetes, Hypertension, CAD Paternal Grandmother: diagnosed with Cancer obesity- mother, father. Medical History Condition Response Anxiety Disorder Y Arthritis Y Endometriosis Y Headaches Y Heart Problems Y GERD/Reflux Y Gynecological HistoryNo gynecological history recorded. Obstetrics History GPAL:G 0 P 0 0 0 0 Immunizations Vaccine Type Date Status Note Provider Nam e and Address Organization Details Recorded Time influenza, unspecified formulation 01/15/2023 completed IHSAN Lynn [facility] & [place] 07/07/2023 13:25:19 Past Encounters Encounter ID Performer Location Encounter Start Date Encounter Closed Date Diagnosis/Indication Diagnosis SNOMED-CT Code Diagnosis ICD10 Code Diagnosis Note [id number] Kavin Heard, DNP, LABEL STITCHER, PAPER FINISHER-C [facility] [address] [facility] [address] [place] [address] 07/07/2023 13:15:36 07/07/2023 15:36:05 History of bariatric surgical procedure 390056393 Z98.84 Advised qid intake 50% protein 1055-7657 calories/d y less than 100 carbs/dy Long discussion today of InBody results including PBF(percen t body fat) SMM (skeletal muscle mass) Visceral fat level level BMR Segmental Fat Analysis and Segmental Lean Analysis. Patient encouraged pt to take minimal calories as per BMR and to anticipate changes in SMM and PBF values not just total weight. Repeat PARRISH in 2-3mth suggested Patient is to have bariatric vitamin lab panel. Patient was reassured on today's visit. Dialogue content in great detail regarding the benefits of proper diet as well as regular and routine exercise. In regards to exercise, we discussed reaching target heart rate for least 20 minutes 3 times a week. We also highlighte d the importance of staying well hydrated. Proper handwashin g was also encouraged . Patient was advised to keep in close contact with their primary care provider and/or any specialty provider (s). We will contact patient with any deficienci es. Morbid obesity 003052772 E66.01 Vitamin D deficiency 347 07507 E55.9 Intentiona l weight loss 129587817 R63.8 History of gastrectomy 292512039 Z90.3 Advised qid intake 50% protein 6903-9702 calories/d y less than 100 carbs/dyLo ng discussion today of InBody results including PBF(percen t body fat) SMM (skeletal muscle mass) Visceral fat level level BMR Segmental Fat Analysis and Segmental Lean Analysis.E ncouraged pt to take minimal calories as per BMR and to anticipate changes in SMM and PBF values not just total weight.Fol low-up with Repeat PARRISH in 3mth suggested . I encouraged her to take multivitam in daily. Patient is status post bariatric surgery and at increased risk for vitamin deficienci es and malnutriti on. Bariatric vitamin panel ordered today. Patient will be contacted to correct any vitamin deficienci es. Heartburn 08421008 R12 GERD-patie nt was reassured. We discussed lifestyle modificati ons in patient-di rected therapy which are designed to decrease distal esophageal acid exposure. Plan is to continue current proton pump inhibitor. Will add H2 raza at bedtime. Other lifestyle modificati ons include elevating the head of the bed on 15 cm of blocks or sleep on a wedge-shap ed bolster. Patient was encouraged to consume smaller meals and do not eat for 3 hours prior to lying recumbent. Ultimately patient has been advised to avoid large, high fat meals and avoid foods that may aggravate the problem. I would like to proceed with upper GI as well as EGD. Nausea [id number] R11.0 Health Concerns Section Related Observation LastModified by Organization Detai ls LastModified Time None Recorded Concern Status LastModified by Organization Details LastModified Time None Recorded Advance Directives Directive None Recorded Payers Encounter Date Sequence Insurance Name Policy Number Policy Mohan Covered Member ID Mohan Member ID Guarantor Name 07/07/2023 1 [facility] [id number] Pedro Marie [id number] Pedro Marie Notes Date Note Type Note Provider Name and Address Organization Details Recorded Time 07/07/2023 text/html Patient presents the office today for routine follow-up status post bariatric gastric sleeve gastrectomy surgery ( 2021 ). Patient doing well. Reports q.i.d. small meal intake. Reports 80-90g/dy protein intake and good hydration.Patient is drinking 64 ounces of water a day.Daily Calories 1300-1500Patient is currently not taking routine vitamins as advised.Heartburn /gastroesophageal reflux: deniesPt Denies : abdominal pain, prandial issues bowel or bladder issues. She does report nausea as well as vomiting. Patient states issues began roughly late this fall she was having episodes where she has been eating and several hours after the fact feels nauseated. She initially thought this was food related because she was eating sweets on an empty stomach however she is now noticed this with eating breakfast foods. HX of Vit D def. Her primary care provider did some recent labs on June 02, 2023.Total Weight loss Since last office visit has been 111.2 lbsPt is happy with their quality of life after Weight loss Surgery.patient has not tried any ypyn-ctf-eizakhi medications or treatments.Today' s InBody reveals a skeletal muscle mass = 81.8 lb,body fat mass = 171.9 lb,BMI = 48.8Percent body fat = 53.5Basal Metabolic Rate = 1833 kilo calories Kavin Heard, DNP, LABEL STITCHER, PAPER FINISHER-C [address], [place], [address], [facility] [place] - [place] & [place] 07/07/2023 15:28:10 OBGyn Episode No OBEpisode recorded.
--- OUTSIDE RECORDS SUMMARY | 2024-07-13 21:41 | XMS_ITS | Data Portability ---
Author Organization [facility] DIANA MckennaS [place] CLOSED Address [address] [place] [address] Assessment Encounter Date Assessment Date Assessment LastModified [...] ear antibodie s) panel, serum 2024 025 [facility], [address] [place] [address], [phone], 07/01/2024 18:59:47 rf (rheumato id factor), serum 2024 025 [facility], [address] [place] [address], [id number], 06/29/2024 16:55:15 uric acid, serum or plasma 2024 025 [facility], [address] [place] [address], [phone], 06/29/2024 16:55:14 ESR (erythroc yte sedimenta tion rate), blood 2024 025 [facility], [address] [place] [address], [id number], 06/29/2024 17:34:20 surgical pathology study 2024 025 [facility], [address] [place] [address], [id number], 06/12/2024 12:43:25 Referral None recorded. Procedures nerve conductio n study/EMG , upper extremity (PROC) - bilat UE - eval for possible neuropath y causing bilateral hand pain 2024 025 [email or web address] Petra Benji Perea DO, [address] [place] [address], [phone], 07/03/2024 08:31:39 Surgeries None recorded. Imaging None recorded. Medication Orders clobetaso l 0.05 % topical ointment 2023 024 [facility], [address] [place] [address], [id number], 01/03/2024 17:24:56 Patient TargetsNo targets recorded. Patient Instructions Encounter Date Encounter Id Patient Instructions Last Modified By Organization Details Last Modified Time 03/24/2024 [id number] Patient likely aggravated the underlying arthritis with the fall she sustained. I have given her a CSI and she immediate relief in symptoms. Follow up in 3 months for a clinical check. Not available 03/24/2024 15:47:07 06/29/2024 [id number] The right knee was injected without difficulty and patient tolerated the procedure well. Not available 06/29/2024 15:03:21 Reason for Referral None Reported. Results Created Date Observation Date Name Description Value Unit Range Abnormal Flag Note LastModifiedBy Organization Detail LastModifiedTime 06/09/19 25 06/08/2024 SURGI BENI surgical SEE BELOW [place] topat holog y Repor t NAME: AMAN Jacobs VASQUEZ PATH: [id number] PROCE DURE DATE: 06/08 SIGNO UT DATE: 06/12 Copy to: Diagn osis: Left Cheek - HEALI NG SKIN WITH KERAT IN GRANU TOSHIA Comme nt: A malig khadra is not ident ified . Wide spect rum cytok erati n, S-100 and Sox-1 0 immun opero xidas e stain s do not demon strat e a malig khadra . SOURC E OF SPECI MEN: SKIN, BCC CLINI BENI INFOR MATIO N: R/O: BCC Gross Descr iptio n: The speci men consi sted of a singl e lisa fragm ent which measu red 4 x 5 x 3 mm. All is submi tted in toto in one casse tte. Micro scopi c Descr iptio n: The epide rmis is ulcer ated and is cover ed with a hemor rhagi c and infla mmato ry crust . The dermi s is diffu sely fibro tic with a promi nent granu lomat ous infla mmato ry infil trate admix ed with fragm ents of kerat in. Wide spect rum cytok erati n, S-100 and Sox-1 0 do not demon strat e a malig khadra . YVES ERAZO MD Kaylee d Out Date: 06/12 12:43 1 Not Available [facility] [facility], [place], [address], 06/12/2024 12:43:25 06/30/1906/29/2024 URIC ACID uric acid 6.7 mg/dL 2.4-5. 7 high Refer ence range s are based on [facility] norms and do not neces suellen herrera late with treat ment tarcandido ts. In patie nts with an estab lishe d diagn osis of gout under going Urate Lower ing Thera py (ULT) , the 2011 [place] can Colle ge of Rheum atolo gy Guid fredrick s for Manag ement of Gout recom mend a targe t uric acid level of < 6 mg/dL in all patie nts, or lower in certa in circu mstan marsha. Arthr itis Care and Resea [facility] Vol 64 No 10, 2011 Ameri can Colle ge of Rheum atolo gy ----- ----- ----- ----- ----- ----- ----- ----- ----- ----- ----- ---- Not Available [facility] [address] [place] [address], [phone], 06/29/2024 16:55:14 06/30/19 25 06/29/2024 RF SCREE N, QUANT . rf screen, quant. <10.0 [IU]/ mL 0.0-13 .9 normal Not Available [facility] [address] [place] [address], [phone], 06/29/2024 16:55:15 06/30/19 25 06/29/2024 ESR, AUTOM ATED ESR, automated 20 mm 0-19 high Not Available [facility] [address] [place] [address], [address], 06/29/2024 17:34:20 06/30/19 25 07/01/2024 CHIQUITA W/ REFLE X CHIQUITA screen NEGATI VE negati ve normal CHIQUITA IFA is a first line scree n for detec ting the prese nce of up to appro ximat janes 150 autoa ntibo dies in vario us autoi mmune disea ses. A negat bahman CHIQUITA IFA resul t sugge sts an CHIQUITA-a ssoci ated autoi mmune disea se is not prese nt at this time, but is not defin itive . If there is high clini beni suspi cion for Sjogr en's syndr ome, testi ng for anti- SS-A/ Ro antib hcel shoul d be consi dered . Anti- Sabrina-1 antib chel shoul d be consi dered for clini kady suspe cted infla mmato ry myopa magno . AC-0: Negat bahman Inter natio nal Conse nsus on CHIQUITA Hines rns (http s://d oi.or g/10. 1515/ [facility]- 2017- 0052) For addit ional infor frida blanco e refer to http: //[facility] giuseppe jacbos.Que stDia gnost ics.c om/fa q/FAQ 177 (This link is being provi ded for infor matio nal/ educa mahad l purpo ses only. ) Not Available [facility] [address] [facility], [place], [address], 07/01/2024 18:59:47 03/24/20 24 03/24/2024 XR, knee, 4 or more view [place] [facility] [address] [address] Erinkevin arellano Name: PEDRO arellano : 984 Faby arellano 78 Orderi ng Provid er: [facility] Berry [facility] EXAM DATE: 2023 EXAM: XR RT KNEE COMPLE TE, 4 OR MORE VWS COMPAR ARASH: None. HISTOR Y: Right knee pain. FINDIN GS: No fractu re is identi fied. There are severe degene rative change s in the right knee. There is patell ofemor al joint space loss. There is severe margin al spurri ng. Contra latera l knee: There are severe degene rative change s. IMPRES RIGO: 1. There are severe degene rative change s in the right knee. Interp reted By: Kori moore MD Electr onical ly Signed By: Kori moore MD on 2023 3:35 PM [email or web address] [facility] [place] [address] , [place], [address], 03/24/2024 15:57:24 06/30/1906/29/2024 [facility] [address] [address] Faby arellano Name: PEDRO arellano : 984 Patikevin arellano 80 Orderi ng Provid er: TATE [...] MD on 025 3:36 PM [email or web address] [facility] [place] [address] , [place], [address], 06/30/2024 08:25:50 Result Notes None recorded. Problems Name Problem SNOMED Code Status Onset Date Resolution Date Notes Provider Name and Address Organization Details Recorded Time Intertrigo 87648057 Active 2023 Erica lew, [facility] 15:45:07 Acne vulgaris 00747358 Active 2023 Erica Meza null, [facility] 15:46:51 Hidradenitis suppurativa 98247769 Active 2023 Erica Meza [facility], [facility] 15:47:50 Granuloma annulare 44880474 Active 2023 Erica Meza null, [facility] 4 16:01:47 Multiple benign melanocytic nevi 007536319 Active 2023 Erica Meza null, [facility] 4 16:24:10 Seborrheic keratosis 894225627 Active 2023 Erica Meza null, [facility] 4 16:24:10 Solar lentigo 19151442 Active 2023 Erica Meza null, [facility] 4 16:24:10 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 Procedures Surgical History Date Name Laterality Status Provider Name and Address Organization Details Recorded Time 06/30/19 25 Injection Joint/Bursa, Major completed MARIYA MCKEON [address] [place], [address], [facility] 06/29/2024 15:02:44 06/09/19 25 Biopsy Skin Lesion; Punch completed Theodore Johnson [facility] 06/08/2024 13:07:34 06/09/19 25 DAK - Intralesional Injection completed Theodore Johnson [facility] 06/08/2024 13:10:03 03/24/20 24 Injection Joint/Bursa, Major completed MARIYA MCKEON [address] [place], [address], [facility] 03/24/2024 15:45:45 12/28/19 DAK - Intralesional Injection completed Erica Meza [facility] 12/28/2023 11:49:44 Imaging Results Imaging Date Name Status LastModified by Organiz ation Details LastModified Time 03/24/2024 XR, knee, 4 or more view completed [email or web address] [facility] [place] [address], [place], [address], 03/24/2024 15:57:24 06/29/2024 XR, hand, 3 or more view completed [email or web address] [facility] [place] [address] , [place], [address], 06/30/2024 08:25:50 Procedure Notes None recorded. Medical Equipment None Reported. Allergies Allergen ID Allergen Name Allergen Category Reaction Reaction Severity Criticality Documentation Date Start Date Code Code System Note Provider Name and Address Organization Details Recorded Time 953537 Product containin g penicilli n (product) medicatio n Not available Not available Not available 11/01/2023 38341 8001 SNOMED [facility] 15:14:00 986798 Seroquel medicatio n Not available Not available Not available 11/01/2023 93983 RxNorm [facility] 15:14:12 Medications Name Sig Start Date Stop [...] d Address Organization Details Last Updated DateTime 12/28/2023 172.72 cm Queenie Guy [facility] 12/28/2023 10:15:54 Date Recorded Body height Pain severity - 0-10 verbal numeric rating [Score] - Reported Provider Name and Address Organization Details Last Updated DateTime 03/24/2024 172.72 cm Kayla Childress [facility] 03/24/2024 15:01:49 Date Recorded Body height Provider Name an d Address Organization Details Last Updated DateTime 06/08/2024 172.72 cm Alethea Polanco [facility] 06/08/2024 12:41:25 Date Recorded Body height Provider Name an d Address Organization Details Last Updated DateTime 06/29/2024 172.72 cm Al Childress [facility] 06/29/2024 13:58:58 Date Recorded Body height Pain severity - 0-10 verbal numeric rating [Score] - Reported Body mass index (BMI) Body weight Provider Name and Address Organization Details Last Updated DateTime 06/29/2024 172.72 cm 4 49.4 kg/m2 419027.52 g Asif Tito [facility] 06/29/2024 14:51:53 Social History Question Answer Notes LastModified by Organizat ion Details LastModified Time Tobacco Smoking Status Current Every Day Smoker Damaris Chavez [facility] 11/01/2023 15:15:37 What Is Your Level Of Alcohol Consumption? Occasional [email or web address] Information not available 11/01/2023 Sunscreen Use? Yes Informatio n not available 11/01/2023 Tanning Bed Use No Information not available 11/01/2023 Are You Or Trying To Become ? No [email or web address] Information not available 11/01/2023 Are You On Control? No [email or web address] Information not available 11/01/2023 Are You ? No [email or web address] Information not available 11/01/2023 What Was The Date Of Your Most Recent Tobacco Screening? 06/08/2024 [email or web address] Information not available 06/08/2024 How Much Tobacco Do You Smoke? 0.25 PPD [email or web address] Information not available 11/01/2023 Sex: Unknown Functional [...] MDCK, quadrivalent, PF 01/21/2023 completed Asif Francis [facility] 06/29/2024 14:46:32 COVID-19 vaccine, vector-nr, rS-Ad26, PF, 0.5 mL 06/12/2020 completed Asif Francis [facility] 06/29/2024 14:46:32 COVID-19 vaccine, vector-nr, rS-Ad26, PF, 0.5 mL 02/08/2021 completed Asif Francis [facility] 06/29/2024 14:46:32 Tdap 01/21/2023 completed Asif Francis [facility] 06/29/2024 14:46:32 Hep B, adolescent/hig h risk 09/30/1998 completed Asif Francis [facility] 06/29/2024 14:46:32 Hep B, adolescent/hig h risk infant 02/19/1998 completed Asif Francis [facility] 06/29/2024 14:46:32 Hep B, adolescent/hig h risk infant 03/26/1998 completed Asif Francis [facility] 06/29/2024 14:46:32 Past Encounters Encounter ID Performer Location Encounter Start Date Encounter Closed Date Diagnosis/Indication Diagnosis SNOMED-CT Code Diagnosis ICD10 Code Diagnosis Note [id number] DILAN TAPIA PA-C [address] [address] 11/01/2023 14:45:02 11/04/2023 14:04:36 Multiple benign melanocytic nevi 394506682 D22.5 - Benign moles seen on exam today - SPF 30 or higher broad-spec trum sunscreen recommende d with re-applica tion every 2 hours - Discussed sun protection measures, including wide-brimm ed hat, sun-protec tive clothing, and avoidance of sun during peak hours of 10am-4pm - Avoid tanning beds as these can increase the chances of all 3 types of skin cancer - Instructed to monitor for changes and to call us for appointmen t with any changing or worrisome lesions Seborrheic keratosis 394 327245 L82.1 - Benign overgrowth s of skin - Hereditary Senile angioma 1414857 I 78.1 - Benign blood vessel growths - Hereditary Solar lentigo 00086066 L 81.4 - Benign brown spots - Sun-induce d Intertrigo 82216246 L30. 4 Heat, moisture, friction and, often, yeast cause intertrigo . Barrier ointments such as petrolatum and Desitin (zinc oxide) paste are helpful to prevent symptoms. Will send ketoconazo le 2% cream apply thin layer to folds of skin BID for flaresAppl y desitin paste QAM to folds Will reach out if condition is worsening or no improvemen t Hidradenit is suppurativa 73592195 L73.2 Pt reports she has had these lesions come and go for several years.Some are very bothersome and will drain. Discussed this is a chronic condition that can wax and wane. Pt does admit to smoking. Smoking and being over your ideal body weight may worsen the condition. Data shows low-carb diets in particular may help with the inflammati on. Treatment options include topical and oral antibiotic s, ILTAC as needed, and possibly Humira in severe cases. Chlorhexid ine wash may be used TIW in affected areas but avoid mucous membranes. Avoid friction and excessive sweating with clothing and activity as these can worsen lesions. [email or web address] given to pt to browse and see tips and tricks from other pts with this disease. Will send clindamyci n 1% lotion apply to AA QD Follow up in 8-10 weeks for recheck, sooner if worsening. Granuloma annulare 69675 009 L92.0 Pt reports previous flares. Usually resolve on their own with time.Has also tried topical steroids which have helped.Neola ssured benign inflammato ry condition. Offered to inject with ILK, pt declined as these are not bothersome at this timeNotes lesions typically resolve on their ownWill reach out if worsening or if ILK desired {{MD Siddhartha Terrazas MD Ryan Fischer, MD Laurie Massa, MD* Khadra Francis MD}} {{examined was consulted on*}} the patient. [id number] KENDAL KELLY [place] [address] [place] [address] 12/28/2023 10:08:22 12/28/2023 11:33:12 Hidradenitis suppurativa 28726168 L73.2 Pt has been using OTC hibiclens and clindamyci n lotion, tolerating wellPt reports she has had these lesions come and go for several years.Some are very bothersome and will drain.Pt reports she plans on having hysterecto my in future, informed this can help with lesion Discussed this is a chronic condition that can wax and wane. Pt does admit to smoking. Smoking and being over your ideal body weight may worsen the condition. Data shows low-carb diets in particular may help with the inflammati on. Treatment options include topical and oral antibiotic s, ILTAC as needed, and possibly Humira in severe cases. Chlorhexid ine wash may be used TIW in affected areas but avoid mucous membranes. Avoid friction and excessive sweating with clothing and activity as these can worsen lesions. [email or web address] given to pt to browse and see tips and tricks from other pts with this disease. Will refill Rx clindamyci n 1% lotion apply to AA QD Pt has one active lesion today, will inject with ILK as this is bothersome . Follow up in 3mo, sooner if worsening. Intertrigo 97349408 L30. 4 Heat, moisture, friction and, often, yeast cause intertrigo . Barrier ointments such as petrolatum and Desitin (zinc oxide) paste are helpful to prevent symptoms. Will use ketoconazo le 2% cream apply thin layer to folds of skin BID for flares, pt declined refill will reach out if desired.Ap ply desitin paste QAM to folds Will reach out if condition is worsening or no improvemen t Granuloma annulare 33006 009 L92.0 Pt reports previous flares. Usually resolve on their own with time.Has also tried topical steroids which have helped.Neola ssured benign inflammato ry condition. Pt reports some lesions are bothersome and persistent and would like treatment with ILK.Will inject most bothersome lesions and send topical steroid to use on new lesions. Will send Rx Clobetasol ointment apply to lesions on hands BID up to two weeks at a time. Do not use on face, groin, axilla.Pro longed use of topical steroid may cause skin thinning, discolorat ion, stretch johns, and/or acne. Skin folds and facial skin are even more prone to such side effects. Only use the steroids as directed. Will recheck in 3 months at [facility] [id number] MARIYA MCKEON [facility] [place] [address] [place] [address] 03/24/2024 14:39:14 03/27/2024 17:05:41 Osteoarthritis of right knee joint 8858951820 97696 M17.11 [id number] DAI RIOS PA-C [place] [address] [place] [address] 06/08/2024 12:22:22 06/08/2024 13:09:10 Neoplasm of uncertain behavior of skin 89288594 D48.5 Will bx today Hidradenit is suppurativa 94670570 L73.2 This a chronic condition that can wax and wane. Smoking and being over your ideal body weight may worsen the condition. Pt is using hibiclens and rx clindamyci n- rec continue Granuloma annulare 09511 009 L92.0 Discussed nature of diagnoses. Will inject lesion with ILK [id number] MARIYA MCKEON [facility] [place] [address] [place] [address] 06/29/2024 13:49:07 07/03/2024 10:40:34 Osteoarthritis of right knee joint 5886382868 82318 M17.11 [id number] JESSIKA ARGUELLES PA-C [facility] [place] [address] [place] [address] 06/29/2024 13:50:37 06/29/2024 16:20:22 Pain of bilateral hands 0064185218 1734822 M79.641 M79.642 Health Concerns Section Related Observation LastModified by Organization Detai ls LastModified Time None Recorded Concern Status LastModified by Organization Details LastModified Time None Recorded Advance Directives Directive None Recorded Payers Encounter Date Sequence Insurance Name Policy Number Policy Mohan Covered Member ID Mohan Member ID Guarantor Name 12/28/2023 2 [place] [id number] Vasquez Marie [id number] Vasquez Marie 03/24/2024 2 [place] [id number] Vaqsuez Marie [id number] Vasquez Marie 06/08/2024 1 [place] [id number] Derek Lozanoson [id number] Vasquez Marie 06/29/2024 1 [place] [id number] Derek Marie [id number] Vasquez Marie 06/29/2024 1 [place] [id number] Derek Lozanoson [id number] 75 Vasquez Marie Notes Date Note Type Note Provider Name and Address Organization Details Recorded Time 12/28/2023 text/html I am here to f/u p on HScurrent tx: clinda lotionreports: I haven't really had to use it, my skin has been pretty kind to me lately Pt here today for spot(s) of concern. Location: R under armDuration:3 weeksSymptoms: no healing no hxLV with DAK 10/26 DILAN TAPIA PA-C [address] [place], [address], [facility] 12/30/2023 12:15:42 03/24/2024 text/html Reports to lm hein with right knee pain. Pt states that she was putting on pantyhose and she lost balance and hurt the knee DOI:03/19/24 ODILIA: putting on pantyhose Treatments: [facility] Found us via referral MARIYA MCKEON [address] [place], [address], [facility] 03/24/2024 15:47:21 06/08/2024 text/html Specific spot t o check Location: L cheekGeneral duration: ~{{days weeks months years 5 months#}}Predominant symptom:{{asymptomat ic itching catching on things sensitive torsten nful* other}}Prior treatment(s):{{none cryo biopsy excision other listed below#}}History of evolution:{{stable c hanging*}}- pt reports trying to extract it, has used clindamycin and hibiclens, similar spots on stomach x2 - pt wants it to be treated / bx DAI RIOS PA-C [address] [place], [address], [facility] 06/08/2024 16:40:54 06/29/2024 text/html Patient comes in today for FU {{Right* Left Bila teral}} {{Knee* Ankle Hip Thigh Lower Leg Shoulder Elbow Wrist/Hand}}. Patient states they are {{better worse howard e}} than last visit. CSI injection MARIYA MCKEON [address] [place], [address], [facility] 06/29/2024 15:03:36 06/29/2024 text/html Pedro is a [...] claim? {{Yes No*}} JESSIKA ARGUELLES PA-C [address] [place], [address], [facility] 06/30/2024 11:32:29 OBGyn Episode No OBEpisode recorded.
--- OUTSIDE RECORDS SUMMARY | 2024-07-13 21:41 | XMS_ITS | Continuity of Care Document ---
Author Organization [facility] ANETTE Mckenna PHELPS Address [address] [place] [address] Assessment No assessment recorded. Plan of Treatment Reminders Order Date Submit Date Provider Last Modified By Organization Details Last Modified Time Details Appointments EMG 2024 09:15A M Neuro_Tec h_2 Not available Not available Not available RECHECK 2024 01:00P M ALAN BRITO MD Not available Not available Not available Lab surgical pathology study 2024 025 [facility], [address] [place] [address], [phone], 06/12/2024 12:43:25 Referral None recorded. Procedures None recorded. Surgeries None recorded. Imaging None recorded. Medication Orders None recorded. Patient TargetsNo targets recorded. Patient InstructionsNo instructions recorded. Reason for Referral None Reported. Results Created Date Observation Date Name Description Value Unit Range Abnormal Flag Note LastModifiedBy Organization Detail LastModifiedTime 06/30/1906/29/2024 XR, hand, 3 or more view Nitin antoine [facility] [address] [address] [phone] Patikevin arellano Name: PEDRO arellano : [phone] Fab[address] [...] moore MD on 025 3:36 PM [email or web address] [facility] [place] [address], [place], [address], 06/30/2024 08:25:50 Result Notes None recorded. 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 Procedures Surgical History Date Name Laterality Status Provider Name and Address Organization Details Recorded Time 06/30/19 25 Injection Joint/Bursa, Major completed MARIYA MCKEON [address] [place], [address], [facility] 06/29/2024 15:02:44 06/09/19 25 Biopsy Skin Lesion; Punch completed Theodore Johnson [facility] 06/08/2024 13:07:34 06/09/19 25 DAK - Intralesional Injection completed Theodore Johnson [facility] 06/08/2024 13:10:03 03/24/20 24 Injection Joint/Bursa, Major completed MARIYA MCKEON [address] [place], [address], [facility] 03/24/2024 15:45:45 12/28/19 24 DAK - Intralesional Injection completed Erica Meza [facility] 12/28/2023 11:49:44 Imaging Results None recorded. Procedure Notes None recorded. Medical Equipment None Reported. Allergies Allergen ID Allergen Name Allergen Category Reaction Reaction Severity Criticality Documentation Date Start Date Code Code System Note Provider Name and Address Organization Details Recorded Time 121572 Product containin g penicilli n (product) medicatio n Not available Not available Not available 11/01/2023 15318 8001 SNOMED [facility] 15:14:00 702675 Seroquel medicatio n Not available Not available Not available 11/01/2023 93502 RxNorm [facility] 15:14:12 Medications Name Sig Start Date Stop [...] Updated DateTime 06/08/2024 172.72 cm Alethea Polanco [facility] 06/08/2024 12:41:25 Social History Question Answer Notes LastModified by Organizat ion Details LastModified Time Tobacco Smoking Status Current Every Day Smoker Damaris Chavez [facility] 11/01/2023 15:15:37 What Is Your Level Of Alcohol Consumption? Occasional Information not available 11/01/2023 Sunscreen Use? Yes [email or web address] Informatio n not available 11/01/2023 Tanning Bed Use No [email or web address] Information not available 11/01/2023 Are You Or Trying To Become ? No Information not available 11/01/2023 Are You On Control? No [email or web address] Information not available 11/01/2023 Are You ? No [email or web address] Information not available 11/01/2023 What Was The [...] MDCK, quadrivalent, PF 01/21/2023 completed Asif Francis [facility] 06/29/2024 14:46:32 COVID-19 vaccine, vector-nr, rS-Ad26, PF, 0.5 mL 06/12/2020 completed Asif Francis [facility] 06/29/2024 14:46:32 COVID-19 vaccine, vector-nr, rS-Ad26, PF, 0.5 mL 02/08/2021 completed Asif Francis [facility] 06/29/2024 14:46:32 Tdap 01/21/2023 completed Asif Francis [facility] 06/29/2024 14:46:32 Hep B, adolescent/hig h risk infant 09/30/1998 completed Asif Francis [facility] 06/29/2024 14:46:32 Hep B, adolescent/hig h risk infant 02/19/1998 completed Asif Francis [facility] 06/29/2024 14:46:32 Hep B, adolescent/hig h risk infant 03/26/1998 completed Asif Francis [facility] 06/29/2024 14:46:32 Past Encounters Encounter ID Performer Location Encounter Start Date Encounter Closed Date Diagnosis/Indication Diagnosis SNOMED-CT Code Diagnosis ICD10 Code Diagnosis Note [id number] DAI RIOS PA-C [address] [address] 06/08/2024 12:22:22 06/08/2024 13:09:10 Neoplasm of uncertain behavior of skin 38617732 D48.5 Will bx today Hidradenit is suppurativa 78396691 L73.2 This a chronic condition that can wax and wane. Smoking and being over your ideal body weight may worsen the condition. Pt is using hibiclens and rx clindamyci n- rec continue Granuloma annulare 63315 009 L92.0 Discussed nature of diagnoses. Will inject lesion with [facility] Health Concerns Section Related Observation LastModified by Organization Detai ls LastModified Time None Recorded Concern Status LastModified by Organization Details LastModified Time None Recorded Payers Encounter Date Sequence Insurance Name Policy Number Policy Mohan Covered Member ID Mohan Member ID Guarantor Name 06/08/2024 1 [place] [id number] Derek Marie [id number] Notes Date Note Type Note Provider Name and Address Organization Details Recorded Time 06/08/2024 text/html Specific spot t o check Location: L cheekGeneral duration: ~{{days weeks emelia hs years 5 months#}}Predomina nt symptom:{{asymptom atic itching catch ing on things sensitive p ainful* other}}Mandy or treatment(s):{{non e cryo biopsy exci rigo other listed below#}}History of evolution:{{stable changing*}}- pt reports trying to extract it, has used clindamycin and hibiclens, similar spots on stomach x2 - pt wants it to be treated / bx ZACK BECKFORDC [address] [place], [address], [facility] 06/08/2024 16:40:54 OBGyn Episode No OBEpisode recorded.
== END 2024-07-12 01:35 | disposition home or self-care (01) ==
PROVIDERS: Emergency Provider Emergency Medicine; PCP Family Medicine
DX: R51.9 Headache, unspecified (principal); M79.10 Myalgia, unspecified site; M54.2 Cervicalgia; M25.511 Pain in right shoulder; M25.512 Pain in left shoulder; R42 Dizziness and giddiness
CPT/HCPCS: 80053; 83735; 84703; 85025; 96361; 96365; 96374; 96375; 99284; J1100; J1200; J1885; J3475; J7120

== ENCOUNTER 2024-07-12 21:19 | Emergency (ER) | payer BC, SELFPAY ==
[2024-07-12] VITALS (7 sets, daily range): BP systolic 122–149; BP diastolic 59–68; PULSE 59–83; RESP 16–20; TEMP 36.6–37.2; O2SAT 99–100; BMI 49.4
--- NOTE | 2024-07-12 21:19 | ECG_ITS ---
APPROVED REPORT Exam: Resting ECG HR:68 bpm ECG Measurements Heart Rate 68 AXES AZ 143 P 64 QRSd 85 QRS 90 QT 371 T 45 QTc 387 Conclusion SINUS RHYTHM LOW QRS VOLTAGE IN PRECORDIAL LEADS [QRS DEFLECTION < 1.0 mV IN CHEST LEADS] BORDERLINE ECG UNCONFIRMED REPORT Electronically signed by : AMY HANSEN, 07/13/2024 06:24:49
--- NOTE | 2024-07-12 22:08 | XR_ITS ---
PROCEDURE INFORMATION: Exam: XR Chest Exam date and time: 07/12/2024 10:16 PM Age: 39 years old Clinical indication: Pain; Chest pressure; Additional info: Chest pressure and mild illness TECHNIQUE: Imaging protocol: Radiologic exam of the chest. Views: 1 view. COMPARISON: CT ANGIO CHEST PE PROTOCOL 06/02/2023 8:44 PM FINDINGS: Lungs: Unremarkable. No consolidation. Pleural spaces: Unremarkable. No pleural effusion. No pneumothorax. Heart/Mediastinum: Unremarkable. No cardiomegaly. Vasculature: Unremarkable. Bones/joints: Unremarkable. IMPRESSION: No acute findings.
[2024-07-12 22:13] LABS: Basophils % 0.2 % (0.1-2.0); Eosinophils # 0.1 K/mm3 (0.0-0.4); Eosinophils % 0.7 % (0.1-12.0); Hematocrit 39.4 % (37.0-47.0); Hemoglobin 12.5 g/dL (12.2-16.2); Lymphocytes # 2.9 K/mm3 (0.7-4.5); Lymphocytes % 26.5 % (10-50); Mean Corpuscular HGB Conc 31.7 g/dL (31.8-35.4); Mean Corpuscular Hemoglobin 25.9 pg (27.0-31.2); Mean Corpuscular Volume 81.7 fl (81-99); Mean Platelet Volume 10.3 fl (7.4-10.4); Monocytes # 0.7 K/mm3 (0.1-1.0); Monocytes % 6.4 % (1.7-9.3); Neutrophils # 7.2 K/mm3 (1.8-7.8); Neutrophils % 65.9 % (37.0-80.0); Nucleated Red Blood Cells # 0 10^3/uL; Nucleated Red Blood Cells % 0 %; Platelet Count 352 K/mm3 (142-424); Red Blood Count 4.82 M/mm3 (4.20-5.40); Red Cell Distribution Width 15.1 % (11.5-17.5); Red Cell Distribution Width-SD 45.3 fL; White Blood Count 10.9 K/mm3 (4.8-10.8)
[2024-07-12 22:19] LABS: Alanine Aminotransferase 17 U/L (12-78); Albumin Level 3.8 g/dl (3.5-5.0); Albumin/Globulin Ratio 1.1 (1.1-1.8); Alkaline Phosphatase 80 U/L (38-126); Anion Gap 13.6 mEq/L (5-15); Aspartate Amino Transferase 21 U/L (14-36); Bilirubin,Total 0.3 mg/dl (0.2-1.3); Blood Urea Nitrogen 12 mg/dl (7-17); Calcium 8.8 mg/dl (8.4-10.2); Carbon Dioxide 25 mmol/L (22.0-30.0); Chloride 106 mmol/L (98-107); Creatinine Clearance Estimated 107 mL/min (50-200); Estimated Glomerular Filt Rate 92 ml/min (>60); GFR (African American) 112 ML/MIN (>60); Globulin 3.5 g/dL (1.3-3.2); Glucose 126 mg/dl (74-100); Potassium 3.6 mmoL/L (3.5-5.1); Sodium 141 mmol/L (136-145); Total Protein,Serum 7.3 g/dl (6.3-8.2)
[2024-07-12 22:33] LABS: Troponin I < 0.01 ng/ml (0.00-0.034)
--- NOTE | 2024-07-12 22:35 | ED_ITS ---
Discharge Plan Disposition Patient Disposition: Left Against Medical Advice Condition: Undetermined Prescriptions Prescriptions: No Action omeprazole 20 mg capsule,delayed release(DR/EC) 20 mg PO BID Patient Comments: TAKE ONE CAPSULE BY MOUTH EVERY TWELVE HOURS take morning CAPSULE 30 minutes BEFORE morning meal sertraline 100 mg tablet 100 mg PO DAILY estradiol 0.1 mg/24 hr patch weekly 1 patch transdermal WEEKLY Qty: 4 11RF propranolol [Inderal LA] 80 mg capsule,extended release 24 hr 80 mg PO BID lidocaine 5 % adhesive patch,medicated See Rx Instructions .ROUTE .COMPLEX Qty: 15 0RF Rx Instructions: Apply to most painful area and leave on for 12 hours. Remove and leave off for 12 hours before using a new patch. Referrals Follow up/Referrals: aTz Ward MD [Primary Care Provider] - See instructions Clinical Impressions Clinical Impression: Migraine Print Language Print Language: Bulgarian Discharge ED Provider: Nick Valladares HPI <Nick Valladares MD - Last Filed: 07/12/24 22:39> General Chief Complaint: Chest Pain Stated Complaint: Chest Pressure since 3pm Time Seen by Provider: 07/12/24 22:07 Mode of Arrival: Ambulatory Source of Information: Patient Description of Symptoms (Recalled from ER Triage Doc. by RN): Patient states she was here with a headache last night and today still has pain and feels bad. States chest pressure started around 3pm so she laid down and woke up at 5pm and still felt crappy so she decided to come back in History of Present Illness HPI narrative: Please note that above description of symptoms, in this electronic medical record under categorization of recalled from ER triage doctor by RN are reflective of an initial nursing assessment, however, is not reflective of my full history and physical exam that was personally taken and clarified. Consequentially, this preceding description of symptoms, which may include the patient's categorized chief complaint in the EMR, do not reflect my personal clinical impression, and the ultimate description of history of present illness and patient stated complaints should be deferred to this section of the note. Unless stated otherwise or congruent with this section of the note, additional signs, symptoms, or incongruence should be interpreted as inaccurate with my clinical impression. Related Data Home Medications ?Medication ?Instructions ?Recorded ?Confirmed omeprazole 20 mg capsule,delayed 20 mg PO BID 12/03/21 06/11/24 release sertraline 100 mg tablet 100 mg PO DAILY 08/12/22 06/11/24 propranolol 80 mg capsule,24 80 mg PO BID 01/26/24 06/11/24 hr,extended release (Inderal LA) Previous Rx's ?Medication ?Instructions ?Recorded estradiol 0.1 mg/24 hr weekly 1 patch transdermal WEEKLY #4 ea 01/26/24 transdermal patch lidocaine 5 % topical patch See Rx Instructions topical 07/12/24 .COMPLEX #15 ea Allergies Allergy/AdvReac Type Severity Reaction Status Date / Time Penicillins Allergy Unknown Verified 06/11/24 17:38 allergy reaction quetiapine (From Seroquel) Allergy Hives Verified 06/11/24 17:38 [facility] <Nick Valladares MD - Last Filed: 07/12/24 22:39> [facility] Disclaimer: The information contained in this section may have been updated after the patient was seen, as this information can be updated by other users. Medical History Incidental lung nodule Polycystic ovary Pre-operative cardiovascular examination Dysmenorrhea Menorrhagia Chronic maxillary sinusitis Sinusitis Pharyngitis Otitis media Acute viral syndrome Headache Abscess, peritonsillar Peritonsillar abscess Parotitis Sore throat C. 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 dreams, sleep paralysis Urinary tract infection History of gastroesophageal reflux (GERD) HTN (hypertension) Palpitations Anxiety Bariatric surg stat-del Onychomycosis Abdominal pain Surgical History History of total abdominal hysterectomy and bilateral salpingo-oophorectomy S/P dilation and curettage History of hernia repair History of cholecystectomy H/O bariatric surgery Family History Sister Asthma Mother Heart attack Diabetes Father Diabetes Coronary artery disease Social History Smoking Status: Current every day smoker tobacco type: cigarettes packs per day: 1 second hand exposure: No alcohol intake: never substance use type: denies use current occupational status: employed Travel in the last 8 weeks: None household members: spouse and children housing: house Have you lived/traveled outside [place] in past 30 days?: No Contact w/someone who lives/traveled outside [place] past 30 days?: No Exposure to someone with infectious disease in past 14 days?: No Do you have a fever (greater than 100.4 F or 38 C)?: No Have you tested positive for COVID-19: No Exposed to someone with COVID-19 in past 14 days?: No Do you have a sore throat?: No Do you have a cough?: No Do you have any weakness?: No Do you have any diarrhea?: No Are you experiencing any unusual bleeding?: No Do you have any muscle aches/pain?: No Do you have any abdominal pain?: No Are you experiencing loss of taste or smell?: No Other Medical History Have you received the Flu Vaccine for this season: No Have you received the Pneumonia Vaccine: No <Nick Valladares MD - Last Filed: 07/12/24 22:39> ROS Obtained: Yes All systems reviewed & no additional complaints except as documented Physical Exam <Nick Valladares MD - Last Filed: 07/12/24 22:39> General General appearance: alert Neck Neck exam: Present trachea midline Chest Chest inspection: Present normal inspection and symmetric chest wall rise Respiratory Respiratory exam: Present normal lung sounds bilaterally; Absent respiratory distress, wheezes, stridor, accessory muscle use or prolonged expiratory phase Cardiovascular Cardiovascular exam: Present regular rate, normal rhythm and other (Pulses equal and symmetric in upper and lower extremities) Extremities Exam Extremities exam: Absent edema Neurological Exam Neurological exam: Present alert, oriented X3 and CN II-XII intact Skin Skin exam: Present warm and dry; Absent cyanosis, diaphoresis or pallor HEART Score <Nick Valladares MD - Last Filed: 07/12/24 22:39> HEART Score HEART Score assessment performed?: Yes HEART Score: 0 <Maximino Reese MD - Last Filed: 07/13/24 01:50> HEART Score History (anamnesis): Slightly suspicious ECG: Normal Age: <45 years Risk factors: 1-2 risk factors Troponin: </= normal limit HEART Score: 1 Critical Care <Nick Valladares MD - Last Filed: 07/12/24 22:39> Critical Care Time Critical Care Time: No Medical Decision Making <Nick Valladares MD - Last Filed: 07/12/24 22:39> Medical Records Medical records reviewed: Yes I reviewed the patient's medical records. Malik Inquiry Pt receiving controlled substance: No Malik was queried for this patient: No Vital Signs Vital Signs: 07/12/24 21:22 07/12/24 21:27 07/12/24 21:35 Temperature 98.9 F Temperature Source Oral Pulse Rate 68 64 Pulse Rate [Right Radial] 83 Respiratory Rate 16 Blood Pressure Blood Pressure [Right Arm] 149/59 H Blood Pressure Mean [Right Arm] 89 Blood Pressure Source Blood Pressure Source [Right Arm] Automatic Cuff Blood Pressure Position Blood Pressure Position [Right Arm] Supine 02 Sat by Pulse Oximetry 100 100 Oxygen Delivery Method Room Air 07/12/24 22:15 07/12/24 22:54 07/12/24 23:00 Temperature Temperature Source Pulse Rate 59 L 70 70 Pulse Rate [Right Radial] Respiratory Rate Blood Pressure 130/63 127/68 122/67 Blood Pressure [Right Arm] Blood Pressure Mean [Right Arm] Blood Pressure Source Blood Pressure Source [Right Arm] Blood Pressure Position Blood Pressure Position [Right Arm] 02 Sat by Pulse Oximetry 99 100 100 Oxygen Delivery Method 07/12/24 23:14 Temperature 97.9 F Temperature Source Oral Pulse Rate 72 Pulse Rate [Right Radial] Respiratory Rate 20 Blood Pressure 122/67 Blood Pressure [Right Arm] Blood Pressure Mean [Right Arm] Blood Pressure Source Automatic Cuff Blood Pressure Source [Right Arm] Blood Pressure Position Supine Blood Pressure Position [Right Arm] 02 Sat by Pulse Oximetry Oxygen Delivery Method Room Air Lab Data Labs: Lab Results 07/12/24 21:24: WBC 10.9 H D, RBC 4.82, Hgb 12.5, Hct 39.4, MCV 81.7, MCH 25.9 L , MCHC 31.7 L, RDW 15.1, Plt Count 352, MPV 10.3, Neut % (Auto) 65.9, Lymph % (Auto) 26.5, Dickey % (Auto) 6.4, Eos % (Auto) 0.7, Baso % (Auto) 0.2, Neut # (Auto) 7.2, Lymph # (Auto) 2.9, Dickey # (Auto) 0.7, Eos # (Auto) 0.1, Baso # (Auto) 0.0, Sodium 141, Potassium 3.6, Chloride 106, Carbon Dioxide 25, Anion Gap 13.6, BUN 12, Creatinine 0.70, Estimated Creat Clear 107, Estimated GFR 92, Est GFR ( Amer) 112, Glucose 126 H, Calcium 8.8, Total Bilirubin 0.3, AST 21, ALT 17 D, Alkaline Phosphatase 80, Troponin I < 0.01, Total Protein 7.3, Albumin 3.8, Globulin 3.5 H, Albumin/Globulin Ratio 1.1 07/12/24 21:24 07/12/24 21:24 Response Orders (Tests/Meds): ED MEDICATIONS Discontinued Medications Generic Name Dose Route Start Last Admin Trade Name Freq PRN Reason Stop Dose Admin Acetaminophen 1,000 mg 07/12/24 22:08 07/12/24 22:46 Acetaminophen 1,000mg/100ml Vial IV 07/12/24 22:09 1,000 mg ONCE ONE Administration Dexamethasone 10 mg 07/12/24 22:08 07/12/24 22:45 Dexamethasone 4mg Tablet PO 07/12/24 22:09 10 mg ONCE ONE Administration Diphenhydramine HCl 25 mg 07/12/24 22:08 07/12/24 22:45 Diphenhydramine 50mg/Ml Vial IV 07/12/24 22:09 25 mg ONCE ONE Administration Lactated Ringer's 1,000 mls @ 999 mls/hr 07/12/24 22:08 07/12/24 22:44 Lactated Ringer's 1000 Ml Bag IV 07/12/24 23:08 999 mls/hr .Q1H1M ONE Administration Ketorolac Tromethamine 15 mg 07/12/24 22:08 07/12/24 22:45 Ketorolac 30mg/Ml Vial IV 07/12/24 22:09 15 mg ONCE ONE Administration Metoclopramide HCl 10 mg 07/12/24 22:08 07/12/24 22:44 Metoclopramide Hcl 10mg/2ml Vial IVP 07/12/24 22:09 10 mg ONCE ONE Administration ORDERS Category Date Time Status CXR --portable [XR chest portable] Stat Exams 07/12/24 22:08 Completed CBC w/Auto Diff [Complete Blood Count Auto Diff] Stat Lab 07/12/24 21:24 Completed CMP [Comprehensive Metabolic Panel] Stat Lab 07/12/24 21:24 Completed Trop I [Troponin I] Stat Lab 07/12/24 21:24 Completed MDM Narrative Medical Decision Narrative: 39-year-old female presenting with headache and panic attack. Has a history of obesity, ISA/BSO currently on estrogen patch, also has a history of sinus dysfunction previously following with ENT, but did not follow through with surgeries. She states that she had chest pressure when she came in, but she thinks is because she was having a panic attack due to the headache that she had. Headache is bandlike, mild to moderate in intensity, photophobic and photophobic. Is not positional, not associated with outward facial swelling, but does have a sensation of pressure. No fevers or chills, nausea or vomiting, vision changes.. History was obtained via conversation with patient. On arrival, patient hemodynamically stable, alert, oriented x4, appropriate, GCS 15, moving all extremities spontaneously, pupils equal and reactive to light. Full physical exam performed and significant for very clinically well-appearing female no acute distress. Not currently having panic attack. She states that she is no longer having chest pressure/pain. Neurologically intact, speaking full sentences, very clinically well and unconcerning physical exam overall. Differential includes migraine, headache, sinusitis, among others. Less likely to be cerebral DVT, intracranial hemorrhage, among others. Patient was given migraine cocktail for symptomatic management and correction of underlying abnormalities. Patient placed on continuous cardiac monitoring and continuous pulse ox with initial blood pressure 149/59, heart rate 83, saturation 100% on room air. Independent interpretation of EKG shows sinus rhythm 68 bpm with MI 143, QRS 85, QTc 387. Normal axis and no acute ischemic change. Patient was placed in observation beginning at 10:30 PM in order to give meds, reassess and determine need for admission versus home-going. The patient was provided meds/serial exams/monitoring while awaiting results. Independent interpretation of results demonstrated nonactionable CBC or chemistry. Troponin negative. Prior to meds and reevaluation, care handed off to oncoming physician. Total observation time [] (to be determined by oncoming physician). [employer] Machine Operator disclaimer Much of this encounter note is an electronic biological lab technician spoken language to printed text. Electronic biological lab technician of the spoken language may permit errors. Although I have reviewed the note, some errors may still exist. <Maximino Reese MD - Last Filed: 07/13/24 01:50> Vital Signs Vital Signs: 07/12/24 21:22 07/12/24 21:27 07/12/24 21:35 Temperature 98.9 F Temperature Source Oral Pulse Rate 68 64 Pulse Rate [Right Radial] 83 Respiratory Rate 16 Blood Pressure Blood Pressure [Right Arm] 149/59 H Blood Pressure Mean [Right Arm] 89 Blood Pressure Source Blood Pressure Source [Right Arm] Automatic Cuff Blood Pressure Position Blood Pressure Position [Right Arm] Supine 02 Sat by Pulse Oximetry 100 100 Oxygen Delivery Method Room Air 07/12/24 22:15 07/12/24 22:54 07/12/24 23:00 Temperature Temperature Source Pulse Rate 59 L 70 70 Pulse Rate [Right Radial] Respiratory Rate Blood Pressure 130/63 127/68 122/67 Blood Pressure [Right Arm] Blood Pressure Mean [Right Arm] Blood Pressure Source Blood Pressure Source [Right Arm] Blood Pressure Position Blood Pressure Position [Right Arm] 02 Sat by Pulse Oximetry 99 100 100 Oxygen Delivery Method 07/12/24 23:14 Temperature 97.9 F Temperature Source Oral Pulse Rate 72 Pulse Rate [Right Radial] Respiratory Rate 20 Blood Pressure 122/67 Blood Pressure [Right Arm] Blood Pressure Mean [Right Arm] Blood Pressure Source Automatic Cuff Blood Pressure Source [Right Arm] Blood Pressure Position Supine Blood Pressure Position [Right Arm] 02 Sat by Pulse Oximetry Oxygen Delivery Method Room Air Lab Data Labs: Lab Results 07/12/24 21:24: WBC 10.9 H D, RBC 4.82, Hgb 12.5, Hct 39.4, MCV 81.7, MCH 25.9 L , MCHC 31.7 L, RDW 15.1, Plt Count 352, MPV 10.3, Neut % (Auto) 65.9, Lymph % (Auto) 26.5, Dickey % (Auto) 6.4, Eos % (Auto) 0.7, Baso % (Auto) 0.2, Neut # (Auto) 7.2, Lymph # (Auto) 2.9, Dickey # (Auto) 0.7, Eos # (Auto) 0.1, Baso # (Auto) 0.0, Sodium 141, Potassium 3.6, Chloride 106, Carbon Dioxide 25, Anion Gap 13.6, BUN 12, Creatinine 0.70, Estimated Creat Clear 107, Estimated GFR 92, Est GFR ( Amer) 112, Glucose 126 H, Calcium 8.8, Total Bilirubin 0.3, AST 21, ALT 17 D, Alkaline Phosphatase 80, Troponin I < 0.01, Total Protein 7.3, Albumin 3.8, Globulin 3.5 H, Albumin/Globulin Ratio 1.1 Response Orders (Tests/Meds): ED MEDICATIONS Discontinued Medications Generic Name Dose Route Start Last Admin Trade Name Freq PRN Reason Stop Dose Admin Acetaminophen 1,000 mg 07/12/24 22:08 07/12/24 22:46 Acetaminophen 1,000mg/100ml Vial IV 07/12/24 22:09 1,000 mg ONCE ONE Administration Dexamethasone 10 mg 07/12/24 22:08 07/12/24 22:45 Dexamethasone 4mg Tablet PO 07/12/24 22:09 10 mg ONCE ONE Administration Diphenhydramine HCl 25 mg 07/12/24 22:08 07/12/24 22:45 Diphenhydramine 50mg/Ml Vial IV 07/12/24 22:09 25 mg ONCE ONE Administration Lactated Ringer's 1,000 mls @ 999 mls/hr 07/12/24 22:08 07/12/24 22:44 Lactated Ringer's 1000 Ml Bag IV 07/12/24 23:08 999 mls/hr .Q1H1M ONE Administration Ketorolac Tromethamine 15 mg 07/12/24 22:08 07/12/24 22:45 Ketorolac 30mg/Ml Vial IV 07/12/24 22:09 15 mg ONCE ONE Administration Metoclopramide HCl 10 mg 07/12/24 22:08 07/12/24 22:44 Metoclopramide Hcl 10mg/2ml Vial IVP 07/12/24 22:09 10 mg ONCE ONE Administration ORDERS Category Date Time Status CXR --portable [XR chest portable] Stat Exams 07/12/24 22:08 Completed CBC w/Auto Diff [Complete Blood Count Auto Diff] Stat Lab 07/12/24 21:24 Completed CMP [Comprehensive Metabolic Panel] Stat Lab 07/12/24 21:24 Completed Trop I [Troponin I] Stat Lab 07/12/24 21:24 Completed MDM Narrative Medical Decision Narrative: 39-year-old female presenting with headache and panic attack. Has a history of obesity, ISA/BSO currently on estrogen patch, also has a history of sinus dysfunction previously following with ENT, but did not follow through with surgeries. She states that she had chest pressure when she came in, but she thinks is because she was having a panic attack due to the headache that she had. Headache is bandlike, mild to moderate in intensity, photophobic and photophobic. Is not positional, not associated with outward facial swelling, but does have a sensation of pressure. No fevers or chills, nausea or vomiting, vision changes.. History was obtained via conversation with patient. On arrival, patient hemodynamically stable, alert, oriented x4, appropriate, GCS 15, moving all extremities spontaneously, pupils equal and reactive to light. Full physical exam performed and significant for very clinically well-appearing female no acute distress. Not currently having panic attack. She states that she is no longer having chest pressure/pain. Neurologically intact, speaking full sentences, very clinically well and unconcerning physical exam overall. Differential includes migraine, headache, sinusitis, among others. Less likely to be cerebral DVT, intracranial hemorrhage, among others. Patient was given migraine cocktail for symptomatic management and correction of underlying abnormalities. Patient placed on continuous cardiac monitoring and continuous pulse ox with initial blood pressure 149/59, heart rate 83, saturation 100% on room air. Independent interpretation of EKG shows sinus rhythm 68 bpm with MI 143, QRS 85, QTc 387. Normal axis and no acute ischemic change. Patient was placed in observation beginning at 10:30 PM in order to give meds, reassess and determine need for admission versus home-going. The patient was provided meds/serial exams/monitoring while awaiting results. Independent interpretation of results demonstrated nonactionable CBC or chemistry. Troponin negative. Prior to meds and reevaluation, care handed off to oncoming physician. Total observation time [] (to be determined by oncoming physician). [employer]ring Machine Operator disclaimer Much of this encounter note is an electronic biological lab technician spoken language to printed text. Electronic biological lab technician of the spoken language may permit errors. Although I have reviewed the note, some errors may still exist. Mary Ann SMITH: I did not see or evaluate the patient nor did I receive handoff on the patient. It is my understanding that the patient left AMA while the prior physician was still here.
[2024-07-12] MEDS: METOCLOPRAMIDE HCL 10MG/2ML VIAL 10 MG IVP (22:44)
[2024-07-12] MEDS: LACTATED RINGERS 1000ML 1,000 ML 999 ML IV (22:44)
[2024-07-12] MEDS: KETOROLAC 30MG/ML VIAL 15 MG IV (22:45)
[2024-07-12] MEDS: diphenhydrAMINE 50MG/ML VIAL 25 MG IV (22:45)
[2024-07-12] MEDS: DEXAMETHASONE 4MG TABLET 10 MG PO (22:45)
[2024-07-12] MEDS: ACETAMINOPHEN 1,000MG/100ML VIAL 1000 MG IV (22:46)
== END 2024-07-12 23:16 | disposition left against medical advice (07) ==
PROVIDERS: Emergency Provider Emergency Medicine; PCP Family Medicine
DX: G43.909 Migraine, unspecified, not intractable, without status migrainosus (principal); F41.0 Panic disorder [episodic paroxysmal anxiety]
CPT/HCPCS: 71045; 80053; 84484; 85025; 93005; 96361; 96374; 96375; 99284; J0131; J1200; J1885; J2765; J7120; J8540

== ENCOUNTER 2024-09-11 03:39 | Emergency (ER) | payer BC, SELFPAY ==
--- OUTSIDE RECORDS SUMMARY | 2024-04-21 07:45 | XMS_ITS ---
Author Organization Tom Address [address] [facility] [address] [place] [phone] Care Team Providers Care Staff Genetic Counselor Name Role Phone Bud Renteria Primary Care Provider [phone] Taz Ward [phone] Allergies Allergen (clinical drug ingredient) Drug/Non Drug Allergy documented on EMR Reaction Allergy Type Onset Date Status Penicillin rash Drug Allergy Active REASON FOR VISIT ckup & refills Encounters Encounter Location Date Provider Diagnosis Claudia [facility] [facility] [address] [place] [phone] 04/21/2024 Taz Ward Plan Of Treatment No Information Progress Notes * CRISTIAN MARIEDOB:1985 (39 yo F)Acc No.[id number]:04/21/2024 Progress Notes Patient: CRISTIAN JEFFERSON Provider: Yolanda [...] Diagno stic Procedure: F ell Down Stairs- [facility] 08/2015, Anxiety- [facility] 07/17/2016, Panic Attack- [facility] 01/2017, Fall- [facility] 06/04/2020, Palpitations, Hypertension- [place] [facility] 06/21/2020. * Family History: F ather: [...] * Vitals: Assessment: Plan: * Treatment: * Billing Information: * Visit Code: * Procedure Codes: * Electronic signature of Leonor Ward MD on 09/11/2024 at 03:55 AM EDT Sign off status: Pending * Provider: Yolanda Ward M.D. Date: 0 04/21/2024 Generated for Stephanie jewell/Elyse/Garret on: 0 09/11/2024 03:55 AM EDT
--- OUTSIDE RECORDS SUMMARY | 2024-06-26 13:15 | XMS_ITS ---
Author Organization [facility] Address [address] [facility] [address] [facility] [address] [place] [phone] Care Team Providers Care Piledriver Carpenter Name Role Phone Bud Renteria Primary Care Provider [phone] Taz Ward [phone] Allergies Allergen (clinical drug ingredient) Drug/Non Drug Allergy documented on EMR Reaction Allergy Type Onset Date Status Penicillin rash Drug Allergy Active REASON FOR VISIT joint pain in hands Encounters Encounter Location Date Provider Diagnosis [facility] [address] [facility] [address] [facility] [address] [place] [phone] 06/26/2024 Taz Ward Plan Of Treatment No Information Progress Notes * CRISTIAN MARIEDOB:1985 (39 yo F)Acc No.[id number]:06/26/2024 Progress Notes Patient: CRISTIAN JEFFERSON Provider: Yolanda [...] Diagno stic Procedure: F ell Down Stairs- [facility] 08/2015, Anxiety- [facility] 07/17/2016, Panic Attack- [facility] 01/2017, Fall- [facility] 06/04/2020, Palpitations, Hypertension- [place] [facility] 06/21/2020. * Family History: F ather: [...] of Leonor Ward MD on 09/11/2024 at 03:53 AM EDT Sign off status: Pending * Provider: Yolanda Ward M.D. Date: 06/26/2024 Generated for Stephanie jewell/Elyse/Sejalitting on: 0 09/11/2024 03:53 AM EDT
--- OUTSIDE RECORDS SUMMARY | 2024-07-14 06:45 | XMS_ITS ---
Author Organization [facility] Address [address] [place] [id number] Care Team Providers Care Sample Processor Name Role Phone Bud Renteria Primary Care Provider Taz Ward Unavailable [phone] Allergies Allergen (clinical drug ingredient) Drug/Non Drug Allergy documented on EMR Reaction Allergy Type Onset Date Status Penicillin rash Drug Allergy Active Results Component Value Reference Range Notes CBC Fingerstick (in house) Reviewed date:07/17/2024 02:53:33 PM Interpretation: Performing Lab: Notes/Report: wbc 8.0 3.5 - 10 lym 43.2% 15 - 50 mid 5.4% 2 - 15 gran 51.4% 35 - 80 rbc 4.78 3.5 - 5.5 hgb 12.5 11.5 - 16.5 hct 38.9 35 - 55 mcv 81.3 75 - 100 mch 26.2 25 - 35 mchc 32.2 31 - 38 plat 318 100 - 400 REASON FOR VISIT Check Up and F/U from ER for Migraines Medications Medication SIG (Take, Route, Frequency, Duration) Notes Start Date End Date Status Famotidine 20 MG 1 tab(s) orally 1 times a day Active Estradiol 0.1 MG/24HR 1 patch to skin Transdermal for 30 day(s) Active CBD OIL ORALLY Active Omeprazole 20 MG 1 cap(s) orally Two times a day Active Propranolol HCl 20 MG 1 tablet Orally 2 times a day for 90 days 11/16/2022 Active Sertraline HCl 100 mg 1 tablet Orally On ce a day for 90 days Pt needs appt Active dexAMETHasone 2 MG 1 tablet Orally Two times a day for 5 day(s) 07/14/2024 Active Vital Signs Blood pressure systolic 138 mm Hg 07/15/19 25 Blood pressure diastolic 80 mm Hg 025 Heart Rate 89 /min 07/14/2024 Height 68 in 07/14/2024 Weight 341 lbs 07/14/2024 BMI 51.84 kg/m2 07/14/2024 Encounters Encounter Location Date Provider Diagnosis [facility] [address] [place] [id number] 07/14/2024 Taz Ward Nasal congestion R09 .81 and Panic disorder F41.0 Assessments Encounter Date Diagnosis (ICD Code) Assessment Notes Treatment Notes Treatment Clinical Notes Section Notes 07/14/2024 Nasal congestion (ICD-10 - R09.81) 07/14/2024 Panic disorder (ICD-10 - F41.0) Plan Of Treatment Medication Medication Name Sig Start Date Stop Date Notes Sertraline HCl 100 mg 1 tablet Orally On ce a day for 90 days Pt needs appt dexAMETHasone 2 MG 1 tablet Orally Two times a day for 5 day(s) 07/14/2024 Next Appt Details Follow Up: via phone to repo rt progress, Reason: Progress Notes * MARIECRISTIANDOB:1985 (39 yo F)Acc No.[id number]:07/14/2024 Progress Notes Patient: CRISTIAN JEFFERSON Provider: Yolanda Ward M.D. :1985 A ge:39 Y S ex:Female Date:07/14/2024 Address:[address] [place] [address], [id number] Pcp:Bud Renteria Subjective: * Chief Complaints: * 1 . Check Up and F/U from ER for Migraines. * HPI: E NT/respiratory: 39 year old female presents with c/o headache P t complains of headache for about 8 days. Pt states she was seen at [facility] ER twice and was given migraine cocktail but has not had any relief. Pt states she has started to get some nasal congestion and thinks she may have a sinus infection rather than a migraine. * ROS: D ERMATOLOGY: no R yuni. [...] Diagno stic Procedure: F ell Down Stairs- [facility] ER 08/2015, Anxiety- [facility] ER 07/17/2016, Panic Attack- [facility] ER 01/2017, Fall- [facility] ER 06/04/2020, Palpitations, Hypertension- [facility] 06/21/2020. * Family History: F ather: [...] .5, Smoking preference: cigarettes. Alcohol: No. * Medications: T aking Estradiol 0.1 MG/24HR Patch Weekly 1 patch to skin Transdermal , Taking CBD OIL ORALLY , Taking Famotidine 20 MG Tablet 1 tab(s) orally 1 times a day , Taking Omeprazole 20 MG Capsule Delayed Release 1 cap(s) orally Two times a day , Taking Propranolol HCl 20 MG Tablet 1 tablet Orally 2 times a day , Taking Sertraline HCl 100 mg Tablet 1 tablet Orally Once a day , Notes to Pharmacist: Pt needs appt, Medication List reviewed and reconciled with the patient * Allergies: P enicillin: rash. Objective: * Vitals: W t:341, Temp:98.3, BP:138/80, HR:89, Nurse:rocio, Ht: 68, BMI:51.84. * Examination: E NT/Respiratory: General Appearance: N AD. Nose : nares patent, clear rhinorrhea. Oral cavity : n o erythema or exudate seen on pharynx. Heart : R RR, normal S1 S2. Lungs: c lear to auscultation bilaterally. Assessment: * Assessment: 1. N montserrat congestion - R09.81 (Primary) 2 . P anic disorder - F41.0 ? Plan: * Treatment: Value Reference Range w bc 8.0 3.5 - 10 * l ym 43.2% 15 - 50 * m id 5.4% 2 - 15 * g ran 51.4% 35 - 80 * r bc 4.78 3.5 - 5.5 * h gb 12.5 11.5 - 16.5 * h ct 38.9 35 - 55 * m cv 81.3 75 - 100 * m ch 26.2 25 - 35 * m chc 32.2 31 - 38 * p lat 318 100 - 400 * Ping Ibarra 07/14/2024 03:56: 40 PM > 2.?Panic disorder? Refill Sertraline HCl Tablet, 100 mg, 1 tablet, Orally, Once a day, 90 days, 90, Refills 1, Notes to Pharmacist: Pt needs appt.?? * Procedure Codes: 3 6416 CAPILLARY BLOOD DRAW, [address] CBC WITH AUTO DIFF, 3075F SYST BP GE 130 - 139MM HG, 3079F DIAST BP 80-89 MM HG * Follow Up: v ia phone to report progress * Billing Information: * Visit Code: 47360 Office Visit, Est Pt., Level 3. * Procedure Codes: 10011 CAPILLARY BLOOD DRAW. 77473 CBC WITH AUTO DIFF. 3075F SYST BP GE 130 - 139MM HG. 3079F DIAST BP 80-89 MM HG. * Electronic signature of Leonor Ward MD on 09/11/2024 at 03:54 AM EDT Sign off status: Pending * Provider: Yolanda Ward M.D. Date: 0 07/14/2024 Generated for Stephanie jewell/Elyse/eTransmitting on: 0 09/11/2024 03:54 AM EDT History and Physical Notes * HPI (History of Present Illness) Category Sub-Category Detail Notes Category Not es ENT/respiratory headache Pt complains of headache for about 8 days. Pt states she was seen at [facility] ER twice and was given migraine cocktail but has not had any relief. Pt states she has started to get some nasal congestion and thinks she may have a sinus infection rather than a migraine Examination Category Sub-Category Detail Notes Category Not es ENT/Respiratory Oral cavity : no erythema or exudate s een on pharynx Heart : RRR, normal S1 S2 Lungs: clear to auscultatio n bilaterally General Appearance: NAD Nose : nares patent, clear rhinorrhea
--- NOTE | 2024-09-11 03:36 | ECG_ITS ---
APPROVED REPORT Exam: Resting ECG HR:68 bpm ECG Measurements Heart Rate 68 AXES GA 146 P 61 QRSd 85 QRS 74 QT 368 T 52 QTc 386 Conclusion SINUS RHYTHM LOW QRS VOLTAGE IN PRECORDIAL LEADS [QRS DEFLECTION < 1.0 mV IN CHEST LEADS] BORDERLINE ECG UNCONFIRMED REPORT Electronically signed by : AMY HANSEN, 09/11/2024 06:40:00
--- NOTE | 2024-09-11 03:39 | ED_ITS ---
Discharge Plan Disposition Patient Disposition: Home, Self-Care Condition: Good Prescriptions Prescriptions: No Action omeprazole 20 mg capsule,delayed release(DR/EC) 20 mg PO BID Patient Comments: TAKE ONE CAPSULE BY MOUTH EVERY TWELVE HOURS take morning CAPSULE 30 minutes BEFORE morning meal sertraline 100 mg tablet 100 mg PO DAILY azithromycin [Zithromax Z-Micha] 250 mg tablet See Rx Instructions PO .COMPLEX Qty: 6 0RF Rx Instructions: For 250 mg dose pack: take 500 mg today (day 1), then 250 mg for 4 days (days 2-5) PO guaifenesin 1,200 mg tablet extended release 12hr 1,200 mg PO BID Qty: 20 0RF estradiol 0.1 mg/24 hr patch weekly 1 patch transdermal WEEKLY Qty: 4 11RF propranolol [Inderal LA] 80 mg capsule,extended release 24 hr 80 mg PO BID lidocaine 5 % adhesive patch,medicated See Rx Instructions .ROUTE .COMPLEX Qty: 15 0RF Rx Instructions: Apply to most painful area and leave on for 12 hours. Remove and leave off for 12 hours before using a new patch. Referrals Follow up/Referrals: Provider,Referral, [Primary Care Provider, Medical] - See instructions Activity Restrictions/Add. Instructions Additional Instructions/Restrictions: Please follow-up with your primary care provider. Please return to the emergency department if you develop any new or worsening symptoms or become concerned for your health. Clinical Impressions Clinical Impression: Chest pain Print Language Print Language: Armenian Discharge ED Provider: Ronald Browne General Adult HPI <Maximino Reese MD - Last Filed: 09/11/24 06:16> General Chief complaint: Chest Pain Stated complaint: chest pain Time Seen by Provider: 09/11/24 03:39 History of Present Illness HPI narrative: 39-year-old female with history of obesity, anxiety presents for chest pain. She reports that it started earlier today. They had to put down their dog. She thinks it could be anxiety related. She reports it is a tightness/burning in the upper chest/throat rating to the left jaw and left arm. Initially calm down and then around midnight when she was try to go to sleep it got worse again. She does have a history of GERD and took a famotidine to see if it would help. She denies any shortness of breath. Related Data Home Medications ?Medication ?Instructions ?Recorded ?Confirmed omeprazole 20 mg capsule,delayed 20 mg PO BID 12/03/21 08/29/24 release sertraline 100 mg tablet 100 mg PO DAILY 08/12/22 propranolol 80 mg capsule,24 80 mg PO BID 01/26/24 hr,extended release (Inderal LA) Previous Rx's ?Medication ?Instructions ?Recorded estradiol 0.1 mg/24 hr weekly 1 patch transdermal WEEK LY #4 ea 01/26/24 transdermal patch lidocaine 5 % topical patch See Rx Instructions topica l 07/12/24 .COMPLEX #15 ea azithromycin 250 mg tablet See Rx Instructions PO .COM PLEX #6 08/29/24 (Zithromax Z-Micha) tabs guaifenesin 1,200 mg tablet, 1,200 mg PO BID #20 tabs 08/29/24 extended release 12 hr Allergies Allergy/AdvReac Type Severity Reaction Status Date / Time Penicillins Allergy Unknown Verified 08/29/24 13:04 allergy reaction quetiapine (From Seroquel) Allergy Hives Verified 08/29/24 13:04 [facility] <Maxiimno Reese MD - Last Filed: 09/11/24 06:16> [facility] Disclaimer: The information contained in this section may have been updated after the patient was seen, as this information can be updated by other users. Medical History Incidental lung nodule Polycystic ovary Pre-operative cardiovascular examination Dysmenorrhea Menorrhagia Chronic maxillary sinusitis Sinusitis Pharyngitis Otitis media Acute viral syndrome Headache Abscess, peritonsillar Peritonsillar abscess Parotitis Sore throat C. 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 dreams, sleep paralysis Urinary tract infection History of gastroesophageal reflux (GERD) HTN (hypertension) Palpitations Anxiety Bariatric surg stat-del Onychomycosis Abdominal pain Surgical History History of total abdominal hysterectomy and bilateral salpingo-oophorectomy S/P dilation and curettage History of hernia repair History of cholecystectomy H/O bariatric surgery Family History Sister Asthma Mother Heart attack Diabetes Father Diabetes Coronary artery disease Social History Smoking Status: Current some day smoker tobacco type: cigarettes packs per day: 1 second hand exposure: No alcohol intake: never substance use type: denies use current occupational status: employed Travel in the last 8 weeks?: None household members: spouse and children housing: house Have you lived/traveled outside [place] in past 30 days?: No Contact w/someone who lives/traveled outside [place] past 30 days?: No Exposure to someone with infectious disease in past 14 days?: No Do you have a fever (greater than 100.4 F or 38 C)?: No Have you tested positive for COVID-19?: No Exposed to someone with COVID-19 in past 14 days?: No Do you have a sore throat?: No Do you have a cough?: No Do you have any weakness?: No Do you have any diarrhea?: No Are you experiencing any unusual bleeding?: No Do you have any muscle aches/pain?: No Do you have any abdominal pain?: No Are you experiencing loss of taste or smell?: No Other Medical History Have you received the Flu Vaccine for this season: No Have you received the Pneumonia Vaccine: No <Maximino Reese MD - Last Filed: 09/11/24 06:16> ROS Obtained: Yes All systems reviewed & no additional complaints except as documented Physical Exam <Maximino Reese MD - Last Filed: 09/11/24 06:16> General General appearance: alert and in no apparent distress Head Head exam: atraumatic and normocephalic Eye Eye exam: Present normal appearance, PERRL and EOMI ENT ENT exam: Present normal oropharynx and normal external ear exam Neck Neck exam: Present normal inspection and full ROM Chest Chest inspection: Present normal inspection and symmetric chest wall rise; Absent tenderness Respiratory Respiratory exam: Present normal lung sounds bilaterally; Absent respiratory distress Cardiovascular Cardiovascular exam: Present regular rate and normal rhythm Abdominal Exam Abdominal exam: Present soft; Absent distention, tenderness or guarding Extremities Exam Extremities exam: Present normal inspection; Absent edema or joint swelling Back Exam Back exam: Present normal inspection; Absent tenderness Neurological Exam Neurological exam: Present alert and oriented X3; Absent motor sensory deficit Psychiatric Psychiatric exam: Present normal affect and normal mood Skin Skin exam: Present warm, dry and normal color Lymphatic Lymphatic Findings: no adenopathy Medical Decision Making <Maximino Reese MD - Last Filed: 09/11/24 06:16> Medical Records Medical records reviewed: Yes I reviewed the patient's medical records. Screening: Per USPSTF and CDC recommendations, given the prevalence of disease in our region, it is our hospital?s policy to screen for HIV and viral Hepatitis for all patients aged 18 and over and those with ongoing risk factors. Malik Inquiry Pt receiving controlled substance: No Malik was queried for this patient: No Vital Signs: 09/11/24 03:48 09/11/24 03:53 09/11/24 07:08 Temperature 98.2 F 97.4 F L Temperature Source Oral Oral Pulse Rate 68 60 Pulse Rate [Left Radial] 70 Respiratory Rate 18 14 Blood Pressure 120/69 Blood Pressure [Right Arm] 179/91 H Blood Pressure Mean [Right Arm] 120 Blood Pressure Source Automatic Cuff Blood Pressure Source [Right Arm] Automatic Cuff Blood Pressure Position [Right Arm] Sitting 02 Sat by Pulse Oximetry 100 Oxygen Delivery Method Room Air Room Air Lab Data Lab results reviewed: Yes I reviewed the patient's lab results. Lab Results 09/11/24 03:47: WBC 10.0, RBC 4.97, Hgb 12.5, Hct 40.5, MCV 81.5, MCH 25.2 L, M CHC 30.9 L, RDW 14.6, Plt Count 340, MPV 10.0, Neut % (Auto) 51.5, Lymph % (Auto) 36.9, [place] % (Auto) 6.0, Eos % (Auto) 4.8, Baso % (Auto) 0.5, Neut # (Auto) 5.1, Lymph # (Auto) 3.7, [place] # (Auto) 0.6, Eos # (Auto) 0.5 H, Baso # (Auto) 0.1, Sodium 140, Potassium 3.9, Chloride 107, Carbon Dioxide 28, Anion Gap 8.9, BUN 12, Creatinine 0.70, Estimated Creat Clear 107, Estimated GFR 92, Est GFR ( Amer) 112, Glucose 107 H, Calcium 9.0, Total Bilirubin 0.3, AST 20, ALT 12, Alkaline Phosphatase 74, Troponin I < 0.01, Total Protein 7.2, Albumin 3.9, Globulin 3.3 H, Albumin/Globulin Ratio 1.2, Serum HCG, Qual Negative, HCV Ab FREEMAN w/Rflx PCR Qn Negative, HIV Ag/Ab Combo Qual Negative 09/11/24 05:45: Troponin I < 0.01 09/11/24 03:47 09/11/24 03:47 Orders (Tests/Meds): ED MEDICATIONS Discontinued Medications Generic Name Dose Route Start Last Admin Trade Name Freq PRN Reason Stop Dose Admin Acetaminophen 1,000 mg 09/11/24 03:49 09/11/24 03:57 Acetaminophen 500mg Tab PO 09/11/24 03:50 1,000 mg ONCE ONE Administration Aspirin 324 mg 09/11/24 03:49 09/11/24 03:57 Aspirin 81mg Chewable Tablet PO 09/11/24 03:50 324 mg ONCE ONE Administration Belladonna Alkaloids 60 ml 09/11/24 03:49 09/11/24 03:57 Belladonna Alkaloids 60 Ml Ml PO 09/11/24 03:50 60 ml ONCE ONE Administration ORDERS Category Date Time Status CXR --portable [XR chest portable] Stat Exams 09/11/24 03:49 Completed CBC w/Auto Diff [Complete Blood Count Auto Diff] Stat Lab 09/11/24 03:47 Completed CMP [Comprehensive Metabolic Panel] Stat Lab 09/11/24 03:47 Completed HCG Qualitative, Serum Stat Lab 09/11/24 03:47 Completed HIV Combo Stat Lab 09/11/24 03:47 Completed Hepatitis C Ab Qual. W/ RFX Stat Lab 09/11/24 03:47 Completed Troponin I Q3H Lab 09/11/24 03:47 Completed Troponin I Q3H Lab 09/11/24 05:45 Completed HEART Score History (anamnesis): Slightly suspicious ECG: Normal Age: <45 years Risk factors: 1-2 risk factors Troponin: </= normal limit HEART Score: 1 Medical Decision Narrative: 39-year-old female presents for chest pain. History was obtained via interactive discussion with patient, chart review. On arrival, patient is [afebrile, hemodynamically stable, satting appropriately, alert, oriented x4, GCS 15], moving all extremities spontaneously. Full physical exam performed and significant for no significant physical exam Differential includes but is not limited to anxiety, reflux, musculoskeletal chest pain, ACS, PE. Patient was given aspirin Tylenol and GI cocktail for symptomatic management and correction of underlying abnormalities. Workup initiated including CBC CMP troponin x 2 EKG chest x-ray. Patient is PERC negative and does not require dimer to rule out PE.. On re-evaluation, patient [remains afebrile, HD stable.] Laboratory workup independently interpreted by me and significant for negative troponin x 2, no significant electrolyte derangement, normal renal function, no leukocytosis.. Imaging independently interpreted by me and significant for clear lungs bilaterally.. See radiology read for full review of final results. EKG independently interpreted by me and significant for normal sinus rhythm, rate of 68, no concerning ischemic changes, no evidence of arrhythmia. Given patient history, exam and workup, patient's presentation most likely represents noncardiac chest pain. Could be anxiety related given recent stressor. Could also be reflux. These findings were communicated with patient and she was discharged in stable condition. Return precautions given. <Jarrod Chauhan MD - Last Filed: 09/11/24 07:13> Vital Signs: 09/11/24 03:48 09/11/24 03:53 09/11/24 07:08 Temperature 98.2 F 97.4 F L Temperature Source Oral Oral Pulse Rate 68 60 Pulse Rate [Left Radial] 70 Respiratory Rate 18 14 Blood Pressure 120/69 Blood Pressure [Right Arm] 179/91 H Blood Pressure Mean [Right Arm] 120 Blood Pressure Source Automatic Cuff Blood Pressure Source [Right Arm] Automatic Cuff Blood Pressure Position [Right Arm] Sitting 02 Sat by Pulse Oximetry 100 Oxygen Delivery Method Room Air Room Air Lab Data Lab Results 09/11/24 03:47: WBC 10.0, RBC 4.97, Hgb 12.5, Hct 40.5, MCV 81.5, MCH 25.2 L, M CHC 30.9 L, RDW 14.6, Plt Count 340, MPV 10.0, Neut % (Auto) 51.5, Lymph % (Auto) 36.9, [place] % (Auto) 6.0, Eos % (Auto) 4.8, Baso % (Auto) 0.5, Neut # (Auto) 5.1, Lymph # (Auto) 3.7, [place] # (Auto) 0.6, Eos # (Auto) 0.5 H, Baso # (Auto) 0.1, Sodium 140, Potassium 3.9, Chloride 107, Carbon Dioxide 28, Anion Gap 8.9, BUN 12, Creatinine 0.70, Estimated Creat Clear 107, Estimated GFR 92, Est GFR ( Amer) 112, Glucose 107 H, Calcium 9.0, Total Bilirubin 0.3, AST 20, ALT 12, Alkaline Phosphatase 74, Troponin I < 0.01, Total Protein 7.2, Albumin 3.9, Globulin 3.3 H, Albumin/Globulin Ratio 1.2, Serum HCG, Qual Negative, HCV Ab FREEMAN w/Rflx PCR Qn Negative, HIV Ag/Ab Combo Qual Negative 09/11/24 05:45: Troponin I < 0.01 Orders (Tests/Meds): ED MEDICATIONS Discontinued Medications Generic Name Dose Route Start Last Admin Trade Name Freq PRN Reason Stop Dose Admin Acetaminophen 1,000 mg 09/11/24 03:49 09/11/24 03:57 Acetaminophen 500mg Tab PO 09/11/24 03:50 1,000 mg ONCE ONE Administration Aspirin 324 mg 09/11/24 03:49 09/11/24 03:57 Aspirin 81mg Chewable Tablet PO 09/11/24 03:50 324 mg ONCE ONE Administration Belladonna Alkaloids 60 ml 09/11/24 03:49 09/11/24 03:57 Belladonna Alkaloids 60 Ml Ml PO 09/11/24 03:50 60 ml ONCE ONE Administration ORDERS Category Date Time Status CXR --portable [XR chest portable] Stat Exams 09/11/24 03:49 Completed CBC w/Auto Diff [Complete Blood Count Auto Diff] Stat Lab 09/11/24 03:47 Completed CMP [Comprehensive Metabolic Panel] Stat Lab 09/11/24 03:47 Completed HCG Qualitative, Serum Stat Lab 09/11/24 03:47 Completed HIV Combo Stat Lab 09/11/24 03:47 Completed Hepatitis C Ab Qual. W/ RFX Stat Lab 09/11/24 03:47 Completed Troponin I Q3H Lab 09/11/24 03:47 Completed Troponin I Q3H Lab 09/11/24 05:45 Completed HEART Score HEART Score: 1 Medical Decision Narrative: 39-year-old female presents for chest pain. History was obtained via interactive discussion with patient, chart review. On arrival, patient is [afebrile, hemodynamically stable, satting appropriately, alert, oriented x4, GCS 15], moving all extremities spontaneously. Full physical exam performed and significant for no significant physical exam Differential includes but is not limited to anxiety, reflux, musculoskeletal chest pain, ACS, PE. Patient was given aspirin Tylenol and GI cocktail for symptomatic management and correction of underlying abnormalities. Workup initiated including CBC CMP troponin x 2 EKG chest x-ray. Patient is PERC negative and does not require dimer to rule out PE.. On re-evaluation, patient [remains afebrile, HD stable.] Laboratory workup independently interpreted by me and significant for negative troponin x 2, no significant electrolyte derangement, normal renal function, no leukocytosis.. Imaging independently interpreted by me and significant for clear lungs bilaterally.. See radiology read for full review of final results. EKG independently interpreted by me and significant for normal sinus rhythm, rate of 68, no concerning ischemic changes, no evidence of arrhythmia. Jarrod Chauhan MD DAMIÁN: I assumed care of this patient from the previous emergency medicine physician. Second troponin is undetectable. On my evaluation, patient reports total resolution of symptoms. She states she has been evaluated by cardiology in the past for workup of PVCs and has upcoming appointment next month. The patient reports similar symptoms in the past associated with panic attacks, and reports to me recent stressors today. Patient is stable for discharge at this time. Return precautions given. Procedures <Maximino Reese MD - Last Filed: 09/11/24 06:16> Risk/Benefits of Procedure(s) Were Explained: Yes Critical Care <Maximino Reese MD - Last Filed: 09/11/24 06:16> Critical Care Time Critical Care Time: No
[2024-09-11 03:48] VITALS: BP 179/91; PULSE 70; RESP 18; TEMP 36.8; O2SAT 100; BMI 48.6
--- NOTE | 2024-09-11 03:49 | XR_ITS ---
PROCEDURE INFORMATION: Exam: XR Chest Exam date and time: 09/11/2024 4:04 AM Age: 39 years old Clinical indication: Pain; Radiating; Additional info: Cp TECHNIQUE: Imaging protocol: Radiologic exam of the chest. Views: 1 view. COMPARISON: CR XR CHEST PORTABLE 07/12/2024 10:16 PM FINDINGS: Lungs: Unremarkable. No consolidation. Pleural spaces: Unremarkable. No pleural effusion. No pneumothorax. Heart/Mediastinum: Unremarkable. No cardiomegaly. Bones/joints: Unremarkable. IMPRESSION: No acute findings.
[2024-09-11 03:53] VITALS: PULSE 68
--- OUTSIDE RECORDS SUMMARY | 2024-09-11 03:53 | XMS_ITS | Encounter Summary ---
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 Name Role Phone Unavailable Primary Care Provider Unavailabl e Encounter Details Date Type Department Care Team (Late st Contact Info) Description 10/25/2020 Transcribed Document [facility] [place] Family Medicine [address] [place] [address] ProviderMegan MD [address] [place] [address] Social History Tobacco Use Types Packs/Day Years Used Date Smoking Tobacco: Never Assessed Comments Unknown Sex and Gender Information Value Date Recorded Sex Assigned at Female 09/30/2021 7:34 PM CDT Legal Sex Female 7:34 PM CDT Gender Identity Female 09/30/2021 7:34 PM CDT Sexual Orientation Not on file documented as of this encounter Miscellaneous Notes * Cerner Conversion Note - Megan ProviderMD - 10/25/2020 2:27 [place] [address] PEDRO GIPSON :1985 Visit Time:10/25/2020 What to do next Your Diagnosis Gastro-esophageal reflux disease without esophagitis, Gastro-esophageal reflux disease without esophagitis Instructions From Your Care Team Diet after Discharge: Resume usual diet as tolerated Activity after Discharge: As tolerated, Rest and relax today Driving after Discharge: Do not drive for 24 hours May Return to Work/School: Tomorrow Notify Provider of: Any questions or concerns Follow-Up Appointments Follow Up with RICO KHAN MD When Comments The office will contact you with biopsy results in 7-10 days. Where: [address] [facility] [address] [place] [id number]- Medications What How Much When Instructions Next Dose ARIPiprazole (Abilify) 10 Milligram(s) Oral Every Day metoprolol (metoprolol tartrate) 25 Milligram(s) Two Times A Day Take your medications faithfully. Do NOT skip medication. Do NOT stop taking medications without the direction of a physician. Carry a list of your medications with you at all times, and take this medication list with you to your first follow up visit. Report any side effects. Avoid herbal remedies unless discussed with your physician. As part of your treatment plan, your physician may have prescribed a limited course of a controlled substance. This medication may be given to help people with moderate or severe pain or for other medical conditions, but there are risks involved with treatment. Common side effects may include nausea, constipation, drowsiness, sweating, itching, dry mouth, and rash. More serious side effects may include cognitive and motor impairment, like problems with thinking, concentrating, alertness, and movement (e.g. slowed reflexes), and driving and operating heavy machinery can be dangerous. It is important for you to talk to your physician if you have these side effects or questions. These controlled substances can produce physical dependence and be habit-forming if taken for an extended period of time, which means that the body has gotten used to them and may experience withdrawal symptoms if they are abruptly stopped. Withdrawal symptoms can include runny nose, sweating, goose bumps, diarrhea, abdominal cramping, rapid heartbeat, difficulty sleeping, and nervousness. Please dispose of unused and medications per pharmacy guidance. Education Materials ESOPHAGOGASTRODUODENOSCOPY Care After Read the instructions outlined below and refer to this sheet over the next few days. These discharge instructions provide you with general information on caring for yourself after you leave the hospital. Your doctor may also give you specific instructions. While your treatment has been planned according to the most current medical practices available, unavoidable complications occasionally occur. If you have any problems or questions after discharge, call your doctor. HOME CARE INSTRUCTIONS: ACTIVITY: ??? You may resume your regular activity tomorrow, but move at a slower pace for the next 24 hours. ??? Take frequent rest periods for the next 24 hours. ??? Walking will help get rid of the air and reduce the bloated feeling in your belly (abdomen). ??? No driving for 24 hours because of the medication (sedation) used during the test. ??? You may shower. ??? Do not sign any important legal documents or operate any machinery for 24 hours (because of the sedation used during the test). NUTRITION: ??? Drink plenty of fluids. ??? You may resume your normal diet or as instructed by your doctor ??? Begin with a light meal and progress to your normal diet. Heavy or fried foods are harder to digest and may make you feel sick to your stomach (nauseated). ??? Avoid alcoholic beverages for 24 hours or as instructed. MEDICATIONS: ??? You may resume your normal medications unless your doctor tells you otherwise. WHAT TO EXPECT TODAY: ??? Some feelings of bloating in the abdomen. ??? Excessive burping today and passage of more gas than usual. ??? A sore throat can be normal. Use throat lozenges or gargle with warm salt water and drink plenty of fluids. FINDING OUT THE RESULTS OF YOUR TEST: ??? Not all test results are available during your visit. If you had biopsies or other tests done during your procedure, you can make an appointment with your doctor to get the results. Sometimes you may be instructed to call the doctor???s office for your results. It is important for you to follow up on all of your test results. SEEK IMMEDIATE MEDICAL CARE IF: ??? You cannot eat or drink. ??? You have worsening throat or chest pain. ??? You have dizziness, lightheadedness, or you faint. ??? You have severe nausea or vomiting. ??? You have a fever greater than 101. ??? You have chills. ??? You have severe abdominal pain or discomfort that gets worse throughout the day. ??? You have black, tarry, or bloody stools. Helicobacter Pylori Infection Helicobacter pylori infection is a bacterial infection in the stomach. Long-term (chronic) infection can cause stomach irritation (gastritis), ulcers in the stomach (gastric ulcers), and ulcers in the upper part of the intestine (duodenal ulcers). Having this infection may also increase your risk of stomach cancer and a type of white blood cell cancer (lymphoma) that affects the stomach. What are the causes? This infection is caused by the Helicobacter pylori (H. pylori) bacteria. Many healthy people have this bacteria in their stomach lining. The bacteria may also spread from person to person through contact with stool (feces) or saliva. It is not known why some people develop ulcers, gastritis, or cancer from the bacteria. What increases the risk? You are more likely to develop this condition if you: ??? Have family members with the infection. ??? Live with many other people, such as in a dormitory. ??? Are of , , or descent. What are the signs or symptoms? Most people with this infection do not have any symptoms. If you do have symptoms, they may include: ??? Heartburn. ??? Stomach pain. ??? Nausea. ??? Vomiting. The vomit may be bloody because of ulcers. ??? Loss of appetite. ??? Bad breath. How is this diagnosed? This condition may be diagnosed based on: ??? Your symptoms and medical history. ??? A physical exam. ??? Blood tests. ??? Stool tests. ??? A breath test. ??? A procedure that involves placing a tube with a camera on the end of it down your throat to examine your stomach and upper intestine (upper endoscopy). ??? Removing and testing a tissue sample from the stomach lining (biopsy). A biopsy may be taken during an upper endoscopy. How is this treated? This condition is treated by taking a combination of medicines (triple therapy) for several weeks. Triple therapy includes one medicine to reduce the amount of acid in your stomach and two types of antibiotic medicines. This treatment may reduce your risk of cancer. You may need to be tested for H. pylori again after treatment. In some cases, the treatment may need to be repeated if your treatment did not get rid of all the bacteria. Follow these instructions at home: ??? Take xlrl-orf-svkidhe and prescription medicines only as told by your health care provider. ??? Take your antibiotics as told by your health care provider. Do not stop taking the antibiotics even if you start to feel better. ??? Return to your normal activities as told by your health care provider. Ask your health care provider what activities are safe for you. ??? Take steps to prevent future infections: ? Wash your hands often with soap and water. If soap and water are not available, use hand dental assistant teacher. ? Do not eat food or drink water that may have had contact with stool or saliva. ??? Keep all follow-up visits as told by your health care provider. This is important. You may need tests to make sure your treatment worked. Contact a health care provider if your symptoms: ??? Do not get better with treatment. ??? Return after treatment. Summary ??? Helicobacter pylori infection is a stomach infection caused by the Helicobacter pylori (H. pylori) bacteria. ??? This infection can cause stomach irritation (gastritis), ulcers in the stomach (gastric ulcers), and ulcers in the upper part of the intestine (duodenal ulcers). ??? This condition is treated by taking a combination of medicines (triple therapy) for several weeks. ??? Take your antibiotics as told by your health care provider. Do not stop taking the antibiotics even if you start to feel better. This information is not intended to replace advice given to you by your health care provider. Make sure you discuss any questions you have with your health care provider. Document Revised: 07/13/2019 Document Reviewed: 03/15/2018 [employer] Patient Education ?? 2020 [employer]. Monitored Anesthesia Care, Care After These instructions provide you with information about caring for yourself after your procedure. Your health care provider may also give you more specific instructions. Your treatment has been planned according to current medical practices, but problems sometimes occur. Call your health care provider if you have any problems or questions after your procedure. What can I expect after the procedure? After your procedure, you may: ??? Feel sleepy for several hours. ??? Feel clumsy and have poor balance for several hours. ??? Feel forgetful about what happened after the procedure. ??? Have poor judgment for several hours. ??? Feel nauseous or vomit. ??? Have a sore throat if you had a breathing tube during the procedure. Follow these instructions at home: For at least 24 hours after the procedure: ??? Have a responsible adult stay with you. It is important to have someone help care for you until you are awake and alert. ??? Rest as needed. ??? Do not: ? Participate in activities in which you could fall or become injured. ? Drive. ? Use heavy machinery. ? Drink alcohol. ? Take sleeping pills or medicines that cause drowsiness. ? Make important decisions or sign legal documents. ? Take care of children on your own. Eating and drinking ??? Follow the diet that is recommended by your health care provider. ??? If you vomit, drink water, juice, or soup when you can drink without vomiting. ??? Make sure you have little or no nausea before eating solid foods. General instructions ??? Take hkez-jks-msercbc and prescription medicines only as told by your health care provider. ??? If you have sleep apnea, surgery and certain medicines can increase your risk for breathing problems. Follow instructions from your health care provider about wearing your sleep device: ? Anytime you are sleeping, including during daytime naps. ? While taking prescription pain medicines, sleeping medicines, or medicines that make you drowsy. ??? If you smoke, do not smoke without supervision. ??? Keep all follow-up visits as told by your health care provider. This is important. Contact a health care provider if: ??? You keep feeling nauseous or you keep vomiting. ??? You feel light-headed. ??? You develop a rash. ??? You have a fever. Get help right away if: ??? You have trouble breathing. Summary ??? For several hours after your procedure, you may feel sleepy and have poor judgment. ??? Have a responsible adult stay with you for at least 24 hours or until you are awake and alert. This information is not intended to replace advice given to you by your health care provider. Make sure you discuss any questions you have with your health care provider. Document Revised: 06/20/2018 Document Reviewed: 07/12/2016 [employer] Patient Education ?? 2020 [employer] Emergency Awareness and Preventative Care STROKE is an EMERGENCY Every Minute Counts Act FAST and Check for these signs: FACE Does the face look uneven? ARM Does one arm drift down? SPEECH Does their speech sound strange? TIME Call at any sign of stroke Stroke Risk Factors Atrial Fibrillation (irregular heartbeat) Diabetes Family history of stroke Heart Disease Heavy alcohol use High Blood Pressure High Cholesterol Physical inactivity and obesity Smoking Cigarette Smoking The facts are clear, cigarette smoking will shorten your life. Smoking can cause many illnesses along the way. As a healthcare provider, we recommend that you stop smoking. Assistance with quitting is available by contacting 9-042-CHRPNOW. This is a free resource providing counseling, support, and referral. Or you may contact your personal physician. National Suicide Prevention Lifeline: The National Suicide Prevention Lifeline is a national network of local crisis centers that provides free and confidential emotional support to people in suicidal crisis or emotional distress 24 hours a day, 7 days a week. Don't Wait! Stop a Heart Attack Before it Starts What is a heart attack? A heart attack is damage or to a part of the heart from severely decreased or lack of blood flow to the heart. Over time, arteries can become narrow from the buildup of fat and cholesterol, which is called plaque. The plaque can rupture causing a blood clot to form. When the blood clot forms, the artery can become severely narrowed or completely blocked, causing a heart attack. Heart attack is the leading cause of in the [place]. 85% of muscle damage occurs within the first 2 hours. Delay in the recognition of heart attack symptoms increases the chances of . Know the early symptoms of a heart attack: Nausea Feeling of fullness in chest Jaw Pain Pain that travels down one or both arms Fatigue/being tired Anxiety Back Pain Chest pressure, squeezing, or discomfort Shortness of breath Sweating, or a cold sweat Feeling of impending doom There are unusual signs of a heart attack, too! Women, the elderly, and diabetics may present with atypical symptoms: Fainting/dizziness Weakness Confusion Risk Factors for a Heart Attack Some heart disease risk factors, such as age and family history, cannot be changed. Others, like smoking and lack of exercise, can be changed. Smoking High Cholesterol High Blood Pressure Family History Obesity Age Gender (Males are at higher risk) Lack of Exercise Diabetes Diet Stress Excessive Alcohol Intake If you or someone you know is experiencing the signs and symptoms of a heart attack, DON???T DELAY. Call immediately and seek help. If someone collapses, perform CPR! Do not attempt to drive if you are having symptoms of heart attack. Hands-Only CPR Why Hands-Only CPR? Hands-Only CPR has been shown to be as effective as conventional CPR for cardiac arrests that occur outside of a hospital. Survival depends on immediately receiving CPR from someone nearby. How do you perform Hands-Only CPR? There are two easy steps: Call if you see a teen or adult collapse Push hard and fast in the center of the chest at a beat of 100 beats per minute. Save a life! 4 WAYS TO GET AHEAD OF SEPSIS SEPSIS is a MEDICAL EMERGENCY. Time matters! Infections put you and your family at risk for a life-threatening condition called sepsis. Sepsis is the body's extreme response to an infection. It is life-threatening, and without timely treatment, sepsis can rapidly lead to tissue damage, organ failure, and . Sepsis happens when an infection you already have-in your skin, lungs, urinary tract or somewhere else-triggers a chain reaction throughout your body. 1 PREVENT INFECTIONS Take good care of chronic conditions. Talk to your doctor about getting the recommended vaccines. 2 PRACTICE GOOD HYGIENE Wash your hands frequently. Keep cuts or open sores clean and covered until they are healed. 3 KNOW THE SYMPTOMS Confusion or disorientation Shortness of breath High heart rate Fever, shivering, or feeling very cold Extreme pain or discomfort Clammy or sweaty skin 4 ACT FAST Get medical care IMMEDIATELY if you suspect sepsis or if you have an infection that is not getting better or is getting worse. To learn more about sepsis and how to prevent infections, visit www.cdc.gov/sepsis. Test Results Laboratory or Other Results This Visit (last charted value for your 10/25/2020 visit) Hematology 10/25/2020 9:36 AM WBC: 8.4 K/uL -- Normal range between ( 3.9 and 10.0 ) RBC: 4.96 Million/uL -- Normal range between ( 3.93 and 5.22 ) Hct: 44.8 % -- Normal range between ( 34.1 and 44.9 ) Hgb: 14.3 Gram/dL -- Normal range between ( 11.2 and 15.7 ) Platelet Count: 324 K/uL -- Normal range between ( 163 and 369 ) MCH: 28.8 pg -- Normal range between ( 25.6 and 32.2 ) MCHC: 31.9 Gram/dL -- Normal range between ( 32.3 and 36.5 ) MCV: 90.3 fL -- Normal range between ( 79.0 and 94.8 ) Slide Review: No Eos %: 2.4 % -- Normal range between ( 1.0 and 7.0 ) [place] #: 0.39 K/uL -- Normal range between ( 0.24 and 0.82 ) Eos #: 0.20 K/uL -- Normal range between ( 0.04 and 0.54 ) [place] %: 4.6 % -- Normal range between ( 4.7 and 12.5 ) Baso %: 0.6 % -- Normal range between ( 0.0 and 1.0 ) Baso #: 0.05 K/uL -- Normal range between ( 0.01 and 0.08 ) RDW: 14.3 % -- Normal range between ( 11.6 and 14.4 ) Neut %: 60.7 % -- Normal range between ( 34.0 and 71.0 ) Neut #: 5.09 K/uL -- Normal range between ( 1.56 and 6.13 ) Lymph %: 31.5 % -- Normal range between ( 19.3 and 53.0 ) Lymph #: 2.65 K/uL -- Normal range between ( 1.18 and 3.74 ) MPV: 9.6 fL -- Normal range between ( 9.4 and 12.4 ) IG#: 0 x10(3)/uL IG%: 0 % -- Normal range between ( 0 and 1 ) General Chemistry 10/25/2020 9:36 AM Creatinine Level: 0.86 mg/dL -- Normal range between ( 0.55 and 1.02 ) Sodium Level: 141 mmol/L -- Normal range between ( 136 and 146 ) Potassium Level: 4.8 mmol/L -- Normal range between ( 3.5 and 5.1 ) Chloride Level: 108 mmol/L -- Normal range between ( 102 and 112 ) Carbon Dioxide Level: 28 mmol/L -- Normal range between ( 21 and 32 ) Anion Gap: 10 -- Normal range between ( 9 and 20 ) Bilirubin Total: 0.3 mg/dL -- Normal range between ( 0.2 and 1.3 ) Hgb A1C: 6.10 % -- Normal range between ( 4.20 and 6.30 ) A/G Ratio: 0.9 -- Normal range between ( 1.1 and 2.5 ) ALT: 23 Units/Liter -- Normal range between ( 12 and 78 ) AST: 9 Units/Liter -- Normal range between ( 5 and 37 ) Globulin: 3.8 Gram/dL -- Normal range between ( 1.5 and 4.5 ) Alk Phos: 64 Units/Liter -- Normal range between ( 27 and 136 ) eAVG Glucose: 128 mg/dL Bun/Creatinine: 14.0 -- Normal range between ( 8.0 and 20.0 ) Calcium Level: 9.0 mg/dL -- Normal range between ( 8.5 and 10.1 ) eGFR : >60 mL/min/1.73m2 eGFR NonAfrican: >60 mL/min/1.73m2 Glucose Level: 128 mg/dL -- Normal range between ( 74 and 106 ) Blood Urea Nitrogen: 12 mg/dL -- Normal range between ( 7 and 22 ) Protein Total: 7.4 Gram/dL -- Normal range between ( 6.4 and 8.2 ) Albumin Level: 3.6 Gram/dL -- Normal range between ( 3.4 and 5.0 ) Coagulation 10/25/2020 9:35 AM INR: 0.9 -- Normal range between ( 0.9 and 1.1 ) PTT: 24.3 Second(s) -- Normal range between ( 24.2 and 31.8 ) PT: 9.8 Second(s) -- Normal range between ( 9.6 and 11.5 ) Lipid Studies 10/25/2020 9:36 AM Cholesterol Tot: 193 mg/dL -- Normal range between ( 0 and 199 ) Cholesterol HDL: 48.0 mg/dL Cholesterol LDL Calculation: 125.8 mg/dL -- Normal range between ( 0.0 and 99.0 ) Cholesterol VLDL Calculation: 19.2 mg/dL -- Normal range between ( 5.0 and 40.0 ) Cholesterol/HDL Ratio: 4.0 -- Normal range between ( 0.0 and 3.2 ) Triglyceride: 96 mg/dL -- Normal range between ( 0 and 249 ) LDL/HDL Ratio: 2.6 -- Normal range between ( 0.0 and 3.2 ) Endocrinology 10/25/2020 9:36 AM TSH: 2.250 mcInt Units/mL -- Normal range between ( 0.358 and 3.740 ) T4 Total: 12.6 mcg/mL -- Normal range between ( 4.8 and 13.9 ) Patient Name:BRANDAN PEDRO MCCOY I have received this information and was given the opportunity to ask questions. Patient/Teacher Public Health Name: Patient/Teacher Public Health Signature: Relationship to Patient: Clinician/Hospital Teacher Public Health Signature: Date: Electronically signed by Junaid, [facility] Conversion Trommel Tender Kit at 07/21/2022 3:45 PM CDT documented in this encounter Plan of Treatment Not on file documented as of this encounter Visit Diagnoses Not on filedocumented in this encounter
--- OUTSIDE RECORDS SUMMARY | 2024-09-11 03:53 | XMS_ITS | Encounter Summary ---
Author Organization [employer] Address [address] [place] [id number] Care Team Providers Care Is Technician Name Role Phone Unavailable Primary Care Provider Unavailabl e Encounter Details Date Type Department Care Team (Late st Contact Info) Description 10/25/2020 Transcribed Document [facility] [place] [address] [place] [address] ProviderMgean MD [address] [place] [address] Social History Tobacco Use Types [...] Conversion Note - Megan ProviderMD - 10/25/2020 2:00 PM CDT [facility] PreOp Summary Primary Physician: RICO KHAN MD Finalized Date/Time: 10/25/20 10:51:25 Pt. Name: PEDRO GIPSON /Sex: 1985 Female Med Rec #: [id number] Physician: RICO KHAN MD Financial #: [id number] Pt. Type: E Room/Bed: [facility] [place]/ Admit/Disch: 10/25/20 10:03:00 - Institution: [facility] PreOp Case Times Entry 1 In Preop 10/25/20 10:24:00 Ready for Holding n/a Room Patient Ready for 10/25/20 10:51:00 Surgery Patient Out of Preop 10/25/20 10:51:00 Patient Out of n/a Holding Room [facility] PreOp Case Times Audit 10/25/20 10:51:23 Metal Fabricating Inspector: [id number] Modifier: [id number] <+> 1 Patient Out of Preop <+> 1 Patient Ready for Surgery Finalized By: Oanh Marmolejo RN-PATIENT CARE BEDSIDE NON-EXEMPT Document Signatures Signed By: Oanh Marmolejo RN-PATIENT CARE BEDSIDE NON-EXEMPT 10/25/20 10:51 documented in this encounter Plan of Treatment Not on file documented as of this encounter Visit Diagnoses Not on filedocumented in this encounter
--- OUTSIDE RECORDS SUMMARY | 2024-09-11 03:53 | XMS_ITS | Clinical Summary ---
Author Organization [employer] Address [address] [place] [id number] Care Team Providers Care Floor Plan Adjuster Name Role Phone Unavailable Primary Care Provider Unavailabl e Social History Tobacco Use Types Packs/Day Years Used Date Smoking Tobacco: Never Assessed Comments Unknown Sex and Gender Information Value Date Recorded Sex Assigned at Female 09/30/2021 7:34 PM CDT Legal Sex Female 7:34 PM CDT Gender Identity Female 09/30/2021 7:34 PM CDT Sexual Orientation Not on file Plan of Treatment Not on file
--- OUTSIDE RECORDS SUMMARY | 2024-09-11 03:53 | XMS_ITS | Encounter Summary ---
Author Organization [employer] Address [address] [place] [address] Care Team Providers Care Medical Office Administrator Name Role Phone Unavailable Primary Care Provider Unavailabl e Encounter Details Date Type Department Care Team (Late st Contact Info) Description 10/25/2020 Transcribed Document [facility] [place] Family Medicine [address] [place] [address] ProviderMegan MD [address] [place] [address] Social History Tobacco Use Types [...] Conversion Note - Megan ProviderMD - 10/25/2020 2:01 PM CDT [facility] Summary Primary Physician: RICO KHAN MD Finalized Date/Time: 10/25/20 17:12:36 Pt. Name: GIPSONPEDRO MARCH DARIUS /Sex: 1985 Female Med Rec #: [id number] Physician: RICO KHAN MD Financial #: [id number] Pt. Type: E Room/Bed: [facility] Admit/Disch: 10/25/20 10:03:00 - Institution: [facility] - Case Attendance Entry 1 Entry 2 Entry 3 Case Attendee RICO KHAN MD RONAN, JENIFFER, MD JONES, EMILY, CRNA Role Performed Surgeon/Proceduralist, Anesthesiologist of ECONOMIC GEOGRAPHER/Nurse Automotive Refinisher First Record Time In 10/25/20 13:57:00 10/25/20 13:57:00 10/25/20 13:57:00 Time Out 10/25/20 14:12:00 10/25/20 14:12:00 10/25/20 14:12:00 Procedure Esophagogastroduodenosco Esophagogastroduodenosco Esophagogastroduodenosco py, Gastric Biopsy py, Gastric Biopsy py, Gastric Biopsy Other Attendee Superficial Wound Closed By: Last Modified By: JUAN ALBERTO MEEKS RN RIDINGS, JAROLINE, RN RIDINGS, JAROLINE, RN 10/25/20 17:11:44 10/25/20 17:11:44 10/25/20 17:11:44 Entry 4 Entry 5 Case Attendee JUAN ALBERTO MEEKS RN House, Michelle, HEALTH AND FITNESS INSTRUCTOR Role Performed Heart Nurse, First Scrub, First Time In 10/25/20 13:57:00 10/25/20 13:57:00 Time Out 10/25/20 14:12:00 10/25/20 14:12:00 Procedure Esophagogastroduodenosco Esophagogastroduodenosco py, Gastric Biopsy py, Gastric Biopsy Other Attendee Superficial Wound Closed By: Last Modified By: JUAN ALBERTO MEEKS RN RIDINGS, JAROLINE, RN 10/25/20 17:11:44 10/25/20 17:11:44 [facility] - Case Attendance Audit 10/25/20 17:11:44 Field Marketing Representative: [id number] Modifier: [id number] 1 <*> Procedure Esophagogastroduodenoscopy 2 <*> Procedure Esophagogastroduodenoscopy 3 <*> Procedure Esophagogastroduodenoscopy 4 <*> Procedure Esophagogastroduodenoscopy 5 <*> Procedure Esophagogastroduodenoscopy 10/25/20 17:06:51 Field Marketing Representative: [id number] Modifier: [id number] <+> 1 Procedure 2 <+> Time In 2 <+> Time Out 2 <*> Procedure Esophagogastroduodenoscopy 3 <+> Time In 3 <+> Time Out 3 <*> Procedure Esophagogastroduodenoscopy 4 <+> Time In 4 <+> Time Out 4 <*> Procedure Esophagogastroduodenoscopy 5 <+> Time In 5 <+> Time Out 5 <*> Procedure Esophagogastroduodenoscopy 10/25/20 17:06:31 Field Marketing Representative: [id number] Modifier: [id number] <+> 2 Case Attendee <+> 2 Role Performed <+> 2 Procedure <+> 3 Case Attendee <+> 3 Role Performed <+> 3 Procedure <+> 4 Case Attendee <+> 4 Role Performed <+> 4 Procedure <+> 5 Case Attendee <+> 5 Role Performed <+> 5 Procedure [facility] - Case Times Entry 1 Patient In Room Time 10/25/20 13:57:00 Out Room Time 10/25/20 14:12:00 Anesthesia Start Time 10/25/20 13:57:00 Stop Time 10/25/20 14:05:00 Surgery / Procedure Times Start Time 10/25/20 14:01:00 Stop Time 10/25/20 14:05:00 Last Modified By: JUAN ALBERTO MEEKS RN 10/25/20 14:11:44 [facility] - Cultures and Spec Summary Entry 1 Cultrures and Specimens Specimen Ordered: Yes Test(s) Routine/Path-Lab Requested/Final Disposition Last Modified By: JUAN ALBERTO MEEKS RN 10/25/20 17:11:55 [facility] - Delays Entry 1 Delay Reason Other Duration 0 Minute(s) Comment NO DELAY Last Modified By: JUAN ALBERTO MEEKS RN 10/25/20 17:06:58 [facility] - Departure from OR Entry 1 Integumentary Assessment Integumentary WDL Assessment WDL Transfer/Handoff Transfer to PACU Phase I Handoff Method Bedside/Face to face Post-op Transport Stretcher/Gurney Via Patient Transport JUAN ALBERTO MEEKS, MUNIR, Accompanied by EMEKA KOEHLER CRNA Last Modified By: JUAN ALBERTO MEEKS RN 10/25/20 17:07:14 [facility] - Endoscopy Details Entry 1 Abdomen Procedure Soft, Non-Tender Assessment Procedure Abdomen 10/25/20 13:58:00 Assessment D/T Radio Frequency Ablation Abdominal Pressure Last Modified By: JUAN ALBERTO MEEKS RN 10/25/20 17:07:35 [facility] - Fire Risk Assessment Entry 1 Fire Info Surgical Site or 1- Yes Incision Above the Xyphoid Open O2 Source 1- Yes (Mask or Cannula) Available Ignition 1- Yes (ESU, Laser, Light Source) Fire Risk 3 Assessment Score Fire Score Fire Risk Yes Assessment Complete Fire Risk JUAN ALBERTO MEEKS RN Assessment Verified By Fire Risk 10/25/20 13:58:00 Assessment Verified Date/Time Fire Risk High Risk Protocol Yes Implemented Standard Fire Yes Safety Precautions Followed Last Modified By: JUAN ALBERTO MEEKS RN 10/25/20 17:09:08 [facility] - Fire Risk Assessment Audit 10/25/20 17:09:08 Field Marketing Representative: [id number] Modifier: [id number] <+> 1 Fire Risk Assessment Complete [facility] - General Case Stunt Person 1 Case Information [facility] Endo 01 [facility] Case Level 1 Room Verified Yes Wound Class II - Clean-Contaminated Specialty General Anesthesia Type MAC ASA Class 3 Diagnosis Preop Diagnosis dyspepsia Postop Diagnosis hiatal hernia Last Modified By: JUAN ALBERTO MEEKS RN 10/25/20 17:09:01 [facility] - Intraoperative Assessment Entry 1 Valid History / Yes Physical in Chart Preoperative Yes Checklist Reviewed/Evaluated Patient is Latex No Sensitive Present Upon IVs, ECG monitored Arrival to OR Last Modified By: JUAN ALBERTO MEEKS RN 10/25/20 17:08:32 [facility] - Intraoperative Equipment Entry 1 Type Scope Equipment Intraop Monitoring Electrocardiogram Three lead placement (ECG) Electrode Placement Blood Pressure Arm, left upper Location Pulse Oximeter Hand, right Probe Site Antiembolic Devices Scopes Flexible Endoscopes Gastroscope Used Scope Serial 2500 Number/Identificatio n Number Photo/Video Documentation Photo Yes Video No Last Modified By: JUAN ALBERTO MEEKS RN 10/25/20 17:09:31 [facility] - Patient Positioning Entry 1 Procedure Esophagogastroduodenosco py, Gastric Biopsy Body Position Lateral, right side up Left Arm Position Resting at side Right Arm Position Resting at side Left Leg Position Other Right Leg Position Other Position Comments Right leg over left leg uncrossed Feet Uncrossed Yes Pressure Points Yes Checked Positioned By JUAN ALBERTO MEEKS RN, EMEKA KOEHLER, MIGEL, Livier Mullen, HEALTH AND FITNESS INSTRUCTOR Position Verified Positioning Yes Verified by Anesthesia Positioning Yes Verified by Surgeon Last Modified By: JUAN ALBERTO MEEKS RN 10/25/20 17:11:45 [facility] - Patient Positioning Audit 10/25/20 17:11:45 Field Marketing Representative: [id number] Modifier: [id number] 1 <*> Procedure Esophagogastroduodenoscopy [facility] - Sign In Entry 1 Patient, Site, Yes Procedure Identified Surgical Consent Yes Confirmed Relevant Surgical Yes Documents Available Surgical Site N/A Marked by person performing procedure Medication Checks Yes Completed Allergies Yes Airway Difficult No Airway/Aspiration Risk Difficult No Airway/Aspiration Intervention Equipment Available Blood Loss Risk No Blood Loss No Intervention Equipment Prepared and Ready Blood Identifiers Not applicable Verified Per Policy Hypothermia Risk No Warming Measures Yes Taken Last Modified By: JUAN ALBERTO MEEKS RN 10/25/20 17:07:06 [facility] - Sign Out Entry 1 RN Confirmation Surgical Yes Procedure(s) Identified Instrument, Sponge N/A and Sharps Counts Correct/Documented Equipment Problems N/A Documented Specimen Labeled Yes Correctly Urinary Catheter N/A Documented in IView Safety Checklist Yes Elements Complete? RN Sign Out JUAN ALBERTO MEEKS RN Signature RN Sign Out 10/25/20 14:12:00 Signature Date/Time Plan of Care Outcome - Fire Risk OUTCOME STATEMENT: Goal met Patient is free from injury related to surgical fire Plan of Care Outcome - Pt Positioning OUTCOME STATEMENT: Goal met Absence of signs and symptoms of positioning injury. Plan of Care Outcome - Skin Prep OUTCOME STATEMENT: Goal met Intraoperative care is consistent with measures to prevent infection Plan of Care Outcome - Xray/Images OUTCOME STATEMENT: N/A Absence of observable signs or symptoms of radiation injury Plan of Care Outcome - Counts OUTCOME STATEMENT: N/A Absence of signs and symptoms of injury related to extraneous objects Last Modified By: JUAN ALBERTO MEEKS RN 10/25/20 17:10:19 [facility] - Sign Out Audit 10/25/20 17:10:19 Field Marketing Representative: [id number] Modifier: [id number] 1 <*> RN Sign Out Signature Date/Time 10/25/20 17:09:00 [facility] - Surgical Procedures Entry 1 Entry 2 Procedure Esophagogastroduodenosco Gastric Biopsy py Modifiers Additional SHEILA Procedure Description Primary Procedure Yes No Primary Surgeon RICO KHAN MD ZARAK, ALBERTO, MD Start 10/25/20 14:01:00 10/25/20 14:01:00 Stop 10/25/20 14:05:00 10/25/20 14:05:00 Physician States Cecum Reached Anesthesia Type MAC MAC Specialty General General Wound Class II - Clean-Contaminated II - Clean-Contaminated Last Modified By: JUAN ALBERTO MEEKS RN RIDINGS, JAROLINE, RN 10/25/20 17:07:38 10/25/20 17:11:43 [facility] - Surgical Procedures Audit 10/25/20 17:11:43 Field Marketing Representative: [id number] Modifier: [id number] <+> 2 Procedure <+> 2 Primary Procedure <+> 2 Primary Surgeon <+> 2 Specialty <+> 2 Start <+> 2 Stop <+> 2 Wound Class <+> 2 Anesthesia Type <+> 2 Additional Procedure Description [facility] - Time Out Entry 1 Procedure to be Esophagogastroduodenosco Performed py, Gastric Biopsy Time Out Time Out Pause Time 10/25/20 14:00:00 All activity Yes suspended (unless life threatening emergency) Team Verbally Correct patient Confirms Information identity, Consent form is present and accurate, Agreement on the procedure to be done, Correct patient position Antibiotic N/A Prophylaxis Administered Or In Progress Within the Last 60 Minutes Beta Axel N/A Administered Venous N/A Thromboembolism Prophylaxis Required Anticipated Critical Events Surgeon None expected Last Modified By: JUAN ALBERTO MEEKS RN 10/25/20 17:11:45 [facility] - Time Out Audit 10/25/20 17:11:45 Field Marketing Representative: [id number] Modifier: [id number] 1 <*> Procedure to be Performed Esophagogastroduodenoscopy 10/25/20 17:10:49 Field Marketing Representative: [id number] Modifier: [id number] 1 <+> All activity suspended (unless life threatening emergency) 1 <*> Procedure to be Performed Esophagogastroduodenoscopy Case Comments <None> Finalized By: JUAN ALBERTO MEEKS RN Document Signatures Signed By: JUAN ALBERTO MEEKS RN 10/25/20 17:12 Electronically signed by [facility] Conversion Referral And Information Aide Cerner at 07/21/2022 3:55 PM CDT documented in this encounter Plan of Treatment Not on file documented as of this encounter Visit Diagnoses Not on filedocumented in this encounter
--- OUTSIDE RECORDS SUMMARY | 2024-09-11 03:53 | XMS_ITS | Encounter Summary ---
Author Organization [employer] Address [address] [place] [address] Care Team Providers Care Plant Changer Name Role Phone Unavailable Primary Care Provider Unavailabl e Encounter Details Date Type Department Care Team (Late st Contact Info) Description 10/25/2020 Transcribed Document [facility] [place] Family Medicine [address] [place] [address] ProviderMegan MD [address] [place] [address] Social History Tobacco Use Types [...] - 10/25/2020 2:01 PM CDT [facility] Summary Primary Physician: RICO KHAN MD Finalized Date/Time: 10/25/20 14:49:58 Pt. Name: PDERO MARIE /Sex: 1985 Female Med Rec #: [id number] Physician: RICO KHAN MD Financial #: [id number] Pt. Type: E Room/Bed: [facility] Admit/Disch: 10/25/20 10:03:00 - Institution: [facility] PACU Case Times Entry 1 In PACU I 10/25/20 14:14:00 Ready for PACU 10/25/20 14:40:00 Discharge Discharge from PACU 10/25/20 14:44:00 I Finalized By: Micaela Urias RN-PATIENT CARE BEDSIDE NON-EXEMPT Document Signatures Signed By: Micaela Urias RN-PATIENT CARE BEDSIDE NON-EXEMPT 10/25/20 14:49 documented in this encounter Plan of Treatment Not on file documented as of this encounter Visit Diagnoses Not on filedocumented in this encounter
--- OUTSIDE RECORDS SUMMARY | 2024-09-11 03:53 | XMS_ITS | Encounter Summary ---
Author Organization [employer] Address [address] [place] [address] Care Team Providers Care Health Program Specialist Name Role Phone Unavailable Primary Care Provider Unavailabl e Encounter Details Date Type Department Care Team (Late st Contact Info) Description 10/25/2020 Transcribed Document [facility] [place] Family Medicine [facility] [place] [address] ProviderMegan MD [address] [place] [address] Social History Tobacco Use Types Packs/Day Years Used Date Smoking Tobacco: Never Assessed Comments Unknown Sex and Gender Information Value Date Recorded Sex Assigned at Female 09/30/2021 7:34 PM CDT Legal Sex Female 7:34 PM CDT Gender Identity Female 09/30/2021 7:34 PM CDT Sexual Orientation Not on file documented as of this encounter Miscellaneous Notes * Cerner Conversion Note - Historical ProviderMD - 10/25/2020 10:34 AM CDT Pre Procedure Adult Entered On: 10/25/2020 10:37 EDT Performed On: 10/25/2020 10:34 EDT by Oanh Marmolejo RN-PATIENT CARE BEDSIDE NON-EXEMPT Height and Weight, Clinical Dosing Height Source : Stated Height Entry Format : Allen Height, Feet : 5 ft(Converted to: 152 cm, 60 Inch) Height, Inches : 8 Inch(Converted to: 0 ft 8 Inch, 20.32 cm) Clinical Height : 172.72 cm Weight Source : Standing scale Weight Entry Format : Allen Clinical Dosing Weight : 219.09 kg Weight, Pounds : 482 lb Body Surface Area (BSA) : 2.97 m2 Body Mass Index : 73.4 kg/m2 (>HHI) Lyons Body Weight : 63 kg Oanh Marmolejo RN-PATIENT CARE BEDSIDE NON-EXEMPT - 10/25/2020 10:34 EDT Health Histories Smoking Status : Former smoker, quit more than 30 days ago Smokeless Tobacco Status : Never Oanh Marmolejo RN-PATIENT CARE [facility] NON-EXEMPT - 10/25/2020 10:34 EDT Social History (As Of: 10/25/2020 10:37:51 EDT) Infectious Disease History Has the patient ever been tested for COVID-19? : Yes, Patient stated results Negative Date of COVID-19 test known? : Yes Date of COVID-19 Test : 10/23/2020 EDT Does patient have symptoms of COVID-19? : No COVID19 Screening : No Experiencing Infectious Disease Symptoms : No symptoms Physical contact outside [place] in the last 30 days : No Infectious Disease History : Chicken pox/Shingles Tuberculosis Symptoms : None Oanh Marmolejo RN-PATIENT CARE [facility] NON-EXEMPT - 10/25/2020 10:34 EDT COVID19 PreProcedure Screening Is this an Emergent or Add on Procedure? : No Date PreProcedure COVID-19 test known? : Yes Date of PreProcedure COVID-19 : 10/23/2020 EDT Has patient been isolated since the test : Yes Exposed to COVID19 symptoms since test? : No Oanh Marmolejo RN-PATIENT CARE [facility] NON-EXEMPT - 10/25/2020 10:34 EDT Anesthesia/Transfusion History Family History of Anesthesia Reaction : No prior transfusion(s) Transfusion History : Prior anesthesia without reaction Family History of Anesthesia Reaction : None Oanh Marmolejo RN-PATIENT CARE [facility] NON-EXEMPT - 10/25/2020 10:34 EDT Functional Assessment Living Situation : Home Current Home Treatments : None Oanh Marmolejo RN-PATIENT CARE [facility] NON-EXEMPT - 10/25/2020 10:34 EDT [place] Suicide Severity Rating Scale (C-SSRS) CSSRS Past Month Wish to be : No CSSRS Past Month Suicidal Thoughts : No CSSRS Lifetime Suicide Behavior : No Suicide Severity Rating Score : 0 Suicide Severity Rating : No Additional Care Required at this time Oanh Marmolejo RN-PATIENT CARE [facility] NON-EXEMPT - 10/25/2020 10:34 EDT Psychosocial History Currently in Unsafe Situation : No Oanh Marmolejo RN-PATIENT CARE BEDSIDE NON-EXEMPT - 10/25/2020 10:34 EDT Advance Directive Patient has Advance Directive *Q : No, patient refuses Advance Directive information Oanh Marmolejo RN-PATIENT CARE BEDSIDE NON-EXEMPT - 10/25/2020 10:34 EDT General Info Want Family/Rep/Phys Notified of Admit : No Emergency Contact #1 : Derek Marie Emergency Contact #1 Phone Number : [phone] Emergency Contact #1 Relationship : spouse Emergency Contact #2 : na Emergency Contact #2 Phone Number : na Emergency Contact #2 Relationship : na Primary Language : Divehi Communication Barrier : None Cake Icer And Packer Needed : No Oanh Marmolejo RN-PATIENT CARE BEDSIDE NON-EXEMPT - 10/25/2020 10:34 EDT Sleep Apnea Risk Assmt Hx of Obstructive Sleep Apnea Diagnosis : No Snore Loudly : No Tired, Fatigued, or Sleepy During Day : No Observed Stopping Breathing During Sleep : No Have/Are Being Treated for Hypertension : No BMI Greater Than 35 kg/m2 : Yes Age over 50 Years Old : No Neck Circumference Greater Than 40 cm : No Gender Male : No STOP-BANG Sleep Apnea Risk Level Score : 1 Oanh Marmolejo RN-PATIENT CARE BEDSIDE NON-EXEMPT - 10/25/2020 10:34 EDT Kevin Scale Kevin Sensory Perception : No impairment Kevin Moisture : Rarely moist Kevin Activity : Walks frequently Kevin Mobility : No limitation Kevin Nutrition : Adequate Kevin Friction and Shear : No apparent problem Kevin Score : 22 Oanh Marmolejo RN-PATIENT CARE BEDSIDE NON-EXEMPT - 10/25/2020 10:34 EDT Fall Risk Scales ABCs Fall Injury Risk Identification : None JOY Hx Falls Immediate/Within 3 Months : No Joy Secondary Diagnosis : No JOY Use of Ambulatory Aid : None JOY IV Therapy or IV Access : Yes Joy Gait/Transferring : Normal, bedrest, immobile Jyo Mental Status : Oriented to own ability Joy Fall Risk Score : 20 JOY Fall Scale Risk Level : 0-24 Low Risk [place] Fall Interventions : Adequate lighting, Assistive devices within reach, Call device within reach, Non-slip footwear, Upper side-rails up, Wheels locked Oanh Marmolejo RN-PATIENT CARE BEDSIDE NON-EXEMPT - 10/25/2020 10:34 EDT Valuables and Belongings Valuables and Belongings : Clothing Clothing : Common streetwear Clothing Disposition : Bedside Oanh Marmolejo RN-PATIENT CARE BEDSIDE NON-EXEMPT - 10/25/2020 10:34 EDT documented in this encounter Plan of Treatment Not on file documented as of this encounter Visit Diagnoses Not on filedocumented in this encounter
--- OUTSIDE RECORDS SUMMARY | 2024-09-11 03:54 | XMS_ITS | Data Portability ---
Author Organization [facility] Esmeralda MAGED Mckenna [place] [facility] Address [address] [place] [address] Assessment Encounter Date Assessment Date Assessment LastModified [...] as EMG/NCV and follow up with Dr. Mckeon to discuss results and treatment plan. She [...] Modified Time Details Appointments None recorded. Lab CHIQUITA (antinuclea r antibodies) panel, serum 2024 025 [facility], [address] [place] [address], [id number], 18:59:47 rf (rheumatoid factor), serum 2024 025 [facility], [address] [place] [address], [id number], 16:55:15 uric acid, serum or plasma 2024 025 [facility], [address] [place], [address], 5 16:55:14 ESR (erythrocyt e sedimentati on rate), blood 2024 025 [facility], [address] [place], [address], 17:34:20 surgical pathology study 2024 025 [facility], [address] [place] [address], [id number], 12:43:25 Referral None recorded. Procedures nerve conduction study/EMG, upper extremity (PROC) - bilat UE - eval for possible neuropathy causing bilateral hand pain 2024 025 pamella 5 Petra Perea , [address] [place], [address], 08:31:39 Surgeries None recorded. Imaging None recorded. Medication Orders clobetasol 0.05 % topical ointment 2023 024 [facility], [address] [place] [address], [id number], 14:21:28 Patient TargetsNo targets recorded. Patient Instructions Encounter Date Encounter Id Patient Instructions Last Modified By Organization Details Last Modified Time 03/24/2024 [id number] Patient likely aggravated the underlying arthritis with the fall she sustained. I have given her a CSI and she immediate relief in symptoms. Follow up in 3 months for a clinical check. Not available 03/24/2024 15:47:07 06/29/2024 [id number] The right knee was injected without difficulty and patient tolerated the procedure well. Not available 06/29/2024 15:03:21 Reason for Referral None Reported. Results Created Date Observation Date Name Description Value Unit Range Abnormal Flag Note LastModifiedBy Organization Detail LastModifiedTime 06/09/19 25 06/08/2024 SURGI BENI surgical SEE BELOW [place] topat holog y Repor t NAME: PEDRO IRVIN PATH: [id number] PROCE DURE DATE: [...] Out Date: 06/12 12:43 1 Not Available [facility] [address] [facility], [place], [address], 06/12/2024 12:43:25 06/30/1906/29/2024 URIC ACID uric acid 6.7 mg/dL 2.4-5. 7 high Refer ence range s are based on popul ation norms and do not neces saril y corre late with treat ment targe ts. In patie nts with an estab lishe d diagn osis of gout under going Urate Lower ing Thera py (ULT) , the 2011 [facility]um atolo gy [place] s for Manag ement of Gout recom mend a targe t uric acid level of < 6 mg/dL in all patie nts, or lower in certa in circu mstan marsha. Arthr itis Care and Resea [facility] Vol 64 No 10, 2011 [facility] of Rheum atolo gy ----- ----- ----- ----- ----- ----- ----- ----- ----- ----- ----- ---- Not Available [facility] [address] [place] [address], [phone], 06/29/2024 16:55:14 06/30/19 25 06/29/2024 RF SCREE N, QUANT . rf screen, quant. <10.0 [IU]/ mL 0.0-13 .9 normal Not Available [facility] [address] [place] [address], [id number], 06/29/2024 16:55:15 06/30/19 25 06/29/2024 ESR, AUTOM ATED ESR, automated 20 mm 0-19 high Not Available [facility] [address] [place] [address], [id number], 06/29/2024 17:34:20 06/30/19 25 07/01/2024 CHIQUITA W/ [...] testi ng for anti- SS-A/ Ro antib chel shoul d be consi dered . Anti- Sabrina-1 antib chel shoul d be consi dered for clini kady suspe cted infla mmato ry myopa magno . AC-0: Negat bahman Inter natio nal Conse nsus on CHIQUITA Hines rns (http s://d oi.or g/10. 9785/ [facility]- 2017- 0052) For addit ional infor frida blanco e refer to http: //[facility] giuseppe jacobs.Que stDia gnost ics.c om/fa q/FAQ 177 (This link is being provi ded for infor matio nal/ educa mahad l purpo ses only. ) Not Available [facility] [address] [facility], [place], [address], 07/01/2024 18:59:47 03/24/20 24 03/24/2024 XR, knee, 4 or more view [facility] [place] [address] [place] [facility] [address] Patikevin arellano Name: PEDRO arellano : 984 Patikevin t 80 Orderi ng Provid er: SURESH SMITH EXAM DATE: 2023 EXAM: XR RT KNEE [...] moore MD on 2023 3:35 PM [email or web address] [facility] [place] [address] , [place], [address], 03/24/2024 15:57:24 06/30/19 25 06/29/2024 XR, hand, 3 or more view Nitin antoine [facility] [place] [address] [address] Faby arellano Name: PEDRO arellano : [phone] [...] moore MD on 025 3:36 PM [email or web address] [facility] [place] [address] , [place], [address], 06/30/2024 08:25:50 Result Notes None recorded. Problems Name Problem SNOMED Code Status Onset Date Resolution Date Notes Provider Name and Address Organization Details Recorded Time Intertrigo 04376827 Active 2023 Erica lew [facility] 4 15:45:07 Acne vulgaris 38830250 Active 2023 Erica lew [facility] 4 15:46:51 Hidradenitis suppurativa 37232427 Active 2023 Erica lew [facility] 4 15:47:50 Granuloma annulare 62918320 Active 2023 Erica lew [facility] 4 16:01:47 Multiple benign melanocytic nevi 472967613 Active 2023 Erica lew [facility] 4 16:24:10 Seborrheic keratosis 762203906 Active 2023 Erica Meza [facility] 4 16:24:10 Solar lentigo 61681982 Active 2023 Erica Meza [facility] 16:24:10 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 Procedures Surgical History Date Name Laterality Status Provider Name and Address Organization Details Recorded Time 06/30/19 25 Injection Joint/Bursa, Major completed MARIYA MCKEON [address] [place], [address], [facility] 06/29/2024 15:02:44 06/09/19 25 Biopsy Skin Lesion; Punch completed Theodore Johnson [facility] 06/08/2024 13:07:34 06/09/19 25 DAK - Intralesional Injection completed Theodore Johnson [facility] 06/08/2024 13:10:03 03/24/20 24 Injection Joint/Bursa, Major completed MARIYA MCKEON [address] [place], [address], [facility] 03/24/2024 15:45:45 12/28/19 24 DAK - Intralesional Injection completed Erica Meza [facility] 12/28/2023 11:49:44 Imaging Results None recorded. Procedure Notes None recorded. Medical Equipment None Reported. Allergies Allergen ID Allergen Name Allergen Category Reaction Reaction Severity Criticality Documentation Date Start Date Code Code System Note Provider Name and Address Organization Details Recorded Time 807783 Product containin g penicilli n (product) medicatio n Not available Not available Not available 11/01/2023 60831 8001 SNOMED Damaris Chavez [facility] 15:14:00 749258 Seroquel medicatio n Not available Not available Not available 11/01/2023 92436 RxNorm Damaris Chavez [facility] 15:14:12 Medications Name Sig Start Date Stop Date Status Note LastModified by Organization Details LastModified Time clobetasol 0.05 % topical ointment apply TO LESIONS ON HANDS TWICE DAILY UP TO 2 WEEKS AT a time DIRECTED. DO not USE ON face, groin, OR axilla active Not Available Not Available No t Available ketoconazol e 2 % topical cream apply [...] Last Updated DateTime 06/08/2024 172.72 cm Alethea Robertodonavanady [facility] 06/08/2024 12:41:25 Date Recorded Body height Body mass index (BMI) Body weight Provider Name and Address Organization Details Last Updated DateTime 06/29/2024 172.72 cm 49.4 kg/m2 508089.52 g Asif Murraysey [facility] 06/29/2024 14:51:53 Date Recorded Body height Provider Name an d Address Organization Details Last Updated DateTime 06/29/2024 172.72 cm Laalmas Childress [facility] 06/29/2024 13:58:58 Date Recorded Body height Provider Name an d Address Organization Details Last Updated DateTime 12/28/2023 172.72 cm Queenie Guy [facility] 12/28/2023 10:15:54 Date Recorded Body height Provider Name an d Address Organization Details Last Updated DateTime 03/24/2024 172.72 cm Al Childress [facility] 03/24/2024 15:01:27 Social History Question Answer Notes LastModified by Organizat ion Details LastModified Time Tobacco Smoking Status [facility]/01/2023 15:15:37 Sunscreen Use? Yes Informatio n not available 11/01/2023 Tanning Bed Use No [email or web address] Informati on not available 11/01/2023 Are You Or Trying To Become ? No [email or web address] Information not available 11/01/2023 Are You On Control? No [email or web address] Information not available 11/01/2023 Are You ? No [email or web address] Information not available 11/01/2023 What Was The Date Of Your Most Recent Tobacco Screening? 06/08/2024 [email or web address] Information not available 06/08/2024 How Much Tobacco Do You Smoke? 0.25 PPD [email or web address] Information not available 11/01/2023 Sex: Unknown Functional Status Question Answer Note LastModified by Organizat ion Details LastModified Time What is your level of alcohol consumption? Occasional Information not available 11/01/2023 Mental Status None recorded. Family History Relationship [...] Influenza, MDCK, quadrivalent, PF 01/21/2023 [facility] 06/29[facility]2024 14:46:32 COVID-19 vaccine, vector-nr, rS-Ad26, PF, 0.5 mL 06/12/2020 [facility] 06/29/2024 14:46:32 COVID-19 vaccine, vector-nr, rS-Ad26, PF, 0.5 mL 02/08/2021 [facility] 06/29/2024 14:46:32 Tdap 01/21/2023 [facility] 06/29[facility]2024 14:46:32 Hep B, adolescent/hig h risk 09/30/1998 completed Asif Francis [facility] 06/29/2024 14:46:32 Hep B, adolescent/hig h risk 02/19/1998 completed Asif Francis [facility] 06/29/2024 14:46:32 Hep B, adolescent/hig h risk 03/26/1998 completed Asif Francis [facility] 06/29/2024 14:46:32 Past Encounters Encounter ID Performer Location Encounter Start Date Encounter Closed Date Diagnosis/Indication Diagnosis SNOMED-CT Code Diagnosis ICD10 Code Diagnosis Note [id number] DILAN TAPIA PA-C [place] [address] [place] [address] 11/01/2023 14:45:02 11/04/2023 14:04:36 Multiple benign melanocytic nevi 283486986 D22.5 - Benign moles seen on exam [...] changing or worrisome lesions Seborrheic keratosis 394 379902 L82.1 - Benign overgrowth s of skin - Hereditary Senile angioma 7140177 I 78.1 - Benign blood vessel growths - Hereditary Solar lentigo 30973178 L 81.4 - Benign brown spots - Sun-induce d Intertrigo 62450113 L30. 4 Heat, moisture, friction and, often, yeast cause intertrigo . Barrier ointments such as petrolatum and Desitin (zinc oxide) paste are helpful to prevent symptoms. Will send ketoconazo le 2% cream apply thin layer to folds of skin BID for flaresAppl y desitin paste QAM to folds Will reach out if condition is worsening or no improvemen t Hidradenit is suppurativa 86560800 L73.2 Pt reports she has had these [...] and activity as these can worsen lesions. [employer] Meet[employer] given to pt to browse and see tips and tricks from other pts with this disease. Will send clindamyci n 1% lotion apply to AA QD Follow up in 8-10 weeks for recheck, sooner if worsening. Granuloma annulare 86859 009 L92.0 Pt reports previous flares. Usually resolve on their own with time.Has also tried topical steroids which have helped.Daily ssured benign inflammato ry condition. Offered to inject with ILK, pt declined as these are not bothersome at this timeNotes lesions typically resolve on their ownWill reach out if worsening or if ILK desired Lea Jefferson MD was consulted on the patient. [id number] DILAN TAPIA PA-C [address] [address] 12/28/2023 10:08:22 12/28/2023 11:33:12 Hidradenitis suppurativa 85957846 L73.2 Pt has been using OTC hibiclens [...] up in 3mo, sooner if worsening. Intertrigo 87497709 L30. 4 Heat, moisture, friction and, often, [...] worsening or no improvemen t Granuloma annulare 95076 009 L92.0 Pt reports previous flares. Usually resolve on their own with time.Has also tried topical steroids which have helped.[place] ssured benign inflammato ry condition. Pt reports [...] directed. Will recheck in 3 months at [facility] [id number] MARIYA MCKEON [facility] [address] [place] [address] 03/24/2024 14:39:14 03/27/2024 17:05:41 Osteoarthritis of right knee joint 3856781680 58155 M17.11 [id number] KENDAL BECKFORD [place] [address] [place] [address] 06/08/2024 12:22:22 06/08/2024 13:09:10 Neoplasm of uncertain behavior of skin 19608675 D48.5 Will bx today Hidradenit is suppurativa 33197455 L73.2 This a chronic condition that can wax and wane. Smoking and being over your ideal body weight may worsen the condition. Pt is using hibiclens and rx clindamyci n- rec continue Granuloma annulare 23973 009 L92.0 Discussed nature of diagnoses. Will inject lesion with ILK [id number] MARIYA MCKEON [facility] [address] [place] [address] 06/29/2024 13:49:07 07/03/2024 10:40:34 Osteoarthritis of right knee joint 8178503422 16256 M17.11 [id number] JESSIKA ARGUELLES PA-C [facility] [address] [place] [address] 06/29/2024 13:50:37 06/29/2024 16:20:22 Pain of bilateral hands 6326120233 4545345 M79.641 M79.642 Health Concerns Section Related Observation LastModified by Organization Detai ls LastModified Time None Recorded Concern Status LastModified by Organization Details LastModified Time None Recorded Advance Directives Directive None Recorded Payers Insurance Date Sequence Insurance Name Policy Number Policy Mohan Covered Member ID Mohan Member ID Guarantor Name 12/23/2023 1 [facility] [id number] [facility] 07/30/2024 1 [place] [id number] A Derek Marie [id number] Vasquez Marie 06/08/2024 2 [place] [id number] A Pedro Lozanoson [id number] [facility] Notes Date Note Type Note Provider Name [...] with DAK 10/26 DILAN TAPIA PA-C [address] [place], [address], [facility] 12/30/2023 12:15:42 03/24/2024 text/html Reports to [facility] with right knee pain. Pt states that she was putting on pantyhose and she lost balance and hurt the knee DOI:03/19/24 ODILIA: putting on pantyhose Treatments: went to [facility] Found us via referral MARIYA MCKEON [address] [place], [address], [facility] 03/24/2024 15:47:21 06/08/2024 text/html Specific spot t o check Location: L cheekGeneral duration: ~days weeks months yea rs 5 monthsPredominant symptom:painfulPrior treatment(s):none cryo biopsy excision other listed belowHistory of evolution:changing- pt reports trying to extract it, has used clindamycin and hibiclens, similar spots on stomach x2 - pt wants it to be treated / bx DAI RIOS PA-C [address] [place], [address], [facility] 06/08/2024 16:40:54 06/29/2024 text/html Patient comes in today for FU Right Knee. Patient states they are than last visit. CSI injection MARIYA MCKEON [address] [place], [address], [facility] 06/29/2024 15:03:36 06/29/2024 text/html Pedro is a 39 yo RHD F who presents today for evaluation of bilateral hand pain. She denies injury. She reports intermittent flares of pain in bilateral hands over the past couple of years. She uses OTC topicals, which does help some. Primary Care Physician: Dr. Taz Wharton Hand dominance: RightLocation: Bilateral Hand Pain level: 4 /10 Duration: ~2 years intermittently Recent Surgery: No In office procedure? No Previous upper extremity surgery? NoHave you or any of your immediate family members been seen by our hand surgeons before? 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 No JESSIKA ARGUELLES PA-C [address] [place], [address], [facility] 06/30/2024 11:32:29 OBGyn Episode No OBEpisode recorded.
--- OUTSIDE RECORDS SUMMARY | 2024-09-11 03:54 | XMS_ITS | Data Portability ---
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 Plan of Treatment Reminders Order Date Submit Date Provider Last Modified By Organization Details Last Modified Time Details Appointments None recorded. Lab CBC w/ auto diff 2023 024 [email or web address] [facility], [address], [address], [place], [address], 4 08:57:23 CMP, serum or plasma 2023 024 [facility], [address], [address], [place], [address], 4 08:57:23 HbA1c (hemoglobin A1c), blood 2023 024 [email or web address] [facility], [address], [address], [place], [address], 4 08:57:23 iron + TIBC + ferritin, serum 2023 024 [email or web address] [facility], [address], [address], [place], [address], 4 08:57:23 folate, serum 2023 024 [facility], [address], [address], [place], [address], 4 08:57:24 vitamin D, 25-hydroxy, total, serum 2023 024 [email or web address] [facility], [address], [address], [place], [address], 4 08:57:24 vitamin E, serum 2023 024 [email or web address] [facility], [address], [address], [place], [address], 4 08:57:24 vitamin A (retinol), serum 2023 024 [email or web address] [facility], [address], [address], [place], [address], 4 08:57:24 TSH + free T4, serum 2023 024 [facility], [address], [address], [place], [address], 4 08:57:24 prealbumin, serum 2023 024 [email or web address] [facility], [address], [address], [place], [address], 4 08:57:24 thiamine, QN, blood 2023 024 [email or web address] [facility], [address], [address], [place], [address], 4 08:57:25 methylmalon ate, QN, serum or plasma 2023 024 [email or web address] [facility], [address], [address], [place], [address], 4 08:57:25 lipid panel, serum 2023 024 [facility], [address], [address], [place], [address], 4 08:57:25 Referral None recorded. Procedures None recorded. Surgeries esophagogas troduodenos copy (SURG) 2023 024 Diogo Dye MD, [address], [address], [place], [address], 4 17:24:33 Imaging XR, abdomen + RF, upper gastrointes tinal tract, w/ contrast PO 2023 024 [email or web address] [facility] (Centralized Scheduling), [address], [place], [address], 4 17:19:34 Medication Orders ondansetron 8 mg disintegrat ing tablet 2023 024 [facility], [address] [place] [address] [address] [facility] [address], [place], [id number], 4 14:10:36 famotidine 20 mg tablet 2023 024 [facility] [facility], [address] [place] [address] [address] [facility]-[address], [place], [id number], 4 14:10:36 Patient TargetsNo targets recorded. Patient InstructionsNo instructions recorded. Reason for Referral None Reported. Results Created Date Observation Date Name Description Value Unit Range Abnormal Flag Note LastModifiedBy Organization Detail LastModifiedTime 07/07/19 24 07/08/2023 FE+TI BC+FE R iron bind.cap.(TI BC) 328 ug/dL 250-45 0 Not Available [facility] ([facility]) [address], [place], [address], 07/14/2023 18:35:50 07/07/19 24 07/08/2023 FE+TI BC+FE R UIBC 264 ug/dL 131-42 5 Not Available [facility] ([facility]) [address] [place], [address], 07/14/2023 18:35:50 07/07/19 24 07/08/2023 FE+TI BC+FE R iron 64 ug/dL 27-159 Not Available [facility] ([facility]) [address] [facility], [place], [address], 07/14/2023 18:35:50 07/07/19 24 07/08/2023 FE+TI BC+FE R iron saturation 20 % 15-55 Not Available [facility] ([facility]) [address] [facility], [place], [address], 07/14/2023 18:35:50 07/07/19 24 07/08/2023 FE+TI BC+FE R ferritin 18 NG/mL 15-150 Not Available [facility] ([facility]) [address] [place], [address], 07/14/2023 18:35:50 07/07/19 24 07/08/2023 TSH+F REE T4 TSH 1.480 uIU/m L 0.450- 4.500 Not Available [facility] ([facility]) [address] [place], [address], 07/14/2023 18:35:51 07/07/19 24 07/08/2023 TSH+F REE T4 T4,free(dire ct) 1.46 NG/dL 0.82-1 .77 Not Available [facility] ([facility]) [address] [place], [address], 07/14/2023 18:35:51 07/07/19 24 07/08/2023 CBC WITH DIFFE RENTI AL/PL ATELE T WBC 6.8 x10e3 /uL 3.4-10 .8 Not Available [facility] ([facility]) [address] [facility], [place], [address], 07/14/2023 18:35:52 07/07/19 24 07/08/2023 CBC WITH DIFFE RENTI AL/PL ATELE T RBC 4.93 x10e6 /uL 3.77-5 .28 Not Available [facility] ([facility]) [address] [facility], [place], [address], 07/14/2023 18:35:52 07/07/19 24 07/08/2023 CBC WITH DIFFE RENTI AL/PL ATELE T hemoglobin 14.1 g/dL 11.1-1 5.9 Not Available [facility] ([facility]) [address] [facility], [place], [address], 07/14/2023 18:35:52 07/07/19 24 07/08/2023 CBC WITH DIFFE RENTI AL/PL ATELE T hematocrit 43.7 % 34.0-4 6.6 Not Available [facility] ([facility]) [address] [facility], [place], [address], 07/14/2023 18:35:52 07/07/19 24 07/08/2023 CBC WITH DIFFE RENTI AL/PL ATELE T MCV 89 fL 79-97 Not Available [facility] ([facility]) [address] [place], [address], 07/14/2023 18:35:52 07/07/19 24 07/08/2023 CBC WITH DIFFE RENTI AL/PL ATELE T MCH 28.6 pg 26.6-3 3.0 Not Available [facility] ([facility]) [address] [place], [address], 07/14/2023 18:35:52 07/07/19 24 07/08/2023 CBC WITH DIFFE RENTI AL/PL ATELE T MCHC 32.3 g/dL 31.5-3 5.7 Not Available [facility] ([facility]) [address], [place], [address], 07/14/2023 18:35:52 07/07/19 24 07/08/2023 CBC WITH DIFFE RENTI AL/PL ATELE T RDW 13.3 % 11.7-1 5.4 Not Available [facility] ([facility]) [address] [facility], [place], [address], 07/14/2023 18:35:52 07/07/19 24 07/08/2023 CBC WITH DIFFE RENTI AL/PL ATELE T platelets 296 x10e3 /uL 150-45 0 Not Available [facility] ([facility]) [address] [facility], [place], [address], 07/14/2023 18:35:52 07/07/19 24 07/08/2023 CBC WITH DIFFE RENTI AL/PL ATELE T neutrophils 49 % not estab. Not Available [facility] ([facility]) [address] [facility], [place], [address], 07/14/2023 18:35:52 07/07/19 24 07/08/2023 CBC WITH DIFFE RENTI AL/PL ATELE T lymphs 39 % not estab. Not Available [facility] ([facility]) [address] [facility], [place], [address], 07/14/2023 18:35:52 07/07/19 24 07/08/2023 CBC WITH DIFFE RENTI AL/PL ATELE T monocytes 4 % not estab. Not Available [facility] ([facility]) [address] [facility], [place], [address], 07/14/2023 18:35:52 07/07/19 24 07/08/2023 CBC WITH DIFFE RENTI AL/PL ATELE T eos 7 % not estab. Not Available [facility] ([facility]) [address] [facility], [place], [address], 07/14/2023 18:35:52 07/07/19 24 07/08/2023 CBC WITH DIFFE RENTI AL/PL ATELE T basos 1 % not estab. Not Available [facility] ([facility]) [address] [place], [address], 07/14/2023 18:35:52 07/07/19 24 07/08/2023 CBC WITH DIFFE RENTI AL/PL ATELE T immature cells FLAMER SEALER Not Available [facility] ([facility]) [address] [place], [address], 07/14/2023 18:35:52 07/07/19 24 07/08/2023 CBC WITH DIFFE RENTI AL/PL ATELE T neutrophils (absolute) 3.3 x10e3 /uL 1.4-7. 0 Not Available [facility] ([facility]) [address] [place], [address], 07/14/2023 18:35:52 07/07/19 24 07/08/2023 CBC WITH DIFFE RENTI AL/PL ATELE T lymphs (absolute) 2.7 x10e3 /uL 0.7-3. 1 Not Available [facility] ([facility]) [address] [place], [address], 07/14/2023 18:35:52 07/07/19 24 07/08/2023 CBC WITH DIFFE RENTI AL/PL ATELE T monocytes(ab solute) 0.3 x10e3 /uL 0.1-0. 9 Not Available [facility] ([facility]) [address] [place], [address], 07/14/2023 18:35:52 07/07/19 24 07/08/2023 CBC WITH DIFFE RENTI AL/PL ATELE T eos (absolute) 0.5 x10e3 /uL 0.0-0. 4 above high normal Not Available [facility] ([facility]) [address] [place], [address], 07/14/2023 18:35:52 07/07/19 24 07/08/2023 CBC WITH DIFFE RENTI AL/PL ATELE T baso (absolute) 0.1 x10e3 /uL 0.0-0. 2 Not Available [facility] ([facility]) [address] [facility], [place], [address], 07/14/2023 18:35:52 07/07/19 24 07/08/2023 CBC WITH DIFFE RENTI AL/PL ATELE T immature granulocytes 0 % not estab. Not Available [facility] ([facility]) [address] [facility], [place], [address], 07/14/2023 18:35:52 07/07/19 24 07/08/2023 CBC WITH DIFFE RENTI AL/PL ATELE T immature grans (abs) 0.0 x10e3 /uL 0.0-0. 1 Not Available [facility] ([facility]) [address] [facility], [place], [address], 07/14/2023 18:35:52 07/07/19 24 07/08/2023 CBC WITH DIFFE RENTI AL/PL ATELE T NRBC FLAMER SEALER Not Available [facility] ([facility]) [address] [facility], [place], [address], 07/14/2023 18:35:52 07/07/19 24 07/08/2023 CBC WITH DIFFE RENTI AL/PL ATELE T hematology comments: FLAMER SEALER Not Available [facility] ([facility]) [address] [facility], [place], [address], 07/14/2023 18:35:52 07/07/19 24 07/08/2023 COMP. METAB OLIC PANEL (14) glucose 96 mg/dL 70-99 Not Available [facility] ([facility]) [address] [facility], [place], [address], 07/14/2023 18:35:53 04/03/20 24 07/08/2023 COMP. METAB OLIC PANEL (14) BUN 9 mg/dL 6-24 Not Available [facility] ([facility]) [address] [facility], [place], [address], 07/14/2023 18:35:53 07/07/19 24 07/08/2023 COMP. METAB OLIC PANEL (14) creatinine 0.76 mg/dL 0.57-1 .00 Not Available [facility] ([facility]) [address] [facility], [place], [address], 07/14/2023 18:35:53 07/07/19 24 07/08/2023 COMP. METAB OLIC PANEL (14) eGFR 102 mL/mi n/1.7 3 >59 Not Available [facility] ([facility]) [address] [facility], [place], [address], 07/14/2023 18:35:53 07/07/19 24 07/08/2023 COMP. METAB OLIC PANEL (14) BUN/creatini ne ratio 12 9-23 Not Available [facility] ([facility]) [address] [facility], [place], [address], 07/14/2023 18:35:53 07/07/19 24 07/08/2023 COMP. METAB OLIC PANEL (14) sodium 138 mmol/ L 134-14 4 Not Available [facility] ([facility]) [address] [facility], [place], [address], 07/14/2023 18:35:53 07/07/19 24 07/08/2023 COMP. METAB OLIC PANEL (14) potassium 4.4 mmol/ L 3.5-5. 2 Not Available [facility] ([facility]) [address] [facility], [place], [address], 07/14/2023 18:35:53 07/07/19 24 07/08/2023 COMP. METAB OLIC PANEL (14) chloride 105 mmol/ L 96-106 Not Available [facility] ([facility]) [address] [place], [address], 07/14/2023 18:35:53 07/07/19 24 07/08/2023 COMP. METAB OLIC PANEL (14) carbon dioxide, total 21 mmol/ L 20-29 Not Available [facility] ([facility]) [address] [place], [address], 07/14/2023 18:35:53 07/07/19 24 07/08/2023 COMP. METAB OLIC PANEL (14) calcium 9.4 mg/dL 8.7-10 .2 Not Available [facility] ([facility]) [address], [place], [address], 07/14/2023 18:35:53 07/07/19 24 07/08/2023 COMP. METAB OLIC PANEL (14) protein, total 6.6 g/dL 6.0-8. 5 Not Available [facility] ([facility]) [address] [place], [address], 07/14/2023 18:35:53 07/07/19 24 07/08/2023 COMP. METAB OLIC PANEL (14) albumin 3.9 g/dL 3.9-4. 9 Not Available [facility] ([facility]) [address] [facility] [place], [address], 07/14/2023 18:35:53 07/07/19 24 07/08/2023 COMP. METAB OLIC PANEL (14) globulin, total 2.7 g/dL 1.5-4. 5 Not Available [facility] ([facility]) [address] [place], [address], 07/14/2023 18:35:53 07/07/19 24 07/08/2023 COMP. METAB OLIC PANEL (14) A/G ratio 1.4 1.2-2. 2 Not Available [facility] ([facility]) [address] [facility], [place], [address], 07/14/2023 18:35:53 07/07/19 24 07/08/2023 COMP. METAB OLIC PANEL (14) bilirubin, total 0.2 mg/dL 0.0-1. 2 Not Available [facility] ([facility]) [address] [facility], [place], [address], 07/14/2023 18:35:53 07/07/19 24 07/08/2023 COMP. METAB OLIC PANEL (14) alkaline phosphatase 65 IU/L 44-121 Not Available [facility] ([facility]) [address] [facility], [place], [address], 07/14/2023 18:35:53 07/07/19 24 07/08/2023 COMP. METAB OLIC PANEL (14) AST (SGOT) 11 IU/L 0-40 Not Available [facility] ([facility]) [address] [facility], [place], [address], 07/14/2023 18:35:53 07/07/19 24 07/08/2023 COMP. METAB OLIC PANEL (14) ALT (SGPT) 8 IU/L 0-32 Not Available [facility] ([facility]) [address] [facility], [place], [address], 07/14/2023 18:35:53 07/07/19 24 07/08/2023 LIPID PANEL cholesterol, total 188 mg/dL 100-19 9 Not Available [facility] ([facility]) [address] [facility], [place], [address], 07/14/2023 18:35:54 07/07/19 24 07/08/2023 LIPID PANEL triglyceride s 142 mg/dL 0-149 Not Available [facility] ([facility]) [address] [facility], [place], [address], 07/14/2023 18:35:54 07/07/19 24 07/08/2023 LIPID PANEL HDL cholesterol 43 mg/dL >39 Not Available [facility] ([facility]) [address] [place], [address], 07/14/2023 18:35:54 07/07/19 24 07/08/2023 LIPID PANEL VLDL cholesterol beni 25 mg/dL 5-40 Not Available [facility] ([facility]) [address] [place], [address], 07/14/2023 18:35:54 07/07/19 24 07/08/2023 LIPID PANEL LDL chol calc ([facility]) 120 mg/dL 0-99 above high normal Not Available [facility] ([facility]) [address] [facility], [place], [address], 07/14/2023 18:35:54 07/07/19 24 07/08/2023 LIPID PANEL comment: FLAMER SEALER Not Available [facility] ([facility]) [address] [place], [address], 07/14/2023 18:35:54 07/07/19 24 07/11/2023 VITAM IN E vitamin E(alpha tocopherol) 10.1 mg/L 7.0-25 .1 Not Available [facility] ([facility]) [address] [place], [address], 07/14/2023 18:35:55 07/07/19 24 07/11/2023 VITAM IN [...] in E defic ient. Not Available [facility] ([facility]) [address] [place], [address], 07/14/2023 18:35:55 07/07/19 24 07/08/2023 HEMOG LOBIN A1C hemoglobin A1C 5.8 % 4.8-5. 6 above high normal Predi abete s: 5.7 - 6.4 Diabe mckenna: >6.4 Glyce diana contr ol for adult s with diabe mckenna: <7.0 Not Available [facility] ([facility]) [address] [facility], [place], [address], 07/14/2023 18:35:56 07/07/19 24 07/08/2023 FOLAT E (FOLI C ACID) , SERUM folate (folic acid), serum 4.5 NG/mL >3.0 A serum folat e eleni ntrat ion of less than 3.1 ng/mL is consi dered to repre sent clini beni defic iency . Not Available [facility] ([facility]) [address] [facility], [place], [address], 07/14/2023 18:35:57 07/07/19 24 07/11/2023 VITAM IN [...] Drug Admin istra tion. Not Available [facility] ([facility]) [address] [facility], [place], [address], 07/14/2023 18:35:58 07/07/19 24 07/08/2023 VITAM IN [...] um and D. Paxton triplett [place]: [facility] . 2. Ana Maria zamorano MF, Nilson gordillo [place], Divya off-F heatherar i CAMPBELL, et al. Evalu ation , treat ment, and preve ntion of vitam in D defic iency : an Endoc rine Socie ty clini beni pract ice guide line. JCEM. 2010; 96(7) :1911 -30. Not Available [facility] ([facility]) [address] [place], [address], 07/14/2023 18:35:59 07/07/19 24 07/11/2023 VITAM IN B1 (THIA MINE) , BLOOD vit. B1, whole blood 127.8 nmol/ L 66.5-2 00.0 Not Available [facility] ([facility]) [address] [place], [address], 07/14/2023 18:36:00 07/07/19 24 07/14/2023 METHY LMALO LILLIAM ACID, SERUM methylmaloni c acid, serum 322 nmol/ L 0-378 Not Available [facility] ([facility]) [address] [place], [address], 07/14/2023 18:36:01 07/07/19 24 07/08/2023 PREAL BUMIN prealbumin 19 mg/dL 14-35 Not Available [facility] ([facility]) [address] [place], [address], 07/14/2023 18:36:02 Result Notes None recorded. Problems Name Problem SNOMED Code Status Onset Date Resolution Date Notes Provider Name and Address Organization Details Recorded Time Vitamin D deficiency 95433889 Active 2023 Kavin Heard DNP, TIGHTENING MACHINE OPERATOR, [employer]-C [address], [place], [address] , [facility] - [facility] & [place] 4 13:41:47 Morbid obesity 698251542 Active 2023 Kavin Heard DNP, TIGHTENING MACHINE OPERATOR, FLAMER SEALER-C [address], [place], [place], [address] [place] [address] , [facility] - [facility] & [place] 4 13:42:23 Intentional weight loss 415050935 Active 2023 Kavin Heard DNP, TIGHTENING MACHINE OPERATOR, [employer]ER SE[employer]ER-C [address], [place], [place], [address] [place] [address] , [facility] - [facility] & [place] 4 13:42:32 Heartburn 16502145 Active 2023 Kavin Heard DNP, TIGHTENING MACHINE OPERATOR, [employer]AMER SE[employer]ER-C [address], [place], [place], [address] [place] [address] , [facility] - [facility] & [place] 4 13:44:20 Nausea 402396580 Active 2023 Kavin Heard DNP, TIGHTENING MACHINE OPERATOR, [employer]AMER SE[employer]ER-C [address], [place], [place], [address] [place] [address] , [place] - [facility] & [place] 4 13:45:53 Problem Notes None recorded. Procedures Surgical History Date Name Laterality Status Provider Name and Address Organization Details Recorded Time 07/02/19 22 laparoscopic sleeve gastrectomy completed [facility] [place] 07/07/2023 13:26:07 Imaging Results None recorded. Procedure Notes None recorded. Medical Equipment None Reported. Allergies Allergen ID Allergen Name Allergen Category Reaction Reaction Severity Criticality Documentation Date Start Date Code Code System Note Provider Name and Address Organization Details Recorded Time 54782 Product containin g penicilli n (product) medicatio n Not available Not available Not available 04/02/2022 80873 8001 SNOMED Alessandro Sharp-Bec jose angel [place], [place] - [facility] - [place] & [place] 2 12:28:04 60558 Medicinal product containin g cephalosp elidia and acting as antibacte rial agent (product) medicatio n Not available Not available Not available 04/02/2022 16909 9009 SNOMED Alessandro Sharp-Bec jose angel null, [place] - [facility] - [place] & [place] 2 12:28:12 03575 Seroquel medicatio n Not available Not available Not available 04/02/2022 49721 RxNorm Alessandro Sharp-Bec jose angel null, [place] - [facility] - [place] & [place] 2 12:28:18 Medications Name Sig Start Date [...] cm 98.7 [degF] 74 /min 48.8 kg/m2 038741. 51 g 122 mm[Hg] 86 mm[Hg] Agata CHAMPAGNE - NT [facility] & [place] 4 13:28:01 Social History None recorded. Functional Status Question Answer Note LastModified by Organizat ion Details LastModified Time What is your level of alcohol consumption? Occasional [email or web address] Information not available 07/07/2023 Mental Status None recorded. Family History Nothing [...] Recorded Time influenza, unspecified formulation 01/15/2023 completed Agata Quinonez [facility], [facility] & [place] 07/07/2023 13:25:19 Past Encounters Encounter ID Performer Location Encounter Start Date Encounter Closed Date Diagnosis/Indication Diagnosis SNOMED-CT Code Diagnosis ICD10 Code Diagnosis Note [id number] Kavin Heard, DNP, TIGHTENING MACHINE OPERATOR, FLAMER SEALER-C [facility] [address] [facility] [address] [place] [address] 07/07/2023 13:15:36 07/07/2023 15:36:05 History of bariatric surgical procedure 882721489 Z98.84 Advised qid intake 50% protein 3298-0695 calories/d y less than 100 carbs/dy Long [...] patient with any deficienci es. Morbid obesity 937374206 E66.01 Vitamin D deficiency 347 42925 E55.9 Intentiona l weight loss 904207206 R63.8 History of gastrectomy 906017049 Z90.3 Advised qid intake 50% protein 5441-5861 calories/d y less than 100 carbs/dyLo ng [...] to correct any vitamin deficienci es. Heartburn 04385623 R12 GERD-patie nt was reassured. We discussed [...] upper GI as well as EGD. Nausea 986100956 R11.0 Health Concerns Section Related Observation LastModified by Organization Detai ls LastModified Time None Recorded Concern Status LastModified by Organization Details LastModified Time None Recorded Advance Directives Directive None Recorded Payers Insurance Date Sequence Insurance Name Policy Number Policy Mohan Covered Member ID Mohan Member ID Guarantor Name 04/10/2021 1 [place] [id number] Vasquez Marie [id number] Pedro Marie 07/27/2023 1 [facility] [id number] Pedro Lozanoson [id number] Pedro Marie Notes Date Note Type Note [...] Weight loss Surgery.patient has not tried any qepo-urt-odapgdg medications or treatments.Today' s InBody reveals a skeletal muscle mass = 81.8 lb,body fat mass = 171.9 lb,BMI = 48.8Percent body fat = 53.5Basal Metabolic Rate = 1833 kilo calories Kavin Heard, KAYCE, TIGHTENING MACHINE OPERATOR, FLAMER SEALER-C [address] , [place], [address], [facility] - [place] & [place] 07/07/2023 15:28:10 OBGyn Episode No OBEpisode recorded.
--- OUTSIDE RECORDS SUMMARY | 2024-09-11 03:54 | XMS_ITS | Referral Summary ---
Author Organization [facility] Address [address] [place] [address] Care Team Providers Care Industrial Refrigeration Mechanic Name Role Phone Unavailable Primary Care Provider [...]
--- OUTSIDE RECORDS SUMMARY | 2024-09-11 03:54 | XMS_ITS | Clinical Summary ---
Author Organization [facility] Address [address] [place] [address] Care Team Providers Care Switchboard Operator Assistant Name Role Phone Unavailable Primary Care Provider Unavailabl e Social History Tobacco Use Types Packs/Day Years Used Date Smoking Tobacco: Never Assessed Comments Unknown Sex and Gender Information Value Date Recorded Sex Assigned at Not on file Legal Sex Female 3:19 PM EDT Gender Identity Not on file Sexual Orientation Not on file Plan of Treatment Health Maintenance Due Date Last Done Comments [facility]-Depression Screening 1983 [facility]-/Child/Adol SDOH Screenings 1983 [facility]-Varicella Vaccines (1 of 2 - 13+ 2-dose series) 06/15/1996 HPV Vaccines (1 - 3-dose series) 06/15/1998 [facility]- SDOH Screenings 06/15/2001 [facility]-Adult SDOH Screenings 06/15/2001 [facility]-DTaP,Tdap,and Td Vaccines (1 - Tdap) 06/15/2002 [facility]-Hepatitis B Vaccines (1 of 3 - 19+ 3-dose series) 06/15/2002 [facility]-Pap Smear 06/15/2004 [facility]-Cervical Cancer Screening 06/15/2013 [facility]-HPV/Cotest 06/15/2013 [id number] Vaccine ( - 2023- season) 2023 02/08/2021, 06/12/2020 [facility]-Influenza Vaccine (Season Ended) 2024 [facility]-Zoster Vaccines (1 of 2) 06/15/2033 [facility]-HIB Vaccines Aged Out No longer e ligible based on patient's age to complete this topic [facility]-Hepatitis A Vaccines Aged Out No longer eligible based on patient's age to complete this topic [facility]-IPV Vaccines Aged Out No longer e ligible based on patient's age to complete this topic [facility]-Pneumococcal Vaccine: Pediatrics (0 to 5 Years) and At-Risk Patients (6 to 49 Years) Aged Out No longer eligible b ased on patient's age to complete this topic [facility]-Rotavirus Vaccines Aged Out No lo nger eligible based on patient's age to complete this topic Insurance [facility]
--- OUTSIDE RECORDS SUMMARY | 2024-09-11 03:54 | XMS_ITS | Patient Health Record ---
Author Organization [facility] Address [address] [place] [id number] Care Team Providers Care Joint Cutter Name Role Phone Bud Renteria Primary Care Provider Taz Ward Unavailable [phone] Allergies Allergen (clinical drug ingredient) Drug/Non Drug [...] - 38 plat 318 100 - 400 Medications Medication SIG (Take, Route, Frequency, Duration) Notes Start Date End Date Status Famotidine 20 MG 1 tab(s) orally 1 times a day Active Sertraline HCl 100 mg 1 tablet Orally On ce a day for 90 days Pt needs appt Active Estradiol 0.1 MG/24HR 1 patch to skin Transdermal for 30 day(s) Active CBD OIL ORALLY Active Omeprazole 20 MG 1 cap(s) orally Two times a day Active Propranolol HCl 20 MG 1 tablet Orally 2 times a day for 90 days 11/16/2022 Active dexAMETHasone 2 MG 1 tablet Orally Two times a day for 5 day(s) 07/14/2024 Active Immunizations Vaccine Route Administration Date Status Comme nts tuberculin (ppd) ID Intradermal 08/01/2008 Administered COVID 19 Peter Unknown 06/12/2020 Administered COVID 19 Peter Unknown 02/08/2021 Administered Problems Problem Type SNOMED Code ICD Code Onset Dates Problem Status W/U Status Risk Notes Problem GERD (gastroesophage al reflux disease) (K21.9) Active confirmed Problem 554388489 Morbid obesity (E66.01) Active confirmed Problem 509957084 Depression with anxiety (F41.8) Active confirmed Problem 46128116 Disorder of iron metabolism, 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) Active confirmed Problem 36325237 Mood disorder (F39) Active confirmed Problem 261818156 Panic disorder (F41.0) Active confirmed Problem 48895434 Right sided sciatica (M54.31) Active confirmed Problem 47205022 Adjustment disorder with anxious mood (F43.22) Active confirmed Problem 83914203 PVC (premature ventricular contraction) (I49.3) Active confirmed Problem 347176487 Acute bilateral low back pain with right-sided sciatica (M54.41) Active confirmed Problem Panic attack (523623171) Panic attack (F41.0) Active confirmed Problem 24981682 Rhinitis, unspecified type (J31.0) Active confirmed Problem 4416152 Dyspepsia due to dysmotility (K30) Active confirmed Problem 88264747 Irritable bowel syndrome, unspecified type (K58.9) Active confirmed Problem 6891245031897923 Arthritis of right knee (M17.11) Active confirmed Problem 796706286 S/P bariatric surgery (Z98.84) Active confirmed Problem 94676277 Primary hypertension (I10) Active confirmed Vital Signs Heart Rate 89 /min 07/14/2024 Blood pressure diastolic 80 mm Hg 07/14/2024 Height 68 in 07/14/2024 Blood pressure systolic 138 mm Hg 07/14/2024 Weight 341 lbs 07/14/2024 BMI 51.84 kg/m2 07/14/2024 Encounters Encounter Location Date Provider Diagnosis [facility] [address] [place], [place] [id number] 07/14/2024 Taz Harrison Nasal congestion R09 .81 and Panic disorder F41.0 Assessments Encounter Date Diagnosis (ICD Code) Assessment Notes Treatment Notes Treatment Clinical Notes Section Notes 07/14/2024 Nasal congestion (ICD-10 - R09.81) 07/14/2024 Panic disorder (ICD-10 - F41.0) Plan Of Treatment No Information Insurance Providers Payer Name Payer Address Payer Phone Subscriber Number Group Number Insured Name Patient Relationship to Insured Coverage Start Date Coverage End Date [facility] [address] [place] [address] [id number] CRISTIAN MARIE Self - patient is the insured Medical (General) History Medical History History ICD Code Polycystic Ovary Syndrome Hypertension Depression Esophageal Reflux Surgical History Surgery Date(Month/Year) Hernia Repair 1987 Oral Surgery D&C 08/2008 Cholecystectomy 2012 Hospitalization History Reason Date(Month/Year) Fell Down Stairs- [facility] 08/2015 Anxiety- [facility] 07/17/2016 Panic Attack- [facility] 01/2017 Fall- [facility] 06/04/2020 Palpitations, Hypertension- [facility] 06/21/2020
--- OUTSIDE RECORDS SUMMARY | 2024-09-11 03:54 | XMS_ITS | Encounter Summary ---
Author Organization [employer] [facility] Address [address] [place] [address] Care Team Providers Care Electrical Technology Instructor Name Role Phone Unavailable Primary Care Provider Unavailabl e Encounter Details Date Type Department Care Team (Late st Contact Info) Description 10/25/2020 Transcribed Document [facility] [place] Family Medicine [address] [place] [address] ProviderMegan MD [address] [place] [address] Social History Tobacco Use Types [...] Conversion Note - Megan ProviderMD - 10/25/2020 2:15 PM CDT Patient Education Materials Follows: ESOPHAGOGASTRODUODENOSCOPY Care After Read the instructions outlined [...] call your doctor. HOME CARE INSTRUCTIONS: ACTIVITY: ?? You may resume your regular activity tomorrow, but move at a slower pace for the next 24 hours. ?? Take frequent rest periods for the next 24 hours. ?? Walking will help get rid of the air and reduce the bloated feeling in your belly (abdomen). ?? No driving for 24 hours because of the medication (sedation) used during the test. ?? You may shower. ?? Do not sign any important legal documents or operate any machinery for 24 hours (because of the sedation used during the test). NUTRITION: ?? Drink plenty of fluids. ?? You may resume your normal diet or as instructed by your doctor ?? Begin with a light meal and progress to your normal diet. Heavy or fried foods are harder to digest and may make you feel sick to your stomach (nauseated). ?? Avoid alcoholic beverages for 24 hours or as instructed. MEDICATIONS: ?? You may resume your normal medications unless your doctor tells you otherwise. WHAT TO EXPECT TODAY: ?? Some feelings of bloating in the abdomen. ?? Excessive burping today and passage of more gas than usual. ?? A sore throat can be normal. Use throat lozenges or gargle with warm salt water and drink plenty of fluids. FINDING OUT THE RESULTS OF YOUR TEST: ?? Not all test results are available during your visit. If you had biopsies or other tests done during your procedure, you can make an appointment with your doctor to get the results. Sometimes you may be instructed to call the doctor's office for your results. It is important for you to follow up on all of your test results. SEEK IMMEDIATE MEDICAL CARE IF: ?? You cannot eat or drink. ?? You have worsening throat or chest pain. ?? You have dizziness, lightheadedness, or you faint. ?? You have severe nausea or vomiting. ?? You have a fever greater than 101. ?? You have chills. ?? You have severe abdominal pain or discomfort that gets worse throughout the day. ?? You have black, tarry, or bloody stools. Infectious Disease Helicobacter Pylori Infection Helicobacter pylori infection is [...] Follow these instructions at home: ??? Take tvay-ymq-ygkgjpy and prescription medicines only as told by [...] and water are not available, use hand tablet making machine operator. ? Do not eat food or drink [...] provider. Document Revised: 07/13/2019 Document Reviewed: 03/15/2018 [employer] Patient Education ? 2019 [employer]ter. Obstetrics and Gynecology Monitored Anesthesia Care, Care After These instructions [...] eating solid foods. General instructions ??? Take xpei-szi-ifmjusz and prescription medicines only as told by [...] provider. Document Revised: 06/20/2018 Document Reviewed: 07/12/2016 [employer] Patient Education ? 2020 [employer] Electronically signed by Jeff Quiroga Conversion Private Branch Exchange Installer Nayelyner at 07/21/2022 3:59 PM CDT documented in this encounter Plan of Treatment Not on file documented as of this encounter Visit Diagnoses Not on filedocumented in this encounter
--- OUTSIDE RECORDS SUMMARY | 2024-09-11 03:55 | XMS_ITS | Patient Health Record ---
Author Organization [facility] Address [address] [place] [address] Care Team Providers Care Junior Loan Processor Name Role Phone Charles Wheat Unavailable [phone] Reason For Referral No Information Plan Of Treatment No Information Insurance Providers Payer Name Payer Address Payer Phone Subscriber Number Group Number Insured Name Patient Relationship to Insured Coverage Start Date Coverage End Date [facility] [address] [place] [id number] Pedro Marie Self - patient is the insured
[2024-09-11] MEDS: ASPIRIN 81MG CHEWABLE TABLET 324 MG PO (03:57)
[2024-09-11] MEDS: BELLADONNA ALKALOIDS 60 ML ML PO (03:57)
[2024-09-11] MEDS: ACETAMINOPHEN 500MG TAB 1000 MG PO (03:57)
[2024-09-11 04:01] LABS: HCG Qualitative, Serum Negative (Negative)
[2024-09-11 04:04] LABS: Alanine Aminotransferase 12 U/L (12-78); Albumin Level 3.9 g/dl (3.5-5.0); Albumin/Globulin Ratio 1.2 (1.1-1.8); Alkaline Phosphatase 74 U/L (38-126); Anion Gap 8.9 mEq/L (5-15); Aspartate Amino Transferase 20 U/L (14-36); Bilirubin,Total 0.3 mg/dl (0.2-1.3); Blood Urea Nitrogen 12 mg/dl (7-17); Carbon Dioxide 28 mmol/L (22.0-30.0); Chloride 107 mmol/L (98-107); Creatinine Clearance Estimated 107 mL/min (50-200); Estimated Glomerular Filt Rate 92 ml/min (>60); GFR (African American) 112 ML/MIN (>60); Globulin 3.3 g/dL (1.3-3.2); Glucose 107 mg/dl (74-100); Potassium 3.9 mmoL/L (3.5-5.1); Sodium 140 mmol/L (136-145); Total Protein,Serum 7.2 g/dl (6.3-8.2)
[2024-09-11 04:05] LABS: Basophils # 0.1 K/mm3 (0-0.2); Basophils % 0.5 % (0.1-2.0); Eosinophils # 0.5 Kmm3 (0.0-0.4); Eosinophils % 4.8 % (0.1-12.0); Hematocrit 40.5 % (37.0-47.0); Hemoglobin 12.5 g/dL (12.2-16.2); Immature Granulocytes # 0.03 10^3uL; Immature Granulocytes % 0.3 %; Lymphocytes # 3.7 K/mm3 (0.7-4.5); Lymphocytes % 36.9 % (10-50); Mean Corpuscular HGB Conc 30.9 g/dL (31.8-35.4); Mean Corpuscular Hemoglobin 25.2 pg (27.0-31.2); Mean Corpuscular Volume 81.5 fl (81-99); Monocytes # 0.6 K/mm3 (0.1-1.0); Neutrophils # 5.1 K/mm3 (1.8-7.8); Neutrophils % 51.5 % (37.0-80.0); Nucleated Red Blood Cells # 0 10^3/uL; Nucleated Red Blood Cells % 0 %; Platelet Count 340 K/mm3 (142-424); Red Blood Count 4.97 M/mm3 (4.20-5.40); Red Cell Distribution Width 14.6 % (11.5-17.5); Red Cell Distribution Width-SD 43.4 fL
[2024-09-11 04:17] LABS: Troponin I < 0.01 ng/ml (0.00-0.034)
[2024-09-11 04:44] LABS: HIV Combo NEGATIVE (Negative)
[2024-09-11 04:53] LABS: Hepatitis C Ab Qual. W/ RFX NEGATIVE (Negative)
[2024-09-11 07:00] VITALS: BP 120/69; PULSE 55; O2SAT 99
[2024-09-11 07:00] LABS: Troponin I < 0.01 ng/ml (0.00-0.034)
[2024-09-11 07:08] VITALS: BP 120/69; PULSE 60; RESP 14; TEMP 36.3; O2SAT 98
== END 2024-09-11 07:20 | disposition home or self-care (01) ==
PROVIDERS: Emergency Medicine
DX: R07.89 Other chest pain (principal); K21.9 Gastro-esophageal reflux disease without esophagitis; I10 Essential (primary) hypertension; F17.210 Nicotine dependence, cigarettes, uncomplicated; Z11.59 Encounter for screening for other viral diseases; Z11.4 Encounter for screening for human immunodeficiency virus [HIV]
CPT/HCPCS: 71045; 80053; 80074; 84484; 84703; 85025; 87389; 93005; 99284

== ENCOUNTER 2024-11-22 18:04 | Outpatient (CLI) | payer BC, SELFPAY ==
--- OUTSIDE RECORDS SUMMARY | 2024-04-21 07:45 | XMS_ITS ---
Author Organization Tom Address [address] [facility] [address] [place] [id number] Care Team Providers Care Wire Frame Dipper Name Role Phone Bud Renteria Primary Care Provider Taz Ward [phone] Allergies Allergen (clinical drug ingredient) Drug/Non Drug Allergy documented on EMR Reaction Allergy Type Onset Date Status Penicillin rash Drug Allergy Active REASON FOR VISIT ckup & refills Encounters Encounter Location Date Provider Diagnosis Claudia [address] [facility] [address] [facility] [address] [place] [phone] 04/21/2024 Taz Ward Plan Of Treatment No Information Progress Notes * CRISTIAN MARIEDOB:1985 (39 yo F)Acc No.[id number]:04/21/2024 Progress Notes Patient: CRISTIAN JEFFERSON Provider: Yolanda Ward M.D. :1985 A ge:38 Y S ex:Female Date:04/21/2024 Address:[address] [id number] Pcp:Bud Renteria Subjective: * Chief Complaints: * 1 . Ckup & refills. * ROS: D ERMATOLOGY: no R yuni. n o H kyle. G ASTROENTEROLOGY: no N ausea. n o V omiting. U ROLOGY: no D ifficulty urinating. n o B lood in urine. * Medical History: P olycystic Ovary Syndrome, Hypertension, Depression, Esophageal Reflux. * Surgical History: H ernia Repair 1987, Oral Surgery , D&C 08/2008, Cholecystectomy 2012. * Hospitalization/Major Diagno stic Procedure: F ell Down Stairs- [facility] 08/2015, Anxiety- [facility] 07/17/2016, Panic Attack- [facility] 01/2017, Fall- [facility] 06/04/2020, Palpitations, Hypertension- [place] [facility] 06/21/2020. * Family History: F ather: alive. M other: alive. 1 sister(s) . . * Social History: C URRENT TOBACCO USE S moking Status: Patient does smoke, packs per day: 1, number of cigarettes per day: 10, Since age of: 16, Smoking preference: cigarettes. C affeine: yes, frequency:. Marital Status: Single. Past smoking status: yes, Smoking status: Patient does smoke, Packs per day: .5, Smoking preference: cigarettes. Alcohol: No. * Allergies: P enicillin: rash. Objective: * Vitals: Assessment: Plan: * Treatment: * Images: Billing Information: * Visit Code: * Procedure Codes: * Electronic signature of Leonor Ward MD on 11/23/2024 at 11:05 AM EDT Sign off status: Pending * Provider: Yolanda Ward M.D. Date: 0 04/21/2024 Generated for Stephanie jewell/Elyse/Sejalitting on: 0 11/23/2024 11:05 AM EDT
--- OUTSIDE RECORDS SUMMARY | 2024-06-26 13:15 | XMS_ITS ---
Author Organization [facility] Address [address] [facility] [address] [facility] [address] [place] [phone] Care Team Providers Care Detective Private Eye Name Role Phone Bud Renteria Primary Care Provider Taz Ward [phone] Allergies Allergen (clinical drug ingredient) Drug/Non Drug Allergy documented on EMR Reaction Allergy Type Onset Date Status Penicillin rash Drug Allergy Active REASON FOR VISIT joint pain in hands Encounters Encounter Location Date Provider Diagnosis [facility] [address] [facility] 36 [facility] [address] [place] [phone] 06/26/2024 Taz Ward Plan Of Treatment No Information Progress Notes * CRISTIAN MARIEDOB:1985 (39 yo F)Acc No.[id number]:06/26/2024 Progress Notes Patient: CRISTIAN JEFFERSON Provider: Yolanda Ward M.D. :1985 A ge:39 Y S ex:Female Date:06/26/2024 Address:[id number] Pcp:Bud Renteria Subjective: * Chief Complaints: * 1 . Joint pain in hands. * ROS: C ARDIOLOGY: no D izziness. n o C hest pain. G ASTROENTEROLOGY: no N ausea. n o V omiting. U ROLOGY: no D ifficulty urinating. n o B lood in urine. * Medical History: P olycystic Ovary Syndrome, Hypertension, Depression, Esophageal Reflux. * Surgical History: H ernia Repair 1987, Oral Surgery , D&C 08/2008, Cholecystectomy 2012. * Hospitalization/Major Diagno stic Procedure: F ell Down Stairs- [facility] 08/2015, Anxiety- [facility] 07/17/2016, Panic Attack- [facility] 01/2017, Fall- [facility] 06/04/2020, Palpitations, Hypertension- [place] [facility] 06/21/2020. * Family History: F ather: [...] of Leonor Ward MD on 11/23/2024 at 11:03 AM EDT Sign off status: Pending * Provider: Yolanda Ward M.D. Date: 06/26/2024 Generated for Stephanie jewell/Elyse/Sejalitting on: 0 11/23/2024 11:03 AM EDT
--- OUTSIDE RECORDS SUMMARY | 2024-07-14 06:45 | XMS_ITS ---
Author Organization [facility] Address [address] [place] [id number] Care Team Providers Care Customs Appraiser Name Role Phone Bud Renteria Primary Care Provider Taz Ward Unavailable [phone] Allergies Allergen (clinical drug ingredient) Drug/Non Drug [...] Estradiol 0.1 MG/24HR 1 patch to skin Transdermal; Duration: 30 day(s) Active CBD OIL ORALLY Active Omeprazole 20 MG 1 cap(s) orally Two times a day Active Propranolol HCl 20 MG 1 tablet Orally 2 times a day; Duration: 90 days 11/16/2022 Active Sertraline HCl 100 mg 1 tablet Orally On ce a day; Duration: 90 days Pt needs appt Active dexAMETHasone 2 MG 1 tablet Orally Two times a day; Duration: 5 day(s) 07/14/2024 Active Vital Signs Blood pressure systolic 138 mm Hg 07/15/19 25 Blood pressure diastolic 80 mm Hg 025 Heart Rate 89 /min 07/14/2024 Height 68 in 07/14/2024 Weight 341 lbs 07/14/2024 BMI 51.84 kg/m2 07/14/2024 Encounters Encounter Location Date Provider Diagnosis [facility] [address] [place] [id number] 07/14/2024 Taz Ward Nasal congestion R09 .81 and Panic disorder F41.0 Assessments Encounter Date Diagnosis (ICD Code) Assessment Notes Treatment Notes Treatment Clinical Notes Section Notes 07/14/2024 Nasal congestion (ICD-10 - R09.81) 07/14/2024 Panic disorder (ICD-10 - F41.0) Plan Of Treatment Medication Medication Name Sig Start Date Stop Date Notes Sertraline HCl 100 mg 1 tablet Orally On ce a day; Duration: 90 days Pt needs appt dexAMETHasone 2 MG 1 tablet Orally Two times a day; Duration: 5 day(s) 07/14/2024 Next Appt Details Follow Up: via phone to repo rt progress, Reason: Progress Notes * CRISTIAN MARIEDOB:1985 (39 yo F)Acc No.[id number]:07/14/2024 Progress Notes Patient: CRISTIAN JEFFERSON Provider: Yolanda Ward M.D. :1985 A ge:39 Y S ex:Female Date:07/14/2024 Address:[facility] [address], [place], [place] Pcp:Bud Renteria Subjective: * Chief Complaints: * 1 . Check Up and F/U from ER for Migraines. * HPI: E NT/respiratory: 39 year old female presents with c/o headache P t complains of headache for about 8 days. Pt states she was seen at [facility] ER twice and was given migraine [...] Diagno stic Procedure: F ell Down Stairs- [facility] ER 08/2015, Anxiety- [facility] ER 07/17/2016, Panic Attack- [facility] ER 01/2017, Fall- [facility] ER 06/04/2020, Palpitations, Hypertension- [facility] ER 06/21/2020. * Family History: F ather: [...] Examination: E NT/Respiratory: General Appearance: N AD. N ose : nares patent, clear rhinorrhea. O ral cavity : n o erythema or exudate seen on pharynx. H eart : R RR, normal S1 S2. L ungs: c lear to auscultation bilaterally. Assessment: * [...] p lat 318 100 - 400 * Fred Ping 07/14/2024 03:56: 40 PM > 2.?Panic disorder? Refill Sertraline HCl Tablet, 100 mg, 1 tablet, Orally, Once a day, 90 days, 90, Refills 1, Notes to Pharmacist: Pt needs appt.?? * Procedure Codes: 3 6416 CAPILLARY BLOOD DRAW, 35612 CBC WITH AUTO DIFF, 3075F SYST BP GE 130 - 139MM HG, 3079F DIAST BP 80-89 MM HG * Follow Up: v ia phone to report progress * Images: Billing Information: * Visit Code: 45907 Office Visit, Est Pt., Level 3. * Procedure Codes: 10348 CAPILLARY BLOOD DRAW. 14148 CBC WITH AUTO DIFF. 3075F SYST BP GE 130 - 139MM HG. 3079F DIAST BP 80-89 MM HG. * Electronic signature of Leonor Ward MD on 11/23/2024 at 11:04 AM EDT Sign off status: Pending * Provider: Yolanda Ward M.D. Date: 0 07/14/2024 Generated for Stephanie jewell/Elyse/Garret on: 0 11/23/2024 11:04 AM EDT History and Physical Notes * HPI (History of Present Illness) Category Sub-Category Detail Notes Category Not es ENT/respiratory headache Pt complains of headache for about 8 days. Pt states she was seen at [facility] ER twice and was given migraine [...]
[2024-11-22 20:32] LABS: Influenza A, PCR Not Detected (NotDetected); Influenza B, PCR Not Detected (NotDetected)
[2024-11-23 07:31] LABS: Coronavirus 19, PCR Detected (NotDetected)
--- OUTSIDE RECORDS SUMMARY | 2024-11-23 11:02 | XMS_ITS | Encounter Summary ---
Author Organization [employer] ([place], [place], [place], [place]) Address [address] [place] [address] Care Team Providers Care It Manager Name Role Phone Unavailable Primary Care Provider Unavailabl e Encounter Details Date Type Department Care Team (Late st Contact Info) Description 10/25/2020 Transcribed Document [facility] Family Medicine [facility] [place] [address] ProviderMegan MD [address] [place] [address] Social History Tobacco Use Types [...] Source : Stated Height Entry Format : Geary Height, Feet : 5 ft(Converted to: 152 cm, 60 Inch) Height, Inches : 8 Inch(Converted to: 0 ft 8 Inch, 20.32 cm) Clinical Height : 172.72 cm Weight Source : Standing scale Weight Entry Format : Geary Clinical Dosing Weight : 219.09 kg Weight, Pounds : 482 lb Body Surface Area (BSA) : 2.97 m2 Body Mass Index : 73.4 kg/m2 (>HHI) Vida Body Weight : 63 kg Oanh Marmolejo RN-PATIENT CARE BEDSIDE NON-EXEMPT - 10/25/2020 10:34 EDT Health Histories Smoking Status : Former smoker, quit more than 30 days ago Smokeless Tobacco Status : Never Oanh Marmolejo RN-PATIENT CARE [facility] NON-EXEMPT - 10/25/2020 10:34 EDT Social [...] Chicken pox/Shingles Tuberculosis Symptoms : None Oanh Marmoeljo RN-PATIENT [facility] NON-EXEMPT - 10/25/2020 10:34 EDT COVID19 PreProcedure Screening Is this an Emergent or Add on Procedure? : No Date PreProcedure COVID-19 test known? : Yes Date of PreProcedure COVID-19 : 10/23/2020 EDT Has patient been isolated since the test : Yes Exposed to COVID19 symptoms since test? : No Oanh Marmolejo RN-PATIENT CARE [facility] NON-EXEMPT - 10/25/2020 10:34 EDT Anesthesia/Transfusion History Family History of Anesthesia Reaction : No prior transfusion(s) Transfusion History : Prior anesthesia without reaction Family History of Anesthesia Reaction : None Oanh Marmolejo RN-PATIENT CARE [facility] NON-EXEMPT - 10/25/2020 10:34 EDT Functional Assessment Living Situation : Home Current Home Treatments : None Oanh Marmolejo RN-PATIENT CARE [facility] NON-EXEMPT - 10/25/2020 10:34 EDT [place] Suicide Severity Rating Scale (C-SSRS) CSSRS Past Month Wish to be : No CSSRS Past Month Suicidal Thoughts : No CSSRS Lifetime Suicide Behavior : No Suicide Severity Rating Score : 0 Suicide Severity Rating : No Additional Care Required at this time Oanh Marmolejo RN-PATIENT CARE [facility] NON-EXEMPT - 10/25/2020 10:34 EDT Psychosocial [...] Marie Emergency Contact #1 Phone Number : [phone] Emergency Contact #1 Relationship : spouse Emergency Contact #2 : na Emergency Contact #2 Phone Number : na Emergency Contact #2 Relationship : na Primary Language : [place] Communication Barrier : None Electric Clock Mechanic Needed : No Oanh Marmolejo RN-PATIENT CARE [...] Yes Joy Gait/Transferring : Normal, bedrest, immobile Joy Mental Status : Oriented to own ability Joy Fall Risk Score : 20 JOY Fall Scale Risk Level : 0-24 Low Risk Cameron Fall Interventions : Adequate lighting, Assistive devices within reach, Call device within reach, Non-slip footwear, Upper side-rails up, Wheels locked Jaleel, Oanh, RN-PATIENT CARE BEDSIDE NON-EXEMPT - 10/25/2020 10:34 EDT Valuables and Belongings Valuables and Belongings : Clothing Clothing : Common streetwear Clothing Disposition : Bedside Oanh Marmolejo, RN-PATIENT CARE BEDSIDE NON-EXEMPT - 10/25/2020 10:34 EDT Electronically signed by Junaid [facility] Conversion Blowing Weasand Cerner at 07/21/2022 3:50 PM CDT documented in this encounter Plan of Treatment Not on file documented as of this encounter Visit Diagnoses Not on filedocumented in this encounter
--- OUTSIDE RECORDS SUMMARY | 2024-11-23 11:03 | XMS_ITS | Encounter Summary ---
Author Organization [employer] ([place], [place], [place], [place]) Address [address] [place] [address] Care Team Providers Care Installation Specialist Name Role Phone Unavailable Primary Care Provider Unavailabl e Encounter Details Date Type Department Care Team (Late st Contact Info) Description 10/25/2020 Transcribed Document [facility] [place] Family Medicine [address] [place] [address] ProviderMegan MD [address] [place] [address] Social History Tobacco Use Types [...] Megan ProviderMD - 10/25/2020 2:27 PM CDT [address] [address] PEDRO GIPSON :1985 Visit Time:10/25/2020 What to [...] in 7-10 days. Where: [address] [facility] [address] [place] [address]- Medications What How Much When Instructions Next [...] Follow these instructions at home: ??? Take zjmn-zbf-fzybcjy and prescription medicines only as told by [...] and water are not available, use hand automotive sales representative. ? Do not eat food or drink [...] provider. Document Revised: 07/13/2019 Document Reviewed: 03/15/2018 [employer] Patient Education ?? 2020 [employer]. Monitored Anesthesia Care, Care After These instructions [...] eating solid foods. General instructions ??? Take sbli-for-ckwwrlq and prescription medicines only as told by [...] provider. Document Revised: 06/20/2018 Document Reviewed: 07/12/2016 [employer] Patient Education ?? 2020 [employer] Emergency Awareness and Preventative Care STROKE [...] Assistance with quitting is available by contacting 1-133-BVTSNOW. This is a free resource providing counseling, support, and referral. Or you may contact your personal physician. [facility] Suicide Prevention Lifeline: The National Suicide Prevention [...] CPR? There are two easy steps: Call 9-1-1 if you see a teen or adult [...] range between ( 1.0 and 7.0 ) [place] #: 0.39 K/uL -- Normal range between ( 0.24 and 0.82 ) Eos #: 0.20 K/uL -- Normal range between ( 0.04 and 0.54 ) [place] %: 4.6 % -- Normal range between [...] between ( 4.8 and 13.9 ) Patient Name:GIPSONPEDRO I have received this information and was given the opportunity to ask questions. Patient/Construction Administrative Assistant Name: Patient/Construction Administrative Assistant Signature: Relationship to Patient: Clinician/Hospital Construction Administrative Assistant Signature: Date: documented in this encounter Plan of Treatment Not on file documented as of this encounter Visit Diagnoses Not on filedocumented in this encounter
--- OUTSIDE RECORDS SUMMARY | 2024-11-23 11:03 | XMS_ITS | Encounter Summary ---
Author Organization [employer] ([place], [place], [place], [place]) Address [address] [place] [address] Care Team Providers Care Flame Annealing Machine Setter Name Role Phone Unavailable Primary Care Provider Unavailabl e Encounter Details Date Type Department Care Team (Late st Contact Info) Description 10/25/2020 Transcribed Document [facility] [place] Medicine [address] [place] [address] ProviderMegan MD [address] [place] [address] Social History Tobacco Use Types [...] Finalized Date/Time: 10/25/20 10:51:25 Pt. Name: PEDRO MARIE /Sex: 1985 Female Med Rec #: [id number] Physician: RICO KHAN MD Financial #: [id number] Pt. Type: E Room/Bed: EEN/6 Admit/Disch: 10/25/20 10:03:00 - Institution: [facility] PreOp Case Times Entry 1 In Preop 10/25/20 10:24:00 Ready for Holding n/a Room Patient Ready for 10/25/20 10:51:00 Surgery Patient Out of Preop 10/25/20 10:51:00 Patient Out of n/a Holding Room [facility] PreOp Case Times Audit 10/25/20 10:51:23 Under Ground Miner: [id number] Modifier: [id number] <+> 1 Patient Out of Preop <+> 1 Patient Ready for Surgery Finalized By: Oanh Marmolejo RN-PATIENT CARE BEDSIDE NON-EXEMPT Document Signatures Signed By: Oanh Marmolejo RN-PATIENT CARE BEDSIDE NON-EXEMPT 10/25/20 10:51 documented in this encounter Plan of Treatment Not on file documented as of this encounter Visit Diagnoses Not on filedocumented in this encounter
--- OUTSIDE RECORDS SUMMARY | 2024-11-23 11:03 | XMS_ITS | Clinical Summary ---
Author Organization [employer] ([place], [place], [place], [place]) Address [address] [place] [address] Care Team Providers Care Java Developer Name Role Phone Unavailable Primary Care Provider [...]
--- OUTSIDE RECORDS SUMMARY | 2024-11-23 11:03 | XMS_ITS | Encounter Summary ---
Author Organization [employer] ([place], [place], [place], [place]) Address [address] [place] [address] Care Team Providers Care Engineering And Scientific Programmer Name Role Phone Unavailable Primary Care Provider Unavailabl e Encounter Details Date Type Department Care Team (Late st Contact Info) Description 10/25/2020 Transcribed Document [facility] Family Medicine [facility] [place] [address] ProviderMegan MD [address] [place] [address] Social History Tobacco Use Types [...] MD Finalized Date/Time: 10/25/20 17:12:36 Pt. Name: GIPSON PEDRO LENIN /Sex: 1985 Female Med Rec #: [id number] Physician: RICO KHAN MD Financial #: [id number] Pt. Type: E Room/Bed: [facility] Admit/Disch: 10/25/20 10:03:00 - Institution: [facility] - Case Attendance Entry 1 Entry 2 Entry 3 Case Attendee RICO KHAN MD RONAN, JENIFFER, MD JONES, EMILY, CRNA Role Performed Surgeon/Proceduralist, Anesthesiologist of TEST PILOT/Nurse Manager [employer] First Record Time In 10/25/20 13:57:00 10/25/20 [...] Attendee JUAN ALBERTO MEEKS RN House, Michelle, ADDICTIONS THERAPIST Role Performed Surveillance Systems Engineer, First Scrub, First Time In 10/25/20 13:57:00 10/25/20 13:57:00 Time Out 10/25/20 14:12:00 10/25/20 14:12:00 Procedure Esophagogastroduodenosco Esophagogastroduodenosco py, Gastric Biopsy py, Gastric Biopsy Other Attendee Superficial Wound Closed By: Last Modified By: JUAN ALBERTO MEEKS RN RIDINGS, JAROLINE, RN 10/25/20 17:11:44 10/25/20 17:11:44 [facility] - Case Attendance Audit 10/25/20 17:11:44 Sheetrock Applicator: [id number] Modifier: [id number] 1 <*> Procedure Esophagogastroduodenoscopy 2 <*> Procedure Esophagogastroduodenoscopy 3 <*> Procedure Esophagogastroduodenoscopy 4 <*> Procedure Esophagogastroduodenoscopy 5 <*> Procedure Esophagogastroduodenoscopy 10/25/20 17:06:51 Sheetrock Applicator: [id number] Modifier: [id number] <+> 1 Procedure 2 <+> Time In 2 <+> Time Out 2 <*> Procedure Esophagogastroduodenoscopy 3 <+> Time In 3 <+> Time Out 3 <*> Procedure Esophagogastroduodenoscopy 4 <+> Time In 4 <+> Time Out 4 <*> Procedure Esophagogastroduodenoscopy 5 <+> Time In 5 <+> Time Out 5 <*> Procedure Esophagogastroduodenoscopy 10/25/20 17:06:31 Sheetrock Applicator: [id number] Modifier: [id number] <+> 2 Case Attendee <+> 2 Role [...] Transport Stretcher/Gurney Via Patient Transport JUAN ALBERTO MEEKS RN, Accompanied by EMEKA KOEHLER CRNA Last Modified By: JUAN ALBERTO MEEKS RN 10/25/20 17:07:14 [facility] - Endoscopy Details Entry 1 Abdomen [...] By: JUAN ALBERTO MEEKS RN 10/25/20 17:09:08 [facility] Endo - Fire Risk Assessment Audit 10/25/20 17:09:08 Sheetrock Applicator: [id number] Modifier: [id number] <+> 1 Fire Risk Assessment Complete [facility] Endo - General Case Plaque Maker 1 Case Information OR Endo 01 [facility] Case Level 1 Room Verified Yes Wound [...] By: JUAN ALBERTO MEEKS RN 10/25/20 17:09:31 [facility] Endo - Patient Positioning Entry 1 Procedure Esophagogastroduodenosco py, Gastric Biopsy Body Position Lateral, right side up Left Arm Position Resting at side Right Arm Position Resting at side Left Leg Position Other Right Leg Position Other Position Comments Right leg over left leg uncrossed Feet Uncrossed Yes Pressure Points Yes Checked Positioned By JUAN ALBERTO MEEKS RN, EMEKA KOEHLER, MIGEL, Livier Mullen, ADDICTIONS THERAPIST Position Verified Positioning Yes Verified by Anesthesia Positioning Yes Verified by Surgeon Last Modified By: JUAN ALBERTO MEEKS RN 10/25/20 17:11:45 [facility] - Patient Positioning Audit 10/25/20 17:11:45 Sheetrock Applicator: [id number] Modifier: [id number] 1 <*> Procedure Esophagogastroduodenoscopy [facility] - [...] Endo - Sign Out Audit 10/25/20 17:10:19 Sheetrock Applicator: [id number] Modifier: [id number] 1 <*> RN Sign Out Signature Date/Time 10/25/20 17:09:00 [facility] - Surgical Procedures Entry 1 Entry [...] RIDINGS, JAROLINE, RN 10/25/20 17:07:38 10/25/20 17:11:43 [facility] Endo - Surgical Procedures Audit 10/25/20 17:11:43 Sheetrock Applicator: [id number] Modifier: [id number] <+> 2 Procedure <+> 2 Primary Procedure <+> 2 Primary Surgeon <+> 2 Specialty <+> 2 Start <+> 2 Stop <+> 2 Wound Class <+> 2 Anesthesia Type <+> 2 Additional Procedure Description [facility] Endo - Time Out Entry 1 Procedure [...] Endo - Time Out Audit 10/25/20 17:11:45 Sheetrock Applicator: [id number] Modifier: [id number] 1 <*> Procedure to be Performed Esophagogastroduodenoscopy 10/25/20 17:10:49 Sheetrock Applicator: [id number] Modifier: [id number] 1 <+> All activity suspended (unless life threatening emergency) 1 <*> Procedure to be Performed Esophagogastroduodenoscopy Case Comments <None> Finalized By: JUAN ALBERTO MEEKS RN Document Signatures Signed By: JUAN ALBERTO MEEKS RN 10/25/20 17:12 documented in this encounter Plan of Treatment Not on file documented as of this encounter Visit Diagnoses Not on filedocumented in this encounter
--- OUTSIDE RECORDS SUMMARY | 2024-11-23 11:03 | XMS_ITS | Encounter Summary ---
Author Organization [employer] ([place], [place], [place], [place]) Address [address] [place] [address] Care Team Providers Care Therapist Name Role Phone Unavailable Primary Care Provider Unavailabl e Encounter Details Date Type Department Care Team (Late st Contact Info) Description 10/25/2020 Transcribed Document [facility] [place] [facility] [place] [address] ProviderMegan MD [address] [place] [address] Social History Tobacco Use Types [...] MD Finalized Date/Time: 10/25/20 14:49:58 Pt. Name: PEDRO MARIE /Sex: 1985 Female Med Rec #: [id number] Physician: RICO KHAN MD Financial #: [id number] Pt. Type: E Room/Bed: [facility] Admit/Disch: 10/25/20 10:03:00 - Institution: [facility] PACU Case Times Entry 1 In PACU [...]
--- OUTSIDE RECORDS SUMMARY | 2024-11-23 11:04 | XMS_ITS | Clinical Summary ---
Author Organization [facility] Address [address] [place] [address] Care Team Providers Care Clean Up Helper Banquet Name Role Phone Unavailable Primary Care Provider [...] Date Last Done Comments [facility]-Depression Screening 1985 [facility]-Infant/Child/Adol SDOH Screenings 1985 [facility]-Varicella Vaccines (1 of 2 - 13+ 2-dose series) 06/15/1996 [facility]- SDOH Screenings 06/15/2001 [facility]-Adult SDOH Screenings 06/15/2001 [facility]-DTaP,Tdap,and Td Vaccines (1 - Tdap) 06/15/2002 [facility]-Hepatitis B Vaccines (1 of 3 - 19+ 3-dose series) 06/15/2002 [facility]-Pap Smear 06/15/2004 HPV Vaccines (1 - 3-dose SCDM series) 06/15/2010 [facility]-Cervical Cancer Screening 06/15/2013 [facility]-HPV/Cotest 06/15/2013 [id number] Vaccine (3 - season) 2023 02/08/2021, 06/12/2020 [facility]-Influenza Vaccine (#1) 2024 [facility]-Zoster Vaccines (1 of 2) 06/15/2033 [...] patient's age to complete this topic Insurance [facility]
--- OUTSIDE RECORDS SUMMARY | 2024-11-23 11:04 | XMS_ITS | Encounter Summary ---
Author Organization [email or web address] ([place], [place], [place], [place]) Address [address] [place] [address] Care Team Providers Care Cyber Reverse Engineer Name Role Phone Unavailable Primary Care Provider Unavailabl e Encounter Details Date Type Department Care Team (Late st Contact Info) Description 10/25/2020 Transcribed Document [facility] Family Medicine [facility] [place] [address] ProviderMegan MD [address] [place] [address] Social History Tobacco Use Types [...] Follow these instructions at home: ??? Take gicr-vda-yysrlbf and prescription medicines only as told by [...] and water are not available, use hand ict sales assistant. ? Do not eat food or drink [...] provider. Document Revised: 07/13/2019 Document Reviewed: 03/15/2018 [employer] Patient Education ? 2020 [employer]. Obstetrics and Gynecology Monitored Anesthesia Care, Care [...] eating solid foods. General instructions ??? Take olbl-kcz-rgesrqk and prescription medicines only as told by [...] provider. Document Revised: 06/20/2018 Document Reviewed: 07/12/2016 [employer] Patient Education ? 2020 [employer] documented in this encounter Plan of Treatment Not on file documented as of this encounter Visit Diagnoses Not on filedocumented in this encounter
--- OUTSIDE RECORDS SUMMARY | 2024-11-23 11:04 | XMS_ITS | Referral Summary ---
Author Organization [employer] ([place], [place], [place], [place]) Address [address] [place] [address] Care Team Providers Care Operational Test Mechanic Name Role Phone Unavailable Primary Care [...]
--- OUTSIDE RECORDS SUMMARY | 2024-11-23 11:04 | XMS_ITS | Patient Health Record ---
Author Organization [facility] Address [address] [place] [address] Care Team Providers Care Engineering Mechanic Name Role Phone Makayla Delvalle Unavailable [phone] Allergies Allergen (clinical drug ingredient) Drug/Non Drug Allergy documented on EMR Reaction Allergy Type Onset Date Status BAND-AIDS (uncoded) Unspecified Allergy 07/10/19 10 Active PENICILLIN V POTASSIUM (PENICILLIN V POTASSIUM TAB Unspecified Drug Allergy 07/09/2009 Active Reason For Referral No Information Social History Social History Sexual History: Social Info Question Answer Notes Sexual History Had sex in the past 12 months (vaginal, oral, or anal)? Yes Drugs/Alcohol: Social Info Question Answer Notes Drugs Have you used drugs other than those for medical reasons in the past 12 months? No Alcohol Screen Did you have a drink containing alcohol in the past year? Yes Points 0 Interpretation Negative Tobacco Use: Social Info Question Answer Notes Tobacco Use/Smoking Are you a former smoker Tobacco use other than smoking: Are you an other tobac co user? No Problems Problem Type SNOMED Code ICD Code Onset Dates Problem Status W/U Status Risk Notes Problem Polycystic bilateral ovaries (disorder) (393208459) Bilateral polycystic ovarian syndrome (E28.2) 07/10/19 10 Active confirmed POLYCYSTIC OVARIAN DISEASE Problem Adult health examination (224499291) Adult general medical exam (Z00.00) 07/10/19 10 Active confirmed ANNUAL EXAM Plan Of Treatment No Information Medical (General) History Medical History History ICD Code SOCIAL HX: Negative. SOCIAL HX: Negative. Ovarian cysts Yeast infections Obesity UTIs SPIRONOLACTONE 100 MG ORAL TABLET ZYRTEC ALLERGY TABLET PROMETRIUM 200 MG ORAL CAPSULE Surgical History Surgery Date(Month/Year) D&C (08/2008), Hernia repair (1989)
--- OUTSIDE RECORDS SUMMARY | 2024-11-23 11:05 | XMS_ITS | Patient Health Record ---
Author Organization [facility] Address [address] [place] [id number] Care Team Providers Care Associate Agent Insurance Sales Name Role Phone Bud Renteria Primary Care Provider Taz Ward Unavailable [phone] Allergies Allergen (clinical drug ingredient) Drug/Non Drug [...] HCl 100 mg 1 tablet Orally On a day; Duration: 90 days Pt needs appt Active Estradiol 0.1 MG/24HR 1 patch to skin Transdermal; Duration: 30 day(s) Active CBD OIL ORALLY Active Omeprazole 20 MG 1 cap(s) orally Two times a day Active Propranolol HCl 20 MG 1 tablet Orally 2 times a day; Duration: 90 days 11/16/2022 Active dexAMETHasone 2 MG 1 tablet Orally Two times a day; Duration: 5 day(s) 07/14/2024 Active Immunizations Vaccine Route Administration Date Status Comme nts tuberculin (ppd) ID Intradermal 08/01/2008 Administered COVID 19 Peter Unknown 06/12/2020 Administered COVID 19 Peter Unknown 02/08/2021 Administered Problems Problem Type SNOMED Code ICD Code Onset Dates Problem Status W/U Status Risk Notes Problem Gastroesophageal reflux disease (886768367) GERD (gastroesophage al reflux disease) (K21.9) Active confirmed Problem Morbid obesity (156801346) Morbid obesity (E66.01) Active confirmed Problem Mixed anxiety and depressive disorder (017067725) Depression with anxiety (F41.8) Active confirmed Problem 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, 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) Active confirmed Problem Mood disorder (96042300) Mood disorder (F39) Active confirmed Problem Panic disorder (423316715) Panic disorder (F41.0) Active confirmed Problem Sciatica (30071915) Right sided sciatica (M54.31) Active confirmed Problem Adjustment disorder with anxious mood (79735547) Adjustment disorder with anxious mood (F43.22) Active confirmed Problem 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) PVC (premature ventricular contraction) (I49.3) Active confirmed Problem Sciatica (35857743) Acute bilate ral low back pain with right-sided sciatica (M54.41) Active confirmed Problem Panic attack (374562990) Panic attack (F41.0) Active confirmed Problem Chronic rhinitis (91664508) Rhinitis, unspecified type (J31.0) Active confirmed Problem 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) Active confirmed Problem Irritable bowel syndrome (83607125) Irritable bowel syndrome, unspecified type (K58.9) Active confirmed Problem Arthritis of right knee (9330065963255558) Arthritis of right knee (M17.11) Active confirmed Problem History of bariatric surgical procedure (835884262) S/P bariatric surgery (Z98.84) Active confirmed Problem Primary hypertension (56247438) Primary hypertension (I10) Active confirmed Vital Signs Heart Rate 89 /min 07/14/2024 Blood pressure diastolic 80 mm Hg 07/14/2024 Height 68 in 07/14/2024 Blood pressure systolic 138 mm Hg 07/14/2024 Weight 341 lbs 07/14/2024 BMI 51.84 kg/m2 07/14/2024 Encounters Encounter Location Date Provider Diagnosis [facility] [address] [place] [id number] 07/14/2024 [facility] [place] Nasal congestion R09 .81 and Panic disorder [...] Insured Coverage Start Date Coverage End Date [facility] [address] [place] [address] [id number] CRISTIAN MARIE Self - patient is the insured Medical (General) History Medical History History ICD Code Polycystic Ovary Syndrome Hypertension Depression Esophageal Reflux Surgical History Surgery Date(Month/Year) Hernia Repair 1987 Oral Surgery D&C 08/2008 Cholecystectomy 2012 Hospitalization History Reason Date(Month/Year) Fell Down Stairs- [facility] 08/2015 Anxiety- [facility] 07/17/2016 Panic Attack- [facility] 01/2017 Fall- [facility] 06/04/2020 Palpitations, Hypertension- [facility] 06/21/2020
--- OUTSIDE RECORDS SUMMARY | 2024-11-23 11:05 | XMS_ITS | Clinical Summary ---
Author Organization [facility] Address [address] [place] [address] Care Team Providers Care Industrial Gas Servicer Name Role Phone Taz Ward MD Primary Care Provider + [phone] Allergies Active Allergy Reactions Criticality Noted Date Comments Penicillins Other (See Comments) 12/06/2022 UNKNOWN Active Problems Problem Noted Date Diagnosed Date Palpitations 08/30/2023 Essential hypertension 08/30/2023 Social History Tobacco Use Types Packs/Day Years Used Date Smoking Tobacco: Never Assessed Abuse Screen Answer Date Recorded Unsafe at Home or Work/School Not on file Feels Threatened by Someone? Not on file 02/2024 Does Anyone Keep You from Co ntacting Others or Doint Things Outside the Home? Not on file 12/15/2023 Physical Sign of Abuse Present Not on file 0 12/15/2023 Housing Stability Answer Date Recorded Current Living Arrangements Not on file 01/03 Potentially Unsafe Housing Conditions Not on isela e 01/15/2023 Family and Community Support Answer Arnulfo e Recorded Help with Day-to-Day Activities Not on file 01/15/2023 Lonely or Isolated Not on file 01/15/2023 Employment Answer Date Recorded Do you want help finding or keeping work or a chary b? Not on file 01/15/2023 Disabilities Answer Date Recorded Concentrating, Remembering, or Making Decisions Difficulty Not on file 01/15/2023 Doing Errands Independently Difficulty Not on fi le 01/15/2023 Education Answer Date Recorded Help with school or training? Not on file Preferred Language Not on file 01/15/2023 Comments No Sex and Gender Information Value Date Recorded Sex Assigned at Not on file Legal Sex Female 6:56 PM EDT Gender Identity Not on file Sexual Orientation Not on file Last Filed Vital Signs Vital Sign Reading Time Taken Comments Blood Pressure 136/92 12/06/2022 6:56 PM EDT Pulse 63 12/06/2022 6:56 PM EDT Temperature 37 C (98.6 F) 12/06/2022 6:56 PM EDT Respiratory Rate 16 12/06/2022 6:56 PM EDT Oxygen Saturation 98% 12/06/2022 6:56 PM EDT Inhaled Oxygen Concentration - - Weight 145 kg (320 lb) 12/06/2022 6:56 PM EDT Height 172.7 cm (5' 8 ) 12/06/2022 6:56 PM EDT Body Mass Index 48.66 12/06/2022 6:56 PM EDT Plan of Treatment Health Maintenance Due Date Last Done Comments Annual Gynecologic Pelvic an d Breast Exam 1983 TDAP/TD VACCINES (1 - Tdap) 06/15/2002 ANNUAL PHYSICAL 06/09/2023 HEPATITIS C SCREENING 06/09/2023 MAMMOGRAM 2023 COVID-19 Vaccine (3 - 2023-2 5 season) 2023 02/08/2021, 06/12/2020 INFLUENZA VACCINE 01/03/2025 Pneumococcal Vaccine 0-49 Aged Out No longer eligible based on patient's age to complete this topic Insurance [facility] Care Teams Industrial Gas Servicer Relationship Specialty Start Date End Date Taz Ward MD [address] [place] [address] PCP - General Family Medicine 12/06/22
--- OUTSIDE RECORDS SUMMARY | 2024-11-23 11:05 | XMS_ITS | Patient Health Record ---
Author Organization [facility] Address [address] [place] [address] Care Team Providers Care Fisher Mussel Name Role Phone Charles Wheat Unavailable [phone] Reason For Referral No Information Plan Of Treatment No Information Insurance Providers Payer Name Payer Address Payer Phone Subscriber Number Group Number Insured Name Patient Relationship to Insured Coverage Start Date Coverage End Date [facility] [address] [place] [address] [id number] Pedro Marie Self - patient is the insured
== END 2024-11-22 23:59 | disposition home or self-care (01) ==
LOC: LAB.DROPOF 11-23 11:00
PROVIDERS: PCP Nurse Practitioner Family; Visit Provider Nurse Practitioner Family
DX: J06.9 Acute upper respiratory infection, unspecified (principal)
CPT/HCPCS: 87631

== ENCOUNTER 2025-03-13 10:37 | Outpatient (CLI) | payer BC, SELFPAY ==
--- NOTE | 2025-03-13 10:42 | XR_ITS ---
FINAL REPORT CLINICAL HISTORY: right ankle pain since November FINDINGS: RIGHT ANKLE 3 views of the right ankle were obtained. There is no acute fracture or dislocation. The mortise is intact. Visualized joint spaces are normally aligned. There is a large plantar spur. Soft tissues are unremarkable. IMPRESSION: No acute bony abnormality. Reviewed, Interpreted and Dictated by Amilcar De La Rosa MD Transcribed by Luda Zheng Authenticated and [facility]
== END 2025-03-13 23:59 ==
LOC: RAD 10:38
PROVIDERS: PCP Family Medicine; Visit Provider Student in an Organized Health Care Education/Training Program
DX: M25.571 Pain in right ankle and joints of right foot (principal); M77.31 Calcaneal spur, right foot
CPT/HCPCS: 73610